=== PATIENT | male | born 1960 | race Caucasian/White ===

== ENCOUNTER → 2020-04-07 08:17 | Outpatient (BNVA) | payer MEDICARE, MEDICAID, SELFPAY | PROVIDERS: PCP Physician Assistant; Visit Provider Family Medicine Adult Medicine | DX: M54.16 Radiculopathy, lumbar region (principal) | CPT/HCPCS: 99212 ==

== ENCOUNTER 2020-04-18 16:17 | Outpatient (REF) | payer OTHER, SELFPAY | END 2020-04-18 16:18 | disposition home or self-care (01) | LOC: HO.LAB 16:17 | PROVIDERS: Visit Provider Internal Medicine | DX: Z20.828 Contact with and (suspected) exposure to other viral communicable diseases (principal) | CPT/HCPCS: 36415; C9803; U0003 ==

== ENCOUNTER → 2020-05-17 13:29 | Outpatient (BNVA) | payer OTHER, MEDICARE, SELFPAY | PROVIDERS: PCP Physician Assistant; Visit Provider Family Medicine Adult Medicine | DX: M54.16 Radiculopathy, lumbar region (principal); Z79.899 Other long term (current) drug therapy | CPT/HCPCS: 99212 ==

== ENCOUNTER 2020-06-14 15:04 | Outpatient (REF) | payer OTHER, SELFPAY ==
[2020-06-14 16:39] LABS: Estimated Average Glucose 103 mg/dL; Hemoglobin A1c % 5.2 %
[2020-06-14 16:54] LABS: Alanine Aminotransferase 8 U/L (0-40); Alkaline Phosphatase 59 U/L (39-117); Anion Gap 14 (12-20); Aspartate Amino Transferase 11 U/L (5-37); Bilirubin Total 0.6 mg/dL (0.0-1.0); Blood Urea Nitrogen 18 mg/dL (9-16); Calcium 8.4 mg/dL (8.4-10.2); Carbon Dioxide 25 mmol/L (22-29); Chloride 108 mmol/L (96-108); Cholesterol 120 mg/dL; Estimated Glomerular Filt Rate > 60; Glucose Fasting 77 mg/dL (60-99); HDL Cholesterol 37 mg/dL; LDL Cholesterol Calculated 67 mg/dl; Potassium 4.6 mmol/L (3.3-5.1); Sodium 142 mmol/L (135-145); Total Protein 6.6 g/dL (6.5-8.0); Triglycerides 84 mg/dL
[2020-06-14 16:56] LABS: Amphetamine Screen Urine Not Detected (Not Detect); Barbiturates, Urine Not Detected (Not Detect); Benzodiazepines Screen Urine Not Detected (Not Detect); Cannabinoid Screen Urine POSITIVE (Not Detect); Cocaine Screen Urine Not Detected (Not Detect); Opiate Screen Urine Not Detected (Not Detect); Phencyclidine Screen Urine Not Detected (Not Detect)
[2020-06-14 17:16] LABS: Prostate Specific Antigen Scr 0.24 ng/mL (<0.05-4.0); TSH reflex Free T4 0.71 uIU/mL (0.32-4.0)
== END 2020-06-14 15:05 | disposition home or self-care (01) ==
LOC: HO.HMGCLDS 15:04
PROVIDERS: PCP Physician Assistant; Visit Provider Physician Assistant
DX: E78.5 Hyperlipidemia, unspecified (principal); F11.20 Opioid dependence, uncomplicated; E66.9 Obesity, unspecified; Z68.32 Body mass index [BMI] 32.0-32.9, adult; N40.0 Benign prostatic hyperplasia without lower urinary tract symptoms; Z12.5 Encounter for screening for malignant neoplasm of prostate
CPT/HCPCS: 80053; 80061; 80307; 83036; 84153; 84443

== ENCOUNTER → 2020-06-28 13:54 | Outpatient (BNVA) | payer OTHER, SELFPAY | PROVIDERS: PCP Physician Assistant; Visit Provider Family Medicine Adult Medicine | DX: M54.16 Radiculopathy, lumbar region (principal); Z79.899 Other long term (current) drug therapy | CPT/HCPCS: 99212 ==

== ENCOUNTER → 2020-07-26 14:33 | Outpatient (BNVA) | payer OTHER, SELFPAY | PROVIDERS: PCP Physician Assistant; Visit Provider Family Medicine Adult Medicine | DX: M54.16 Radiculopathy, lumbar region (principal) | CPT/HCPCS: 99212 ==

== ENCOUNTER → 2020-08-23 09:33 | Outpatient (BNVA) | payer OTHER, SELFPAY | PROVIDERS: PCP Physician Assistant; Visit Provider Family Medicine Adult Medicine | DX: M54.16 Radiculopathy, lumbar region (principal) | CPT/HCPCS: 99212 ==

== ENCOUNTER → 2020-09-20 09:31 | Outpatient (BNVA) | payer OTHER, SELFPAY | PROVIDERS: PCP Physician Assistant; Visit Provider Nurse Practitioner Family | DX: M54.16 Radiculopathy, lumbar region (principal) | CPT/HCPCS: 99212 ==

== ENCOUNTER 2020-09-22 09:11 | Outpatient (REF) | payer OTHER, SELFPAY ==
[2020-09-22 10:47] LABS: Glucose Urine UA NEG (NEG); Leukocyte Esterase Urine NEG (NEG); Nitrite Urine NEG (NEG); PH 5.5 (5.0-8.0); Specific Gravity - Urine >= 1.030 (1.005-1.025); Urine Blood NEG (NEG); Urine Ketones NEG (NEG); Urine Protein 1+ MG/DL (NEG-TRACE)
[2020-09-22 10:51] LABS: Appearance Urine HAZY; Color Urine YELLOW
[2020-09-22 11:03] LABS: WBC Urine 0-2 /HPF (0-4)
[2020-09-22 11:04] LABS: Hyaline Casts Urine 0-2 /LPF; Mucus Urine 3+ /LPF; RBC Urine 0-2 /HPF (0)
== END 2020-09-22 09:12 | disposition home or self-care (01) ==
LOC: HO.LAB 09:11
PROVIDERS: PCP Physician Assistant; Visit Provider Physician Assistant
DX: R30.0 Dysuria (principal); N40.0 Benign prostatic hyperplasia without lower urinary tract symptoms
CPT/HCPCS: 81001

== ENCOUNTER → 2020-10-18 14:32 | Outpatient (BNVA) | payer OTHER, SELFPAY | PROVIDERS: PCP Physician Assistant; Visit Provider Family Medicine Adult Medicine | DX: M54.16 Radiculopathy, lumbar region (principal) | CPT/HCPCS: 99212 ==

== ENCOUNTER → 2020-11-15 14:25 | Outpatient (BNVA) | payer OTHER, SELFPAY | PROVIDERS: PCP Physician Assistant; Visit Provider Family Medicine Adult Medicine | DX: M54.16 Radiculopathy, lumbar region (principal) | CPT/HCPCS: 99212 ==

== ENCOUNTER → 2020-12-16 08:20 | Outpatient (BNVA) | payer OTHER, SELFPAY | PROVIDERS: PCP Physician Assistant; Visit Provider Nurse Practitioner Family | DX: M54.16 Radiculopathy, lumbar region (principal) | CPT/HCPCS: 99212 ==

== ENCOUNTER → 2021-01-17 09:47 | Outpatient (BNVA) | payer OTHER, SELFPAY | PROVIDERS: PCP Physician Assistant; Visit Provider Family Medicine Adult Medicine | DX: Z51.81 Encounter for therapeutic drug level monitoring (principal); M54.16 Radiculopathy, lumbar region; M47.816 Spondylosis without myelopathy or radiculopathy, lumbar region; Z96.652 Presence of left artificial knee joint | CPT/HCPCS: Q3014 ==

== ENCOUNTER → 2021-01-18 15:17 | Outpatient (BNVA) | payer OTHER, SELFPAY | PROVIDERS: PCP Physician Assistant; Visit Provider Urology | DX: N40.1 Benign prostatic hyperplasia with lower urinary tract symptoms (principal); R35.1 Nocturia | CPT/HCPCS: 51798; 99202 ==

== ENCOUNTER → 2021-02-08 14:57 | Outpatient (BNVA) | payer OTHER, SELFPAY | PROVIDERS: PCP Physician Assistant; Visit Provider Anesthesiology | DX: M54.16 Radiculopathy, lumbar region (principal); M47.816 Spondylosis without myelopathy or radiculopathy, lumbar region | CPT/HCPCS: 99212 ==

== ENCOUNTER → 2021-02-14 09:54 | Outpatient (BNVA) | payer OTHER, SELFPAY | PROVIDERS: PCP Physician Assistant; Visit Provider Family Medicine Adult Medicine | DX: Z51.81 Encounter for therapeutic drug level monitoring (principal); M54.16 Radiculopathy, lumbar region; M47.816 Spondylosis without myelopathy or radiculopathy, lumbar region; Z96.652 Presence of left artificial knee joint | CPT/HCPCS: Q3014 ==

== ENCOUNTER 2021-03-02 07:38 | Outpatient (REF) | payer OTHER, SELFPAY ==
--- NOTE | ~2021-03-02 | MR_ITS ---
EXAMINATION: MR LUMBAR SPINE WITHOUT CONTRAST CLINICAL INFORMATION: Spondylosis without myelopathy or radiculopathy. COMPARISON: None TECHNIQUE: MRI of the lumbar spine was obtained using routine sequences without contrast. FINDINGS: The lumbar vertebral bodies maintain normal heights. There is mild retrolisthesis of L3 on L4 and mild anterolisthesis of L5 on S1. No moderate or severe disc height loss is seen. The distal spinal cord appears normal. The conus medullaris terminates normally at the L1 level. The visualized paraspinal muscles and intra-abdominal and pelvic contents are within normal limits. SPINAL LEVELS: L1-L2: No posterior disc abnormality. No spinal canal or neural foraminal stenosis. L2-L3: Mild disc bulging. Mild facet arthropathy. Mild narrowing of the left neural foramen. No spinal canal stenosis. L3-L4: Disc bulging with moderate facet arthropathy. No spinal canal or neural foraminal stenosis. L4-L5: Disc bulging with severe facet arthropathy and ligamentum flavum infolding resulting in mild narrowing of the left subarticular zone. No significant spinal canal stenosis. Mild right neural foraminal stenosis. L5-S1: Disc bulging with severe facet arthropathy. Small right-sided synovial facet cyst with encroachment on the right subarticular zone. Right foraminal annular fissuring. No spinal canal stenosis. Mild bilateral neural foraminal stenosis. MR/MR lumbar spine wo con IMPRESSION: Multilevel degenerative spondylotic changes without significant narrowing of the spinal canal. Severe facet arthropathy is seen at L4-L5 and L5-S1. No definite nerve root compression is seen.
== END 2021-03-02 07:39 | disposition home or self-care (01) ==
LOC: HO.MRI 07:38
PROVIDERS: PCP Physician Assistant; Visit Provider Anesthesiology
DX: M47.816 Spondylosis without myelopathy or radiculopathy, lumbar region (principal)
CPT/HCPCS: 72148

== ENCOUNTER → 2021-03-17 14:58 | Outpatient (BNVA) | payer OTHER, SELFPAY | PROVIDERS: PCP Physician Assistant; Visit Provider Urology | DX: R35.1 Nocturia (principal) | CPT/HCPCS: 52000; 99212 ==

== ENCOUNTER → 2021-03-21 09:48 | Outpatient (BNVA) | payer OTHER, SELFPAY | PROVIDERS: PCP Physician Assistant; Visit Provider Family Medicine Adult Medicine | DX: M54.16 Radiculopathy, lumbar region (principal); M47.816 Spondylosis without myelopathy or radiculopathy, lumbar region; Z96.652 Presence of left artificial knee joint ==

== ENCOUNTER → 2021-04-05 15:49 | Outpatient (BNVA) | payer OTHER, SELFPAY | PROVIDERS: PCP Physician Assistant; Visit Provider Anesthesiology | DX: M54.16 Radiculopathy, lumbar region (principal); M47.816 Spondylosis without myelopathy or radiculopathy, lumbar region | CPT/HCPCS: 99212 ==

== ENCOUNTER 2021-04-20 08:08 | Outpatient (REF) | payer OTHER, SELFPAY ==
--- NOTE | ~2021-04-20 | XR_ITS ---
EXAMINATION: XR BILATERAL HIPS WITH AP PELVIS CLINICAL INFORMATION: Pain in the right hip COMPARISON: 12/24/2018 TECHNIQUE: AP and frog-leg lateral views of each hip and an AP view of the pelvis. FINDINGS: No fracture or dislocation. The hips are well aligned. Mild degenerative changes on the right with narrowing and sclerosis. This is similar to prior. The pelvic rim is intact. The sacroiliac joints and pubic symphysis are intact. Degenerative changes at the lower lumbar spine. XR/XR hip BI w PEL1V IMPRESSION: Mild degenerative changes of the right hip.
== END 2021-04-20 08:09 | disposition home or self-care (01) ==
LOC: HO.XRAY 08:08
PROVIDERS: PCP Physician Assistant; Visit Provider Nurse Practitioner Family
DX: M54.16 Radiculopathy, lumbar region (principal); M47.816 Spondylosis without myelopathy or radiculopathy, lumbar region; M25.551 Pain in right hip; M25.552 Pain in left hip; M53.3 Sacrococcygeal disorders, not elsewhere classified; Z79.899 Other long term (current) drug therapy
CPT/HCPCS: 73521; 99212

== ENCOUNTER 2021-05-11 15:05 | Outpatient (REF) | payer OTHER, SELFPAY ==
[2021-05-11 15:28] LABS: Hematocrit 39.3 % (42.0-52.0); Hemoglobin 12.5 g/dl (14.0-18.0); Mean Corpuscular HGB Conc 31.8 g/dl (31.0-36.0); Mean Corpuscular Hemoglobin 29.5 pg (27.0-33.0); Mean Corpuscular Volume 92.7 fL (80.0-98.0); Mean Platelet Volume 9.1 fL (9.4-12.4); Platelet Count 262 X10*3/uL (160-400); Red Blood Count 4.24 X10*6/uL (4.60-5.80); Red Cell Distribution Width 13.2 % (11.0-16.0); White Blood Count 8.1 X10*3/uL (4.8-10.8)
[2021-05-11 16:09] LABS: Estimated Average Glucose 105 mg/dL; Hemoglobin A1c % 5.3 %
[2021-05-11 16:22] LABS: Alanine Aminotransferase 15 U/L (0-40); Albumin Level 3.9 g/dL (3.5-5.0); Alkaline Phosphatase 62 U/L (39-117); Anion Gap 9 (12-20); Aspartate Amino Transferase 13 U/L (5-37); Bilirubin Total 0.4 mg/dL (0.0-1.0); Blood Urea Nitrogen 14 mg/dL (9-16); Calcium 9.1 mg/dL (8.4-10.2); Carbon Dioxide 26 mmol/L (22-29); Chloride 106 mmol/L (96-108); Cholesterol 134 mg/dL; Estimated Glomerular Filt Rate > 60; Glucose Fasting 71 mg/dL (60-99); HDL Cholesterol 38 mg/dL; LDL Cholesterol Calculated 80 mg/dl; Potassium 4.4 mmol/L (3.3-5.1); Sodium 137 mmol/L (135-145); Total Protein 6.7 g/dL (6.5-8.0); Triglycerides 81 mg/dL
[2021-05-11 16:39] LABS: TSH reflex Free T4 1.46 uIU/mL (0.32-4.0)
== END 2021-05-11 15:06 | disposition home or self-care (01) ==
LOC: HO.LAB 15:05
PROVIDERS: PCP Physician Assistant; Visit Provider Physician Assistant
DX: E78.1 Pure hyperglyceridemia (principal)
CPT/HCPCS: 36415; 80053; 80061; 83036; 84443; 85027

== ENCOUNTER → 2021-05-18 13:26 | Outpatient (REF) | payer OTHER, SELFPAY ==
--- NOTE | 2021-05-18 14:37 | ECG_ITS ---
Test Reason : opioid dependency Blood Pressure : / mmHG Vent. Rate : 083 BPM Atrial Rate : 083 BPM P-R Int : 146 ms QRS Dur : 088 ms QT Int : 352 ms P-R-T Axes : 010 029 060 degrees QTc Int : 413 ms Normal sinus rhythm Normal ECG When compared with ECG of 05-NOV-2017 13:16, No significant change was found Referred By: Chuyita Vides Electronically Signed By:VARSHA BRADFORD
== END ==
LOC: HO.CARD 13:26
PROVIDERS: PCP Physician Assistant; Visit Provider Nurse Practitioner Family
DX: F11.20 Opioid dependence, uncomplicated (principal); Z79.899 Other long term (current) drug therapy
CPT/HCPCS: 93005; 99212

== ENCOUNTER → 2021-06-15 13:33 | Outpatient (BNVA) | payer OTHER, SELFPAY | PROVIDERS: PCP Physician Assistant; Visit Provider Nurse Practitioner Family | DX: Z51.81 Encounter for therapeutic drug level monitoring (principal); F11.20 Opioid dependence, uncomplicated; M53.3 Sacrococcygeal disorders, not elsewhere classified; M25.551 Pain in right hip; M25.552 Pain in left hip; M47.816 Spondylosis without myelopathy or radiculopathy, lumbar region; M54.16 Radiculopathy, lumbar region; M96.1 Postlaminectomy syndrome, not elsewhere classified | CPT/HCPCS: 99212 ==

== ENCOUNTER 2021-06-28 06:09 | Outpatient (REF) | payer OTHER, SELFPAY ==
--- NOTE | ~2021-06-28 | FL_ITS ---
EXAMINATION: XR FLUOROSCOPY WITH IMAGES CLINICAL INFORMATION: Right hip pain. COMPARISON: None. TECHNIQUE: Fluoroscopy performed by Chuyita Vides. Fluoroscopy time: 0.5 minutes DAP: 2.8 Gycm2 Images: 2 FINDINGS: Images demonstrate needle placement and contrast injection of the right hip joint. FL/FL guidance in treatment room IMPRESSION: Fluoroscopy guidance for pain management procedure.
== END 2021-06-28 06:10 | disposition home or self-care (01) ==
LOC: HO.RADIR 06:09
PROVIDERS: Visit Provider Internal Medicine
DX: M25.551 Pain in right hip (principal); M25.552 Pain in left hip; Z87.891 Personal history of nicotine dependence
CPT/HCPCS: 20610; J1040; J3300; Q9967

== ENCOUNTER → 2021-07-14 13:33 | Outpatient (BNVA) | payer OTHER, SELFPAY | PROVIDERS: PCP Physician Assistant; Visit Provider Nurse Practitioner Family | DX: M53.3 Sacrococcygeal disorders, not elsewhere classified (principal); M25.551 Pain in right hip; M25.552 Pain in left hip; M47.816 Spondylosis without myelopathy or radiculopathy, lumbar region; M96.1 Postlaminectomy syndrome, not elsewhere classified; Z79.899 Other long term (current) drug therapy | CPT/HCPCS: 99212 ==

== ENCOUNTER → 2021-08-11 08:44 | Outpatient (BNVA) | payer OTHER, SELFPAY | PROVIDERS: PCP Physician Assistant; Visit Provider Nurse Practitioner Family | DX: M53.3 Sacrococcygeal disorders, not elsewhere classified (principal); M25.551 Pain in right hip; M25.552 Pain in left hip; M47.26 Other spondylosis with radiculopathy, lumbar region; M96.1 Postlaminectomy syndrome, not elsewhere classified; Z79.891 Long term (current) use of opiate analgesic | CPT/HCPCS: 99212 ==

== ENCOUNTER → 2021-09-12 11:22 | Outpatient (BNVA) | payer OTHER, SELFPAY | PROVIDERS: PCP Physician Assistant; Visit Provider Anesthesiology | DX: Z51.81 Encounter for therapeutic drug level monitoring (principal); Z79.899 Other long term (current) drug therapy | CPT/HCPCS: 99211 ==

== ENCOUNTER → 2021-09-15 15:42 | Outpatient (BNVA) | payer OTHER, SELFPAY | PROVIDERS: PCP Physician Assistant; Visit Provider Urology | DX: N40.1 Benign prostatic hyperplasia with lower urinary tract symptoms (principal); R33.8 Other retention of urine | CPT/HCPCS: 51798; 99212 ==

== ENCOUNTER → 2021-10-10 15:31 | Outpatient (BNVA) | payer OTHER, SELFPAY | PROVIDERS: PCP Physician Assistant; Visit Provider Nurse Practitioner Family | DX: Z51.81 Encounter for therapeutic drug level monitoring (principal); F11.20 Opioid dependence, uncomplicated; M47.816 Spondylosis without myelopathy or radiculopathy, lumbar region; M96.1 Postlaminectomy syndrome, not elsewhere classified; M54.16 Radiculopathy, lumbar region; M53.3 Sacrococcygeal disorders, not elsewhere classified; M25.551 Pain in right hip; M25.552 Pain in left hip | CPT/HCPCS: 99212 ==

== ENCOUNTER → 2021-11-14 15:26 | Outpatient (BNVA) | payer OTHER, SELFPAY | PROVIDERS: PCP Physician Assistant; Visit Provider Nurse Practitioner Family | DX: M47.816 Spondylosis without myelopathy or radiculopathy, lumbar region (principal); M96.1 Postlaminectomy syndrome, not elsewhere classified; M54.16 Radiculopathy, lumbar region; M53.3 Sacrococcygeal disorders, not elsewhere classified; M25.551 Pain in right hip; M25.552 Pain in left hip; Z79.891 Long term (current) use of opiate analgesic | CPT/HCPCS: 99212 ==

== ENCOUNTER 2021-12-12 15:16 | Outpatient (REF) | payer OTHER, SELFPAY ==
--- NOTE | ~2021-12-12 | XR_ITS ---
EXAMINATION: XR LUMBOSACRAL SPINE INCLUDING OBLIQUES, FLEXION, AND EXTENSION CLINICAL INFORMATION: Spondylosis without myelopathy or radiculopathy COMPARISON: None TECHNIQUE: Bilateral oblique AP and lateral views of the lumbar spine with an additional coned down lateral spot view of the lumbosacral junction. Lateral views were obtained in flexion, extension, as well as neutral position. FINDINGS: 5 non-rib bearing lumbar type vertebral bodies are seen. Minimal grade 1 anterolisthesis of L4 on L5 and L5 on S1, unchanged with flexion or extension. Vertebral body heights are maintained. There is multilevel endplate sclerosis and anterior osteophytosis particularly in the superior endplates of T11-L2. No compression fracture seen. Posterior elements are intact. Moderate to severe lower lumbar facet arthropathy most notable at L5-S1. XR/XR lumbar spine 6V w bending IMPRESSION: Multilevel degenerative changes as described above. Minimal grade 1 anterolisthesis at L4-L5 and L5-S1 is unchanged with flexion or extension.
== END 2021-12-12 15:17 | disposition home or self-care (01) ==
LOC: HO.XRAY 15:16
PROVIDERS: PCP Physician Assistant; Visit Provider Nurse Practitioner Family
DX: M47.816 Spondylosis without myelopathy or radiculopathy, lumbar region (principal); M96.1 Postlaminectomy syndrome, not elsewhere classified; M53.3 Sacrococcygeal disorders, not elsewhere classified; M51.36 Other intervertebral disc degeneration, lumbar region; M25.551 Pain in right hip; M25.552 Pain in left hip; Z79.891 Long term (current) use of opiate analgesic
CPT/HCPCS: 72114; 99212

== ENCOUNTER → 2022-01-09 14:48 | Outpatient (BNVA) | payer OTHER, SELFPAY | PROVIDERS: PCP Physician Assistant; Visit Provider Nurse Practitioner Family | DX: Z51.81 Encounter for therapeutic drug level monitoring (principal); F11.20 Opioid dependence, uncomplicated | CPT/HCPCS: 99211 ==

== ENCOUNTER → 2022-02-07 16:02 | Outpatient (BNVA) | payer OTHER, SELFPAY | PROVIDERS: PCP Physician Assistant; Visit Provider Anesthesiology | DX: Z51.81 Encounter for therapeutic drug level monitoring (principal); M47.816 Spondylosis without myelopathy or radiculopathy, lumbar region; M53.3 Sacrococcygeal disorders, not elsewhere classified; M51.36 Other intervertebral disc degeneration, lumbar region; M25.551 Pain in right hip; M25.552 Pain in left hip; Z79.891 Long term (current) use of opiate analgesic | CPT/HCPCS: 99212 ==

== ENCOUNTER 2022-03-02 13:57 | Outpatient (REF) | payer OTHER, SELFPAY ==
--- NOTE | ~2022-03-02 | XR_ITS ---
EXAMINATION: XR ABDOMEN KUB CLINICAL INDICATION: Poor urinary stream COMPARISON: None TECHNIQUE: AP view of the abdomen. FINDINGS: No stone is seen. The bowel gas pattern is normal. There are degenerative changes of the spine and hip joints. XR/XR KUB IMPRESSION: No stone seen.
[2022-03-02 15:33] LABS: Appearance Urine Clear; Color Urine Dark Yellow; Glucose Urine UA Negative (Negative); Leukocyte Esterase Urine Negative (Negative); Nitrite Urine Negative (Negative); PH 5.5 (5.0-9.0); Specific Gravity - Urine 1.025 (1.005-1.025); Urine Blood Negative (Negative); Urine Ketones Trace mg/dL (Negative); Urine Protein Trace mg/dL (Neg-Trace)
[2022-03-02 16:31] LABS: Anion Gap 13 (12-20); Blood Urea Nitrogen 15 mg/dL (9-16); Carbon Dioxide 24 mmol/L (22-29); Chloride 107 mmol/L (96-108); Estimated Glomerular Filt Rate > 60; Glucose Random 81 mg/dL (60-115); Potassium 4.5 mmol/L (3.3-5.1); Prostate Specific Antigen Scr 0.25 ng/mL (<0.05-4.0); Sodium 139 mmol/L (135-145)
[2022-03-10 23:27] LABS: Testosterone, Free 13.7 pg/mL (35.0-155.0); Testosterone, Total 123 ng/dL (250-1100)
== END 2022-03-02 13:58 | disposition home or self-care (01) ==
LOC: HO.LAB 13:57
PROVIDERS: Urology; PCP Physician Assistant; Visit Provider Physician Assistant
DX: Z12.5 Encounter for screening for malignant neoplasm of prostate (principal); N40.0 Benign prostatic hyperplasia without lower urinary tract symptoms; R39.12 Poor urinary stream; R30.0 Dysuria
CPT/HCPCS: 36415; 74018; 80048; 81003; 84153; 84402; 84403

== ENCOUNTER → 2022-03-07 13:34 | Outpatient (BNVA) | payer OTHER, SELFPAY | PROVIDERS: PCP Physician Assistant; Visit Provider Anesthesiology | DX: Z51.81 Encounter for therapeutic drug level monitoring (principal); F11.20 Opioid dependence, uncomplicated | CPT/HCPCS: 99211 ==

== ENCOUNTER 2022-03-27 13:58 | Outpatient (REF) | payer OTHER, SELFPAY ==
--- NOTE | 2022-03-27 15:22 | PFT_ITS ---
INDICATION: Shortness of breath. SPIROMETRY: FEV1 to FVC 65% with an FEV1 of 3 L, which is 88% predicted and FVC of 4.61 L, which is 102% predicted. No significant response to bronchodilators noted. Maximum voluntary ventilation 85% predicted. To note the [id number] only 52% predicted. LUNG VOLUMES: Total lung capacity 100% predicted with residual volume 84% predicted, and an expiratory reserve volume of 44% predicted. DIFFUSION CAPACITY: DLCO 59% predicted. COMPARISONS: None. INTERPRETATION: There is an obstructive ventilatory defect consistent with mild COPD. No significant response to bronchodilators noted. There is also evidence of small airway disease. The maximum voluntary ventilation is within normal limits. Lung volumes are within normal limits except for decrease in the expiratory reserve volume secondary to an elevated BMI. The patient also has what appears to be a moderate diffusion impairment. Need to consider underlying parenchymal lung conditions such as emphysema and/or pulmonary vascular conditions. Should also correct for hemoglobin. Clinical correlation warranted. MD LORIE Sands/MODL / [id number]
== END 2022-03-27 13:59 | disposition home or self-care (01) ==
LOC: HO.RESP 13:58
PROVIDERS: PCP Physician Assistant; Visit Provider Physician Assistant
DX: R06.02 Shortness of breath (principal)
CPT/HCPCS: 94060; 94727; 94729

== ENCOUNTER → 2022-04-12 10:59 | Outpatient (BNVA) | payer OTHER, SELFPAY | PROVIDERS: PCP Physician Assistant; Visit Provider Anesthesiology | DX: Z13.89 Encounter for screening for other disorder (principal) ==

== ENCOUNTER 2022-05-09 15:26 | Outpatient (REF) | payer OTHER, SELFPAY ==
--- NOTE | ~2022-05-09 | XR_ITS ---
EXAMINATION: XR CHEST CLINICAL INFORMATION: Personal history of nicotine dependence. COMPARISON: 01/13/2019 TECHNIQUE: 2 views of the chest were obtained. FINDINGS: The lungs are well expanded. There is no focal consolidation, edema, or effusion. No pneumothorax. The cardiomediastinal silhouette is within normal limits. No acute osseous abnormality. Degenerative changes of the spine. XR/XR chest 2V IMPRESSION: Clear lungs.
== END 2022-05-09 15:27 | disposition home or self-care (01) ==
LOC: HO.XRAY 15:26
PROVIDERS: PCP Physician Assistant; Visit Provider Internal Medicine
DX: J44.9 Chronic obstructive pulmonary disease, unspecified (principal); Z87.891 Personal history of nicotine dependence
CPT/HCPCS: 71046; 99202

== ENCOUNTER 2022-06-12 15:37 | Outpatient (REF) | payer OTHER, SELFPAY ==
--- NOTE | ~2022-06-12 | XR_ITS ---
EXAMINATION: XR HIP, RIGHT CLINICAL INFORMATION: M25.551 - Pain in right hip COMPARISON: Lumbar spine radiographs 12/12/2021, pelvis and bilateral hip radiographs 04/20/2021. TECHNIQUE: AP view of the pelvis is performed along with AP and frog-lateral projections of the right hip. FINDINGS: There are multilevel degenerative changes lumbar spine similar to previous lumbar radiographs. The SI joints are unremarkable. The bony pelvis shows no fracture or destructive process. Right hip shows prominent osteoarthritic changes greatest superior hip joint, increased since prior imaging 04/20/2021. There are lesser osteoarthritic changes superior left hip, slightly increased since prior exam 2021. XR/XR hip RT w PEL1V IMPRESSION: 1. Prominent right hip osteoarthritis, increased from prior exam 04/20/2021. 2. Osteoarthritis lesser severity left hip, slightly increased. 3. Multilevel degenerative changes lumbar spine.
== END 2022-06-12 15:38 | disposition home or self-care (01) ==
LOC: HO.XRAY 15:37
PROVIDERS: PCP Physician Assistant; Visit Provider Nurse Practitioner Family
DX: M25.551 Pain in right hip (principal)
CPT/HCPCS: 73502

== ENCOUNTER → 2022-07-09 14:56 | Outpatient (BNVA) | payer OTHER, SELFPAY | PROVIDERS: PCP Physician Assistant; Visit Provider Internal Medicine | DX: J44.9 Chronic obstructive pulmonary disease, unspecified (principal); Z87.891 Personal history of nicotine dependence | CPT/HCPCS: 99212 ==

== ENCOUNTER → 2022-07-19 15:02 | Outpatient (BNVA) | payer OTHER, MEDICAID, SELFPAY | PROVIDERS: PCP Physician Assistant; Visit Provider Physician Assistant | DX: M16.11 Unilateral primary osteoarthritis, right hip (principal) | CPT/HCPCS: 99202 ==

== ENCOUNTER 2022-07-26 16:00 | Outpatient (RCR) | payer OTHER, SELFPAY ==
--- NOTE | 2022-07-11 08:24 | MHC.PT.EP ---
[facility] [place] [facility] [place] [facility] [place] [facility] [address] [place] [address] [phone] F: [phone] F: [phone] F: [phone] F: [phone] Physical Therapy Plan of Care Date of Evaluation: Date of Surgery: Diagnosis: Pain in right hip Assessment: Pt is a 62yo M who presents to PT with R hip pain s/p fall ~1/2 year ago. Pt presents to PT with current impairments in pain, decreased hip ROM, decreased hip/glute strength, decreased muscle length, decreased balance, and impaired gait. He is limited functionally by prolonged standing, walking, bending, prolonged sitting, laying on R side, and stair navigation. He is a good candidate for skilled PT to address current impairments to facilitate return to PLOF. He is recommended to be seen 2x/week for 4 weeks and will be reassessed at that time. Frequency and Duration: The patient will be seen 2x/week for 4 weeks Short Term Goals: Pt will be I with HEP to promote self management of symptoms Pt will improve hip ABD strength by at least 1/2 grade Jail Goals: Pt will tolerate standing and walking > 30 min with pain < 4/10 in R hip and improved gait mechanics Pt will demonstrate improvements in function as evidenced by statistically significant improvement in LEFI outcome measure Treatment Plan: Modalities to reduce pain, spasms and effusion. Manual therapy to restore motion and function. Therapeutic exercise to improve strength and flexibility. Neuromuscular re-education for posture and balance. Therapeutic activities to return to functional activities of daily living. Electronically signed by: Frida Wu, PT, DPT Please sign and return to therapist. Thank you for your referral.
--- NOTE | 2022-09-04 15:29 | MHC.PT.DC ---
[facility] [place] Office [place] Office [place] [facility] [address] [place] [address] [phone] F: [phone] F: [phone] F: [phone] F: [phone] Physical Therapy Discharge Report Diagnosis: Pain in right hip Date of Surgery: Date of Evaluation: 07/10/22 Date of Discharge: 09/04/22 Treatments to Date: 4 Cancellations to Date: 2 No Shows to Date: 1 Discharge Status: Patient Elected to Stop Discharge Summary: Pt was seen for PT from 07/10/22-07/26/22. His last attended appointment was 07/26/22. He cancelled his last scheduled appointment. Pt is being D/C from skilled PT as he has not attended or called to reschedule in >30 days. Pt current level of function unknown at this time. Electronically signed by: Frida Wu, PT, DPT Please sign and return to therapist. Thank you for your referral.
== END 2022-09-04 15:29 | disposition home or self-care (01) ==
LOC: HO.PT 16:00
PROVIDERS: PCP Physician Assistant; Visit Provider Nurse Practitioner Family
DX: M25.551 Pain in right hip (principal)
CPT/HCPCS: 97110; 97162; 97530

== ENCOUNTER 2022-07-27 17:51 | Emergency (ER) | payer OTHER, MEDICAID, SELFPAY ==
--- NOTE | ~2022-07-27 | CT_ITS ---
EXAMINATION: CT ABDOMEN AND PELVIS WITH CONTRAST CLINICAL INFORMATION: Epigastric pain. COMPARISON: CT scan abdomen pelvis 12/06/2017 TECHNIQUE: Multidetector volumetric images were obtained from the superior aspect of the liver through the pubic symphysis following administration 85 mL of Omnipaque 350 intravenous contrast. Sagittal and coronal reformatted images were obtained on the technologist's workstation. Oral contrast: No This CT examination was performed using dose optimization techniques as appropriate, variously including the following: *Automated exposure control *Adjustment of mA and/or kV according to patient size (this includes techniques or standardized protocols for targeted exams where dose is matched to indication/reason for exam; i.e. extremities or head) *Use of iterative reconstruction technique DLP: 732 mGy-cm FINDINGS: LUNG BASES: The visualized lung bases are unremarkable. LIVER, GALLBLADDER, AND BILIARY TREE: The liver is normal in size, shape, and attenuation. No focal hepatic lesion or biliary ductal dilatation is present. The gallbladder is unremarkable with no evidence of radiopaque gallstones, gallbladder wall thickening, or obvious pericholecystic inflammatory changes. PANCREAS: Unremarkable. SPLEEN: Unremarkable. ADRENAL GLANDS: Unremarkable. KIDNEYS AND URETERS: The kidneys are normal in size, shape, and attenuation. No hydronephrosis, hydroureter, or calculi seen. No perinephric stranding. Small cortical cyst upper pole left kidney. Small bilateral parapelvic cysts. No follow-up imaging is recommended for simple renal cyst. BLADDER: Unremarkable. GASTROINTESTINAL TRACT: There are scattered diverticula of the sigmoid and descending colon. There is no diverticulitis. There is no bowel wall thickening /edema. There is no bowel obstruction. There is a moderate volume of stool in the colon. The appendix is normal . The small bowel loops are unremarkable. The stomach is normal. There is no hiatal hernia. ABDOMINAL WALL: No significant hernia is appreciated. LYMPH NODES: Normal. VASCULAR: Unremarkable. PELVIC VISCERA: Unremarkable. OSSEOUS STRUCTURES: Degenerative spondylosis of the spine. Degenerative joint disease of the hips, right greater than left. CT/CT abdomen pelvis w IV con IMPRESSION: No acute abnormality CT scan abdomen pelvis. Fleischner guidelines were followed.
[2022-07-27 17:57] VITALS: BP 150/85; BP 160/100; PULSE 81; PULSE 95; RESP 20; TEMP 36.3; O2SAT 95; O2SAT 97; BMI 31.0
--- NOTE | 2022-07-27 17:58 | ED.GENADULT ---
HPI - General Adult General Chief complaint: Abdominal Pain <FLAQUITA Leiva - Last Filed: 07/27/22 18:02> Stated complaint: Upper abd pain, vomiting, diarrhea per EMS <FLAQUITA Leiva - Last Filed: 07/27/22 18:02> Time Seen by Provider: 07/27/22 19:10 <FLAQUITA Leiva - Last Filed: 07/27/22 18:02> Source: patient and EMS <Sruthi Godoman MD - Last Filed: 07/28/22 00:33> Mode of arrival: EMS <Sruthi Goodman MD - Last Filed: 07/28/22 00:33> Limitations: no limitations <Sruthi Goodman MD - Last Filed: 07/28/22 00:33> History of Present Illness HPI narrative: Patient comes to the emergency room complaining of abdominal pain. Patient states that he has been having multiple orthopedic issues and yesterday took approximately 3500 mg of Tylenol. Denies taking ibuprofen. Patient states that this morning patient woke up with epigastric pain, nausea vomiting and diarrhea. Patient states the pain is constant, nonradiating. <Sruthi Goodman MD - Last Filed: 07/28/22 00:33> Related Data Home medications: Previous Rx's Medication Instructions Recorded naloxone 4 mg/actuation nasal 4 mg intranasal Q2M PRN opioid 02/15/21 spray (Narcan) overdose 1 day #2 ea albuterol sulfate 90 mcg/actuation 1 inh inhalation QID PRN shortness 02/20/22 aerosol inhaler of breath or wheezing 30 days #8.5 grams buprenorphine HCl 900 mcg buccal 900 mcg buccal Q12H pain 30 days 04/20/22 film (Belbuca) #60 ea bupropion HCl 150 mg 24 hr tablet, 150 mg PO QAM #90 tabs 05/11/22 extended release fluoxetine 40 mg capsule 40 mg PO DAILY #90 caps 05/11/22 acetaminophen 500 mg tablet 1,000 mg PO Q6H PRN fever #50 tabs 06/12/22 (Tylenol Extra Strength) aspirin 81 mg tablet,delayed 81 mg PO DAILY #90 tabs 06/17/22 release alfuzosin 10 mg tablet,extended 10 mg PO DAILY 30 days #30 tabs 06/30/22 release 24 hr quetiapine 200 mg tablet (Seroquel) 200 mg PO BEDTIME 90 days #90 tabs 07/02/22 atorvastatin 20 mg tablet 20 mg PO DAILY 90 days #90 tabs 07/22/22 hyoscyamine sulfate 0.125 mg tablet 0.125 mg PO QID #10 tabs 07/28/22 ondansetron HCl 4 mg tablet 4 mg PO Q6H PRN nausea and 07/28/22 vomiting #10 tabs tramadol 50 mg tablet 50 mg PO BID PRN pain #5 tabs 07/28/22 <FLAQUITA Leiva - Last Filed: 07/27/22 18:02> Allergies/adverse reactions: Allergies Allergy/AdvReac Type Severity Reaction Status Date / Time No Known Allergies Allergy Verified 07/19/22 15:14 <FLAQUITA Leiva - Last Filed: 07/27/22 18:02> Review of Systems Review of Systems: Constitutional : No Weight loss, No Fever, No Chills, No Night Sweats, No Fatigue, No Malaise ENT/Mouth : No Hearing loss, No Ear Pain, No Nasal Congestion, No Sinus Pain, No Hoarseness, No sore throat, No Rhinorrhea, No Swallowing Difficulty Eyes: No Eye Pain, No Swelling, No Redness, No Foreign Body, No Discharge, No Vision Changes Cardiovascular : No Chest Pain, No SOB, No Dyspnea on Exertion, No Orthopnea, No Edema, No Palpitations Respiratory : No Cough, No Sputum, No Wheezing, No Smoke Exposure, No Dyspnea Gastrointestinal : Complaining of nausea vomiting and diarrhea, no constipation, complaining of epigastric pain, no melena Genitourinary : no irregular bleeding, No Dysuria, No Urinary Frequency, No Hematuria, No Urinary Incontinence, No Urgency, No Flank Pain, No Urinary Flow Changes, No Hesitancy Musculoskeletal : No joint pain, No Myalgias, No Joint Swelling Skin : No Skin Lesions, No rash Neuro : No Weakness, No Numbness, No Paresthesias, No Loss of Consciousness, No Dizziness, No Headache Psych : No Anxiety/Panic, No Depression, No SI/HI/AH/VH, No Social Issues, Heme/Lymph: No Bruising, No Bleeding,No Lymphadenopathy Endocrine : No Polyuria, No Polydipsia, No Temperature Intolerance <Sruthi Goodman MD - Last Filed: 07/28/22 00:33> [facility] Past Medical History Medical History: Medical History History of smoking at least 1 pack per day for at least 30 years Left lumbar radiculopathy Lumbar spondylosis <FLAQUITA Leiva - Last Filed: 07/27/22 18:02> Surgical History: Surgical History H/O right knee surgery History of arthroplasty of left knee History of bilateral knee replacement History of bursectomy History of colonoscopy History of hernia repair <FLAQUITA Leiva - Last Filed: 07/27/22 18:02> Family History Family History: Family History Father Brain cancer Mother CVD (cardiovascular disease) Diabetes H/O heart artery stent Brother Breast cancer <FLAQUITA Leiva - Last Filed: 07/27/22 18:02> Social History Social History: Social History Alcohol intake: former Patient Tobacco Use Status: Current someday Tobacco user e-Cigarette/Vaping Use: Never Used Advance Directives: No Advance Directives Information Provided: No Cognitive needs: No Hearing needs: No Vision needs: No <FLAQUITA Leiva - Last Filed: 07/27/22 18:02> Physical Exam ED Vital Signs: Vital Signs - 24 hr 07/27/22 17:57 07/27/22 21:22 07/27/22 23:43 Temperature 97.4 F 98.2 F 97.8 F Pulse Rate 81 85 94 Respiratory Rate 20 20 13 Blood Pressure 150/85 H 126/93 H 134/81 Pulse Oximetry 95 96 92 Oxygen Delivery Method Room Air Room Air Room Air BMI result Body Mass Index 31.0 <FLAQUITA Leiva - Last Filed: 07/27/22 18:02> Vital Signs - 24 hr 07/27/22 17:57 07/27/22 21:22 07/27/22 23:43 Temperature 97.4 F 98.2 F 97.8 F Pulse Rate 81 85 94 Respiratory Rate 20 20 13 Blood Pressure 150/85 H 126/93 H 134/81 Pulse Oximetry 95 96 92 Oxygen Delivery Method Room Air Room Air Room Air BMI result Body Mass Index 31.0 <Sruthi Goodman MD - Last Filed: 07/28/22 00:33> Const Other: Appearance: Alert. Oriented X3. It is uncomfortable Eyes: Pupils equal, round and reactive to light. ENT: Pharynx normal. Neck: Normal inspection. Neck supple. No lymph nodes noted. No crepitus CVS: Normal heart rate and rhythm. Pulses normal. Normal S1 and S2 Respiratory: No respiratory distress. Breath sounds normal. No Wheezing. No rales Abdomen: Soft pain to palpation in epigastric area, mild rebound, no guarding Skin: Skin warm and dry. Normal skin color. Normal skin turgor. Extremities: No lower extremity edema. No Lacerations. No Rash Neuro: Oriented X 3. No motor deficit. No sensory deficit. Moving all extremities. No slurred speech. CN 2 through 12 grossly intact Psych: calm, cooperative, <Sruthi Goodman MD - Last Filed: 07/28/22 00:33> Course Course Course Narrative: RME performed by Melissa Zambrano PA-C. Patient is a 62 year old assigned male at presenting to the emergency department with upper abdominal pain. Patient states that he took approximately 7 500mg Tylenol tablets 24 hours ago and has been having diarrhea and vomiting since early this morning. Labs and swab ordered. Patient placed back in the waiting room pending room availability and results. <FLAQUITA Leiva - Last Filed: 07/27/22 18:02> Medications Administered Discontinued Medications Generic Name Dose Route Start Last Admin Trade Name Freq PRN Reason Stop Dose Admin Famotidine 20 mg 07/27/22 23:24 07/28/22 00:09 Famotidine 20 Mg Tablet PO 07/27/22 23:25 20 mg ONCE ONE Administration Sodium Chloride 1,000 mls @ 999 mls/hr 07/27/22 19:19 07/27/22 21:52 Ns IVCONT 07/27/22 20:19 Infused .Q1H1M ONE Infusion Iohexol 100 ml 07/27/22 21:06 07/27/22 21:07 Iohexol 350 Mg/Ml 100 Ml Infus..Btl IV 07/27/22 21:07 85 ml ONCE ONE Administration Ketorolac Tromethamine 30 mg 07/27/22 21:46 07/27/22 22:00 Ketorolac Tromethamine 30 Mg/Ml Vial IVPUSH 07/27/22 21:47 30 mg ONCE ONE Administration Morphine Sulfate 4 mg 07/27/22 19:19 07/27/22 20:06 Morphine Sulfate 4 Mg/Ml Cartridge IVPUSH 07/27/22 19:20 4 mg ONCE ONE Administration Protocol Ondansetron HCl 4 mg 07/27/22 19:19 07/27/22 20:06 Ondansetron Hcl 4 Mg/2 Ml Vial IVPUSH 07/27/22 19:20 4 mg ONCE ONE Administration Tramadol HCl 50 mg 07/27/22 23:24 07/28/22 00:09 Tramadol Hcl 50 Mg Tablet PO 07/27/22 23:25 50 mg ONCE ONE Administration <FLAQUITA Leiva - Last Filed: 07/27/22 18:02> Medications Administered Discontinued Medications Generic Name Dose Route Start Last Admin Trade Name Freq PRN Reason Stop Dose Admin Famotidine 20 mg 07/27/22 23:24 07/28/22 00:09 Famotidine 20 Mg Tablet PO 07/27/22 23:25 20 mg ONCE ONE Administration Sodium Chloride 1,000 mls @ 999 mls/hr 07/27/22 19:19 07/27/22 21:52 Ns IVCONT 07/27/22 20:19 Infused .Q1H1M ONE Infusion Iohexol 100 ml 07/27/22 21:06 07/27/22 21:07 Iohexol 350 Mg/Ml 100 Ml Infus..Btl IV 07/27/22 21:07 85 ml ONCE ONE Administration Ketorolac Tromethamine 30 mg 07/27/22 21:46 07/27/22 22:00 Ketorolac Tromethamine 30 Mg/Ml Vial IVPUSH 07/27/22 21:47 30 mg ONCE ONE Administration Morphine Sulfate 4 mg 07/27/22 19:19 07/27/22 20:06 Morphine Sulfate 4 Mg/Ml Cartridge IVPUSH 07/27/22 19:20 4 mg ONCE ONE Administration Protocol Ondansetron HCl 4 mg 07/27/22 19:19 07/27/22 20:06 Ondansetron Hcl 4 Mg/2 Ml Vial IVPUSH 07/27/22 19:20 4 mg ONCE ONE Administration Tramadol HCl 50 mg 07/27/22 23:24 07/28/22 00:09 Tramadol Hcl 50 Mg Tablet PO 07/27/22 23:25 50 mg ONCE ONE Administration <Sruthi Goodman MD - Last Filed: 07/28/22 00:33> Medical Decision Making Medical Decision Making [facility] Narrative: -patient receiving any fluids, morphine, Zofran -cell count elevated 12.4, rest of labs pending, -CT scan of abdomen pelvis pending. -patient's acetaminophen level is less than 17 (negative) -troponin negative, EKG my interpretation: Sinus rhythm, heart rate 61, no ST segment depression elevation, nonspecific T-wave inversion in lead 3, QTC 446. -patient id having a viral infection, viral gastroenteritis. Here in the emergency room, patient has not had any episodes of vomiting or diarrhea <Sruthi Goodman MD - Last Filed: 07/28/22 00:33> Differential Diagnosis Differential Diagnoses: The differential diagnosis associated with the presentation includes (Gastritis, viral syndrome, pancreatitis, small-bowel obstruction, acetaminophen toxicity) <Sruthi Goodman MD - Last Filed: 07/28/22 00:33> Lab Data [facility] Lab Attestation statement: I reviewed the patient's lab results. <Sruthi Goodman MD - Last Filed: 07/28/22 00:33> Result Diagrams: 07/27/22 18:14 07/27/22 18:14 <FLAQUITA Leiva - Last Filed: 07/27/22 18:02> Labs: Lab Results 07/27/22 07/27/22 07/27/22 Range/Units 18:14 18:14 18:14 WBC 12.4 H (4.8-10.8) X10*3/uL RBC 4.69 (4.60-5.80) X10*6/uL Hgb 14.4 (14.0-18.0) g/dl Hct 42.6 (42.0-52.0) % MCV 90.8 (80.0-98.0) fL MCH 30.7 (27.0-33.0) pg MCHC 33.8 (31.0-36.0) g/dl RDW 13.3 (11.0-16.0) % Plt Count 364 D (160-400) X10*3/uL MPV 9.5 (9.4-12.4) fL Immature Gran % (Auto) 0.4 (0.0-0.4) % Neut % (Auto) 88.7 H (45-73) % Lymph % (Auto) 8.0 L (20-40) % Kershaw % (Auto) 2.6 (2-11) % Eos % (Auto) 0.0 (0-4) % Baso % (Auto) 0.3 (0-2) % Lymph # (Auto) 1.0 L (1.2-4.9) X10*3/uL [place]haw # (Auto) 0.3 (0.1-1.2) X10*3/uL Eos # (Auto) 0.0 (0.0-0.4) X10*3/uL Baso # (Auto) 0.0 (0.0-0.2) X10*3/uL Abs Immat Gran (auto) 0.05 H (0.00-0.03) X10*3/uL Absolute Neuts (auto) 11.0 H (2.0-8.3) x10*3/uL Absolute Nucleated RBC 0.000 (0.0-0.012) X10*3/uL Nucleated RBC % (auto) 0.0 (0.0-0.2) /100WBC PT 11.5 (10.0-13.1) SEC INR 1.0 (0.9-1.1) APTT 33.8 (26.0-36.4) SEC Sodium 144 (135-145) mmol/L Potassium 4.3 (3.3-5.1) mmol/L Chloride 113 H (96-108) mmol/L Carbon Dioxide 23 (22-29) mmol/L Anion Gap 12 (12-20) BUN 9 (9-16) mg/dL Creatinine 1.08 (0.5-1.4) mg/dL Estim Creat Clear Calc 81.8 Estimated GFR > 60 Random Glucose 123 H (60-115) mg/dL Calcium 9.7 D (8.4-10.2) mg/dL Magnesium 2.0 (1.6-2.6) mg/dL Total Bilirubin 0.9 (0.0-1.0) mg/dL AST 16 (5-37) U/L ALT 16 (0-40) U/L Alkaline Phosphatase 75 (39-117) U/L Troponin I High Sens (<3.5-35.0) ng/L Total Protein 7.1 (6.5-8.0) g/dL Albumin 4.4 (3.5-5.0) g/dL Lipase 11 (8-78) U/L Salicylates < 5.0 L (15-30) mg/dL Urine Opiates Screen (Not Detect) Urine Fentanyl Screen (Not Detect) Acetaminophen < 17 (<30) mcg/mL Ur Barbiturates Screen (Not Detect) Ur Phencyclidine Scrn (Not Detect) Ur Amphetamines Screen (Not Detect) U Benzodiazepines Scrn (Not Detect) Urine Cocaine Screen (Not Detect) U Marijuana (THC) Screen (Not Detect) COVID-19 (TU) (Negative) COVID-19 Clin Com 07/27/22 07/27/22 07/27/22 Range/Units 18:14 22:39 23:51 WBC (4.8-10.8) X10*3/uL RBC (4.60-5.80) X10*6/uL Hgb (14.0-18.0) g/dl Hct (42.0-52.0) % MCV (80.0-98.0) fL MCH (27.0-33.0) pg MCHC (31.0-36.0) g/dl RDW (11.0-16.0) % Plt Count (160-400) X10*3/uL MPV (9.4-12.4) fL Immature Gran % (Auto) (0.0-0.4) % Neut % (Auto) (45-73) % Lymph % (Auto) (20-40) % Kershaw % (Auto) (2-11) % Eos % (Auto) (0-4) % Baso % (Auto) (0-2) % Lymph # (Auto) (1.2-4.9) X10*3/uL [place]haw # (Auto) (0.1-1.2) X10*3/uL Eos # (Auto) (0.0-0.4) X10*3/uL Baso # (Auto) (0.0-0.2) X10*3/uL Abs Immat Gran (auto) (0.00-0.03) X10*3/uL Absolute Neuts (auto) (2.0-8.3) x10*3/uL Absolute Nucleated RBC (0.0-0.012) X10*3/uL Nucleated RBC % (auto) (0.0-0.2) /100WBC PT (10.0-13.1) SEC INR (0.9-1.1) APTT (26.0-36.4) SEC Sodium (135-145) mmol/L Potassium (3.3-5.1) mmol/L Chloride (96-108) mmol/L Carbon Dioxide (22-29) mmol/L Anion Gap (12-20) BUN (9-16) mg/dL Creatinine (0.5-1.4) mg/dL Estim Creat Clear Calc Estimated GFR Random Glucose (60-115) mg/dL Calcium (8.4-10.2) mg/dL Magnesium (1.6-2.6) mg/dL Total Bilirubin (0.0-1.0) mg/dL AST (5-37) U/L ALT (0-40) U/L Alkaline Phosphatase (39-117) U/L Troponin I High Sens 15.0 (<3.5-35.0) ng/L Total Protein (6.5-8.0) g/dL Albumin (3.5-5.0) g/dL Lipase (8-78) U/L Salicylates (15-30) mg/dL Urine Opiates Screen POSITIVE H (Not Detect) Urine Fentanyl Screen Not Detected (Not Detect) Acetaminophen (<30) mcg/mL Ur Barbiturates Screen Not Detected (Not Detect) Ur Phencyclidine Scrn Not Detected (Not Detect) Ur Amphetamines Screen Not Detected (Not Detect) U Benzodiazepines Scrn Not Detected (Not Detect) Urine Cocaine Screen Not Detected (Not Detect) U Marijuana (THC) Screen POSITIVE H (Not Detect) COVID-19 (TU) Negative (Negative) COVID-19 Clin Com See Note <FLAQUITA Leiva - Last Filed: 07/27/22 18:02> Lab Results 07/27/22 07/27/22 07/27/22 Range/Units 18:14 18:14 18:14 WBC 12.4 H (4.8-10.8) X10*3/uL RBC 4.69 (4.60-5.80) X10*6/uL Hgb 14.4 (14.0-18.0) g/dl Hct 42.6 (42.0-52.0) % MCV 90.8 (80.0-98.0) fL MCH 30.7 (27.0-33.0) pg MCHC 33.8 (31.0-36.0) g/dl RDW 13.3 (11.0-16.0) % Plt Count 364 D (160-400) X10*3/uL MPV 9.5 (9.4-12.4) fL Immature Gran % (Auto) 0.4 (0.0-0.4) % Neut % (Auto) 88.7 H (45-73) % Lymph % (Auto) 8.0 L (20-40) % Kershaw % (Auto) 2.6 (2-11) % Eos % (Auto) 0.0 (0-4) % Baso % (Auto) 0.3 (0-2) % Lymph # (Auto) 1.0 L (1.2-4.9) X10*3/uL K[place]haw # (Auto) 0.3 (0.1-1.2) X10*3/uL Eos # (Auto) 0.0 (0.0-0.4) X10*3/uL Baso # (Auto) 0.0 (0.0-0.2) X10*3/uL Abs Immat Gran (auto) 0.05 H (0.00-0.03) X10*3/uL Absolute Neuts (auto) 11.0 H (2.0-8.3) x10*3/uL Absolute Nucleated RBC 0.000 (0.0-0.012) X10*3/uL Nucleated RBC % (auto) 0.0 (0.0-0.2) /100WBC PT 11.5 (10.0-13.1) SEC INR 1.0 (0.9-1.1) APTT 33.8 (26.0-36.4) SEC Sodium 144 (135-145) mmol/L Potassium 4.3 (3.3-5.1) mmol/L Chloride 113 H (96-108) mmol/L Carbon Dioxide 23 (22-29) mmol/L Anion Gap 12 (12-20) BUN 9 (9-16) mg/dL Creatinine 1.08 (0.5-1.4) mg/dL Estim Creat Clear Calc 81.8 Estimated GFR > 60 Random Glucose 123 H (60-115) mg/dL Calcium 9.7 D (8.4-10.2) mg/dL Magnesium 2.0 (1.6-2.6) mg/dL Total Bilirubin 0.9 (0.0-1.0) mg/dL AST 16 (5-37) U/L ALT 16 (0-40) U/L Alkaline Phosphatase 75 (39-117) U/L Troponin I High Sens (<3.5-35.0) ng/L Total Protein 7.1 (6.5-8.0) g/dL Albumin 4.4 (3.5-5.0) g/dL Lipase 11 (8-78) U/L Salicylates < 5.0 L (15-30) mg/dL Urine Opiates Screen (Not Detect) Urine Fentanyl Screen (Not Detect) Acetaminophen < 17 (<30) mcg/mL Ur Barbiturates Screen (Not Detect) Ur Phencyclidine Scrn (Not Detect) Ur Amphetamines Screen (Not Detect) U Benzodiazepines Scrn (Not Detect) Urine Cocaine Screen (Not Detect) U Marijuana (THC) Screen (Not Detect) COVID-19 (TU) (Negative) COVID-19 Clin Com 07/27/22 07/27/22 07/27/22 Range/Units 18:14 22:39 23:51 WBC (4.8-10.8) X10*3/uL RBC (4.60-5.80) X10*6/uL Hgb (14.0-18.0) g/dl Hct (42.0-52.0) % MCV (80.0-98.0) fL MCH (27.0-33.0) pg MCHC (31.0-36.0) g/dl RDW (11.0-16.0) % Plt Count (160-400) X10*3/uL MPV (9.4-12.4) fL Immature Gran % (Auto) (0.0-0.4) % Neut % (Auto) (45-73) % Lymph % (Auto) (20-40) % Kershaw % (Auto) (2-11) % Eos % (Auto) (0-4) % Baso % (Auto) (0-2) % Lymph # (Auto) (1.2-4.9) X10*3/uL [place]haw # (Auto) (0.1-1.2) X10*3/uL Eos # (Auto) (0.0-0.4) X10*3/uL Baso # (Auto) (0.0-0.2) X10*3/uL Abs Immat Gran (auto) (0.00-0.03) X10*3/uL Absolute Neuts (auto) (2.0-8.3) x10*3/uL Absolute Nucleated RBC (0.0-0.012) X10*3/uL Nucleated RBC % (auto) (0.0-0.2) /100WBC PT (10.0-13.1) SEC INR (0.9-1.1) APTT (26.0-36.4) SEC Sodium (135-145) mmol/L Potassium (3.3-5.1) mmol/L Chloride (96-108) mmol/L Carbon Dioxide (22-29) mmol/L Anion Gap (12-20) BUN (9-16) mg/dL Creatinine (0.5-1.4) mg/dL Estim Creat Clear Calc Estimated GFR Random Glucose (60-115) mg/dL Calcium (8.4-10.2) mg/dL Magnesium (1.6-2.6) mg/dL Total Bilirubin (0.0-1.0) mg/dL AST (5-37) U/L ALT (0-40) U/L Alkaline Phosphatase (39-117) U/L Troponin I High Sens 15.0 (<3.5-35.0) ng/L Total Protein (6.5-8.0) g/dL Albumin (3.5-5.0) g/dL Lipase (8-78) U/L Salicylates (15-30) mg/dL Urine Opiates Screen POSITIVE H (Not Detect) Urine Fentanyl Screen Not Detected (Not Detect) Acetaminophen (<30) mcg/mL Ur Barbiturates Screen Not Detected (Not Detect) Ur Phencyclidine Scrn Not Detected (Not Detect) Ur Amphetamines Screen Not Detected (Not Detect) U Benzodiazepines Scrn Not Detected (Not Detect) Urine Cocaine Screen Not Detected (Not Detect) U Marijuana (THC) Screen POSITIVE H (Not Detect) COVID-19 (TU) Negative (Negative) COVID-19 Clin Com See Note <Sruthi Goodman MD - Last Filed: 07/28/22 00:33> Radiology Impression Discussion of test interpretation with radiology: I have reviewed the radiologist's reading. <Sruthi Goodman MD - Last Filed: 07/28/22 00:33> Radiologist Impression: FINDINGS: LUNG BASES: The visualized lung bases are unremarkable.? LIVER, GALLBLADDER, AND BILIARY TREE: The liver is normal in size, shape, and attenuation. No focal hepatic lesion or biliary ductal dilatation is present. The gallbladder is unremarkable with no evidence of radiopaque gallstones, gallbladder wall thickening, or obvious pericholecystic inflammatory changes.? PANCREAS: Unremarkable.? SPLEEN: Unremarkable.? ADRENAL GLANDS: Unremarkable.? KIDNEYS AND URETERS: The kidneys are normal in size, shape, and attenuation. No hydronephrosis, hydroureter, or calculi seen. No perinephric stranding. Small cortical cyst upper pole left kidney. Small bilateral parapelvic cysts. No follow-up imaging is recommended for simple renal cyst. BLADDER: Unremarkable.? GASTROINTESTINAL TRACT: There are scattered diverticula of the sigmoid and descending colon. There is no diverticulitis. There is no bowel wall thickening /edema. There is no bowel obstruction. There is a moderate volume of stool in the colon. The appendix is normal . The small bowel loops are unremarkable. The stomach is normal. There is no hiatal hernia. ABDOMINAL WALL: No significant hernia is appreciated.? LYMPH NODES: Normal. VASCULAR: Unremarkable. PELVIC VISCERA: Unremarkable.? OSSEOUS STRUCTURES: Degenerative spondylosis of the spine. Degenerative joint disease of the hips, right greater than left. CT/CT abdomen pelvis w IV con IMPRESSION: No acute abnormality CT scan abdomen pelvis. ? Fleischner guidelines were followed. <Sruthi Goodman MD - Last Filed: 07/28/22 00:33> Discharge Plan Discharge Clinical Impression: Abdominal pain <FLAQUITA Leiva - Last Filed: 07/27/22 18:02> Patient Disposition: Home, Self-Care <FLAQUITA Leiva - Last Filed: 07/27/22 18:02> Instructions: Abdominal Pain (ED) <FLAQUITA Leiva - Last Filed: 07/27/22 18:02> Additional Instructions: Please follow-up with your primary care physician tomorrow. If you have any worsening or new symptoms, please return to the emergency room or call 911 <FLAQUITA Leiva - Last Filed: 07/27/22 18:02> Prescriptions: New hyoscyamine sulfate 0.125 mg tablet 0.125 mg PO QID Qty: 10 0RF tramadol 50 mg tablet 50 mg PO BID PRN (Reason: pain) Qty: 5 0RF ondansetron HCl 4 mg tablet 4 mg PO Q6H PRN (Reason: nausea and vomiting) Qty: 10 0RF No Action Narcan 4 mg/actuation spray,non-aerosol 4 mg intranasal Q2M PRN (Reason: opioid overdose) 1 Days Qty: 2 1RF Rx Instructions: spray 1 dose into ONE nostril; alternate nostrils w each dose until help arrives buprenorphine HCl [Belbuca] 900 mcg film 900 mcg buccal Q12H 30 Days Qty: 60 1RF bupropion HCl 150 mg tablet extended release 24 hr 150 mg PO QAM Qty: 90 1RF fluoxetine 40 mg capsule 40 mg PO DAILY Qty: 90 0RF aspirin 81 mg tablet,delayed release (DR/EC) 81 mg PO DAILY Qty: 90 3RF alfuzosin 10 mg tablet extended release 24 hr 10 mg PO DAILY 30 Days Qty: 30 0RF Rx Instructions: Advised to hold doxazosin quetiapine [Seroquel] 200 mg tablet 200 mg PO BEDTIME 90 Days Qty: 90 2RF atorvastatin 20 mg tablet 20 mg PO DAILY 90 Days Qty: 90 3RF albuterol sulfate 90 mcg/actuation HFA aerosol inhaler 1 inh inhalation QID PRN (Reason: shortness of breath or wheezing) 30 Days Qty: 8.5 1RF acetaminophen [Tylenol Extra Strength] 500 mg tablet 1,000 mg PO Q6H PRN (Reason: fever) Qty: 50 0RF <FLAQUITA Leiva - Last Filed: 07/27/22 18:02>
[2022-07-27 18:19] LABS: MANUAL DIFF FLAG NO
[2022-07-27 18:26] LABS: Prothrombin Time 11.5 SEC (10.0-13.1)
[2022-07-27 18:28] LABS: Partial Thromboplastin Time 33.8 SEC (26.0-36.4)
[2022-07-27 18:42] LABS: COVID-19 Test Negative (Negative); IDNOW Serial# 08D9AD1C
[2022-07-27 18:45] LABS: Basophils Percent Auto 0.3 % (0-2); Hematocrit 42.6 % (42.0-52.0); Hemoglobin 14.4 g/dl (14.0-18.0); Imm Gran Abs Auto 0.05 X10*3/uL (0.00-0.03); Imm Gran Pct Auto 0.4 % (0.0-0.4); Mean Corpuscular HGB Conc 33.8 g/dl (31.0-36.0); Mean Corpuscular Hemoglobin 30.7 pg (27.0-33.0); Mean Corpuscular Volume 90.8 fL (80.0-98.0); Mean Platelet Volume 9.5 fL (9.4-12.4); Monocytes Absolute Auto 0.3 X10*3/uL (0.1-1.2); Monocytes Percent Auto 2.6 % (2-11); Neutrophils Percent Auto 88.7 % (45-73); Platelet Count 364 X10*3/uL (160-400); Red Blood Count 4.69 X10*6/uL (4.60-5.80); Red Cell Distribution Width 13.3 % (11.0-16.0); White Blood Count 12.4 X10*3/uL (4.8-10.8)
[2022-07-27 18:47] LABS: Acetaminophen LAB < 17 mcg/mL (<30); Alanine Aminotransferase 16 U/L (0-40); Albumin Level 4.4 g/dL (3.5-5.0); Alkaline Phosphatase 75 U/L (39-117); Anion Gap 12 (12-20); Aspartate Amino Transferase 16 U/L (5-37); Bilirubin Total 0.9 mg/dL (0.0-1.0); Blood Urea Nitrogen 9 mg/dL (9-16); Calcium 9.7 mg/dL (8.4-10.2); Carbon Dioxide 23 mmol/L (22-29); Chloride 113 mmol/L (96-108); Creatinine Clr Calc Pharmacy 81.8; Estimated Glomerular Filt Rate > 60; Glucose Random 123 mg/dL (60-115); Potassium 4.3 mmol/L (3.3-5.1); Salicylate < 5.0 mg/dL (15-30); Sodium 144 mmol/L (135-145); Total Protein 7.1 g/dL (6.5-8.0)
[2022-07-27 19:50] LABS: Lipase 11 U/L (8-78)
[2022-07-27] MEDS: ondansetron HCL 4 MG/2 ML VIAL IVPUSH (20:06)
[2022-07-27] MEDS: Morphine Sulfate 4 MG/ML CARTRIDGE IVPUSH (20:06)
[2022-07-27] MEDS: 0.9 % Sodium Chloride 1,000 ML 999 ML IVCONT (20:08)
[2022-07-27] MEDS: iohexoL 350 MG/ML 100 ML INFUS..BTL IV (21:07)
[2022-07-27 21:22] VITALS: BP 126/93; PULSE 85; RESP 20; TEMP 36.8; O2SAT 96
[2022-07-27] MEDS: Ketorolac Tromethamine 30 MG/ML VIAL IVPUSH (22:00)
[2022-07-27 22:58] LABS: Amphetamine Screen Urine Not Detected (Not Detect); Barbiturates, Urine Not Detected (Not Detect); Benzodiazepines Screen Urine Not Detected (Not Detect); Cannabinoid Screen Urine POSITIVE (Not Detect); Cocaine Screen Urine Not Detected (Not Detect); Fentanyl, urine Not Detected (Not Detect); Opiate Screen Urine POSITIVE (Not Detect); Phencyclidine Screen Urine Not Detected (Not Detect)
--- NOTE | 2022-07-27 23:25 | ECG_ITS ---
Test Reason : CHEST PAIN Blood Pressure : / mmHG Vent. Rate : 061 BPM Atrial Rate : 061 BPM P-R Int : 152 ms QRS Dur : 100 ms QT Int : 444 ms P-R-T Axes : 027 -07 008 degrees QTc Int : 446 ms Normal sinus rhythm Normal ECG When compared with ECG of 18-MAY-2021 14:40, Nonspecific T wave abnormality now evident in Inferior leads Referred By: Sruthi Goodman Electronically Signed By:GENIE MAZA MD
[2022-07-27 23:43] VITALS: BP 134/81; PULSE 94; RESP 13; TEMP 36.6; O2SAT 92
[2022-07-28] MEDS: Famotidine 20 MG TABLET PO (00:09)
[2022-07-28] MEDS: traMADoL HCL 50 MG TABLET PO (00:09)
[2022-07-28 00:55] VITALS: BP 119/76; PULSE 89; RESP 20; O2SAT 97
--- NOTE | 2022-07-28 00:59 | PC.NURSE ---
IV line removed. Pt tolerated well. Discharge instructions reviewed with pt. Pt verbalizes understanding.
== END 2022-07-28 01:00 | disposition home or self-care (01) ==
PROVIDERS: Physician Assistant Medical; Emergency Provider Emergency Medicine; PCP Physician Assistant
DX: R10.13 Epigastric pain (principal); Z20.822 Contact with and (suspected) exposure to COVID-19; E78.5 Hyperlipidemia, unspecified; F12.90 Cannabis use, unspecified, uncomplicated; F17.210 Nicotine dependence, cigarettes, uncomplicated; F11.20 Opioid dependence, uncomplicated; Z79.899 Other long term (current) drug therapy; Z79.82 Long term (current) use of aspirin; Z79.02 Long term (current) use of antithrombotics/antiplatelets
CPT/HCPCS: 36415; 74177; 80053; 80143; 80179; 80307; 83690; 83735; 84484; 85025; 85610; 85730; 87635; 93005; 96361; 96374; 96375; 99284; 99285; J1885; J2270; J2405; Q9967

== ENCOUNTER 2022-07-29 12:16 | Emergency (ER) | payer OTHER, SELFPAY ==
--- NOTE | ~2022-07-29 | US_ITS ---
EXAMINATION: US ABDOMEN COMPLETE CLINICAL INFORMATION: Upper abdominal pain.. COMPARISON: CT 07/27/2022 TECHNIQUE: Real-time imaging of the abdominal viscera. FINDINGS: Suboptimal visualization, technically limited, patient unable to tolerate Pressure, intercostal windows used for evaluation PANCREAS: Obscured by bowel gas ABDOMINAL AORTA: Proximal aorta obscured. Mid, and distal segments are normal in caliber. INFERIOR VENA CAVA: Visualized portions are normal. LIVER: Technically limited study The liver is normal in size. The liver contour is normal. Parenchymal echogenicity is normal. No focal hepatic lesion. There is no intrahepatic biliary duct dilatation seen. GALLBLADDER: Normal. The gallbladder is physiologically distended without evidence of stones, sludge, polyps, wall thickening or pericholecystic fluid. COMMON BILE DUCT: Normal in caliber measuring 0.4 cm in diameter. RIGHT KIDNEY: Normal. No hydronephrosis. No renal calculi or focal parenchymal lesions. The kidney measures 10.5 cm in maximum dimension. LEFT KIDNEY: Normal. No hydronephrosis. Peripelvic cysts. No renal calculi or focal parenchymal lesions. The kidney measures 9.9 cm in maximum dimension. SPLEEN: Normal. The spleen measures 10.5 cm in maximum dimension. FREE FLUID: None. US/US abdomen complete IMPRESSION: Technically limited study. No evidence of gallstones. No evidence of acute cholecystitis. Pancreas obscured by bowel gas. No acute findings otherwise demonstrated by ultrasound.
--- NOTE | ~2022-07-29 | XR_ITS ---
EXAMINATION: XR CHEST CLINICAL INFORMATION: Nausea/vomiting end of the gastric pain COMPARISON: None available. TECHNIQUE: 2 views of the chest were obtained. FINDINGS: No significant abnormality is noted involving the heart, lungs, mediastinum, bony thorax or soft tissues. XR/XR chest 2V IMPRESSION: Unremarkable chest examination.
[2022-07-29 12:41] VITALS: BP 165/95; PULSE 68; RESP 18; TEMP 36.4; O2SAT 94; BMI 31.0
--- NOTE | 2022-07-29 12:43 | ECG_ITS ---
Test Reason : abd pain Blood Pressure : / mmHG Vent. Rate : 089 BPM Atrial Rate : 089 BPM P-R Int : 152 ms QRS Dur : 088 ms QT Int : 378 ms P-R-T Axes : 005 -21 050 degrees QTc Int : 459 ms Normal sinus rhythm with sinus arrhythmia Normal ECG When compared with ECG of 28-JUL-2022 00:15, No significant changes seen Referred By: Keri Eldridge Electronically Signed By:VARSHA BRADFORD
--- NOTE | 2022-07-29 12:43 | ED_ITS ---
HPI - Abdominal Pain General Chief Complaint: Abdominal Pain <FLAQUITA Paul - Last Filed: 07/29/22 12:48> Stated Complaint: vomiting <FLAQUITA Paul - Last Filed: 07/29/22 12:48> Time Seen by Provider: 07/29/22 16:10 <FLAQUITA Paul - Last Filed: 07/29/22 12:48> Source: patient <David Benito MD - Last Filed: 07/30/22 01:50> Mode of arrival: ambulatory <David Benito MD - Last Filed: 07/30/22 01:50> Limitations: no limitations <David Benito MD - Last Filed: 07/30/22 01:50> History of Present Illness HPI narrative: Patient chronic abdominal pain and vomiting with history of cannabis abuse was seen here on 07/27 CT scan of the abdomen was negative labs were stable comes back as still throwing up with diffuse abdominal pain unable to hold down any feels better when he takes a hot shower <David Benito MD - Last Filed: 07/30/22 01:50> Related Data Home Medications: Previous Rx's Medication Instructions Recorded naloxone 4 mg/actuation nasal 4 mg intranasal Q2M PRN opioid 02/15/21 spray (Narcan) overdose 1 day #2 ea albuterol sulfate 90 mcg/actuation 1 inh inhalation QID PRN shortness 02/20/22 aerosol inhaler of breath or wheezing 30 days #8.5 grams buprenorphine HCl 900 mcg buccal 900 mcg buccal Q12H pain 30 days 04/20/22 film ([place]) #60 ea bupropion HCl 150 mg 24 hr tablet, 150 mg PO QAM #90 tabs 05/11/22 extended release fluoxetine 40 mg capsule 40 mg PO DAILY #90 caps 05/11/22 acetaminophen 500 mg tablet 1,000 mg PO Q6H PRN fever #50 tabs 06/12/22 (Tylenol Extra Strength) aspirin 81 mg tablet,delayed 81 mg PO DAILY #90 tabs 06/17/22 release alfuzosin 10 mg tablet,extended 10 mg PO DAILY 30 days #30 tabs 06/30/22 release 24 hr quetiapine 200 mg tablet (Seroquel) 200 mg PO BEDTIME 90 days #90 tabs 07/02/22 atorvastatin 20 mg tablet 20 mg PO DAILY 90 days #90 tabs 07/22/22 hyoscyamine sulfate 0.125 mg tablet 0.125 mg PO QID #10 tabs 07/28/22 ondansetron HCl 4 mg tablet 4 mg PO Q6H PRN nausea and 07/28/22 vomiting #10 tabs tramadol 50 mg tablet 50 mg PO BID PRN pain #5 tabs 07/28/22 <FLAQUITA Paul - Last Filed: 07/29/22 12:48> Allergies/Adverse Reactions: Allergies Allergy/AdvReac Type Severity Reaction Status Date / Time No Known Allergies Allergy Verified 07/29/22 12:43 <FLAQUITA Paul - Last Filed: 07/29/22 12:48> Review of Systems Review of Systems Yes all other systems are reviewed and are negative <David Benito MD - Last Filed: 07/30/22 01:50> [facility] Past Medical History Medical History: Medical History (Updated 07/30/22 @ 01:08 by David Benito MD) History of smoking at least 1 pack per day for at least 30 years Left lumbar radiculopathy Lumbar spondylosis <FLAQUITA Paul - Last Filed: 07/29/22 12:48> Surgical History: Surgical History H/O right knee surgery History of arthroplasty of left knee History of bilateral knee replacement History of bursectomy History of colonoscopy History of hernia repair <FLAQUITA Paul - Last Filed: 07/29/22 12:48> Family History Family History: Family History Father Brain cancer Mother CVD (cardiovascular disease) Diabetes H/O heart artery stent Brother Breast cancer <FLAQUITA Paul - Last Filed: 07/29/22 12:48> Social History Social History: Social History Alcohol intake: former Patient Tobacco Use Status: Current someday Tobacco user e-Cigarette/Vaping Use: Never Used Advance Directives: No Advance Directives Information Provided: Yes Cognitive needs: No Hearing needs: No Vision needs: No <FLAQUITA Paul - Last Filed: 07/29/22 12:48> Physical Exam ED Vital Signs: Vital Signs - 24 hr 07/29/22 12:41 07/29/22 17:13 07/29/22 20:19 Temperature 97.6 F 97 F 98.7 F Pulse Rate 68 68 75 Respiratory Rate 18 18 12 Blood Pressure 165/95 H 166/89 H 138/86 Pulse Oximetry 94 96 92 Oxygen Delivery Method Room Air Room Air Room Air 07/29/22 22:43 07/30/22 01:19 Temperature 98.2 F Pulse Rate 74 84 Respiratory Rate 18 12 Blood Pressure 175/96 H 121/82 Pulse Oximetry 96 92 Oxygen Delivery Method Room Air Room Air BMI result Body Mass Index 31.0 <FLAQUITA Paul - Last Filed: 07/29/22 12:48> Vital Signs - 24 hr 07/29/22 12:41 07/29/22 17:13 07/29/22 20:19 Temperature 97.6 F 97 F 98.7 F Pulse Rate 68 68 75 Respiratory Rate 18 18 12 Blood Pressure 165/95 H 166/89 H 138/86 Pulse Oximetry 94 96 92 Oxygen Delivery Method Room Air Room Air Room Air 07/29/22 22:43 07/30/22 01:19 Temperature 98.2 F Pulse Rate 74 84 Respiratory Rate 18 12 Blood Pressure 175/96 H 121/82 Pulse Oximetry 96 92 Oxygen Delivery Method Room Air Room Air BMI result Body Mass Index 31.0 <David Benito MD - Last Filed: 07/30/22 01:50> Appearance: Alert. Oriented X3. Anxious vomiting Eyes: PERRLA, ENT: Pharynx normal. Oral Mucosa moist Neck: Normal inspection. Neck supple. CVS: Normal heart rate and rhythm. Pulses normal. Respiratory: No respiratory distress. Equal air entry bilateral, no wheezing/rales/rhonchi Abdomen: Soft , upper abdomen epigastric area tenderness no rebound and guarding. Bowel sounds are present, no mass palpable, no CVA tenderness Skin: Skin warm and dry. Normal skin color. Normal skin turgor. Extremities: No lower extremity edema. No calf tenderness Neuro: Oriented X 3. <David Benito MD - Last Filed: 07/30/22 01:50> Course Course Course Narrative: RME-12:45PM - 62yoM with a PMHX of COPD, hyperlipidemia, BPH, chronic lumbar spine pain/lumbar radiculopathy who is presenting to the ER with complaints of sudden onset of epigastric abdominal pain with associated nausea/vomiting that will come up out of his sleep at 05:00 this morning. He is actively vomiting here in triage bilious emesis. He reports he has never had this in the past. He denies any dizziness, change in vision, headaches, fevers, jaw pain, paresthesias, chest pain or shortness of breath, dyspnea exertion orthopnea, palpitations or paresthesias, radiation of abdominal pain, dysuria, hematuria, diarrhea constipation, recent travel or sick contacts or any other symptoms complaints or concerns at this time. Plan: Patient was given 4 mg of sublingual Zofran while here in triage due to actively vomiting. Will obtain labs, EKG, chest x-ray, abdominal ultrasound and UA patient will be sent back to the waiting room to be evaluated the ED. <FLAQUITA Paul - Last Filed: 07/29/22 12:48> Medical Decision Making Medical Decision Making [facility] Narrative: Patient likely cyclic vomiting syndrome with similar episodes almost every week ultrasound of abdomen was negative previous CT scan of the abdomen done on 07/27 was also negative patient responded to Ativan and Compazine woke up and started throwing up again will give another dose of lorazepam <David Benito MD - Last Filed: 07/30/22 01:50> Lab Data MDM Lab Attestation statement: I reviewed the patient's lab results. <David Benito MD - Last Filed: 07/30/22 01:50> Result Diagrams: 07/29/22 13:05 <FLAQUITA Paul - Last Filed: 07/29/22 12:48> Labs: Lab Results 07/29/22 07/29/22 07/29/22 Range/Units 13:05 13:05 13:05 WBC (4.8-10.8) X10*3/uL RBC (4.60-5.80) X10*6/uL Hgb (14.0-18.0) g/dl Hct (42.0-52.0) % MCV (80.0-98.0) fL MCH (27.0-33.0) pg MCHC (31.0-36.0) g/dl RDW (11.0-16.0) % Plt Count (160-400) X10*3/uL MPV (9.4-12.4) fL Immature Gran % (Auto) (0.0-0.4) % Neut % (Auto) (45-73) % Lymph % (Auto) (20-40) % [place] % (Auto) (2-11) % Eos % (Auto) (0-4) % Baso % (Auto) (0-2) % Lymph # (Auto) (1.2-4.9) X10*3/uL [place] # (Auto) (0.1-1.2) X10*3/uL Eos # (Auto) (0.0-0.4) X10*3/uL Baso # (Auto) (0.0-0.2) X10*3/uL Abs Immat Gran (auto) (0.00-0.03) X10*3/uL Absolute Neuts (auto) (2.0-8.3) x10*3/uL Absolute Nucleated RBC (0.0-0.012) X10*3/uL Nucleated RBC % (auto) (0.0-0.2) /100WBC PT 11.7 (10.0-13.1) SEC INR 1.0 (0.9-1.1) Sodium 141 (135-145) mmol/L Potassium 3.8 (3.3-5.1) mmol/L Chloride 111 H (96-108) mmol/L Carbon Dioxide 20 L (22-29) mmol/L Anion Gap 14 (12-20) BUN 10 (9-16) mg/dL Creatinine 1.10 (0.5-1.4) mg/dL Estim Creat Clear Calc 80.3 Estimated GFR > 60 Random Glucose 109 (60-115) mg/dL Calcium 8.9 D (8.4-10.2) mg/dL Magnesium 1.7 (1.6-2.6) mg/dL Total Bilirubin 0.9 (0.0-1.0) mg/dL AST 15 (5-37) U/L ALT 15 (0-40) U/L Alkaline Phosphatase 69 (39-117) U/L Troponin I High Sens 5.8 D (<3.5-35.0) ng/L C-Reactive Protein 0.29 (< or = 0.50) mg/dL Total Protein 6.5 (6.5-8.0) g/dL Albumin 4.1 (3.5-5.0) g/dL Lipase 9 (8-78) U/L Urine Color Urine Appearance Urine pH (5.0-9.0) Ur Specific [place] (1.005-1.025) Urine Protein (Neg-Trace) mg/dL Urine Glucose (UA) (Negative) mg/dL Urine Ketones (Negative) mg/dL Urine Blood (Negative) Urine Nitrite (Negative) Ur Leukocyte Esterase (Negative) Urine RBC (0-2) /HPF Urine WBC (0-5) /HPF Ur Squamous Epith Cells (0-2) /HPF Urine Bacteria (None Seen) Hyaline Casts (0-2) /LPF Ethyl Alcohol mg/dL Influenza Type A (PCR) (Negative) Influenza Type B (PCR) (Negative) RSV RNA Qual (PCR) (Negative) SARS-CoV-2 RNA (RT-PCR) (Negative) 07/29/22 07/29/22 07/29/22 Range/Units 13:05 13:05 16:53 WBC 7.8 (4.8-10.8) X10*3/uL RBC 3.25 L D (4.60-5.80) X10*6/uL Hgb 9.8 L D (14.0-18.0) g/dl Hct 30.0 L D (42.0-52.0) % MCV 92.3 (80.0-98.0) fL MCH 30.2 (27.0-33.0) pg MCHC 32.7 (31.0-36.0) g/dl RDW 13.2 (11.0-16.0) % Plt Count 232 D (160-400) X10*3/uL MPV 8.5 L (9.4-12.4) fL Immature Gran % (Auto) 0.4 (0.0-0.4) % Neut % (Auto) 81.8 H (45-73) % Lymph % (Auto) 11.9 L (20-40) % [place] % (Auto) 5.0 (2-11) % Eos % (Auto) 0.4 (0-4) % Baso % (Auto) 0.5 (0-2) % Lymph # (Auto) 0.9 L (1.2-4.9) X10*3/uL [place] # (Auto) 0.4 (0.1-1.2) X10*3/uL Eos # (Auto) 0.0 (0.0-0.4) X10*3/uL Baso # (Auto) 0.0 (0.0-0.2) X10*3/uL Abs Immat Gran (auto) 0.03 (0.00-0.03) X10*3/uL Absolute Neuts (auto) 6.4 (2.0-8.3) x10*3/uL Absolute Nucleated RBC 0.000 (0.0-0.012) X10*3/uL Nucleated RBC % (auto) 0.0 (0.0-0.2) /100WBC PT (10.0-13.1) SEC INR (0.9-1.1) Sodium (135-145) mmol/L Potassium (3.3-5.1) mmol/L Chloride (96-108) mmol/L Carbon Dioxide (22-29) mmol/L Anion Gap (12-20) BUN (9-16) mg/dL Creatinine (0.5-1.4) mg/dL Estim Creat Clear Calc Estimated GFR Random Glucose (60-115) mg/dL Calcium (8.4-10.2) mg/dL Magnesium (1.6-2.6) mg/dL Total Bilirubin (0.0-1.0) mg/dL AST (5-37) U/L ALT (0-40) U/L Alkaline Phosphatase (39-117) U/L Troponin I High Sens (<3.5-35.0) ng/L C-Reactive Protein (< or = 0.50) mg/dL Total Protein (6.5-8.0) g/dL Albumin (3.5-5.0) g/dL Lipase (8-78) U/L Urine Color Urine Appearance Urine pH (5.0-9.0) Ur Specific [place] (1.005-1.025) Urine Protein (Neg-Trace) mg/dL Urine Glucose (UA) (Negative) mg/dL Urine Ketones (Negative) mg/dL Urine Blood (Negative) Urine Nitrite (Negative) Ur Leukocyte Esterase (Negative) Urine RBC (0-2) /HPF Urine WBC (0-5) /HPF Ur Squamous Epith Cells (0-2) /HPF Urine Bacteria (None Seen) Hyaline Casts (0-2) /LPF Ethyl Alcohol < 10 mg/dL Influenza Type A (PCR) NEGATIVE (Negative) Influenza Type B (PCR) NEGATIVE (Negative) RSV RNA Qual (PCR) NEGATIVE (Negative) SARS-CoV-2 RNA (RT-PCR) NEGATIVE (Negative) 07/29/22 Range/Units 22:44 WBC (4.8-10.8) X10*3/uL RBC (4.60-5.80) X10*6/uL Hgb (14.0-18.0) g/dl Hct (42.0-52.0) % MCV (80.0-98.0) fL MCH (27.0-33.0) pg MCHC (31.0-36.0) g/dl RDW (11.0-16.0) % Plt Count (160-400) X10*3/uL MPV (9.4-12.4) fL Immature Gran % (Auto) (0.0-0.4) % Neut % (Auto) (45-73) % Lymph % (Auto) (20-40) % [place] % (Auto) (2-11) % Eos % (Auto) (0-4) % Baso % (Auto) (0-2) % Lymph # (Auto) (1.2-4.9) X10*3/uL [place] # (Auto) (0.1-1.2) X10*3/uL Eos # (Auto) (0.0-0.4) X10*3/uL Baso # (Auto) (0.0-0.2) X10*3/uL Abs Immat Gran (auto) (0.00-0.03) X10*3/uL Absolute Neuts (auto) (2.0-8.3) x10*3/uL Absolute Nucleated RBC (0.0-0.012) X10*3/uL Nucleated RBC % (auto) (0.0-0.2) /100WBC PT (10.0-13.1) SEC INR (0.9-1.1) Sodium (135-145) mmol/L Potassium (3.3-5.1) mmol/L Chloride (96-108) mmol/L Carbon Dioxide (22-29) mmol/L Anion Gap (12-20) BUN (9-16) mg/dL Creatinine (0.5-1.4) mg/dL Estim Creat Clear Calc Estimated GFR Random Glucose (60-115) mg/dL Calcium (8.4-10.2) mg/dL Magnesium (1.6-2.6) mg/dL Total Bilirubin (0.0-1.0) mg/dL AST (5-37) U/L ALT (0-40) U/L Alkaline Phosphatase (39-117) U/L Troponin I High Sens (<3.5-35.0) ng/L C-Reactive Protein (< or = 0.50) mg/dL Total Protein (6.5-8.0) g/dL Albumin (3.5-5.0) g/dL Lipase (8-78) U/L Urine Color Dark Yellow Urine Appearance Clear Urine pH 6.0 (5.0-9.0) Ur Specific [place] >= 1.030 H (1.005-1.025) Urine Protein 30 (1+) H (Neg-Trace) mg/dL Urine Glucose (UA) Negative (Negative) mg/dL Urine Ketones 15 (Negative) mg/dL Urine Blood Negative (Negative) Urine Nitrite Negative (Negative) Ur Leukocyte Esterase Negative (Negative) Urine RBC 0-2 (0-2) /HPF Urine WBC 0-5 (0-5) /HPF Ur Squamous Epith Cells 0-2 (0-2) /HPF Urine Bacteria None Seen (None Seen) Hyaline Casts 0-2 (0-2) /LPF Ethyl Alcohol mg/dL Influenza Type A (PCR) (Negative) Influenza Type B (PCR) (Negative) RSV RNA Qual (PCR) (Negative) SARS-CoV-2 RNA (RT-PCR) (Negative) <FLAQUITA Paul - Last Filed: 07/29/22 12:48> Lab Results 07/29/22 07/29/22 07/29/22 Range/Units 13:05 13:05 13:05 WBC (4.8-10.8) X10*3/uL RBC (4.60-5.80) X10*6/uL Hgb (14.0-18.0) g/dl Hct (42.0-52.0) % MCV (80.0-98.0) fL MCH (27.0-33.0) pg MCHC (31.0-36.0) g/dl RDW (11.0-16.0) % Plt Count (160-400) X10*3/uL MPV (9.4-12.4) fL Immature Gran % (Auto) (0.0-0.4) % Neut % (Auto) (45-73) % Lymph % (Auto) (20-40) % [place] % (Auto) (2-11) % Eos % (Auto) (0-4) % Baso % (Auto) (0-2) % Lymph # (Auto) (1.2-4.9) X10*3/uL [place] # (Auto) (0.1-1.2) X10*3/uL Eos # (Auto) (0.0-0.4) X10*3/uL Baso # (Auto) (0.0-0.2) X10*3/uL Abs Immat Gran (auto) (0.00-0.03) X10*3/uL Absolute Neuts (auto) (2.0-8.3) x10*3/uL Absolute Nucleated RBC (0.0-0.012) X10*3/uL Nucleated RBC % (auto) (0.0-0.2) /100WBC PT 11.7 (10.0-13.1) SEC INR 1.0 (0.9-1.1) Sodium 141 (135-145) mmol/L Potassium 3.8 (3.3-5.1) mmol/L Chloride 111 H (96-108) mmol/L Carbon Dioxide 20 L (22-29) mmol/L Anion Gap 14 (12-20) BUN 10 (9-16) mg/dL Creatinine 1.10 (0.5-1.4) mg/dL Estim Creat Clear Calc 80.3 Estimated GFR > 60 Random Glucose 109 (60-115) mg/dL Calcium 8.9 D (8.4-10.2) mg/dL Magnesium 1.7 (1.6-2.6) mg/dL Total Bilirubin 0.9 (0.0-1.0) mg/dL AST 15 (5-37) U/L ALT 15 (0-40) U/L Alkaline Phosphatase 69 (39-117) U/L Troponin I High Sens 5.8 D (<3.5-35.0) ng/L C-Reactive Protein 0.29 (< or = 0.50) mg/dL Total Protein 6.5 (6.5-8.0) g/dL Albumin 4.1 (3.5-5.0) g/dL Lipase 9 (8-78) U/L Urine Color Urine Appearance Urine pH (5.0-9.0) Ur Specific [place] (1.005-1.025) Urine Protein (Neg-Trace) mg/dL Urine Glucose (UA) (Negative) mg/dL Urine Ketones (Negative) mg/dL Urine Blood (Negative) Urine Nitrite (Negative) Ur Leukocyte Esterase (Negative) Urine RBC (0-2) /HPF Urine WBC (0-5) /HPF Ur Squamous Epith Cells (0-2) /HPF Urine Bacteria (None Seen) Hyaline Casts (0-2) /LPF Ethyl Alcohol mg/dL Influenza Type A (PCR) (Negative) Influenza Type B (PCR) (Negative) RSV RNA Qual (PCR) (Negative) SARS-CoV-2 RNA (RT-PCR) (Negative) 07/29/22 07/29/22 07/29/22 Range/Units 13:05 13:05 16:53 WBC 7.8 (4.8-10.8) X10*3/uL RBC 3.25 L D (4.60-5.80) X10*6/uL Hgb 9.8 L D (14.0-18.0) g/dl Hct 30.0 L D (42.0-52.0) % MCV 92.3 (80.0-98.0) fL MCH 30.2 (27.0-33.0) pg MCHC 32.7 (31.0-36.0) g/dl RDW 13.2 (11.0-16.0) % Plt Count 232 D (160-400) X10*3/uL MPV 8.5 L (9.4-12.4) fL Immature Gran % (Auto) 0.4 (0.0-0.4) % Neut % (Auto) 81.8 H (45-73) % Lymph % (Auto) 11.9 L (20-40) % [place] % (Auto) 5.0 (2-11) % Eos % (Auto) 0.4 (0-4) % Baso % (Auto) 0.5 (0-2) % Lymph # (Auto) 0.9 L (1.2-4.9) X10*3/uL [place] # (Auto) 0.4 (0.1-1.2) X10*3/uL Eos # (Auto) 0.0 (0.0-0.4) X10*3/uL Baso # (Auto) 0.0 (0.0-0.2) X10*3/uL Abs Immat Gran (auto) 0.03 (0.00-0.03) X10*3/uL Absolute Neuts (auto) 6.4 (2.0-8.3) x10*3/uL Absolute Nucleated RBC 0.000 (0.0-0.012) X10*3/uL Nucleated RBC % (auto) 0.0 (0.0-0.2) /100WBC PT (10.0-13.1) SEC INR (0.9-1.1) Sodium (135-145) mmol/L Potassium (3.3-5.1) mmol/L Chloride (96-108) mmol/L Carbon Dioxide (22-29) mmol/L Anion Gap (12-20) BUN (9-16) mg/dL Creatinine (0.5-1.4) mg/dL Estim Creat Clear Calc Estimated GFR Random Glucose (60-115) mg/dL Calcium (8.4-10.2) mg/dL Magnesium (1.6-2.6) mg/dL Total Bilirubin (0.0-1.0) mg/dL AST (5-37) U/L ALT (0-40) U/L Alkaline Phosphatase (39-117) U/L Troponin I High Sens (<3.5-35.0) ng/L C-Reactive Protein (< or = 0.50) mg/dL Total Protein (6.5-8.0) g/dL Albumin (3.5-5.0) g/dL Lipase (8-78) U/L Urine Color Urine Appearance Urine pH (5.0-9.0) Ur Specific [place] (1.005-1.025) Urine Protein (Neg-Trace) mg/dL Urine Glucose (UA) (Negative) mg/dL Urine Ketones (Negative) mg/dL Urine Blood (Negative) Urine Nitrite (Negative) Ur Leukocyte Esterase (Negative) Urine RBC (0-2) /HPF Urine WBC (0-5) /HPF Ur Squamous Epith Cells (0-2) /HPF Urine Bacteria (None Seen) Hyaline Casts (0-2) /LPF Ethyl Alcohol < 10 mg/dL Influenza Type A (PCR) NEGATIVE (Negative) Influenza Type B (PCR) NEGATIVE (Negative) RSV RNA Qual (PCR) NEGATIVE (Negative) SARS-CoV-2 RNA (RT-PCR) NEGATIVE (Negative) 07/29/22 Range/Units 22:44 WBC (4.8-10.8) X10*3/uL RBC (4.60-5.80) X10*6/uL Hgb (14.0-18.0) g/dl Hct (42.0-52.0) % MCV (80.0-98.0) fL MCH (27.0-33.0) pg MCHC (31.0-36.0) g/dl RDW (11.0-16.0) % Plt Count (160-400) X10*3/uL MPV (9.4-12.4) fL Immature Gran % (Auto) (0.0-0.4) % Neut % (Auto) (45-73) % Lymph % (Auto) (20-40) % [place] % (Auto) (2-11) % Eos % (Auto) (0-4) % Baso % (Auto) (0-2) % Lymph # (Auto) (1.2-4.9) X10*3/uL [place] # (Auto) (0.1-1.2) X10*3/uL Eos # (Auto) (0.0-0.4) X10*3/uL Baso # (Auto) (0.0-0.2) X10*3/uL Abs Immat Gran (auto) (0.00-0.03) X10*3/uL Absolute Neuts (auto) (2.0-8.3) x10*3/uL Absolute Nucleated RBC (0.0-0.012) X10*3/uL Nucleated RBC % (auto) (0.0-0.2) /100WBC PT (10.0-13.1) SEC INR (0.9-1.1) Sodium (135-145) mmol/L Potassium (3.3-5.1) mmol/L Chloride (96-108) mmol/L Carbon Dioxide (22-29) mmol/L Anion Gap (12-20) BUN (9-16) mg/dL Creatinine (0.5-1.4) mg/dL Estim Creat Clear Calc Estimated GFR Random Glucose (60-115) mg/dL Calcium (8.4-10.2) mg/dL Magnesium (1.6-2.6) mg/dL Total Bilirubin (0.0-1.0) mg/dL AST (5-37) U/L ALT (0-40) U/L Alkaline Phosphatase (39-117) U/L Troponin I High Sens (<3.5-35.0) ng/L C-Reactive Protein (< or = 0.50) mg/dL Total Protein (6.5-8.0) g/dL Albumin (3.5-5.0) g/dL Lipase (8-78) U/L Urine Color Dark Yellow Urine Appearance Clear Urine pH 6.0 (5.0-9.0) Ur Specific [place] >= 1.030 H (1.005-1.025) Urine Protein 30 (1+) H (Neg-Trace) mg/dL Urine Glucose (UA) Negative (Negative) mg/dL Urine Ketones 15 (Negative) mg/dL Urine Blood Negative (Negative) Urine Nitrite Negative (Negative) Ur Leukocyte Esterase Negative (Negative) Urine RBC 0-2 (0-2) /HPF Urine WBC 0-5 (0-5) /HPF Ur Squamous Epith Cells 0-2 (0-2) /HPF Urine Bacteria None Seen (None Seen) Hyaline Casts 0-2 (0-2) /LPF Ethyl Alcohol mg/dL Influenza Type A (PCR) (Negative) Influenza Type B (PCR) (Negative) RSV RNA Qual (PCR) (Negative) SARS-CoV-2 RNA (RT-PCR) (Negative) <David Benito MD - Last Filed: 07/30/22 01:50> Radiology Impression Discussion of test interpretation with radiology: I have reviewed the radiologist's reading. <David Benito MD - Last Filed: 07/30/22 01:50> Radiologist Impression: No evidence of gallstones. No evidence of acute cholecystitis. Pancreas obscured by bowel gas. No acute findings otherwise demonstrated by ultrasound. <David Benito MD - Last Filed: 07/30/22 01:50> Medications Administered Discontinued Medications Generic Name Dose Route Start Last Admin Trade Name Freq PRN Reason Stop Dose Admin Famotidine 20 mg 07/29/22 22:11 07/29/22 22:51 Famotidine/Pf 20 Mg/2 Ml Vial IVPUSH 07/29/22 22:12 20 mg ONCE ONE Administration Sodium Chloride 1,000 mls @ 999 mls/hr 07/29/22 16:20 07/29/22 20:16 Ns IV 07/29/22 17:20 Infused .Q1H1M ONE Infusion Sodium Chloride 1,000 mls @ 999 mls/hr 07/29/22 22:13 07/30/22 00:15 Ns IV 07/29/22 23:13 Infused .Q1H1M ONE Infusion Lorazepam 2 mg 07/29/22 16:26 07/29/22 17:00 Lorazepam 2 Mg/Ml Vial IVPUSH 07/29/22 16:27 2 mg ONCE ONE Administration Lorazepam 1 mg 07/29/22 22:13 07/29/22 22:51 Lorazepam 2 Mg/Ml Vial IVPUSH 07/29/22 22:14 1 mg ONCE ONE Administration Metoclopramide HCl 10 mg 07/29/22 22:11 07/29/22 22:51 Metoclopramide Hcl 10 Mg/2 Ml Vial IVPUSH 07/29/22 22:12 10 mg ONCE ONE Administration Morphine Sulfate 4 mg 07/29/22 23:01 07/29/22 23:06 Morphine Sulfate 4 Mg/Ml Cartridge IVPUSH 07/29/22 23:02 4 mg ONCE ONE Administration Protocol Ondansetron HCl 4 mg 07/29/22 12:43 07/29/22 12:46 Ondansetron Odt 4 Mg Tab.Rapdis TRANSLINGU 07/29/22 12:44 4 mg ONCE ONE Administration Prochlorperazine Edisylate 10 mg 07/29/22 16:20 07/29/22 17:00 Prochlorperazine Edisylate 10 Mg/2 Ml Vial IVPUSH 07/29/22 16:21 10 mg ONCE ONE Administration <FLAQUITA Paul - Last Filed: 07/29/22 12:48> Medications Administered Discontinued Medications Generic Name Dose Route Start Last Admin Trade Name Freq PRN Reason Stop Dose Admin Famotidine 20 mg 07/29/22 22:11 07/29/22 22:51 Famotidine/Pf 20 Mg/2 Ml Vial IVPUSH 07/29/22 22:12 20 mg ONCE ONE Administration Sodium Chloride 1,000 mls @ 999 mls/hr 07/29/22 16:20 07/29/22 20:16 Ns IV 07/29/22 17:20 Infused .Q1H1M ONE Infusion Sodium Chloride 1,000 mls @ 999 mls/hr 07/29/22 22:13 07/30/22 00:15 Ns IV 07/29/22 23:13 Infused .Q1H1M ONE Infusion Lorazepam 2 mg 07/29/22 16:26 07/29/22 17:00 Lorazepam 2 Mg/Ml Vial IVPUSH 07/29/22 16:27 2 mg ONCE ONE Administration Lorazepam 1 mg 07/29/22 22:13 07/29/22 22:51 Lorazepam 2 Mg/Ml Vial IVPUSH 07/29/22 22:14 1 mg ONCE ONE Administration Metoclopramide HCl 10 mg 07/29/22 22:11 07/29/22 22:51 Metoclopramide Hcl 10 Mg/2 Ml Vial IVPUSH 07/29/22 22:12 10 mg ONCE ONE Administration Morphine Sulfate 4 mg 07/29/22 23:01 07/29/22 23:06 Morphine Sulfate 4 Mg/Ml Cartridge IVPUSH 07/29/22 23:02 4 mg ONCE ONE Administration Protocol Ondansetron HCl 4 mg 07/29/22 12:43 04/16/23 12:46 Ondansetron Odt 4 Mg Tab.Rapdis TRANSLINGU 07/29/22 12:44 4 mg ONCE ONE Administration Prochlorperazine Edisylate 10 mg 07/29/22 16:20 07/29/22 17:00 Prochlorperazine Edisylate 10 Mg/2 Ml Vial IVPUSH 07/29/22 16:21 10 mg ONCE ONE Administration <David Benito MD - Last Filed: 07/30/22 01:50> Discharge Plan Discharge Clinical Impression: Cyclic vomiting syndrome <FLAQUITA Paul - Last Filed: 07/29/22 12:48> Prescriptions: No Action Narcan 4 mg/actuation spray,non-aerosol 4 mg intranasal Q2M PRN (Reason: opioid overdose) 1 Days Qty: 2 1RF Rx Instructions: spray 1 dose into ONE nostril; alternate nostrils w each dose until help arrives buprenorphine HCl [Belbuca] 900 mcg film 900 mcg buccal Q12H 30 Days Qty: 60 1RF bupropion HCl 150 mg tablet extended release 24 hr 150 mg PO QAM Qty: 90 1RF fluoxetine 40 mg capsule 40 mg PO DAILY Qty: 90 0RF aspirin 81 mg tablet,delayed release (DR/EC) 81 mg PO DAILY Qty: 90 3RF alfuzosin 10 mg tablet extended release 24 hr 10 mg PO DAILY 30 Days Qty: 30 0RF Rx Instructions: Advised to hold doxazosin quetiapine [Seroquel] 200 mg tablet 200 mg PO BEDTIME 90 Days Qty: 90 2RF atorvastatin 20 mg tablet 20 mg PO DAILY 90 Days Qty: 90 3RF hyoscyamine sulfate 0.125 mg tablet 0.125 mg PO QID Qty: 10 0RF tramadol 50 mg tablet 50 mg PO BID PRN (Reason: pain) Qty: 5 0RF ondansetron HCl 4 mg tablet 4 mg PO Q6H PRN (Reason: nausea and vomiting) Qty: 10 0RF albuterol sulfate 90 mcg/actuation HFA aerosol inhaler 1 inh inhalation QID PRN (Reason: shortness of breath or wheezing) 30 Days Qt y: 8.5 1RF acetaminophen [Tylenol Extra Strength] 500 mg tablet 1,000 mg PO Q6H PRN (Reason: fever) Qty: 50 0RF <FLAQUITA Paul - Last Filed: 07/29/22 12:48>
[2022-07-29] MEDS: Ondansetron ODT 4 MG TAB.RAPDIS TRANSLINGU (12:46)
[2022-07-29 13:32] LABS: Troponin-I High Sensitivity 5.8 ng/L (<3.5-35.0)
[2022-07-29 13:33] LABS: Alanine Aminotransferase 15 U/L (0-40); Albumin Level 4.1 g/dL (3.5-5.0); Alkaline Phosphatase 69 U/L (39-117); Anion Gap 14 (12-20); Aspartate Amino Transferase 15 U/L (5-37); Bilirubin Total 0.9 mg/dL (0.0-1.0); Blood Urea Nitrogen 10 mg/dL (9-16); C Reactive Protein 0.29 mg/dL (< or = 0.50); Calcium 8.9 mg/dL (8.4-10.2); Carbon Dioxide 20 mmol/L (22-29); Chloride 111 mmol/L (96-108); Creatinine Clr Calc Pharmacy 80.3; Estimated Glomerular Filt Rate > 60; Glucose Random 109 mg/dL (60-115); Lipase 9 U/L (8-78); Magnesium 1.7 mg/dL (1.6-2.6); Potassium 3.8 mmol/L (3.3-5.1); Sodium 141 mmol/L (135-145); Total Protein 6.5 g/dL (6.5-8.0)
[2022-07-29 13:37] LABS: Ethanol < 10 mg/dL
[2022-07-29 13:47] LABS: Prothrombin Time 11.7 SEC (10.0-13.1)
[2022-07-29 14:20] LABS: Influenza A PCR NEGATIVE (Negative); Influenza B PCR NEGATIVE (Negative); Resp Syncy Virus RNA Qual PCR NEGATIVE (Negative); SARS COV2 PCR INHOUSE NEGATIVE (Negative)
[2022-07-29 16:58] LABS: MANUAL DIFF FLAG NO
[2022-07-29 16:59] LABS: Basophils Percent Auto 0.5 % (0-2); Eosinophils Percent Auto 0.4 % (0-4); Hemoglobin 9.8 g/dl (14.0-18.0); Imm Gran Abs Auto 0.03 X10*3/uL (0.00-0.03); Imm Gran Pct Auto 0.4 % (0.0-0.4); Lymphocytes Absolute Auto 0.9 X10*3/uL (1.2-4.9); Lymphocytes Percent Auto 11.9 % (20-40); Mean Corpuscular HGB Conc 32.7 g/dl (31.0-36.0); Mean Corpuscular Hemoglobin 30.2 pg (27.0-33.0); Mean Corpuscular Volume 92.3 fL (80.0-98.0); Mean Platelet Volume 8.5 fL (9.4-12.4); Monocytes Absolute Auto 0.4 X10*3/uL (0.1-1.2); Neutrophils Absolute Auto 6.4 x10*3/uL (2.0-8.3); Neutrophils Percent Auto 81.8 % (45-73); Platelet Count 232 X10*3/uL (160-400); Red Blood Count 3.25 X10*6/uL (4.60-5.80); Red Cell Distribution Width 13.2 % (11.0-16.0); White Blood Count 7.8 X10*3/uL (4.8-10.8)
[2022-07-29] MEDS: Prochlorperazine Edisylate 10 MG/2 ML VIAL IVPUSH (17:00)
[2022-07-29] MEDS: LORazepam 2 MG/ML VIAL IVPUSH (17:00)
[2022-07-29] MEDS: 0.9 % Sodium Chloride 1,000 ML 999 ML IV ×2 (17:01→22:50)
[2022-07-29 17:13] VITALS: BP 166/89; PULSE 68; RESP 18; TEMP 36.1; O2SAT 96
--- NOTE | 2022-07-29 17:45 | PC.NURSE ---
good effect with medications for n/v currently sleeping
[2022-07-29 20:19] VITALS: BP 138/86; PULSE 75; RESP 12; TEMP 37.1; O2SAT 92
[2022-07-29 22:43] VITALS: BP 175/96; PULSE 74; RESP 18; TEMP 36.8; O2SAT 96
[2022-07-29] MEDS: LORazepam 2 MG/ML VIAL 1 MG IVPUSH (22:51)
[2022-07-29] MEDS: Metoclopramide HCl 10 MG/2 ML VIAL IVPUSH (22:51)
[2022-07-29] MEDS: Famotidine/PF 20 MG/2 ML VIAL IVPUSH (22:51)
[2022-07-29 22:52] LABS: Appearance Urine Clear; Color Urine Dark Yellow; Glucose Urine UA Negative (Negative); Leukocyte Esterase Urine Negative (Negative); Nitrite Urine Negative (Negative); Specific Gravity - Urine >= 1.030 (1.005-1.025); UMIC TRIGGER UACC YES; Urine Blood Negative (Negative); Urine Ketones 15 mg/dL (Negative); Urine Protein 30 (1+) mg/dL (Neg-Trace)
[2022-07-29 22:54] LABS: Bacteria Urine None Seen (None Seen); Hyaline Casts Urine 0-2 /LPF (0-2); RBC Urine 0-2 /HPF (0-2); Squamous Epithelial Cell Urine 0-2 /HPF (0-2); WBC Urine 0-5 /HPF (0-5)
[2022-07-29] MEDS: Morphine Sulfate 4 MG/ML CARTRIDGE IVPUSH (23:06)
[2022-07-30 01:19] VITALS: BP 121/82; PULSE 84; RESP 12; O2SAT 92
--- NOTE | 2022-07-30 01:30 | PC.NURSE ---
PO challenge with saltine crackers and water. No vomiting at this time. Will continue to monitor.
[2022-07-30 02:25] VITALS: BP 137/88; PULSE 87; RESP 12; TEMP 36.7; O2SAT 95
--- NOTE | 2022-07-30 02:28 | PC.NURSE ---
IV line removed with no complications. Pt tolerated well. Discharge instructions reviewed with pt. Pt verbalizes understanding. Ambulatory with steady gait at discharge.
== END 2022-07-30 02:29 | disposition home or self-care (01) ==
PROVIDERS: Physician Assistant Medical; Emergency Provider Internal Medicine; PCP Physician Assistant
DX: R11.15 Cyclical vomiting syndrome unrelated to migraine (principal); R07.89 Other chest pain; R10.10 Upper abdominal pain, unspecified; F17.200 Nicotine dependence, unspecified, uncomplicated; Z20.822 Contact with and (suspected) exposure to COVID-19; Z20.828 Contact with and (suspected) exposure to other viral communicable diseases; Z71.6 Tobacco abuse counseling; Z79.899 Other long term (current) drug therapy
CPT/HCPCS: 0241U; 36415; 71046; 76700; 80053; 81001; 82077; 83690; 83735; 84484; 85025; 85610; 86140; 93005; 96361; 96374; 96375; 96376; 99284; J2060; J2270; J2765

== ENCOUNTER 2022-08-13 13:29 | Outpatient (REF) | payer OTHER, SELFPAY ==
--- NOTE | ~2022-08-13 | FL_ITS ---
PROCEDURE: RIGHT HIP STEROID INJECTION CLINICAL INFORMATION: Unilateral primary osteoarthritis right hip. Pain. COMPARISON: None available. TECHNIQUE: Following explaining fluoroscopy-guided right hip steroid injection procedure, benefits and risk, a written consent was obtained. Patient was placed supine on fluoroscopy table and anterior aspect of the right hip was cleaned and draped in usual sterile manner. 1% lidocaine was injected at the marked site. A 20-gauge needle was then inserted from the marked site to the lateral border of right femoral head and neck and 2 mL of nonionic contrast was injected. A single image was obtained for documentation. Subsequently 80 mg of Depo-Medrol and 1% of lidocaine as 8 mL volume was injected and needle withdrawn. Complete hemostasis achieved at puncture site. Sterile dressing applied postprocedure. Patient tolerated procedure extremely well. FINDINGS: There is severe loss of right hip joint space with moderate-sized marginal osteophytes. No acute fracture or dislocation seen. There is contrast opacifying the right hip joint space. Fluoroscopy-guided steroid injection was performed. FLUOROSCOPY TIME: 0.8 minutes. DOSE AREA PRODUCT: 7.375 uGy-m2 (microgray-meter squared). FL/FL arthrogram hip RT IMPRESSION: 1. Successful fluoroscopic-guided right hip steroid injection. 2. Severe degenerative arthritic changes right hip joint.
== END 2022-08-13 13:30 | disposition home or self-care (01) ==
LOC: HO.XRAY 13:29
PROVIDERS: PCP Physician Assistant; Visit Provider Physician Assistant
DX: M16.11 Unilateral primary osteoarthritis, right hip (principal)
CPT/HCPCS: 27093; 73525

== ENCOUNTER → 2022-08-30 09:56 | Outpatient (BNVA) | payer OTHER, SELFPAY | PROVIDERS: PCP Physician Assistant; Visit Provider Orthopaedic Surgery | DX: M16.11 Unilateral primary osteoarthritis, right hip (principal); J41.0 Simple chronic bronchitis; F11.20 Opioid dependence, uncomplicated | CPT/HCPCS: 99212 ==

== ENCOUNTER 2022-08-31 15:44 | Outpatient (REF) | payer OTHER, SELFPAY ==
--- NOTE | ~2022-08-31 | CT_ITS ---
EXAMINATION: LUNG CANCER SCREENING CT CHEST WITHOUT CONTRAST CLINICAL INFORMATION: Current smoker with 45 pack year history COMPARISON: None TECHNIQUE: Multidetector volumetric CT imaging of the chest was obtained noncontrast using low dose screening CT technique. Axial thin section 0.625 mm reformations in soft tissue and lung windows were obtained. Sagittal and coronal reformations were obtained. Axial MIP images were also created and reviewed. This CT examination was performed using dose optimization techniques as appropriate, variously including the following: *Automated exposure control *Adjustment of mA and/or kV according to patient size (this includes techniques or standardized protocols for targeted exams where dose is matched to indication/reason for exam; i.e. extremities or head) *Use of iterative reconstruction technique TOTAL EXAM DLP: 71 mGy-cm FINDINGS: PULMONARY NODULES: There is a 4 mm pleural nodule along the lateral basal segment of the right lower lobe. LUNGS / PLEURA: Minimal emphysema. Diffuse mild bronchial wall thickening without bronchiectasis. Pleuroparenchymal scarring versus subsegmental atelectasis within the middle lobe and lingula. No pleural effusion or pneumothorax. MEDIASTINUM / KIARA: Heart normal in size without pericardial effusion. Great vessels normal caliber. No lymphadenopathy. Coronary calcifications present. Imaged thyroid gland unremarkable. CHEST WALL / AXILLA: Unremarkable. UPPER ABDOMEN: Included portions grossly unremarkable allowing for limitations in technique. OSSEOUS STRUCTURES: No acute or suspicious osseous abnormalities. CT/CT lung screening IMPRESSION: * No evidence of pulmonary malignancy. * There are no pulmonary nodules that meet criteria for short interval follow-up at this time. * Mild emphysema and diffuse mild bronchial wall thickening.. ASSESSMENT: Lung RADS category: 2. Benign appearance or behavior. Nodules with a very low likelihood of becoming a clinically active cancer due to size or lack of growth. Continue annual screening with low-dose CT in 12 months. Probability of malignancy less than 1%. INCIDENTAL FINDINGS (S CATEGORY): None. RECOMMENDATION: Follow up low dose CT chest in 1 year.
== END 2022-08-31 15:45 | disposition home or self-care (01) ==
LOC: HO.CT 15:44
PROVIDERS: PCP Physician Assistant; Visit Provider Physician Assistant Medical
DX: Z12.2 Encounter for screening for malignant neoplasm of respiratory organs (principal); F17.210 Nicotine dependence, cigarettes, uncomplicated
CPT/HCPCS: 71271; G0296

== ENCOUNTER 2022-11-05 14:57 | Outpatient (AMB) | payer OTHER, SELFPAY ==
[2022-11-05 15:02] VITALS: BP 124/76; PULSE 85; O2SAT 94; BMI 30.6
--- NOTE | 2022-11-05 15:02 | MHC.OFFVIS ---
Intake Vital Signs 11/05/22 15:02 Height 5 ft 9 in Weight 207 lb 3.752 oz BMI 30.6 BP 124/76 Blood Pressure Location Rt brachial Position Sitting Pulse 85 Pulse Source Pulse Oximeter Pulse Oximetry (%) 94 Oxygen Delivery Method Room Air Intake Visit Reasons: COPD Intake Note: Pt presents today for a f/u. Pt reports everything is going the same. He still experiences shortness of breath on exertion and feels he gets tired faster, especially at work. Bi Tester Required: No Allergies No Known Allergies Allergy (Verified 11/05/22 15:30) Medication List - Last Reconciled 11/05/22 by Jairon Cool MD acetaminophen ER (Tylenol Arthritis Pain) 650 mg PO Q12H 30 days albuterol sulfate 90 mcg/actuation 1 inh inhalation QID PRN 30 days alfuzosin ER 10 mg PO DAILY 90 days aspirin 81 mg PO DAILY atorvastatin 20 mg PO DAILY 90 days buprenorphine HCl (Belbuca) 900 mcg buccal Q12H 30 days bupropion HCl 150 mg PO QAM fluoxetine 40 mg PO DAILY naloxone 4 mg/actuation (Narcan) 4 mg intranasal Q2M PRN 1 day quetiapine (Seroquel) 200 mg PO BEDTIME 90 days Do you need a note to return to daycare/school/sports/work: No HPI COPD HPI Details 62 YEARS OLD GENTLEMAN IS HERE FOR FOLLOW-UP FOR COPD. HE CLAIMS THAT HE IS DOING WELL EXCEPT THAT HE GETS SHORT OF BREATH AND TIRED WHEN HE IS DOING HIS WORK. 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 HAS MILD INTERMITTENT COUGH NO WHEEZING. HE USES ALBUTEROL ONLY ONCE IN A WHILE,. NOT ON A DAILY BASIS HE IS AN EX SMOKER, QUIT IN 2020. RECENT LOW-DOSE CT SCAN WAS NEGATIVE. [facility] Medical History (Updated 11/05/22 @ 15:36 by Jairon Cool MD) BPH (benign prostatic hyperplasia) COPD (chronic obstructive pulmonary disease) Failed back syndrome History of smoking at least 1 pack per day for at least 30 years HLD (hyperlipidemia) Surgical History History of bursectomy History of colonoscopy History of esophagogastroduodenoscopy (EGD) History of right inguinal hernia repair History of total left knee replacement History of total right knee replacement Family History Father Brain cancer Mother CVD (cardiovascular disease) Diabetes H/O heart artery stent Brother Breast cancer Lung cancer Social History Housing: House Alcohol intake: former Patient Tobacco Use Status: Former Tobacco user Tobacco use type: Cigarette Years Smoked: (former smoker - onset 15yo, 1ppd x 45yrs, 40pyh, quit in 2020) e-Cigarette/Vaping Use: Never Used Second Hand Smoke Exposure: No service: No Current occupational status: unemployed Cognitive needs: No Hearing needs: No Vision needs: No Review of Systems Const All systems reviewed & are unremarkable except as noted in HPI and below Eyes Reports no additional complaints ENT Reports nasal congestion (Mild off and on) Card Denies chest pain at rest, Denies irregular heart rhythm and Denies leg edema Resp Reports as per HPI GI Reports no additional complaints Reports nocturia Musc Reports back pain Skin/Breast Reports system reviewed and no additional complaints, except as documented Neuro Reports no additional complaints Psych Reports anxiety and Reports mood swings Endo Reports no additional complaints Brenden/Lymph Reports no additional complaints Aller/Immun Reports no additional complaints Physical Exam Vital Signs: Last Vital Signs Pulse 85 11/05/22 15:02 BP 124/76 11/05/22 15:02 Pulse Ox 94 11/05/22 15:02 Oxygen Delivery Method Room Air 11/05/22 15:02 BMI result Body Mass Index 30.6 Const General: comfortable, no acute distress, alert and awake Orientation/consciousness: patient oriented x3 HEENT Head: Yes normal to inspection General nose exam: No nasal polyps present and No nasal discharge present Face and sinus: Yes sinuses nontender Mouth: oropharynx normal Throat: Yes posterior oropharynx normal Eyes General: appearance normal, both eyes and all related structures Neck Neck: Yes normal visual inspection, Yes no lymphadenopathy, Yes trachea midline and Yes no JVD Thyroid: Thyroid normal Chest Chest palpation & inspection: normal inspection of the chest, normal palpation of entire chest wall and no tenderness Resp Other: Percussion note is resonant, breath sounds are slightly distant . There are no wheezes or crepitations. PEAK FLOW 550 L Cardio Palpation: normal PMI Rate: regular rate Rhythm: regular rhythm Heart sounds: no gallops and no murmurs Peripheral pulses: Peripheral pulses 2+ throughout GI Palpation (GI): Soft to palpation, nontender, No hepatosplenomegaly present, no masses and Other GI palpation findings present (Abdomen is slightly protuberant) Auscultation: normal bowel sounds Back/Spine/Pelvis Thoracic/Lumbar Spine: thoracic and lumbar spine normal to inspection and thoraco-lumbar ROM limited Skin General skin exam: no rashes or lesions noted Neuro General: patient oriented x3 and no focal motor deficits Cranial nerves: Yes CN's II-XII intact bilaterally Extrem General: Yes normal to inspection, Yes no clubbing, cyanosis or edema and Yes no calf tenderness Psych Appearance: grossly abnormal and poorly kempt Speech and movement: Normal speech and movement present Assessment & Plan Assessment & Plan (1) COPD (chronic obstructive pulmonary disease): Comment: THIS GENTLEMAN HAS PAST HISTORY OF SMOKING. PER PULMONARY FUNCTION TEST HE HAS MILD DEGREE OF OBSTRUCTIVE AIRWAY DISORDER, WITHOUT ANY POSITIVE RESPONSE TOBDs. [place] : ADVISED TO USE ALBUTEROL RESPICLICK 1 INHALATION Q 4-6 HOURS ONLY P.R.N.. I GAVE HIM PEAK FLOW METER FROM THE OFFICE, ADVISED HIM TO KEEP CHECKING HIS PEAK FLOWS AT LEAST A FEW TIMES EVERY WEEK. Code(s): J44.9 - Chronic obstructive pulmonary disease, unspecified Qualifiers: COPD type: chronic bronchitis Chronic bronchitis type: simple Qualified Code(s): J41.0 - Simple chronic bronchitis (2) History of smoking at least 1 pack per day for at least 30 years: Comment: HE SMOKED THROUGHOUT HIS ADULT LIFE. QUIT 2020. PARTICIPATES IN ANNUAL LUNG SCREENING PROGRAM. LAST CT SCAN, ON 08/31/2022, NEGATIVE. Code(s): Z87.891 - Personal history of nicotine dependence Coding Level of Care Code Est Pt Level 3 (41007) Diagnoses COPD (chronic obstructive pulmonary disease) J41.0 COPD type: chronic bronchitis Chronic bronchitis type: simple History of smoking at least 1 pack per day for at least 30 years Z87.891
== END 2022-11-05 15:28 | disposition home or self-care (01) ==
PROVIDERS: PCP Physician Assistant; Visit Provider Internal Medicine
DX: J41.0 Simple chronic bronchitis (principal); Z87.891 Personal history of nicotine dependence
CPT/HCPCS: 99213

== ENCOUNTER → 2022-11-05 14:57 | Outpatient (BNVA) | payer OTHER, SELFPAY | PROVIDERS: Visit Provider Internal Medicine | DX: J41.0 Simple chronic bronchitis (principal); Z87.891 Personal history of nicotine dependence | CPT/HCPCS: 99212 ==

== ENCOUNTER 2022-12-05 14:57 | Outpatient (AMB) | payer OTHER, SELFPAY ==
[2022-12-05 15:16] VITALS: BP 124/80; PULSE 75; O2SAT 98; BMI 30.6
--- NOTE | 2022-12-05 15:16 | MHC.PC.OV ---
Vital Signs 12/05/22 15:16 Height 5 ft 9 in Weight 207 lb BMI 30.6 BP 124/80 Blood Pressure Location Lt brachial Position Sitting Pulse 75 Pulse Source Pulse Oximeter Pulse Oximetry (%) 98 Oxygen Delivery Method Room Air Intake Visit Reasons: 3 MONTH F/U Gut Puller Required: No Accompanied by: mark Allergies No Known Allergies Allergy (Verified 12/05/22 15:34) Medication List - Last Reconciled 12/05/22 by Nathaniel Bruce PA-C acetaminophen ER (Tylenol Arthritis Pain) 650 mg PO Q12H 30 days albuterol sulfate 90 mcg/actuation 1 inh inhalation QID PRN 30 days alfuzosin ER 10 mg PO DAILY 90 days aspirin 81 mg PO DAILY atorvastatin 20 mg PO DAILY 90 days buprenorphine HCl (Belbuca) 900 mcg buccal Q12H 30 days bupropion HCl 150 mg PO QAM fluoxetine 40 mg PO DAILY naloxone 4 mg/actuation (Narcan) 4 mg intranasal Q2M PRN 1 day quetiapine (Seroquel) 200 mg PO BEDTIME 90 days Tobacco use date assessed: 06/12/22 Dental Screening Dental Screen Date: 12/05/22 Did you have a dental visit in the last 12 months?: No Did you have a dental problem in the last 6 months where you did not have access to dental care?: No Was dental information given to patient?: Patient has dentist HPI 3 MONTH F/U HPI Details Patient is a 62-year-old male here today for an annual physical.? Patient has a past medical history significant for tobacco dependency, failed back syndrome, COPD, hyperlipidemia, BPH, opiate dependency, history of alcohol dependency(in remission). .. Failed back syndrome:? Was followed by pain management here in [place] though has lost follow-up due to apparent incorrect pill count. He continues on Belbuca at highest dose which has been fairly effective for him. Unfortunately has been out of this medication over the last 4 days due to needing prior authorization which is being worked on at the moment. .. Right hip osteoarthritis:? Recently seen orthopedic and had gotten an IR guided right hip injection which did relieve his pain for 3-4 days though pain now resumes.? Does seem to have severe osteoarthritis in the right hip. Will supply patient with Tylenol arthritis to use for his arthritic pain. He continues to have moderate to severe pain even with the use of Belbuca. He has follow-up with orthopedics and is scheduled for right total hip replacement. .. COPD:? Now followed by pulmonology, has gotten pulmonary function test that was consistent with the COPD.? Has albuterol inhaler and Flovent available to him to which he uses on a p.r.n. basis. Unfortunately continues to smoke though has cut down considerably. .. BPH:? Since starting alfuzosin which initially helped his nocturia though reports nocturia has come back. Urinary stream is not noted to be weak..? He does report emptying his bladder much better. PLAN: Will recheck his PSA this year and start finasteride due to continued urinary symptoms .. Hyperlipidemia:? Continues on a statin therapy without any side effect, will continue to follow lipid panel [facility] Medical History BPH (benign prostatic hyperplasia) COPD (chronic obstructive pulmonary disease) Failed back syndrome History of smoking at least 1 pack per day for at least 30 years HLD (hyperlipidemia) Surgical History History of bursectomy History of colonoscopy History of esophagogastroduodenoscopy (EGD) History of right inguinal hernia repair History of total left knee replacement History of total right knee replacement Family History Father Brain cancer Mother CVD (cardiovascular disease) Diabetes H/O heart artery stent Brother Breast cancer Lung cancer Social History Housing: House Alcohol intake: former Patient Tobacco Use Status: Former Tobacco user Tobacco use type: Cigarette Years Smoked: (former smoker - onset 15yo, 1ppd x 45yrs, 40pyh, quit in 2020) e-Cigarette/Vaping Use: Never Used Second Hand Smoke Exposure: No service: No Current occupational status: unemployed Cognitive needs: No Hearing needs: No Vision needs: No Questionnaire Thrive Questionnaire Date Thrive assessed: 06/12/22 BIJU-7 AMB Questionnaire BIJU-7 Date BIJU - 7 assessed: 06/12/22 Source: Developed by Drs. Wyatt Varela, Lise B.W. Gaetano Gordillo and colleagues, with an educational bettina from [employer]. Review of Systems Const Denies headache(s) Eyes Denies loss of vision ENT Denies vertigo, Denies dizziness, Denies headache(s) and Denies sore throat Card Denies chest pain, Denies leg edema and Denies lightheadedness Resp Denies cough, Denies hemoptysis and Denies wheezing GI Denies abdominal pain, Denies melena, Denies constipation, Denies diarrhea and Denies vomiting Denies dysuria, Denies urinary frequency and Denies urinary urgency Musc Denies arthralgias, Denies joint swelling, Denies numbness and Denies tingling Neuro Denies Abnormal speech present, Denies behavioral changes, Denies vertigo, Denies dizziness, Denies headache(s), Denies loss of vision, Denies memory loss, Denies numbness and Denies tingling Psych Denies anxiety, Denies behavioral changes, Denies depression, Denies memory loss and Denies panic attacks Brenden/Lymph Denies easy bleeding and Denies easy bruising Aller/Immun Denies wheezing Physical exam (Primary Care) Vital Signs: Last Vital Signs Pulse 75 12/05/22 15:16 BP 124/80 12/05/22 15:16 Pulse Ox 98 12/05/22 15:16 Oxygen Delivery Method Room Air 12/05/22 15:16 BMI result Body Mass Index 30.6 BMI Assessment/Plan discussion: High Tobacco/Smoking Status: Tobacco use Status Tobacco use date assessed 06/12/22 12/05/22 15:19 Patient Tobacco Use Status Former Tobacco user 12/05/22 15:19 Tobacco use type Cigarette 12/05/22 15:19 e-Cigarette/Vaping Use Never Used 12/05/22 15:19 Thrive Assessment: Date of Thrive Assessment Date Thrive assessed 06/12/22 12/05/22 15:19 Const General: healthy appearing, no acute distress, alert and awake Nutritional Appearance: well nourished Orientation/consciousness: oriented to person, oriented to place and oriented to time HENMT Ears: TM's normal bilaterally General nose exam: Normal nasal mucous membranes and turbinates present Eyes Conjunctivae: conjunctivae normal Sclerae: sclerae normal Pupils: Equal, round and reactive pupils present Neck Neck: Yes no lymphadenopathy and Yes no JVD Thyroid: Thyroid normal Carotids: no bruits Resp Effort & Inspection: normal respiratory effort and not tachypneic Auscultation: no crackles, no rales, no rhonchi and no wheezes Cardio Rate: regular rate Rhythm: regular rhythm Heart sounds: no murmurs and normal S1 and S2 GI Palpation (GI): Soft to palpation, nontender, no hepatomegaly and no splenomegaly Auscultation: normal bowel sounds Skin General skin exam: no rashes or lesions noted and dry skin Neuro General: oriented to person, oriented to place and oriented to time Cranial nerves: Yes Equal, round and reactive pupils present Speech: No Abnormal speech present Gait exam (Neuro): Normal gait present Motor exam (neuro): no tremor noted Extrem Right upper extremity: full ROM Left upper extremity: full ROM Right lower extremity: full ROM; no edema Left lower extremity: full ROM; no edema Psych Mental Status: mental status grossly normal Speech and movement: Normal speech and movement present Affect: normal affect Attitude: cooperative Thought process: Normal thought process present Assessment and Plan Assessment & Plan (1) HLD (hyperlipidemia): Code(s): E78.5 - Hyperlipidemia, unspecified Qualifiers: Hyperlipidemia type: pure hypertriglyceridemia Qualified Code(s): E78.1 - Pure hyperglyceridemia Plan: Patient continues on statin therapy without side effect. Most recent lipid panel showing appropriate LDL and total cholesterol. Goal LDL is to remain below 160. (2) COPD (chronic obstructive pulmonary disease): Comment: THIS GENTLEMAN HAS PAST HISTORY OF SMOKING. PER PULMONARY FUNCTION TEST HE HAS MILD DEGREE OF OBSTRUCTIVE AIRWAY DISORDER, WITHOUT ANY POSITIVE RESPONSE TOBDs. [place] : ADVISED TO USE ALBUTEROL RESPICLICK 1 INHALATION Q 4-6 HOURS ONLY P.R.N.. I GAVE HIM PEAK FLOW METER FROM THE OFFICE, ADVISED HIM TO KEEP CHECKING HIS PEAK FLOWS AT LEAST A FEW TIMES EVERY WEEK. Code(s): J44.9 - Chronic obstructive pulmonary disease, unspecified Qualifiers: COPD type: chronic bronchitis Chronic bronchitis type: simple Qualified Code(s): J41.0 - Simple chronic bronchitis Plan: Patient reports he is generally stop smoking. Does admit to smoking a cigarette every other week. He does use an albuterol inhaler from time to time. He reports less shortness of breath and wheezing. (3) Osteoarthritis of right hip: Comment: (Seen by [facility] ortho - Dr. Goldsmith recommends a right GINA) Code(s): M16.11 - Unilateral primary osteoarthritis, right hip Qualifiers: Osteoarthritis type: primary Qualified Code(s): M16.11 - Unilateral primary osteoarthritis, right hip Plan: Patient's left hip pain has become somewhat unbearable. He anticipates a total hip arthroplasty in January 2023. Continues to try to manage his pain with Tylenol and Belbuca although has not been effective. Will give him low-dose oxycodone temporarily for breakthrough pain until able to get the hip replacement. Still working on prior approval to continuing on his normal dose of Belbuca. (4) Obese: Code(s): E66.9 - Obesity, unspecified Qualifiers: Obesity type: due to excess calories Obesity classification: adult class 1 (BMI 30 - 34.9) Serious obesity comorbidity presence: without serious comorbidity Body mass index: BMI 32.0-32.9 Qualified Code(s): E66.09 - Other obesity due to excess calories; Z68.32 - Body mass index [BMI] 32.0-32.9, adult Plan: Patient does understand his BMI is over 30 will continue to work on better eating habits to reduce his weight. Medications: New oxycodone for breakthrough pain - Awating for Belbuca PA 5 mg PO Q8H 7 days PRN 21 tabs 0RF pain M16.11 - Unilateral primary osteoarthritis, right hip finasteride 5 mg PO DAILY 30 days 30 tabs 3RF N40.1 - Benign prostatic hyperplasia with lower urinary tract symptoms, R33.9 - Retention of urine, unspecified Coding Level of Care Code Est Pt Level 4 (66930) Diagnoses HLD (hyperlipidemia) E78.1 Hyperlipidemia type: pure hypertriglyceridemia COPD (chronic obstructive pulmonary disease) J41.0 COPD type: chronic bronchitis Chronic bronchitis type: simple Osteoarthritis of right hip M16.11 Osteoarthritis type: primary Obese E66.09; Z68.32 Obesity type: due to excess calories Obesity classification: adult class 1 (BMI 30 - 34.9) Serious obesity comorbidity presence: without serious comorbidity Body mass index: BMI 32.0-32.9
== END 2022-12-05 16:02 | disposition home or self-care (01) ==
PROVIDERS: Visit Provider Physician Assistant
DX: J41.0 Simple chronic bronchitis (principal); E66.09 Other obesity due to excess calories; Z68.32 Body mass index [BMI] 32.0-32.9, adult; M16.11 Unilateral primary osteoarthritis, right hip; E78.1 Pure hyperglyceridemia
CPT/HCPCS: 99214

== ENCOUNTER 2022-12-05 16:44 | Outpatient (REF) | payer OTHER, SELFPAY ==
[2022-12-05 18:04] LABS: Alanine Aminotransferase 19 U/L (0-40); Albumin Level 4.2 g/dL (3.5-5.0); Alkaline Phosphatase 69 U/L (39-117); Anion Gap 13 (12-20); Aspartate Amino Transferase 17 U/L (5-37); Bilirubin Total 0.6 mg/dL (0.0-1.0); Blood Urea Nitrogen 16 mg/dL (9-16); Calcium 9.5 mg/dL (8.4-10.2); Carbon Dioxide 24 mmol/L (22-29); Chloride 105 mmol/L (96-108); Cholesterol 165 mg/dL (<200); Estimated Glomerular Filt Rate > 60; Glucose Fasting 99 mg/dL (60-99); HDL Cholesterol 73 mg/dL (>40); Sodium 138 mmol/L (135-145); Total Protein 7.5 g/dL (6.5-8.0)
[2022-12-05 18:22] LABS: LDL Cholesterol Calculated 82 mg/dL (<100); Triglycerides 52 mg/dL (<150)
== END 2022-12-05 16:45 | disposition home or self-care (01) ==
LOC: HO.LAB 16:44
PROVIDERS: PCP Physician Assistant; Visit Provider Physician Assistant
DX: Z12.5 Encounter for screening for malignant neoplasm of prostate (principal); N40.0 Benign prostatic hyperplasia without lower urinary tract symptoms; E78.1 Pure hyperglyceridemia
CPT/HCPCS: 80053; 80061; 84153

== ENCOUNTER → 2022-12-19 12:56 | Outpatient (BNVA) | payer OTHER, SELFPAY | PROVIDERS: Visit Provider Orthopaedic Surgery ==

== ENCOUNTER 2022-12-27 11:57 | Outpatient (AMB) | payer OTHER, SELFPAY ==
[2022-12-27 10:53] VITALS: BP 144/86; PULSE 83; O2SAT 95; BMI 30.4
--- NOTE | 2022-12-27 10:53 | MHC.PC.OV ---
Vital Signs 12/27/22 10:53 12/27/22 12:28 Height 5 ft 9 in Weight 206 lb BMI 30.4 BP 144/86 H 122/74 Blood Pressure Location Lt brachial Lt brachial Position Sitting Sitting Pulse 83 Pulse Source Pulse Oximeter Temp Source Skin Pulse Oximetry (%) 95 Oxygen Delivery Method Room Air Intake Visit Reasons: [facility] 01-15/Rt total hip Artheoplasty Intake Note: Patient is here for a Pre-op for Rt total hip Artheoplasty scheduled with [facility] on 01/15. Allergies No Known Allergies Allergy (Verified 12/28/22 11:23) Medication List - Last Reconciled 12/27/22 by STEF Hyatt acetaminophen ER (Tylenol Arthritis Pain) 650 mg PO Q12H 30 days albuterol sulfate 90 mcg/actuation 1 inh inhalation QID PRN 30 days alfuzosin ER 10 mg PO DAILY 90 days aspirin 81 mg PO DAILY atorvastatin 20 mg PO DAILY 90 days buprenorphine HCl (Belbuca) 900 mcg buccal Q12H 30 days bupropion HCl 150 mg PO QAM fluoxetine 40 mg PO DAILY naloxone 4 mg/actuation (Narcan) 4 mg intranasal Q2M PRN 1 day oxycodone 5 mg PO Q8H PRN 7 days quetiapine (Seroquel) 200 mg PO BEDTIME 90 days walker Folding Front wheeled walker Tobacco use date assessed: 12/27/22 Dental Screening Dental Screen Date: 12/27/22 Did you have a dental visit in the last 12 months?: Yes Did you have a dental problem in the last 6 months where you did not have access to dental care?: No Was dental information given to patient?: Patient has dentist HPI [facility]/ 01-15/Rt total hip Artheoplasty HPI Details Patient is a 62-year-old male who presents today for preop clearance. Pt of FLAQUITA Bruce. Surgery: Right total hip arthroplasty due to right hip osteoarthritis Date: 01/15/2023 Surgeon: Dr. Goldsmith Location: [facility], [place], [place] Anaesthesia: General. Patient reports history of general anesthesia in the past that he tolerated well. Patient denies history of perioperative hypothermia or blood clotting disorders. Pt is on aspirin 81 mg daily. Medical history significant for BPH, failed back syndrome, COPD, obesity, opiate dependence, insomnia, osteoarthritis of right hip. Patient denies shortness of breath or chest pain. [facility] Medical History Arthritis Sleep apnea Lumbar spondylosis Depression History of smoking at least 1 pack per day for at least 30 years COPD (chronic obstructive pulmonary disease) HLD (hyperlipidemia) Failed back syndrome BPH (benign prostatic hyperplasia) Surgical History (Updated 01/04/23 @ 09:06 by Jasmine Cevallos RN) Hx of left inguinal hernia repair Hx of shoulder surgery History of total right knee replacement History of total left knee replacement History of esophagogastroduodenoscopy (EGD) History of colonoscopy History of bursectomy Family History Father Brain cancer Mother CVD (cardiovascular disease) Diabetes H/O heart artery stent Brother Breast cancer Lung cancer Social History Housing: House Alcohol intake: former Patient Tobacco Use Status: Former Tobacco user Quit Date: 2 yrs ago Tobacco use type: Cigarette Years Smoked: (former smoker - onset 15yo, 1ppd x 45yrs, 40pyh, quit in 2020) e-Cigarette/Vaping Use: Never Used Second Hand Smoke Exposure: No service: No Current occupational status: unemployed Cognitive needs: No Hearing needs: No Vision needs: No Questionnaire Thrive Questionnaire Date Thrive assessed: 06/12/22 AUDIT C Alcohol Use Questionnaire (AUDIT-C) 1. How often do you have a drink containing alcohol?: Never 3. How often do you have six or more drinks on one occasion?: Never Total Score: 0 Score Reviewed/Action Taken: No BIJU-7 AMB Questionnaire BIJU-7 Date BIJU - 7 assessed: 06/12/22 Source: Developed by Drs. Wyatt Vareal, Lise Gordillo, Gaetano Feldman and colleagues, with an educational bettina from [employer]. Review of Systems Const Denies body aches, Denies chills, Denies fever(s) and Denies headache(s) Eyes Denies change in vision ENT Denies dizziness, Denies otalgia, Denies headache(s), Denies nasal discharge, Denies sinus pain and Denies sore throat Card Denies chest pain, Denies edema, Denies lightheadedness, Denies dyspnea and Reports dyspnea on exertion (Intermittent) Resp Denies cough, Denies dyspnea, Reports dyspnea on exertion (Intermittent) and Denies wheezing GI Denies constipation, Denies diarrhea, Denies nausea and Denies vomiting Denies dysuria Musc Denies myalgias and Reports arthralgias Skin/Breast Denies rash Neuro Denies dizziness and Denies headache(s) Aller/Immun Denies wheezing Physical exam (Primary Care) Vital Signs: Last Vital Signs Pulse 83 12/27/22 10:53 BP 122/74 12/27/22 12:28 Pulse Ox 95 12/27/22 10:53 Oxygen Delivery Method Room Air 12/27/22 10:53 BMI result Body Mass Index 30.4 Tobacco/Smoking Status: Tobacco use Status Tobacco use date assessed 12/27/22 12/27/22 10:56 Patient Tobacco Use Status Former Tobacco user 12/27/22 10:56 Tobacco use type Cigarette 12/27/22 10:56 e-Cigarette/Vaping Use Never Used 12/27/22 10:56 Thrive Assessment: Date of Thrive Assessment Date Thrive assessed 06/12/22 12/27/22 10:56 Const General: cooperative and no acute distress Orientation/consciousness: patient oriented x3 HENMT Head: Yes normocephalic and Yes atraumatic Ears: TM's normal bilaterally Face and sinus: Yes sinuses nontender Mouth: oropharynx normal and moist mucous membranes Throat: Yes posterior oropharynx normal Eyes General: appearance normal, both eyes and all related structures Pupils: Equal, round and reactive pupils present EOM: EOMs intact bilaterally Neck Neck: Yes normal visual inspection, Yes full ROM and Yes no lymphadenopathy Thyroid: Thyroid normal Resp Effort & Inspection: normal respiratory effort and able to speak in complete sentences Auscultation: clear to auscultation bilaterally, no crackles, no rales, no rhonchi and no wheezes Cardio Rate: regular rate Rhythm: regular rhythm Heart sounds: S1 normal heart sound present, S2 normal heart sound present and no murmurs GI Palpation (GI): Soft to palpation, not firm, nontender, no guarding, not rigid and no hepatosplenomegaly Auscultation: normal bowel sounds Skin General skin exam: no rashes or lesions noted Neuro General: patient oriented x3 Cranial nerves: Yes Equal, round and reactive pupils present Gait exam (Neuro): Normal gait present Extrem General: Yes full ROM and No edema Results Reviewed Results Reviewed: Laboratory Tests 12/28/22 01/02/23 11:13 15:08 WBC 6.7 7.5 RBC 4.47 L D 3.81 L Hgb 13.7 L D 12.2 L Hct 41.8 L D 36.2 L MCV 93.5 95.0 MCH 30.6 32.0 MCHC 32.8 33.7 RDW 13.8 13.9 Plt Count 355 D 301 MPV 8.9 L 9.2 L Immature Gran % (Auto) 0.5 H 0.4 Neut % (Auto) 70.9 67.6 Lymph % (Auto) 16.2 L 20.8 Grundy % (Auto) 8.4 7.9 Eos % (Auto) 2.9 2.4 Baso % (Auto) 1.1 0.9 Lymph # (Auto) 1.1 L 1.6 Grundy # (Auto) 0.6 0.6 Eos # (Auto) 0.2 0.2 Baso # (Auto) 0.1 0.1 Abs Immat Gran (auto) 0.03 0.03 Absolute Neuts (auto) 4.7 5.0 Absolute Nucleated RBC 0.000 0.000 Nucleated RBC % (auto) 0.0 0.0 PT 11.6 11.2 INR 1.0 0.9 Sodium 139 Potassium 4.0 Chloride 111 H Carbon Dioxide 23 Anion Gap 9 L BUN 10 Creatinine 0.83 Estim Creat Clear Calc Not Reportable Estimated GFR > 60 Random Glucose 83 Calcium 9.0 TSH 1.21 Assessment and Plan Assessment & Plan (1) Preoperative clearance: Code(s): Z01.818 - Encounter for other preprocedural examination Plan: METs > 4; RCRI Class 1 cardiovascular risk 0.4% for an intermediate risk surgery (recent blood work 12/2022) Regarding preop clearance, the patient is at acceptable risk for proposed surgery. Reviewed with the patient that no surgery is completely free of risk and that this examination is to assist the surgeon in reviewing informed consent. Postop care including DVT prophylaxis per surgeon. Patient is cleared for surgery. Patient is to hold aspirin 5 days before surgery. 01/04/2023 EKG with no acute findings, reviewed by Dr. Lindsay. Ordering Physician: Chastity Crump Date of Service: 01/04/23 Procedure(s): ECG 12 lead EKG Accession Number(s): [id number] cc: Chastity Crump~ Test Reason : preop Blood Pressure : / mmHG Vent. Rate : 068 BPM Atrial Rate : 068 BPM P-R Int : 146 ms QRS Dur : 092 ms QT Int : 400 ms P-R-T Axes : 006 026 036 degrees QTc Int : 425 ms Normal sinus rhythm Normal ECG When compared with ECG of 29-JUL-2022 12:52, No other significant changes seen (2) Osteoarthritis of right hip: Comment: (Seen by [facility] - Dr. Goldsmith recommends a right GINA) Code(s): M16.11 - Unilateral primary osteoarthritis, right hip Qualifiers: Osteoarthritis type: primary Qualified Code(s): M16.11 - Unilateral primary osteoarthritis, right hip Plan: Surgery: Right total hip arthroplasty due to right hip osteoarthritis Date: 01/15/2023 Surgeon: Dr. Goldsmith Location: [place], [place] Anaesthesia: General. Patient reports history of general anesthesia in the past that he tolerated well. (3) Obese: Code(s): E66.9 - Obesity, unspecified Qualifiers: Body mass index: BMI 32.0-32.9 Obesity classification: adult class 1 (BMI 30 - 34.9) Obesity type: due to excess calories Serious obesity comorbidity presence: without serious comorbidity Qualified Code(s): E66.09 - Other obesity due to excess calories; Z68.32 - Body mass index [BMI] 32.0-32.9, adult Plan: BMI 30.4 Orders: Orders TSH reflex Free T4 01/02/23 Z01.818 - Encounter for other preprocedural examination Basic Metabolic Panel 01/02/23 Z01.818 - Encounter for other preprocedural examination ECG 12 lead EKG 12/27/22 Z01.818 - Encounter for other preprocedural examination, M16.11 - Unilateral primary osteoarthritis, right hip Complete Blood Count Auto Diff 01/02/23 Z01.818 - Encounter for other preprocedural examination Prothrombin Time INR 01/02/23 Z01.818 - Encounter for other preprocedural examination Coding Level of Care Code Est Pt Level 3 (97460) Diagnoses Preoperative clearance Z01.818 Primary osteoarthritis of right hip M16.11 Osteoarthritis type: primary Class 1 obesity due to excess calories without serious comorbidity with body mass index (BMI) of 32.0 to 32.9 in adult E66.09; Z68.32 Body mass index: BMI 32.0-32.9 Obesity classification: adult class 1 (BMI 30 - 34.9) Obesity type: due to excess calories Serious obesity comorbidity presence: without serious comorbidity
[2022-12-27 12:28] VITALS: BP 122/74
== END 2022-12-27 13:05 | disposition home or self-care (01) ==
PROVIDERS: PCP Physician Assistant; Visit Provider Nurse Practitioner Family
DX: Z01.818 Encounter for other preprocedural examination (principal); M16.11 Unilateral primary osteoarthritis, right hip; E66.09 Other obesity due to excess calories; Z68.32 Body mass index [BMI] 32.0-32.9, adult
CPT/HCPCS: 99213

== ENCOUNTER 2022-12-28 10:47 | Day surgery (SDC) | payer OTHER, SELFPAY ==
--- NOTE | 2022-12-26 15:15 | HO.ANESPROP2 ---
Documented by User: Charo Cramer NP 12/26/22 15:17 HPI - Anesthesia Eval Consult details Narrative: 62yo M for Colonoscopy COPD, Smoker PMFSH Active Problems Active Problems: All Active Problems (Updated 11/05/22 @ 15:36 by Jairon Cool MD) History of smoking at least 1 pack per day for at least 30 years (Acute) Incomplete emptying of bladder due to benign prostatic hyperplasia (Acute) Anemia (Acute) COPD (chronic obstructive pulmonary disease) (Acute) HLD (hyperlipidemia) (Acute) Failed back syndrome (Acute) Opiate dependence (Acute) Opioid contract exists (Acute) BPH (benign prostatic hyperplasia) (Acute) Insomnia (Acute) Obese (Acute) Osteoarthritis of right hip (Acute) Past Medical History Medical History Arthritis Sleep apnea Lumbar spondylosis Depression History of smoking at least 1 pack per day for at least 30 years COPD (chronic obstructive pulmonary disease) HLD (hyperlipidemia) Failed back syndrome BPH (benign prostatic hyperplasia) Family History Family History Father Brain cancer Mother CVD (cardiovascular disease) Diabetes H/O heart artery stent Brother Breast cancer Lung cancer Surgical History Surgical History Hx of left inguinal hernia repair Hx of shoulder surgery History of total right knee replacement History of total left knee replacement History of esophagogastroduodenoscopy (EGD) History of colonoscopy History of bursectomy Social History Social History Housing: House Alcohol intake: former Patient Tobacco Use Status: Former Tobacco user Quit Date: 2 yrs ago Tobacco use type: Cigarette Years Smoked: (former smoker - onset 15yo, 1ppd x 45yrs, 40pyh, quit in 2020) e-Cigarette/Vaping Use: Never Used Second Hand Smoke Exposure: No Use of substances other than those prescribed or required for medical reasons: Yes Substance Use Frequency: Occasionally Are you DNR?: No Advance Directives: No Advance Directives Information Provided: Yes service: No Current occupational status: unemployed Cognitive needs: No Hearing needs: No Vision needs: No Meds Allergies Allergy/AdvReac Type Severity Reaction Status Date / Time No Known Allergies Allergy Verified 12/28/22 11:23 Home Medications Medication Instructions Recorded Confirmed Last Taken Type alfuzosin 10 mg tablet,extended 10 mg PO DAILY 12/28/22 12/28/22 Unknown History release 24 hr (Uroxatral) Exam Exam Date and Time: December 26, 2022 1515 Pertinent Lab Results Pertinent Lab Results: Laboratory Tests 07/29/22 12/05/22 16:53 16:54 WBC 7.8 Hgb 9.8 L D Hct 30.0 L D Plt Count 232 D Sodium 138 Potassium 4.0 Chloride 105 Carbon Dioxide 24 BUN 16 Creatinine 1.03 Narrative Narrative: EKG 07/2022 Vent. Rate : 089 BPM Atrial Rate : 089 BPM P-R Int : 152 ms QRS Dur : 088 ms QT Int : 378 ms P-R-T Axes : 005 -21 050 degrees QTc Int : 459 ms Normal sinus rhythm with sinus arrhythmia Normal ECG When compared with ECG of 28-JUL-2022 00:15, No significant changes seen PFT 03/2022 INTERPRETATION: There is an obstructive ventilatory defect consistent with mild COPD. No significant response to bronchodilators noted. There is also evidence of small airway disease. The maximum voluntary ventilation is within normal limits. Lung volumes are within normal limits except for decrease in the expiratory reserve volume secondary to an elevated BMI. The patient also has what appears to be a moderate diffusion impairment. Need to consider underlying parenchymal lung conditions such as emphysema and/or pulmonary vascular conditions. Should also correct for hemoglobin. Clinical correlation warranted. Assessment and Plan Assessment Anesthesia Assessment: Chart Reviewed Documented by User: Risa Johnson MD 12/28/22 11:57 [facility] Past Medical History Medical History Arthritis Sleep apnea Lumbar spondylosis Depression History of smoking at least 1 pack per day for at least 30 years COPD (chronic obstructive pulmonary disease) HLD (hyperlipidemia) Failed back syndrome BPH (benign prostatic hyperplasia) Family History Family History Father Brain cancer Mother CVD (cardiovascular disease) Diabetes H/O heart artery stent Brother Breast cancer Lung cancer Family history of problems with anesthesia: No Surgical History Surgical History Hx of left inguinal hernia repair Hx of shoulder surgery History of total right knee replacement History of total left knee replacement History of esophagogastroduodenoscopy (EGD) History of colonoscopy History of bursectomy History of Problems with Anesthesia: No Social History Social History Housing: House Alcohol intake: former Patient Tobacco Use Status: Former Tobacco user Quit Date: 2 yrs ago Tobacco use type: Cigarette Years Smoked: (former smoker - onset 15yo, 1ppd x 45yrs, 40pyh, quit in 2020) e-Cigarette/Vaping Use: Never Used Second Hand Smoke Exposure: No Use of substances other than those prescribed or required for medical reasons: Yes Substance Use Frequency: Occasionally Are you DNR?: No Advance Directives: No Advance Directives Information Provided: Yes service: No Current occupational status: unemployed Cognitive needs: No Hearing needs: No Vision needs: No Meds Allergies Allergy/AdvReac Type Severity Reaction Status Date / Time No Known Allergies Allergy Verified 12/28/22 11:23 Home Medications Medication Instructions Recorded Confirmed Last Taken Type alfuzosin 10 mg tablet,extended 10 mg PO DAILY 12/28/22 12/28/22 Unknown History release 24 hr (Uroxatral) Exam Airway Mallampati Class: III TM Dist: >3cm Neck ROM: Full Denture: Upper and Lower Heart: rrr Lungs: cta Other: rr Assessment and Plan Assessment Anesthesia Assessment: Anesthesia Plan Discussed Final Anesthetic Review Family History of Problems with Anesthesia: No History of Problems with Anesthesia: No NPO: Yes ASA Class: III Final Preanesthetic Review: No Changes in Pt Med Stat, Meds/Allgs Chart Reviewed, Consent Obtained/Reviewed and Anes Risks/Benef Reviewed Patient Risk: Intermediate Procedure Risk: Low Anesthetic Plan Anesthetic Plan: MAC: Disposition: Standard PACU
--- OUTSIDE RECORDS SUMMARY | 2022-12-28 10:49 | XMS_ITS | Continuity of Care Document ---
Author Name Unknown Organization [facility] Address [address] [place] [id number]- Care Team Providers Care Mainspring Strip Inspector Name Role Phone Nathaniel Booth Primary Care Physician [phone] [place] [facility] [place] 04/26[place]22 - 06/02/22 [facility] [address] [place] [id number]- Attending Physician: Fatoumata Perales DO Admitting Physician: Fatoumata Perales DO Referring Physician: Nathaniel Booth Allergies, Adverse Reactions, Alerts No Known Allergies Medications Advil 400 mg, By Mouth, 2 times a day, PRN, Refills 0, Maintenance, Pain , Mild, 02/06/17 0:53:49 Start Date: 02/06/17 Status: Ordered Fluoxetine = 40 mg, By Mouth, Daily, 0 Refills, Maintenance, 02/06/17 0:52:36 Start Date: 02/06/17 Status: Ordered morphine 30 mg oral tablet, immediate release 2 tablets, By Mouth, 2 times a day, PRN for pain, 0 Refills, Maintenance, 02/06/17 0:53:01, Tablet Start Date: 02/06/17 Status: Ordered Percocet-5/325 325 mg-5 mg oral tablet 1, tablet, By Mouth, Every 4 hours, PRN, This medication causes sedation. Use with caution. Do not drive, operate heavy machinery or power tools, or drink alcohol while taking this medication. Not toexceed 4000 mg acetaminophen per day, # 15 tablet... Start Date: 02/06/17 Status: Ordered promethazine 25 mg oral tablet 1 tablet = 25 mg, By Mouth, Every 6 hours, PRN for nausea/vomiting, May cause sedation, use with caution., # 10 tablet, 0 Refills, Maintenance, 02/06/17 6:46:10, Tablet Start Date: 02/06/17 Status: Ordered Social History Social History Type Response Smoking Status Former smoker; Type: Cigarettes; Other: States he quit a week ago; entered on: 02/06/17 Sex Patient Care team information Care Team Personnel Name: Nathaniel Booth Position: Reference Physician Member Role: PCP Address: Address: [address] [place] [address] [address] [place] [address]- Care Team Related Persons Name: LEO ARORA Address: home [address] [place] [address]
--- OUTSIDE RECORDS SUMMARY | 2022-12-28 10:49 | XMS_ITS | Continuity of Care Document ---
Author Name Unknown Organization [facility] Address [address] [place] [id number]- Care Team Providers Care Teachers Aide Name Role Phone Nathaniel Booth Primary Care Physician [place] [facility] [place]s): 05/03/22 - 06/02/22 [facility] [address] [place] [id number]- Attending Physician: Hitesh Mcintosh Admitting Physician: Hitesh Mcintosh Referring Physician: trHitesh Allergies, Adverse Reactions, Alerts No Known Allergies [...] Reference Physician Member Role: PCP Address: Address: [address] [place] [address]- Care Team Related Persons Name: LEO ARORA Address: home [address] [place] [address]
[2022-12-28 11:12] VITALS: BMI 30.4
[2022-12-28 11:16] LABS: MANUAL DIFF FLAG NO
[2022-12-28 11:21] LABS: Basophils Absolute Auto 0.1 X10*3/uL (0.0-0.2); Basophils Percent Auto 1.1 % (0-2); Eosinophils Absolute Auto 0.2 X10*3/uL (0.0-0.4); Eosinophils Percent Auto 2.9 % (0-4); Hematocrit 41.8 % (42.0-52.0); Hemoglobin 13.7 g/dl (14.0-18.0); Imm Gran Abs Auto 0.03 X10*3/uL (0.00-0.03); Imm Gran Pct Auto 0.5 % (0.0-0.4); Lymphocytes Absolute Auto 1.1 X10*3/uL (1.2-4.9); Lymphocytes Percent Auto 16.2 % (20-40); Mean Corpuscular HGB Conc 32.8 g/dl (31.0-36.0); Mean Corpuscular Hemoglobin 30.6 pg (27.0-33.0); Mean Corpuscular Volume 93.5 fL (80.0-98.0); Mean Platelet Volume 8.9 fL (9.4-12.4); Monocytes Absolute Auto 0.6 X10*3/uL (0.1-1.2); Monocytes Percent Auto 8.4 % (2-11); Neutrophils Absolute Auto 4.7 x10*3/uL (2.0-8.3); Neutrophils Percent Auto 70.9 % (45-73); Platelet Count 355 X10*3/uL (160-400); Red Blood Count 4.47 X10*6/uL (4.60-5.80); Red Cell Distribution Width 13.8 % (11.0-16.0); White Blood Count 6.7 X10*3/uL (4.8-10.8)
[2022-12-28 11:23] VITALS: BP 156/86; PULSE 67; RESP 16; TEMP 36.6; O2SAT 96
[2022-12-28 11:33] LABS: Prothrombin Time 11.6 SEC (11.1-13.3)
[2022-12-28] MEDS: Lactated Ringers 1,000 ML 100 ML IVCONT (11:42)
[2022-12-28 11:50] LABS: Iron 110 mcg/dL (45-160); Percent Iron Saturation 40 % (15-50); Total Iron Binding Capacity 275 mcg/dL (228-428); Unsaturated Iron Binding 165 ug/dL
[2022-12-28 12:01] LABS: Ferritin 63 ng/mL (20-250)
[2022-12-28 12:21] LABS: Folate 8.4 ng/mL (> or = 4.0); Vitamin B12 710 pg/mL (200-900)
[2022-12-28 12:50] VITALS: BP 132/72; PULSE 61; RESP 18; TEMP 36.6; O2SAT 96
--- NOTE | 2022-12-28 12:53 | P.BOP_ITS ---
Brief Operative Note Date of Service: 12/28/22 Pre-op diagnosis: Screening Post-op diagnosis: other (Colon polyps) Procedure: Colonoscopy to the cecum and TI with cold snare polypectomy Surgeon: Wyatt Asif Anesthesia: MAC Was an Director [employer] used for this Procedure?: No Estimated blood loss (mL): 2.0 Pathology: other (A. Polyp at 50cm B. Polyp at 40cm C. Rectal polyp) Condition: stable Disposition: PACU
[2022-12-28 13:08] VITALS: BP 123/85; PULSE 56; RESP 18; TEMP 36.6; O2SAT 96
--- NOTE | 2022-12-28 22:00 | OP_ITS ---
DATE OF SERVICE: 12/28/2022 SURGEON: Wyatt Asif MD INDICATIONS: The patient presents for evaluation of colorectal cancer screening. Full consent has been obtained from him for this, including risks of bleeding and perforation. PREOPERATIVE DIAGNOSIS: Colorectal cancer screening. POSTOPERATIVE DIAGNOSIS: PROCEDURE PERFORMED: Colonoscopy to the cecum and terminal ileum with cold snare polypectomy. ESTIMATED BLOOD LOSS: COMPLICATIONS: ANESTHESIA: Monitored anesthesia care. ASSISTANTS: SPECIMENS: POSTOPERATIVE DIAGNOSES: Colorectal cancer screening, colon polyps, diverticulosis, small internal hemorrhoids. DESCRIPTION OF PROCEDURE: The patient was placed in the left lateral decubitus position. The digital rectal exam did reveal a small skin tag, but no other abnormalities. The Olympus video pediatric colonoscope was entered into the rectum and advanced easily to the cecum. Once in the cecum, I did identify normal-appearing cecal pouch with appendiceal orifice and a normal-appearing ileocecal valve. The terminal ileum was cannulated and appeared normal. The scope was withdrawn back in the colon. The entire cecum and ileocecal valve appeared normal. The scope was slowly withdrawn assessing all mucosal surfaces carefully. Preparation was excellent. At 50 cm, at 40 cm. and in the rectum were approximately 5 or 6 mm polyps, which were all removed by cold snare polypectomy and recovered by suction. All the polypectomy sites appeared clean, without any sign of residual polyp nor significant bleeding. I did not visualize any other polyps, colitis, nor angiodysplasia. There was a mild amount of sigmoid diverticulosis. In the rectum, scope was retroflexed visualizing internal hemorrhoids, but no other pathology. The rectal mucosa appeared normal. The scope was straightened and withdrawn from the patient. He tolerated the procedure well and was returned to recovery area in stable condition. IMPRESSION: 1. Colon polyps. 2. Diverticulosis. 3. Internal hemorrhoids. PLAN: The results of the pathology will be checked. If these are tubular adenomas, I would recommend a followup coloscopy in 5 years. If they are all hyperplastic, I would recommend a followup colonoscopy in 10 years. He was advised not to use any NSAIDs for 1 week. He was advised not to use any aspirin for 1 week as well. He will see me on a p.r.n. basis. MD KRISTINE Hines/CONTRERAS / [phone] [facility]
== END 2022-12-28 13:25 | disposition home or self-care (01) ==
PROVIDERS: PCP Physician Assistant; Visit Provider Internal Medicine
PROC: 0DJD8ZZ Inspection of Lower Intestinal Tract, Via Natural or Artificial Opening Endoscopic (ICD-10-PCS; CPT 45378; principal; 2022-12-28 12:00)
DX: Z12.11 Encounter for screening for malignant neoplasm of colon (principal); D12.5 Benign neoplasm of sigmoid colon; D12.8 Benign neoplasm of rectum; K57.30 Diverticulosis of large intestine without perforation or abscess without bleeding; K64.8 Other hemorrhoids; D64.9 Anemia, unspecified; Z79.82 Long term (current) use of aspirin; Z79.899 Other long term (current) drug therapy; J44.9 Chronic obstructive pulmonary disease, unspecified
CPT/HCPCS: 45385; 36415; 82607; 82728; 82746; 83540; 85025; 85610; 88305

== ENCOUNTER 2023-01-02 14:56 | Outpatient (REF) | payer OTHER, SELFPAY ==
[2023-01-02 15:09] LABS: MANUAL DIFF FLAG NO
[2023-01-02 15:46] LABS: Basophils Absolute Auto 0.1 X10*3/uL (0.0-0.2); Basophils Percent Auto 0.9 % (0-2); Eosinophils Absolute Auto 0.2 X10*3/uL (0.0-0.4); Eosinophils Percent Auto 2.4 % (0-4); Hematocrit 36.2 % (42.0-52.0); Hemoglobin 12.2 g/dl (14.0-18.0); Imm Gran Abs Auto 0.03 X10*3/uL (0.00-0.03); Imm Gran Pct Auto 0.4 % (0.0-0.4); Lymphocytes Absolute Auto 1.6 X10*3/uL (1.2-4.9); Lymphocytes Percent Auto 20.8 % (20-40); Mean Corpuscular HGB Conc 33.7 g/dl (31.0-36.0); Mean Platelet Volume 9.2 fL (9.4-12.4); Monocytes Absolute Auto 0.6 X10*3/uL (0.1-1.2); Monocytes Percent Auto 7.9 % (2-11); Neutrophils Percent Auto 67.6 % (45-73); Platelet Count 301 X10*3/uL (160-400); Red Blood Count 3.81 X10*6/uL (4.60-5.80); Red Cell Distribution Width 13.9 % (11.0-16.0); White Blood Count 7.5 X10*3/uL (4.8-10.8)
[2023-01-02 15:49] LABS: INTERNATIONAL NORM RATIO 0.9 (0.9-1.1); Prothrombin Time 11.2 SEC (11.1-13.3)
[2023-01-02 16:44] LABS: Anion Gap 9 (12-20); Blood Urea Nitrogen 10 mg/dL (9-16); Carbon Dioxide 23 mmol/L (22-29); Chloride 111 mmol/L (96-108); Estimated Glomerular Filt Rate > 60; Glucose Random 83 mg/dL (60-115); Sodium 139 mmol/L (135-145)
[2023-01-02 17:03] LABS: TSH reflex Free T4 1.21 uIU/mL (0.32-4.0)
== END 2023-01-02 14:57 | disposition home or self-care (01) ==
LOC: HO.LAB 14:56
PROVIDERS: PCP Physician Assistant; Visit Provider Nurse Practitioner Family
DX: Z01.818 Encounter for other preprocedural examination (principal); D64.9 Anemia, unspecified; G47.00 Insomnia, unspecified; M96.1 Postlaminectomy syndrome, not elsewhere classified
CPT/HCPCS: 36415; 80048; 84443; 85025; 85610

== ENCOUNTER 2023-01-10 09:49 | Outpatient (AMB) | payer OTHER, SELFPAY ==
--- NOTE | 2023-01-10 09:53 | MHC.OFFVIS ---
Intake Vital Signs 01/10/23 09:56 Height 5 ft 9 in Weight 206 lb BMI 30.4 Intake Visit Reasons: Preop RT GINA 01/15/23 NE Intake Note: Juan a 62 year old male who presents today for a preoperative right GINA, DOS 01/13/23. Pain management agreement reviewed and signed. Allergies No Known Allergies Allergy (Verified 01/10/23 09:56) Medication List - Last Reconciled 01/10/23 by Tanner Watts PA-C acetaminophen ER (Tylenol Arthritis Pain) 650 mg PO Q12H 30 days albuterol sulfate 90 mcg/actuation 1 inh inhalation QID PRN 30 days alfuzosin ER (Uroxatral) 10 mg PO DAILY aspirin 81 mg PO DAILY atorvastatin 20 mg PO DAILY 90 days buprenorphine HCl (Belbuca) 900 mcg buccal Q12H 30 days bupropion HCl 150 mg PO QAM fluoxetine 40 mg PO DAILY naloxone 4 mg/actuation (Narcan) 4 mg intranasal Q2M PRN 1 day quetiapine (Seroquel) 200 mg PO BEDTIME 90 days walker Folding Front wheeled walker HPI HPI Comments History of Present Illness Details Mr Schneider presents to the office today for preop visit. He is scheduled for right total hip arthroplasty with Dr. Goldsmith. He continues to have ongoing pain and difficulty with ambulation in the right hip, which is affecting his quality of life; therefore, he has elected to move forward with surgery. Last seen with Dr Goldsmith on 12.19.22 He has pain with weight-bearing activities, which he localizes primarily in the groin. He is concerned about the pain and recovery after surgery as he is worried it would be like his TKAs He has a Hx of bilateral TKAs in 2006. He has COPD and is currently taking buprenorphine 900cg Q12H for pain control. He says he has taken this on and off for years, and is stable with this. He denies any prior Hx of addiction. He used to follow with Pain Management, and was taking 20mg Oxycodone daily when he wasn't taking the Buprenorphine. He says he has plans to go help his sister with some home repairs this summer. 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 [facility] Medical History Arthritis Sleep apnea Lumbar spondylosis Depression History of smoking at least 1 pack per day for at least 30 years COPD (chronic obstructive pulmonary disease) HLD (hyperlipidemia) Failed back syndrome BPH (benign prostatic hyperplasia) Surgical History Hx of left inguinal hernia repair Hx of shoulder surgery History of total right knee replacement History of total left knee replacement History of esophagogastroduodenoscopy (EGD) History of colonoscopy History of bursectomy Family History Father Brain cancer Mother CVD (cardiovascular disease) Diabetes H/O heart artery stent Brother Breast cancer Lung cancer Social History Housing: House Are you a primary animal care worker to a significant other at home: No Do you presently have visiting nurse or other home services: No Alcohol intake: former Patient Tobacco Use Status: Current someday Tobacco user Tobacco use type: Cigarette Cigarettes Per Day: 0 Years Smoked: 40 e-Cigarette/Vaping Use: Never Used Second Hand Smoke Exposure: No service: No Current occupational status: unemployed Cognitive needs: No Hearing needs: No Vision needs: No Review of Systems Const All systems reviewed & are unremarkable except as noted in HPI and below Physical Exam Vital Signs: BMI result Body Mass Index 30.4 Const General: cooperative and no acute distress Orientation/consciousness: patient oriented x3 HEENT Head: Yes normal to inspection, Yes normocephalic and Yes atraumatic Eyes General: appearance normal, both eyes and all related structures Neck Neck: Yes normal visual inspection and Yes no lymphadenopathy Resp Effort & Inspection: normal respiratory effort and able to speak in complete sentences Cardio Rate: regular rate Peripheral pulses: Peripheral pulses 2+ throughout GI Inspection: Yes normal to inspection Palpation (GI): Soft to palpation Skin General skin exam: no rashes or lesions noted Lesions: no lesions Rashes: no rashes Neuro General: patient oriented x3 Extrem Other: Right hip normal to inspection, ambulates with a slight limp. Skin intact. No rashes or abrasions. Has mild discomfort with internal and extension rotation of hip. No significant stiffness. Mild discomfort with hip flexion against resistance. NVI. Psych Appearance: grossly normal Mental Status: mental status grossly normal Assessment & Plan Assessment & Plan (1) Osteoarthritis of right hip: Comment: (Seen by [facility] [place] Dr. Goldsmith recommends a right GINA) Code(s): M16.11 - Unilateral primary osteoarthritis, right hip Qualifiers: Osteoarthritis type: primary Qualified Code(s): M16.11 - Unilateral primary osteoarthritis, right hip Plan: I discussed in detail the procedure and what to expect pre and post operatively. We discussed the risks, benefits and alternatives to the surgery as well as the rehabilitation course. The risks; which include, but are not limited to infection, bleeding, nerve injury, ongoing pain, swelling, and stiffness, perioperative risk of injury to bones and soft tissues, and blood clots. I?ve answered all questions and with their understanding they have consented to move forward with Right total hip arthroplasty with Dr. Goldsmith Orders: Orders XR pelvis 1-2V Today M25.559 - Pain in unspecified hip Patient Instructions: Scribed for Tanner Watts PA-C, by Frederic Wise director of graduate medical education, on 01/10/2023 at 9:45 AM KIMANI. Tanner Kim PA-C, have personally reviewed and agree with the information entered by the scribe. Coding Level of Care Code Est Pt Level 3 (62131) Diagnoses Primary osteoarthritis of right hip M16.11 Osteoarthritis type: primary
[2023-01-10 09:56] VITALS: BMI 30.4
== END 2023-01-10 10:30 | disposition home or self-care (01) ==
PROVIDERS: Visit Provider Physician Assistant
DX: M16.11 Unilateral primary osteoarthritis, right hip (principal)
CPT/HCPCS: 99024

== ENCOUNTER 2023-01-10 09:49 | Outpatient (REF) | payer OTHER, SELFPAY ==
--- NOTE | ~2023-01-10 | XR_ITS ---
EXAMINATION: XR PELVIS CLINICAL INFORMATION: Pain in unspecified hip COMPARISON: None available. TECHNIQUE: AP view of the pelvis. FINDINGS: No fracture. There is severe narrowing of the cartilage space of the superior-lateral aspect of the right hip there is possible slight flattening of the right femoral head. There is mild narrowing of the cartilage space of the left hip. The left femoral head is well rounded. The sacroiliac joints are within normal limits. Mild degenerative change of the pubic symphysis. Severe degenerative change in the lower lumbar spine.. XR/XR pelvis 1-2V IMPRESSION: 1. Severe osteoarthritis of the right hip. 2. Mild osteoarthritis of the left hip. 3. Severe degenerative change in the lower lumbar spine.
== END 2023-01-10 09:50 | disposition home or self-care (01) ==
LOC: HO.HOSX 09:49
PROVIDERS: Visit Provider Physician Assistant
DX: M16.11 Unilateral primary osteoarthritis, right hip (principal)
CPT/HCPCS: 72170; 99212

== ENCOUNTER 2023-01-15 06:05 | Inpatient (IN) | payer OTHER, SELFPAY ==
--- NOTE | 2023-01-04 14:55 | ECG_ITS ---
Test Reason : preop Blood Pressure : / mmHG Vent. Rate : 068 BPM Atrial Rate : 068 BPM P-R Int : 146 ms QRS Dur : 092 ms QT Int : 400 ms P-R-T Axes : 006 026 036 degrees QTc Int : 425 ms Normal sinus rhythm Normal ECG When compared with ECG of 29-JUL-2022 12:52, No other significant changes seen Referred By: Chastity Crump Electronically Signed By:MAITE JAQUEZ
[2023-01-07 10:14] VITALS: BP 100/58; PULSE 85; RESP 20; O2SAT 96; BMI 30.4
--- NOTE | 2023-01-07 10:26 | HO.ANESPROP2 ---
Documented by User: Charo Cramer NP 01/07/23 14:27 HPI - Anesthesia Eval Consult details Narrative: 62yo M for Right Hip Total Replacement, 01/15/23 Medically optimized per PCP No recent illness No CP with activity > 4 mets. MORAES r/t COPD at baseline. 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 TERRA: Does not use CPAP d/t discomfort and machine malfunction COPD: Albuterol 1-2 times weekly Hx of ETOH. Rare smoking. Occ marijuana. Buprenorphine 900mcg BID. Instructed to hold 24 hours prior to surgery. [facility] Active Problems Active Problems: All Active Problems (Updated 12/28/22 @ 11:22 by Luisa Victor, RN) Preoperative clearance (Acute) Incomplete emptying of bladder due to benign prostatic hyperplasia (Acute) Anemia (Acute) Osteoarthritis of right hip (Acute) Opioid contract exists (Acute) Insomnia (Acute) Opiate dependence (Acute) Obese (Acute) History of smoking at least 1 pack per day for at least 30 years (Acute) COPD (chronic obstructive pulmonary disease) (Acute) HLD (hyperlipidemia) (Acute) Failed back syndrome (Acute) BPH (benign prostatic hyperplasia) (Acute) Past Medical History Medical History Arthritis Sleep apnea Lumbar spondylosis Depression History of smoking at least 1 pack per day for at least 30 years COPD (chronic obstructive pulmonary disease) HLD (hyperlipidemia) Failed back syndrome BPH (benign prostatic hyperplasia) Family History Family History Father Brain cancer Mother CVD (cardiovascular disease) Diabetes H/O heart artery stent Brother Breast cancer Lung cancer Family history of problems with anesthesia: No Surgical History Surgical History Hx of left inguinal hernia repair Hx of shoulder surgery History of total right knee replacement History of total left knee replacement History of esophagogastroduodenoscopy (EGD) History of colonoscopy History of bursectomy History of Problems with Anesthesia: No Social History Social History Housing: House Are you a primary career based intervention coordinator to a significant other at home: No Do you presently have visiting nurse or other home services: No Alcohol intake: former Patient Tobacco Use Status: Current someday Tobacco user Tobacco use type: Cigarette Cigarettes Per Day: 0 Years Smoked: 40 e-Cigarette/Vaping Use: Never Used Second Hand Smoke Exposure: No Substance Use Type Other:: smokes occasionally Substance Use Frequency: Occasionally Have you been hit, kicked, punched, or otherwise hurt by someone within the past year? If so, by whom?: No Are you DNR?: No Advance Directives: No Advance Directives Information Provided: No (declined HCP brochure) Advance Directives on File: No Recently lost weight without trying: No Eating poorly because of decreased appetite: No Nutrition Risks: No Nutritional Risk Poor oral hygiene: No (full upper denture, partial lower) service: No Current occupational status: unemployed Cognitive needs: No Hearing needs: No Vision needs: No Meds Allergies Allergy/AdvReac Type Severity Reaction Status Date / Time No Known Allergies Allergy Verified 01/15/23 06:15 Home Medications Medication Instructions Recorded Confirmed Last Taken Type alfuzosin 10 mg tablet,extended 10 mg PO DAILY 12/28/22 01/10/23 Unknown History release 24 hr (Uroxatral) Exam Exam Date and Time: January 07, 2023 1026 Height,Weight and Vital Signs: Height 5 ft 9 in Weight 93.44 kg Last Vital Signs Pulse 85 01/07/23 10:14 Resp 20 01/07/23 10:14 BP 100/58 L 01/07/23 10:14 Pulse Ox 96 01/07/23 10:14 O2 Del Method Room Air 01/07/23 10:14 Pertinent Lab Results Pertinent Lab Results: Laboratory Tests 01/02/23 15:08 WBC 7.5 Hgb 12.2 L Hct 36.2 L Plt Count 301 Sodium 139 Potassium 4.0 Chloride 111 H Carbon Dioxide 23 BUN 10 Creatinine 0.83 Narrative Narrative: EKG 12/2022 Vent. Rate : 068 BPM Atrial Rate : 068 BPM P-R Int : 146 ms QRS Dur : 092 ms QT Int : 400 ms P-R-T Axes : 006 026 036 degrees QTc Int : 425 ms Normal sinus rhythm Normal ECG When compared with ECG of 29-JUL-2022 12:52, No other significant changes seen Airway Mallampati Class: III TM Dist: >3cm Neck ROM: Full Denture: Upper Partial: Lower Loose/Missing/Broken Teeth: No (4 teeth on bottom, stable) Heart: RRR Lungs: CTAB Assessment and Plan Assessment Anesthesia Assessment: Anesthesia Plan Discussed, Smoking Cess. Discussed and PAT Visit Final Anesthetic Review Family History of Problems with Anesthesia: No History of Problems with Anesthesia: No Documented by User: Aman Gutierrez MD 01/15/23 07:23 [facility] Past Medical History Medical History Arthritis Sleep apnea Lumbar spondylosis Depression History of smoking at least 1 pack per day for at least 30 years COPD (chronic obstructive pulmonary disease) HLD (hyperlipidemia) Failed back syndrome BPH (benign prostatic hyperplasia) Family History Family History Father Brain cancer Mother CVD (cardiovascular disease) Diabetes H/O heart artery stent Brother Breast cancer Lung cancer Surgical History Surgical History Hx of left inguinal hernia repair Hx of shoulder surgery History of total right knee replacement History of total left knee replacement History of esophagogastroduodenoscopy (EGD) History of colonoscopy History of bursectomy Social History Social History Housing: House Are you a primary career based intervention coordinator to a significant other at home: No Do you presently have visiting nurse or other home services: No Alcohol intake: former Patient Tobacco Use Status: Current someday Tobacco user Tobacco use type: Cigarette Cigarettes Per Day: 0 Years Smoked: 40 e-Cigarette/Vaping Use: Never Used Second Hand Smoke Exposure: No Substance Use Type Other:: smokes occasionally Substance Use Frequency: Occasionally Have you been hit, kicked, punched, or otherwise hurt by someone within the past year? If so, by whom?: No Are you DNR?: No Advance Directives: No Advance Directives Information Provided: No (declined HCP brochure) Advance Directives on File: No Recently lost weight without trying: No Eating poorly because of decreased appetite: No Nutrition Risks: No Nutritional Risk Poor oral hygiene: No (full upper denture, partial lower) service: No Current occupational status: unemployed Cognitive needs: No Hearing needs: No Vision needs: No Meds Allergies Allergy/AdvReac Type Severity Reaction Status Date / Time No Known Allergies Allergy Verified 01/15/23 06:15 Home Medications Medication Instructions Recorded Confirmed Last Taken Type alfuzosin 10 mg tablet,extended 10 mg PO DAILY 12/28/22 01/10/23 Unknown History release 24 hr (Uroxatral) Assessment and Plan Final Anesthetic Review NPO: Yes ASA Class: III Final Preanesthetic Review: No Changes in Pt Med Stat, Meds/Allgs Chart Reviewed, Consent Obtained/Reviewed and Anes Risks/Benef Reviewed Patient Risk: Intermediate Procedure Risk: Intermediate Anesthetic Plan Anesthetic Plan: GA and Agree w/ Assess. and Plan Disposition: Standard PACU
[2023-01-07 12:28] LABS: MRSA Nasal PCR NEGATIVE (Negative); SA Nasal PCR NEGATIVE (Negative)
[2023-01-15] VITALS (18 sets, daily range): BP systolic 83–159; BP diastolic 57–85; PULSE 59–74; RESP 11–22; TEMP 36.1–36.6; O2SAT 93–97; BMI 33.1
--- NOTE | ~2023-01-15 | XR_ITS ---
EXAMINATION: XR PELVIS CLINICAL INFORMATION: Right hip replacement COMPARISON: Previous x-ray December 2027 TECHNIQUE: AP view of the pelvis. FINDINGS: There is a new right hip replacement in satisfactory position. No fracture or dislocation. Mild arthritis at the left hip joint. Postoperative changes to the soft tissues. XR/XR pelvis 1-2V IMPRESSION: Satisfactory appearance of right hip replacement.
[2023-01-15] MEDS: Lactated Ringers 1,000 ML 100 ML IVCONT (06:28)
[2023-01-15] MEDS: Albuterol Sulfate (0.083%) 2.5 MG/3 ML VIAL.NEB INHALE (06:41)
[2023-01-15] MEDS: oxyCODONE HCl ER 10 MG TAB.ER.12H PO ×2 (06:44→20:38)
--- NOTE | 2023-01-15 07:42 | MHC.SHP ---
Pre-Procedural Eval Section A Date of Service: 01/15/23 The patient is an INPATIENT: No The History & Physical has been completed within 30 days and I have reviewed it.: Yes Section B Chief Complaint: Unilateral primary osteoarthritis, right hip Allergies: Allergies Allergy/AdvReac Type Severity Reaction Status Date / Time No Known Allergies Allergy Verified 01/15/23 06:15 Plan I have reviewed the history and physical and performed a pertinent physical examination on my patient. No changes have occurred unless specified. Time Spent With Patient Time: Total time managing care of this patient today ____ minutes.
--- NOTE | 2023-01-15 08:39 | PHA.MEDREC ---
Addendum entered by Liz Salgado RPh 01/15/23 14:57: PT CLAIMS HE IS NO LONGER ON FINASTERIDE Original Note: Pharmacy Consult ? Medication Reconciliation Pharmacy has completed the medication reconciliation. reviewed med rec done by nursing. will clarify missing finasteride with patient post op when he is assigned to a room.
--- NOTE | 2023-01-15 09:51 | PM.OP ---
Brief Operative Note Date of Service: 01/15/23 Pre-op diagnosis: Right hip OA Post-op diagnosis: same Procedure: Right GINA Implants: Ricardo Trident2 #54 [employer] Accolade2 132 deg # 6 with + 2.5 36 ceramic FH Surgeon: Ruben Goldsmith MD Anesthesia: GETA Was an Wood Tile Installer used for this Procedure?: Yes Wood Tile Installer: Tanner Watts Estimated blood loss (mL): 250 IV fluids (mL): 1,000 Pathology: other Condition: stable Disposition: PACU
[2023-01-15] MEDS: HYDROmorphone HCl 0.5 MG/0.5 ML SYRINGE IVPUSH ×4 (10:05→18:31)
[2023-01-15] MEDS: fentaNYL citrate/PF 100 MCG/2 ML VIAL 50 MCG IVPUSH ×4 (10:20→10:40)
--- NOTE | 2023-01-15 13:48 | W.PM.OPN ---
Operative Note Operative Note Date of Service: 01/15/23 Narrative: Date of Service: 01/15/23 Pre-op diagnosis: Right hip OA Post-op diagnosis: same Procedure: Right GINA Implants: Cisco Trident2 #54 Cisco Accolade2 132 deg # 6 with + 2.5 36 ceramic FH Surgeon: Ruben Goldsmith MD Anesthesia: GETA Was an Reducing Salon Attendant used for this Procedure?: Yes Reducing Salon Attendant: Tanner Watts Estimated blood loss (mL): 250 IV fluids (mL): 1,000 Pathology: other Condition: stable Disposition: PACU Procedure in detail: Patient was brought into the operating room and placed in the right lateral decubitus position. All bony prominences were well padded and the limb was prepped and draped in standard sterile fashion. A time-out was called to identify proper site procedure proper surgeon IV antibiotics and 1 g of transaxemic acid were administered. I began by making a curvilinear incision over the posterolateral aspect of the greater trochanter. Dissection was taken down to the tensor fascia which was incised in line with the incision and a Charnley retractor was placed. Cautery was used to maintain hemostasis. The hip was internally rotated and the external rotators were identified. The vessels were cauterized and a full-thickness capsular/external rotator layer was developed starting just proximal to the piriformis. This layer was tagged and a dull Hohmann retractor was placed underneath the neck in the hip was dislocated. The head was eburnated and defromed. A neck cut was made ~1 cm proximal to the lesser trochanter and the head and neck were removed and measured 51mm on the back table. I then removed the labrum and cauterized the fovea. I started with a 46 reamer and medialized to the inner table. I sequentially reamed up to a size 54 and impacted a 54mm cup at 45 degrees of inclination and 25 degrees of version. I then placed a 20 deg posterior lipped liner and turned my attention to the femur. I identified the piriformis insertion and used this as a starting point for my loreto cutter. The medius tendon was protected with a Hibs retractor. A Charnley awl was inserted in the canal and a curved curette used to remove the lateral bone. I irrigated copiously. I then sequentially broached in the patient's natural version to a size 6 and placed my trial implants. I used a #6/132/+2.5 based on my pre-operative template. Using a trail head I took the hip through range of motion. I was satisfied with the stability and length. Using the +0 head he dislocated at 60 deg or FADIR. I removed all instrumentation and copiously irrigated. I placed my final femoral implant and again took the hip through range of motion and was satisfied with the stability and length using a +2.5 trial. The final 2.5 implant was impacted in place and the hip reduced. I then irrigated and placed 1 g of local transaxemic acid. I performed a capsular closure with 2.0 fiberwire, Shawna's fascia with 0 Vicryl, subcuticular with 2-0 Vicryl and the skin with raysa. Patient was placed into a sterile dressing. Patient was extubated brought to the recovery room in stable condition. There were no known complications.
[2023-01-15] MEDS: ceFAZolin Sodium/Dextrose,Iso 2 GM/50 ML PIGGYBACK IV (14:16)
[2023-01-15] MEDS: Ketorolac Tromethamine 15 MG/ML VIAL IVPUSH (14:16)
--- NOTE | 2023-01-15 15:04 | HO.PM.IMCN ---
History of Present Illness Data of Consult Service Date: 01/15/23 <FLAQUITA Garcia - Last Filed: 01/16/23 13:49> Primary Care Provider: Nathaniel Bruce PA-C <FLAQUITA Garcia - Last Filed: 01/16/23 13:49> HPI Reason for consult: Medical Management <FLAQUITA Garcia - Last Filed: 01/16/23 13:49> Pt will be admitted to the hospital for treatment and further evaluation of severe sepsis in the setting of COPD exacerbation. Patient complaining poorly controlled right hip pain, rates it a /10. Patient also experiencing occasional left thigh cramping which patient states he has experienced for many years. Otherwise has no acute medical complaints. Denies numbness or tingling in lower extremities. No nausea, vomiting, abdominal pain. Denies shortness of breath. No chest pain/pressure, palpitations. <FLAQUITA Garcia - Last Filed: 01/16/23 13:49> Pt will be admitted to the hospital for treatment and further evaluation of medical managment . Patient complaining poorly controlled right hip pain, rates it a 9/10. Patient also experiencing occasional left thigh cramping which patient states he has experienced for many years. Otherwise has no acute medical complaints. Denies numbness or tingling in lower extremities. No nausea, vomiting, abdominal pain. Denies shortness of breath. No chest pain/pressure, palpitations. <Rick Kelly MD - Last Filed: 01/16/23 15:17> Review of Systems Review of Systems: Poorly-controlled right hip pain Occasional left thigh cramping Otherwise patient has no acute medical complaints Denies SOB No lower extremity numbness or tingling Denies chest pain/pressure, palpitations No fever, chills, nausea, vomiting, abdominal pain <FLAQUITA Garcia - Last Filed: 01/16/23 13:49> [facility] Medical History: Medical History Arthritis Sleep apnea Lumbar spondylosis Depression History of smoking at least 1 pack per day for at least 30 years COPD (chronic obstructive pulmonary disease) HLD (hyperlipidemia) Failed back syndrome BPH (benign prostatic hyperplasia) <FLAQUITA Garcia - Last Filed: 01/16/23 13:49> Family History: Family History Father Brain cancer Mother CVD (cardiovascular disease) Diabetes H/O heart artery stent Brother Breast cancer Lung cancer <FLAQUITA Garcia - Last Filed: 01/16/23 13:49> Surgical History: Surgical History Hx of left inguinal hernia repair Hx of shoulder surgery History of total right knee replacement History of total left knee replacement History of esophagogastroduodenoscopy (EGD) History of colonoscopy History of bursectomy <FLAQUITA Garcia - Last Filed: 01/16/23 13:49> Social History: Social History Household Members: None Housing: House Are you a primary reservoir caretaker to a significant other at home: No Do you presently have visiting nurse or other home services: No Alcohol intake: former Patient Tobacco Use Status: Former Tobacco user Quit Date: 2 yrs ago Tobacco use type: Cigarette Cigarettes Per Day: 0 Years Smoked: 40 Smoked in Last 30 Days: No e-Cigarette/Vaping Use: Never Used Patient Interested in Nicotine Replacement: No Patient Given Instructions on How to Stop Smoking: No Second Hand Smoke Exposure: No Use of substances other than those prescribed or required for medical reasons: Yes Substance Use Type: Marijuana Substance Use Type Other:: smokes occasionally Substance Use Frequency: Occasionally Last Used Substance: Days (ago) Currently Displaying Signs/Symptoms of Drug Intoxication Withdrawal: No Any prior treatment program specific to substance use: No Have you been hit, kicked, punched, or otherwise hurt by someone within the past year? If so, by whom?: No Do you feel safe in your current relationship?: Yes Is there a partner from a previous relationship who is making you feel unsafe now?: No Are you made to feel afraid or neglected: No Are you DNR?: No Advance Directives: No Advance Directives Information Provided: No (declined HCP brochure) Advance Directives on File: No Do you have thoughts of harming others: None Do you have a plan to hurt others: No Plan Recently lost weight without trying: No Eating poorly because of decreased appetite: No Nutrition Risks: No Nutritional Risk Poor oral hygiene: Yes service: No Current occupational status: unemployed Cognitive needs: No Hearing needs: No Vision needs: No <FLAQUITA Garcia - Last Filed: 01/16/23 13:49> Meds Allergies/Adverse reactions: Allergies Allergy/AdvReac Type Severity Reaction Status Date / Time No Known Allergies Allergy Verified 01/15/23 06:15 <FLAQUITA Garcia - Last Filed: 01/16/23 13:49> Active Medications: Current Medications Albuterol Sulfate (Albuterol Sulfate 90 Mcg 8 Gm Inhaler) 1 puff INHALE QID PRN PRN Reason: shortness of breath or wheezing Aspirin (Aspirin 325 Mg Tablet) 325 mg PO BID [facility] Bupropion HCl (Bupropion Hcl Xl 150 Mg Tab.Er.24h) 150 mg PO DAILY [facility] Celecoxib (Celecoxib 200 Mg Capsule) 200 mg PO BID [facility] Docusate Sodium (Docusate Sodium 100 Mg Capsule) 100 mg PO BID [facility] Fluoxetine HCl (Fluoxetine Hcl 20 Mg Capsule) 40 mg PO DAILY [facility] Hydromorphone HCl (Hydromorphone Hcl 0.5 Mg/0.5 Ml Syringe) 0.5 mg IVPUSH Q3H PRN; Protocol PRN Reason: Pain, Severe (Pain Scale 7-10) Acetaminophen (Ofirmev) 1,000 mg in 100 mls @ 400 mls/hr IV Q6H [facility] Stop: 01/16/23 09:44 Ketorolac Tromethamine (Ketorolac Tromethamine 15 Mg/Ml Vial) 15 mg IVPUSH Q6H PRN PRN Reason: Pain, Severe (Pain Scale 7-10) Last Admin: 01/15/23 14:16 Dose: 15 mg Naloxone HCl (Naloxone Hcl Nasal 4 Mg [place]) 4 mg NOSTRILALT Q2M PRN PRN Reason: opioid overdose Ondansetron HCl (Ondansetron Hcl 4 Mg/2 Ml Vial) 4 mg IVPUSH Q8H PRN PRN Reason: Nausea and Vomiting Oxycodone HCl (Oxycodone Hcl Immed Release 5 Mg Tablet) 10 mg PO Q4H PRN PRN Reason: Pain, Moderate(Pain Scale 4-6) Oxycodone HCl (Oxycodone Hcl Er 10 Mg Tab.Er.12h) 10 mg PO BID [facility] Quetiapine Fumarate (Quetiapine Fumarate 200 Mg Tablet) 200 mg PO BEDTIME [facility] Sodium Chloride (0.9 % Sodium Chloride Flush 3 Ml Syringe) 3 ml IVFLUSH QSHIFT [facility] Tamsulosin HCl (Tamsulosin Hcl 0.4 Mg Capsule) 0.4 mg PO DAILY [facility] <FLAQUITA Garcia Last Filed: 01/16/23 13:49> Home medications: Home Medications Medication Instructions Recorded Confirmed Last Taken Type alfuzosin 10 mg tablet,extended 10 mg PO DAILY 12/28/22 01/10/23 Unknown History release 24 hr (Uroxatral) acetaminophen 650 mg 650 mg PO Q12H PRN Pain 01/15/23 01/04/23 Unknown History tablet,extended release (Tylenol Arthritis Pain) bupropion HCl 150 mg 24 hr tablet, 150 mg PO DAILY 01/15/23 01/15/23 Unknown History extended release <FLAQUITA Garcia Last Filed: 01/16/23 13:49> Physical Exam Vital Signs and Narrative: Vital Signs: Last Vital Signs Temp 96.9 F 01/15/23 12:18 Pulse 68 01/15/23 12:18 Resp 18 01/15/23 12:18 BP 146/81 H 01/15/23 12:18 Pulse Ox 95 01/15/23 12:18 O2 Del Method Nasal Cannula 01/15/23 12:18 O2 Flow Rate 2 01/15/23 12:18 BMI result Body Mass Index 33.1 <FLAQUITA Garcia Last Filed: 01/16/23 13:49> General: AOx3, no acute distress Resp: Mild diffuse expiratory wheezing CVS: S1, S2, RRR GI: +BS, NT, no distention Skin: Warm, dry Neuro: Cranial nerves II-XII grossly intact bilaterally. Motor grossly intact bilaterally Extremities: No edema. Pedal pulses intact Psych: Appropriate affect <FLAQUITA Garcia Last Filed: 01/16/23 13:49> Results Labs CBC and Chem 7: 01/16/23 05:28 01/16/23 05:28 <FLAQUITA Garcia Last Filed: 01/16/23 13:49> Imaging Radiologist's Impressions: Impressions Pelvis X-Ray 01/15/23 12:44 IMPRESSION: Satisfactory appearance of right hip replacement. <FLAQUITA Garcia Last Filed: 01/16/23 13:49> Assessment and Plan (1) Osteoarthritis of right hip: Qualifiers: Osteoarthritis type: primary Qualified Code(s): M16.11 - Unilateral primary osteoarthritis, right hip <FLAQUITA Garcia - Last Filed: 01/16/23 13:49> Status: Acute <FLAQUITA Garcia - Last Filed: 01/16/23 13:49> (2) COPD (chronic obstructive pulmonary disease): Qualifiers: COPD type: chronic bronchitis Chronic bronchitis type: simple Qualified Code(s): J41.0 - Simple chronic bronchitis <FLAQUITA Garcia - Last Filed: 01/16/23 13:49> Status: Acute <FLAQUITA Garcia - Last Filed: 01/16/23 13:49> Pt will be admitted to the hospital for treatment and further evaluation of severe sepsis in the setting of COPD exacerbation. Right GINA Patient complaining of poorly controlled right hip pain Plan as per Orthopedics COPD Patient denies SOB, mild diffuse wheezing upon auscultation Continue home inhaler Encourage incentive spirometry HLD Continue statin BPH Continue alfuzosin TERRA Patient states he has not been on CPAP for years Thank you for allowing us to participate in the care of this patient. Will continue to follow for now. Please let us know if there are any acute complaints or questions. <FLAQUITA Garcia - Last Filed: 01/16/23 13:49> Pt will be admitted to the hospital for treatment and further evaluation Rt. GINA. Right GINA Patient complaining of poorly controlled right hip pain Plan as per Orthopedics COPD Patient denies SOB, mild diffuse wheezing upon auscultation Continue home inhaler Encourage incentive spirometry HLD Continue statin BPH Continue alfuzosin TERRA Patient states he has not been on CPAP for years Thank you for allowing us to participate in the care of this patient. Will continue to follow for now. Please let us know if there are any acute complaints or questions. <Rick Kelly MD - Last Filed: 01/16/23 15:17> Time Spent With Patient Time: Total time managing care of this patient today ____ minutes. <FLAQUITA Garcia - Last Filed: 01/16/23 13:49>
[2023-01-15] MEDS: oxyCODONE HCl Immed Release 5 MG TABLET 10 MG PO (15:32)
[2023-01-15] MEDS: Acetaminophen 1,000 MG/100 ML PIGGYBACK 400 MG IV ×2 (15:35→20:41)
[2023-01-15] MEDS: Atorvastatin Calcium 20 MG TABLET PO (17:27)
[2023-01-15] MEDS: Celecoxib 200 MG CAPSULE PO (20:37)
[2023-01-15] MEDS: QUEtiapine Fumarate 200 MG TABLET PO (20:37)
[2023-01-15] MEDS: Docusate Sodium 100 MG CAPSULE PO (20:37)
[2023-01-15] MEDS: 0.9 % Sodium Chloride Flush 3 ML SYRINGE IVFLUSH (20:40)
[2023-01-16] MEDS: HYDROmorphone HCl 0.5 MG/0.5 ML SYRINGE IVPUSH ×2 (00:18→21:50)
[2023-01-16 03:00] VITALS: BP 136/75; PULSE 57; RESP 16; TEMP 36.2; O2SAT 93
[2023-01-16] MEDS: Acetaminophen 1,000 MG/100 ML PIGGYBACK 400 MG IV ×2 (04:04→08:43)
[2023-01-16 05:57] LABS: MANUAL DIFF FLAG NO
[2023-01-16 06:18] LABS: Anion Gap 9 (12-20); Blood Urea Nitrogen 14 mg/dL (9-16); Calcium 8.5 mg/dL (8.4-10.2); Carbon Dioxide 24 mmol/L (22-29); Chloride 108 mmol/L (96-108); Estimated Glomerular Filt Rate > 60; Glucose Fasting 120 mg/dL (60-99); Potassium 3.7 mmol/L (3.3-5.1); Sodium 137 mmol/L (135-145)
[2023-01-16 06:51] LABS: Basophils Percent Auto 0.4 % (0-2); Eosinophils Absolute Auto 0.1 X10*3/uL (0.0-0.4); Eosinophils Percent Auto 0.9 % (0-4); Hematocrit 33.1 % (42.0-52.0); Hemoglobin 11.3 g/dl (14.0-18.0); Imm Gran Abs Auto 0.04 X10*3/uL (0.00-0.03); Imm Gran Pct Auto 0.4 % (0.0-0.4); Lymphocytes Absolute Auto 1.7 X10*3/uL (1.2-4.9); Lymphocytes Percent Auto 17.9 % (20-40); Mean Corpuscular HGB Conc 34.1 g/dl (31.0-36.0); Mean Corpuscular Hemoglobin 33.1 pg (27.0-33.0); Mean Corpuscular Volume 97.1 fL (80.0-98.0); Mean Platelet Volume 9.4 fL (9.4-12.4); Monocytes Absolute Auto 1.2 X10*3/uL (0.1-1.2); Monocytes Percent Auto 12.6 % (2-11); Neutrophils Absolute Auto 6.6 x10*3/uL (2.0-8.3); Neutrophils Percent Auto 67.8 % (45-73); Platelet Count 266 X10*3/uL (160-400); Red Blood Count 3.41 X10*6/uL (4.60-5.80); Red Cell Distribution Width 14.2 % (11.0-16.0); White Blood Count 9.7 X10*3/uL (4.8-10.8)
[2023-01-16 07:00] VITALS: BP 145/80; PULSE 63; RESP 18; TEMP 36.6; O2SAT 93
--- NOTE | 2023-01-16 07:29 | PM.PNORT ---
Subjective Subjective Date of Service: 01/16/23 Interval history: POD1 s/p RTHA Patient is resting in bed comfortably No overnight events Pain is managed No additional complaints Physical Exam Vital Signs: Vital Signs: Last Vital Signs Temp 97.9 F 01/16/23 07:00 Pulse 63 01/16/23 07:00 Resp 18 01/16/23 07:00 BP 145/80 H 01/16/23 07:00 Pulse Ox 93 01/16/23 07:00 O2 Del Method Room Air 01/16/23 07:00 O2 Flow Rate 2 01/15/23 12:18 BMI result Body Mass Index 33.1 Const: General: cooperative, healthy appearing and no acute distress Resp: Effort & Inspection: normal respiratory effort and able to speak in complete sentences Cardio: Rate: regular rate Peripheral pulses: Peripheral pulses 2+ throughout GI: Palpation (GI): Soft to palpation Skin: Lesions: no lesions Rashes: no rashes Extrem: Other: right hip dressing is c/d/i. Able to dorsi/plantar flex. Calf is supple and nontender. Sensation intact. Pedal pulse intact. Procedures Date of Service Date of Service: 01/16/23 Progress Note: A&P Assessment and plan (1) Status post total replacement of right hip: Status: Acute Plan Continue pain mgmnt Begin ASA for dvt ppx begin PT for RTHA - posterior precautions Dispo planning-Pending PT eval, pain mgmnt Time Spent With Patient Time: Total time managing care of this patient today ____ minutes. Quality Stroke Does the patient have a stroke diagnosis?: No VTE Prior VTE?: No VTE Risk Level:: Medical - moderate - high VTE Device Contraindication: N/A - Device Ordered VTE Drug Contraindication: N/A - Med Ordered
[2023-01-16] MEDS: 0.9 % Sodium Chloride Flush 3 ML SYRINGE IVFLUSH (08:39)
[2023-01-16] MEDS: oxyCODONE HCl ER 10 MG TAB.ER.12H PO ×2 (08:39→19:11)
[2023-01-16] MEDS: Aspirin 325 MG TABLET PO ×2 (08:40→19:12)
[2023-01-16] MEDS: Docusate Sodium 100 MG CAPSULE PO ×2 (08:41→19:12)
[2023-01-16] MEDS: Atorvastatin Calcium 20 MG TABLET PO (08:41)
[2023-01-16] MEDS: Tamsulosin HCL 0.4 MG CAPSULE PO (08:41)
[2023-01-16] MEDS: FLUoxetine HCl 20 MG CAPSULE 40 MG PO (08:41)
[2023-01-16] MEDS: Celecoxib 200 MG CAPSULE PO ×2 (08:42→19:11)
[2023-01-16] MEDS: buPROPion HCl XL 150 MG TAB.ER.24H PO (08:42)
--- NOTE | 2023-01-16 09:46 | HO.POSTANES ---
Post Anesthesia Evaluation Post Anesthesia Evaluation Date of Service: 01/16/23 Vital Signs: Vital Signs Temp Pulse Resp BP Pulse Ox O2 Del Method 01/16/23 07:00 97.9 F 63 18 145/80 H 93 Room Air 01/16/23 03:00 97.2 F 57 16 136/75 93 Room Air Anesthesia: General Mental Status: Awake Pain Control: Satisfactory Nausea/Vomiting: None Hydration: Adequate Anesthesia-Related Issues: No Anes. Related Issues
[2023-01-16 11:00] VITALS: BP 136/82; PULSE 70; RESP 18; TEMP 36.6; O2SAT 96
--- NOTE | 2023-01-16 11:27 | HO.PM.IMPN ---
Subjective Subjective Date of Service: 01/16/23 Interval History: Good pain control, had 2 bowel movements, complaining of cough productive of a small amount of [place] phlegm that is chronic ,denies shortness of breath, no chest pain, no nausea, no vomiting tolerating diet no other acute issues overnight. Review of Systems All other system reviewed and negative Physical Exam Vital Signs: Vital Signs: Last Vital Signs Temp 97.9 F 01/16/23 07:00 Pulse 63 01/16/23 07:00 Resp 18 01/16/23 07:00 BP 145/80 H 01/16/23 07:00 Pulse Ox 93 01/16/23 07:00 O2 Del Method Room Air 01/16/23 07:00 O2 Flow Rate 2 01/15/23 12:18 BMI result Body Mass Index 33.1 Const: Other: General awake alert, resting comfortably in no acute distress. Neck no JVD. CVS regular rate rhythm, Respiratory lungs clear to auscultation, no respiratory distress, no wheeze, no rhonchi. Gastrointestinal abdomen soft, non tender, bowel sounds audible Extremities no edema. Neuro nonfocal Skin no rash Right hip dressing in place Objective Data Active Medications Albuterol Sulfate (Albuterol Sulfate 90 Mcg 8 Gm Inhaler) 1 puff INHALE QID PRN PRN Reason: shortness of breath or wheezing Aspirin (Aspirin 325 Mg Tablet) 325 mg PO BID [facility] Last Admin: 01/16/23 08:40 Dose: 325 mg Documented By: PJ Atorvastatin Calcium (Atorvastatin Calcium 20 Mg Tablet) 20 mg PO DAILY [facility] Last Admin: 01/16/23 08:41 Dose: 20 mg Documented By: PJ Bupropion HCl (Bupropion Hcl Xl 150 Mg Tab.Er.24h) 150 mg PO DAILY [facility] Last Admin: 01/16/23 08:42 Dose: 150 mg Documented By: PJ Celecoxib (Celecoxib 200 Mg Capsule) 200 mg PO BID [facility] Last Admin: 01/16/23 08:42 Dose: 200 mg Documented By: PJ Docusate Sodium (Docusate Sodium 100 Mg Capsule) 100 mg PO BID [facility] Last Admin: 01/16/23 08:41 Dose: 100 mg Documented By: PJ Fluoxetine HCl (Fluoxetine Hcl 20 Mg Capsule) 40 mg PO DAILY [facility] Last Admin: 01/16/23 08:41 Dose: 40 mg Documented By: PJ Hydromorphone HCl (Hydromorphone Hcl 0.5 Mg/0.5 Ml Syringe) 0.5 mg IVPUSH Q3H PRN; Protocol PRN Reason: Pain, Severe (Pain Scale 7-10) Last Admin: 01/16/23 00:18 Dose: 0.5 mg Documented By: LAURENT Ketorolac Tromethamine (Ketorolac Tromethamine 15 Mg/Ml Vial) 15 mg IVPUSH Q6H PRN PRN Reason: Pain, Severe (Pain Scale 7-10) Last Admin: 01/15/23 14:16 Dose: 15 mg Documented By: LULU Naloxone HCl (Naloxone Hcl Nasal 4 Mg [place]) 4 mg NOSTRILALT Q2M PRN PRN Reason: opioid overdose Ondansetron HCl (Ondansetron Hcl 4 Mg/2 Ml Vial) 4 mg IVPUSH Q8H PRN PRN Reason: Nausea and Vomiting Oxycodone HCl (Oxycodone Hcl Immed Release 5 Mg Tablet) 10 mg PO Q4H PRN PRN Reason: Pain, Moderate(Pain Scale 4-6) Last Admin: 01/15/23 15:32 Dose: 10 mg Documented By: PJ Oxycodone HCl (Oxycodone Hcl Er 10 Mg Tab.Er.12h) 10 mg PO BID [facility] Last Admin: 01/16/23 08:39 Dose: 10 mg Documented By: PJ Quetiapine Fumarate (Quetiapine Fumarate 200 Mg Tablet) 200 mg PO BEDTIME [facility] Last Admin: 01/15/23 20:37 Dose: 200 mg Documented By: LAURENT Sodium Chloride (0.9 % Sodium Chloride Flush 3 Ml Syringe) 3 ml IVFLUSH QSHIFT [facility] Last Admin: 01/16/23 08:39 Dose: 3 ml Documented By: PJ Tamsulosin HCl (Tamsulosin Hcl 0.4 Mg Capsule) 0.4 mg PO DAILY [facility] Last Admin: 01/16/23 08:41 Dose: 0.4 mg Documented By: PJ Labs 01/16/23 05:28 01/16/23 05:28 Labs: Laboratory Results - last 24 hr 01/16/23 05:28 MCV 97.1 MCH 33.1 H MCHC 34.1 RDW 14.2 Plt Count 266 MPV 9.4 Immature Gran % (Auto) 0.4 Neut % (Auto) 67.8 Lymph % (Auto) 17.9 L [place] % (Auto) 12.6 H Eos % (Auto) 0.9 Baso % (Auto) 0.4 Lymph # (Auto) 1.7 [place] # (Auto) 1.2 Eos # (Auto) 0.1 Baso # (Auto) 0.0 Abs Immat Gran (auto) 0.04 H Absolute Neuts (auto) 6.6 Absolute Nucleated RBC 0.000 Nucleated RBC % (auto) 0.0 Anion Gap 9 L Estim Creat Clear Calc 120.0 Estimated GFR > 60 Fasting Glucose 120 H Calcium 8.5 Assessment and Plan (1) Status post total replacement of right hip: Status: Acute Plan Pt admitted to the hospital for treatment and further evaluation Rt. GINA. Right GINA POD #1 Good pain control Continue current pain medications, aspirin and PT Plan as per Orthopedics COPD No acute exacerbation use albuterol as needed at home Encourage incentive spirometry HLD Continue statin BPH Continue alfuzosin Mood disorder: continue Seroquel, Prozac and Wellbutrin TERRA Patient states he has not been on CPAP for years Thank you for allowing us to participate in the care of this patient. Will sign of please call us with any acute medical concerns. Time Spent With Patient Time: Total time managing care of this patient today ____ minutes. Quality Stroke Does the patient have a stroke diagnosis?: No VTE Prior VTE?: No VTE Risk Level:: Medical - moderate - high VTE Device Contraindication: N/A - Device Ordered VTE Drug Contraindication: N/A - Med Ordered
--- NOTE | 2023-01-16 12:12 | MHC.CM.PN ---
pt lives alone is independent has own ride home going home with [facility]ns
[2023-01-16] MEDS: oxyCODONE HCl Immed Release 5 MG TABLET 10 MG PO ×2 (14:47→19:10)
[2023-01-16 15:19] VITALS: BP 133/88; PULSE 68; RESP 20; TEMP 36.9; O2SAT 95
[2023-01-16 19:00] VITALS: BP 132/83; PULSE 60; RESP 18; TEMP 36.4; O2SAT 98
[2023-01-16] MEDS: QUEtiapine Fumarate 200 MG TABLET PO (19:12)
[2023-01-16 23:00] VITALS: BP 128/59; PULSE 78; RESP 18; TEMP 36.6; O2SAT 98
[2023-01-17] MEDS: oxyCODONE HCl Immed Release 5 MG TABLET 10 MG PO ×2 (00:06→05:34)
[2023-01-17 03:00] VITALS: BP 130/70; PULSE 60; RESP 18; TEMP 36.5; O2SAT 97
[2023-01-17] MEDS: HYDROmorphone HCl 0.5 MG/0.5 ML SYRINGE IVPUSH (03:32)
[2023-01-17] MEDS: 0.9 % Sodium Chloride Flush 3 ML SYRINGE IVFLUSH ×2 (03:33→09:18)
[2023-01-17 06:04] LABS: MANUAL DIFF FLAG NO
[2023-01-17 06:26] LABS: Anion Gap 14 (12-20); Blood Urea Nitrogen 10 mg/dL (9-16); Calcium 8.7 mg/dL (8.4-10.2); Carbon Dioxide 20 mmol/L (22-29); Chloride 108 mmol/L (96-108); Creatinine Clr Calc Pharmacy 128.4; Estimated Glomerular Filt Rate > 60; Glucose Fasting 98 mg/dL (60-99); Potassium 3.9 mmol/L (3.3-5.1); Sodium 138 mmol/L (135-145)
[2023-01-17 06:37] LABS: Basophils Percent Auto 0.5 % (0-2); Eosinophils Absolute Auto 0.2 X10*3/uL (0.0-0.4); Hemoglobin 11.7 g/dl (14.0-18.0); Imm Gran Abs Auto 0.14 X10*3/uL (0.00-0.03); Imm Gran Pct Auto 1.7 % (0.0-0.4); Lymphocytes Absolute Auto 1.6 X10*3/uL (1.2-4.9); Lymphocytes Percent Auto 19.8 % (20-40); Mean Corpuscular HGB Conc 34.4 g/dl (31.0-36.0); Mean Corpuscular Hemoglobin 33.4 pg (27.0-33.0); Mean Corpuscular Volume 97.1 fL (80.0-98.0); Mean Platelet Volume 9.4 fL (9.4-12.4); Monocytes Percent Auto 12.3 % (2-11); Neutrophils Absolute Auto 5.2 x10*3/uL (2.0-8.3); Neutrophils Percent Auto 63.7 % (45-73); Platelet Count 250 X10*3/uL (160-400); Red Cell Distribution Width 14.1 % (11.0-16.0); White Blood Count 8.2 X10*3/uL (4.8-10.8)
[2023-01-17 07:00] VITALS: BP 138/90; PULSE 70; RESP 18; TEMP 36.3; O2SAT 94
--- NOTE | 2023-01-17 09:09 | PM.DS ---
DS: Providers Provider Date of Service: 01/17/23 Date of admission: 01/15/23 06:05 Primary care physician: Nathaniel Bruce PA-C Consults: 01/15/23 12:18 Consult to Hospitalist Routine Comment: Consulting Provider: Hospitalist Reason For Exam: opiate dependence, COPD, TERRA, BPH,HTN DS: Diagnosis Discharge Diagnosis (1) Osteoarthritis of right hip: Status: Acute (2) COPD (chronic obstructive pulmonary disease): Status: Acute DS: Summary Hospital Course Hospital Course: The patient underwent a successful right total hip arthroplasty, they were transferred to PACU and then to the floor to recover. During their stay, their vitals were stable, afebrile at 97.3. Labs were unremarkable, H/H 11.7/34.0. POD 1 they were started on Aspirin 325mg po bid for DVT ppx, they also received Physical Therapy services twice a day. Prior to discharge, their dressing was changed, incision clean dry and intact, new Aquacel dressing applied and the plan was to be discharged home with VNA services. Time Spent with Patient Time attestation: Total time managing care of this patient today ____ minutes. Discharge coordination time: Less than 30 minutes Quality: Safe Use of Opioids Does Pt have an Active Cancer Diagnosis on the Problem List?: No Quality: Stroke Does the patient have a stroke diagnosis?: No Physical Exam Vital Signs: Vital Signs: Last Vital Signs Temp 97.3 F 01/17/23 07:00 Pulse 70 01/17/23 07:00 Resp 18 01/17/23 07:00 BP 138/90 H 01/17/23 07:00 Pulse Ox 94 01/17/23 07:00 O2 Del Method Room Air 01/17/23 07:00 O2 Flow Rate 2 01/15/23 12:18 BMI result Body Mass Index 33.1 Const: General: cooperative, healthy appearing and no acute distress Resp: Effort & Inspection: normal respiratory effort and able to speak in complete sentences Cardio: Rate: regular rate Peripheral pulses: Peripheral pulses 2+ throughout GI: Palpation (GI): Soft to palpation Skin: Lesions: no lesions Rashes: no rashes Extrem: Other: right hip dressing is c/d/i. Able to dorsi/plantar flex. Calf is supple and nontender. Sensation intact. Pedal pulse intact. DS: Data Data Completed and Pending Pending studies at discharge: Pending at discharge 01/15/23 09:31 Surgical [PTH] Routine Labs on day of discharge: Laboratory Results - last 24 hr 01/17/23 05:51 WBC 8.2 RBC 3.50 L Hgb 11.7 L Hct 34.0 L MCV 97.1 MCH 33.4 H MCHC 34.4 RDW 14.1 Plt Count 250 MPV 9.4 Immature Gran % (Auto) 1.7 H Neut % (Auto) 63.7 Lymph % (Auto) 19.8 L [place] % (Auto) 12.3 H Eos % (Auto) 2.0 Baso % (Auto) 0.5 Lymph # (Auto) 1.6 [place] # (Auto) 1.0 Eos # (Auto) 0.2 Baso # (Auto) 0.0 Abs Immat Gran (auto) 0.14 H Absolute Neuts (auto) 5.2 Absolute Nucleated RBC 0.000 Nucleated RBC % (auto) 0.0 Sodium 138 Potassium 3.9 Chloride 108 Carbon Dioxide 20 L Anion Gap 14 BUN 10 Creatinine 0.71 Estim Creat Clear Calc 128.4 Estimated GFR > 60 Fasting Glucose 98 Calcium 8.7 Discharge Plan Discharge Anticipated Discharge Date/Time: 01/17/23 09:05 Patient Disposition: Home Health Service Discharge Diagnosis: s/p RTHA Referrals: Tanner Watts PA-C [[facility] [employer]] - 01/31/23 12:30 pm Discharge Medications: New aspirin 325 mg Tablet 325 mg PO BID 42 Days Qty: 84 0RF celecoxib 200 mg Capsule 200 mg PO BID 30 Days Qty: 60 0RF oxycodone 10 mg tablet 10 mg PO Q4H PRN (Reason: Pain, Moderate(Pain Scale 4-6)) 7 Days Qty: 42 0RF Rx Instructions: Partial Fill upon patient request. docusate sodium 100 mg Capsule 100 mg PO BID 30 Days Qty: 60 0RF Continued Narcan 4 mg/actuation spray,non-aerosol 4 mg intranasal Q2M PRN (Reason: opioid overdose) 1 Days Qty: 2 1RF Rx Instructions: spray 1 dose into ONE nostril; alternate nostrils w each dose until help arrives quetiapine [Seroquel] 200 mg tablet 200 mg PO BEDTIME 90 Days Qty: 90 2RF atorvastatin 20 mg tablet 20 mg PO DAILY 90 Days Qty: 90 3RF buprenorphine HCl [[place]] 900 mcg film 900 mcg buccal Q12H 30 Days Qty: 60 1RF (DME) walker Misc See Rx Instructions .MEDSUPPLY Qty: 1 0RF Rx Instructions: Folding Front wheeled walker fluoxetine 40 mg capsule 40 mg PO DAILY Qty: 90 2RF bupropion HCl 150 mg tablet extended release 24 hr 150 mg PO DAILY alfuzosin [Uroxatral] 10 mg tablet extended release 24 hr 10 mg PO DAILY Rx Instructions: Advised to hold doxazosin albuterol sulfate 90 mcg/actuation HFA aerosol inhaler 1 inh inhalation QID PRN (Reason: shortness of breath or wheezing) 30 Days Qty: 8.5 1RF Discontinued aspirin 81 mg tablet,delayed release (DR/EC) 81 mg PO DAILY Qty: 90 3RF acetaminophen [Tylenol Arthritis Pain] 650 mg tablet extended release 650 mg PO Q12H PRN (Reason: Pain) Discharge Orders: Discharge Order (Routine); Ordered 01/17/23 Ordered By: Margie Kyle Diet: Regular diet Activity on Discharge: Use cane or walker Stand Alone Forms: Patient Portal Discharge page Care Plan Goals: restore fxn to rt hip Health Concerns: none Plan of Treatment: Physical Therapy for total hip arthroplasty: posterior precautions, gait training, ROM, strength Limit stair climbing No showering, no tub bath-keep dressing clean, dry and intact No driving x6 weeks Continue ASA tabs once a day x 6 weeks Follow up with [facility] in 2 weeks Assessment: stable for d/c
--- NOTE | 2023-01-17 09:10 | W.MHC.F2F ---
Service Date Service Date: 01/17/23 Encounter Date of encounter: 01/17/23 Reasons for Services Signs and symptoms assessed: Pt. is considered homebound due to recent surgery. Unable to drive, poor balance, poor gait mechanics. s/p RTHA Reason for physical therapy: home safety and mobility, therapeutic exercises, restore joint function, gait/transfer training, assess need for DME and ADL training Reason for occupational therapy: home safety and mobility, therapeutic exercises, restore joint function, gait/transfer training, assess need for DME and ADL training Homebound: Leaving the home is medically contraindicated at this time without the asist of a device and/or another person due th the listed conditions above and below. Reason homebound: unsteady gait / fall risk, leg weakness, pain with ambulation, pain with transfers, poor balance / fall risk and unable to drive Certification: Based on the above findings, I certify that this patient is confined to the home and needs intermittent nursing home care, physical therapy and/or speech therapy, or continues to need occupational therapy. The patient is under my care, and I have initiated the establishment of the plan of care. The patient will be followed by a physician who will periodically review the plan of care. Time Spent With Patient Time: Total time managing care of this patient today ____ minutes.
[2023-01-17] MEDS: Celecoxib 200 MG CAPSULE PO (09:18)
[2023-01-17] MEDS: Tamsulosin HCL 0.4 MG CAPSULE PO (09:18)
[2023-01-17] MEDS: FLUoxetine HCl 20 MG CAPSULE 40 MG PO (09:18)
[2023-01-17] MEDS: Atorvastatin Calcium 20 MG TABLET PO (09:18)
[2023-01-17] MEDS: Aspirin 325 MG TABLET PO (09:19)
[2023-01-17] MEDS: buPROPion HCl XL 150 MG TAB.ER.24H PO (09:19)
[2023-01-17] MEDS: oxyCODONE HCl ER 10 MG TAB.ER.12H PO (09:19)
--- NOTE | 2023-01-17 09:40 | MHC.CM.PN ---
PT WILL DC HOME TODAY WITH [facility] VIA PRIVATE TRANSPORT
== END 2023-01-17 11:39 | disposition home health service (06) | DRG 470 ==
LOC: HO.SSSA 06:16 → HO.S3 10:23
PROVIDERS: Physician Assistant; Admitting Provider Orthopaedic Surgery; PCP Physician Assistant; Visit Provider Orthopaedic Surgery
PROC: 0SR90JA Replacement of Right Hip Joint with Synthetic Substitute, Uncemented, Open Approach (ICD-10-PCS; CPT 27130; principal; 2023-01-15 07:30)
DX: M16.11 Unilateral primary osteoarthritis, right hip (principal); J44.9 Chronic obstructive pulmonary disease, unspecified; E78.5 Hyperlipidemia, unspecified; G47.33 Obstructive sleep apnea (adult) (pediatric); N40.0 Benign prostatic hyperplasia without lower urinary tract symptoms; Z79.899 Other long term (current) drug therapy
CPT/HCPCS: 36415; 72170; 80048; 85025; 86850; 86900; 86901; 87640; 87641; 88304; 88311; 93005; 94640; 97110; 97116; 97162; 97165; 97530; 97535; C1776; J0131; J0690; J1100; J1170; J1885; J2371; J2405; J2795; J3010

== ENCOUNTER → 2023-01-15 06:05 | Outpatient (BNV) | payer OTHER, SELFPAY | PROVIDERS: Admitting Provider Orthopaedic Surgery; PCP Physician Assistant; Visit Provider Hospitalist | DX: M16.11 Unilateral primary osteoarthritis, right hip (principal); J41.0 Simple chronic bronchitis; Z96.641 Presence of right artificial hip joint | CPT/HCPCS: 99222; 99232 ==

== ENCOUNTER → 2023-01-15 06:05 | Outpatient (BNV) | payer OTHER, SELFPAY | PROVIDERS: Admitting Provider Orthopaedic Surgery; PCP Physician Assistant; Visit Provider Orthopaedic Surgery | DX: Z47.1 Aftercare following joint replacement surgery (principal); Z96.641 Presence of right artificial hip joint | CPT/HCPCS: 27130; 99024; 99212; G0180 ==

== ENCOUNTER 2023-01-31 12:12 | Outpatient (AMB) | payer OTHER, SELFPAY ==
--- NOTE | 2023-01-31 12:37 | A.OFFVIS_ITS ---
Intake Intake Visit Reasons: PO-RT GINA 01/15/23 NE Allergies No Known Allergies Allergy (Verified 01/15/23 06:15) HPI PO-RT GINA 01/15/23 NE HPI Details 62-year-old male who returns to the [facility] today for post-op right GINA 01/15/[address] Goldsmith. He denies having any pain and is doing well overall. He is working with therapy as instructed. He has no concerns today. [facility] Medical History Arthritis Sleep apnea Lumbar spondylosis Depression History of smoking at least 1 pack per day for at least 30 years COPD (chronic obstructive pulmonary disease) HLD (hyperlipidemia) Failed back syndrome BPH (benign prostatic hyperplasia) Surgical History Hx of left inguinal hernia repair Hx of shoulder surgery History of total right knee replacement History of total left knee replacement History of esophagogastroduodenoscopy (EGD) History of colonoscopy History of bursectomy Family History Father Brain cancer Mother CVD (cardiovascular disease) Diabetes H/O heart artery stent Brother Breast cancer Lung cancer Social History Household Members: None Housing: House Are you a primary home care chaplain to a significant other at home: No Do you presently have visiting nurse or other home services: No Alcohol intake: former Patient Tobacco Use Status: Former Tobacco user Quit Date: 2 yrs ago Tobacco use type: Cigarette Cigarettes Per Day: 0 Years Smoked: 40 e-Cigarette/Vaping Use: Never Used Second Hand Smoke Exposure: No Substance Use Type: Marijuana service: No Current occupational status: unemployed Cognitive needs: No Hearing needs: No Vision needs: No Review of Systems Const All systems reviewed & are unremarkable except as noted in HPI and below Physical Exam Extrem Other: Right hip: Incision clean, dry and intact. No erythema or drainage. No pain with ROM of hip. He is able to perform hip flexion. Calf supple, nontender. NVI. Assessment & Plan Assessment & Plan (1) Status post total replacement of right hip: Code(s): Z96.641 - Presence of right artificial hip joint Plan Lizbeth removed, steri strips applied. He will begin to transition to Outpatient PT to continue working on Gait training, ROM and quad strength. No driving for another 4 weeks. He will require ppx abx for dental procedures. He will f/u in 4 weeks, sooner if needed. Medications: Refilled oxycodone Partial Fill upon patient request. 10 mg PO Q4H PRN 42 tabs 0RF Pain, Moderate(Pain Scale 4-6) 7 days Patient Instructions: Scribed for Tanner Watts PA-C, by Frederic Wise medical office clerk, on 01/31/2023 at 12:30 PM EST. I, Tanner Watts PA-C, have personally reviewed and agree with the information entered by the scribe. Coding Level of Care Code Global (83820) Diagnoses Status post total replacement of right hip Z96.641
== END 2023-01-31 13:13 | disposition home or self-care (01) ==
PROVIDERS: Visit Provider Physician Assistant
DX: Z96.641 Presence of right artificial hip joint (principal)
CPT/HCPCS: 99024

== ENCOUNTER → 2023-01-31 12:12 | Outpatient (BNVA) | payer OTHER, SELFPAY | PROVIDERS: Visit Provider Physician Assistant ==

== ENCOUNTER 2023-02-12 14:00 | Outpatient (RCR) | payer OTHER, SELFPAY ==
--- NOTE | 2023-01-31 15:14 | MHC.PT.EP ---
[facility] [place] [facility] [place] Office [place] Office [address] [place] [address] [phone] F: [phone] F: [phone] F: [phone] F: [phone] Physical Therapy Plan of Care Date of Evaluation: 01/31/23 Date of Surgery: 01/15/23 Diagnosis: S/P Rt GINA Assessment: 62 YO MALE REF TO PT S/P Rt POSTERIOR APPROACH GINA ON 01/15/23. HE HAS A H/O BILAT TKA AND FAILED BACK SYNDROME. HE RESIDES ALONE IN A [facility] AND IS CURRENTLY AMB BILATERAL [employer]. OBJECTIVE FINDINGS: PO ROM DEFICITS RIGHT HIP, TIGHT HIP FLEXORS/ CALF MM, (+) STRENGTH DEFICITS (RESIDUAL WEAKNESS LEFT FOOT), AND CHRONIC LBP WITH ACUTE POST-OP PAIN RIGHT PROX LE . Pt IS AWARE OF POSTERIOR APPROACH RESTRICTIONS/ PRECAUTIONS, HOWEVER, HE BENEFITTED FROM ADDITIONAL REVIEW. FUNCTIONALLY, Pt IS LIMITED BY DECR STANDING TONE, ALTERED GAIT MECHANICS, DECR STAIR MGMT, AND RESTRICTED WITH MORE PHYSICALLY DEMANDING ADLs. Pt WOULD BENEFIT FROM PT AT THIS TIME TO GUIDE HIM IN HIS POST-OP COURSE, DEV A PROGR HEP, ADDRESS PAIN MGMT, AND OBTAINING MAXIMAL LEVEL OF FUNCTIONAL INDEPENDENCE. Frequency and Duration: The patient will be seen 2 x WK x 8 WKS Short Term Goals: *Pt WILL DEMON EFFICIENT GAIT MECHANICS W LEAST RESTRICTIVE ASST DEVICE ON LEVEL GROUND AND STAIRS *Pt'S RIGHT HIP PAIN WILL DECR TO 2-10 *Pt DEMON APPROP BED MOB/ POSITIONING/ SIT <-> STAND/ CAR TRANSFERS [facility] Goals: *Pt WILL IMPROVE LUMBOPELVIC/ Rt LE STRENGTH TO AT LEAST 5-/5 *Pt RESUME AT LEAST PLOF EVIDENT W IMPROVED LEFI SCORE (AT EVAL 15/80) *Pt INDEP W PROGR HEP AND SELF-SX MGMT TECHN *Pt WILL DEMON SLS Rt x 15 SEC Treatment Plan: Modalities to reduce pain, spasms and effusion. Manual therapy to restore motion and function. Therapeutic exercise to improve strength and flexibility. Neuromuscular re-education for posture and balance. Therapeutic activities to return to functional activities of daily living. Electronically signed by: NAHUM CORTEZ,PT Please sign and return to therapist. Thank you for your referral.
--- NOTE | 2023-03-20 13:48 | MHC.PT.DC ---
[facility] [place] Office [place] Office [place] Office [address] [place] [address] [phone] F: [phone] F: [phone] F: [phone] F: [phone] Physical Therapy Discharge Report Diagnosis: S/P Rt GINA Date of Surgery: 01/15/23 Date of Evaluation: 01/31/23 Date of Discharge: 03/20/23 Treatments to Date: 3 Cancellations to Date: 0 No Shows to Date: 0 Discharge Status: Achieved Goals Improved Function Independent with HEP Patient Elected to Stop Discharge Summary: THE Pt reports he has been feeling really good and felt he was ready for discharge from PT -> he is indep and compliant with his HEP. The Pt displays a more efficient gait pattern and his pain is relatively resolved. He is d/c'd this date having met his goals. Electronically signed by: NAHUM CORTEZ,PT Please sign and return to therapist. Thank you for your referral.
== END 2023-03-20 13:49 | disposition home or self-care (01) ==
LOC: HO.PT 14:00
PROVIDERS: PCP Physician Assistant; Visit Provider Physician Assistant
DX: Z96.641 Presence of right artificial hip joint (principal)
CPT/HCPCS: 97110; 97162; 97530

== ENCOUNTER 2023-03-12 14:51 | Outpatient (AMB) | payer OTHER, SELFPAY ==
--- NOTE | 2023-03-12 15:12 | MHC.PC.OV ---
Vital Signs 03/12/23 15:13 Height 5 ft 9 in Weight 224 lb 4 oz BMI 33.1 BP 132/86 Blood Pressure Location Lt brachial Position Sitting Pulse 76 Pulse Source Pulse Oximeter Pulse Oximetry (%) 95 Oxygen Delivery Method Room Air Intake Visit Reasons: f/u pain management/ COPD Regasification Plant Operator Required: No Accompanied by: Self / Same As Patient Allergies No Known Allergies Allergy (Verified 03/12/23 15:21) Medication List - Last Reconciled 03/12/23 by Nathaniel Bruce PA-C albuterol sulfate 90 mcg/actuation 1 inh inhalation QID PRN 30 days alfuzosin ER (Uroxatral) 10 mg PO DAILY aspirin 81 mg PO DAILY atorvastatin 20 mg PO DAILY 90 days buprenorphine HCl (Belbuca) 900 mcg buccal Q12H 30 days bupropion HCl 150 mg PO DAILY fluoxetine 40 mg PO DAILY naloxone 4 mg/actuation (Narcan) 4 mg intranasal Q2M PRN 1 day oxycodone 10 mg PO Q6H 7 days quetiapine (Seroquel) 200 mg PO BEDTIME 90 days walker Folding Front wheeled walker Tobacco use date assessed: 12/27/22 Dental Screening Dental Screen Date: 03/12/23 Did you have a dental visit in the last 12 months?: Yes Did you have a dental problem in the last 6 months where you did not have access to dental care?: No Was dental information given to patient?: Patient has dentist HPI f/u pain management/ COPD HPI Details Patient is a 62-year-old male here today for follow-up visit. ? Patient has a past medical history significant for tobacco dependency, failed back syndrome, COPD, hyperlipidemia, BPH, opiate dependency, history of alcohol dependency(in remission). .. Failed back syndrome:? Was followed by pain management here in [place] though has lost follow-up due to apparent incorrect pill count. He continues on Belbuca at highest dose which has been fairly effective for him. .. Right hip osteoarthritis:? He is status post right hip arthroplasty and doing well. Pain is much less though still does have lower back pain. Continues with though Belbuca 900 mcg b.i.d. for his chronic pain management. Still does use low-dose oxycodone on a p.r.n. basis for breakthrough pain. We did discuss the habit-forming nature of this medication and patient does agree and understands. Will continue reducing the dose of this medication .. COPD:? Now followed by pulmonology, has gotten pulmonary function test that was consistent with the COPD.? Has albuterol inhaler and Flovent available to him to which he uses on a p.r.n. basis. Unfortunately continues to smoke though has cut down considerably. .. BPH:? Since starting alfuzosin which initially helped his nocturia though reports nocturia has come back. Urinary stream is not noted to be weak..? He does report emptying his bladder much better. PLAN: Will recheck his PSA this year and start finasteride due to continued urinary symptoms .. Hyperlipidemia:? Continues on a statin therapy without any side effect, will continue to follow lipid panel [facility] Medical History Osteoarthritis of right hip Arthritis Sleep apnea Lumbar spondylosis Depression History of smoking at least 1 pack per day for at least 30 years COPD (chronic obstructive pulmonary disease) HLD (hyperlipidemia) Failed back syndrome BPH (benign prostatic hyperplasia) Surgical History Hx of left inguinal hernia repair Hx of shoulder surgery History of total right knee replacement History of total left knee replacement History of esophagogastroduodenoscopy (EGD) History of colonoscopy History of bursectomy Family History Father Brain cancer Mother CVD (cardiovascular disease) Diabetes H/O heart artery stent Brother Breast cancer Lung cancer Social History Household Members: None Housing: House Are you a primary school childcare attendant to a significant other at home: No Do you presently have visiting nurse or other home services: No Alcohol intake: former Patient Tobacco Use Status: Former Tobacco user Quit Date: 2 yrs ago Tobacco use type: Cigarette Cigarettes Per Day: 0 Years Smoked: 40 e-Cigarette/Vaping Use: Never Used Second Hand Smoke Exposure: No Substance Use Type: Marijuana service: No Current occupational status: unemployed Cognitive needs: No Hearing needs: No Vision needs: No Questionnaire Thrive Questionnaire Date Thrive assessed: 01/16/23 BIJU-7 AMB Questionnaire BIJU-7 Date BIJU - 7 assessed: 06/12/22 Source: Developed by Drs. Wyatt Varela, Lise Gordillo, Gaetano Feldman and colleagues, with an educational bettina from [employer] Review of Systems Const Denies headache(s) Eyes Denies loss of vision ENT Denies vertigo, Denies dizziness, Denies headache(s) and Denies sore throat Card Denies chest pain, Denies leg edema and Denies lightheadedness Resp Denies cough, Denies hemoptysis and Denies wheezing GI Denies abdominal pain, Denies melena, Denies constipation, Denies diarrhea and Denies vomiting Denies dysuria, Denies urinary frequency and Denies urinary urgency Musc Denies arthralgias, Denies joint swelling, Denies numbness and Denies tingling Neuro Denies Abnormal speech present, Denies behavioral changes, Denies vertigo, Denies dizziness, Denies headache(s), Denies loss of vision, Denies memory loss, Denies numbness and Denies tingling Psych Denies anxiety, Denies behavioral changes, Denies depression, Denies memory loss and Denies panic attacks Brenden/Lymph Denies easy bleeding and Denies easy bruising Aller/Immun Denies wheezing Physical exam (Primary Care) Vital Signs: Last Vital Signs Pulse 76 03/12/23 15:13 BP 132/86 03/12/23 15:13 Pulse Ox 95 03/12/23 15:13 Oxygen Delivery Method Room Air 03/12/23 15:13 BMI result Body Mass Index 33.1 Tobacco/Smoking Status: Tobacco use Status Tobacco use date assessed 12/27/22 03/12/23 15:19 Patient Tobacco Use Status Former Tobacco user 03/12/23 15:19 Tobacco use type Cigarette 03/12/23 15:19 e-Cigarette/Vaping Use Never Used 03/12/23 15:19 Thrive Assessment: Date of Thrive Assessment Date Thrive assessed 01/16/23 03/12/23 15:19 Const General: healthy appearing, no acute distress, alert and awake Nutritional Appearance: well nourished Orientation/consciousness: oriented to person, oriented to place and oriented to time HENMT Ears: TM's normal bilaterally General nose exam: Normal nasal mucous membranes and turbinates present Eyes Conjunctivae: conjunctivae normal Sclerae: sclerae normal Pupils: Equal, round and reactive pupils present Neck Neck: Yes no lymphadenopathy and Yes no JVD Thyroid: Thyroid normal Carotids: no bruits Resp Effort & Inspection: normal respiratory effort and not tachypneic Auscultation: no crackles, no rales, no rhonchi and no wheezes Cardio Rate: regular rate Rhythm: regular rhythm Heart sounds: no murmurs and normal S1 and S2 GI Palpation (GI): Soft to palpation, nontender, no hepatomegaly and no splenomegaly Auscultation: normal bowel sounds Skin General skin exam: no rashes or lesions noted and dry skin Neuro General: oriented to person, oriented to place and oriented to time Cranial nerves: Yes Equal, round and reactive pupils present Speech: No Abnormal speech present Gait exam (Neuro): Normal gait present Motor exam (neuro): no tremor noted Extrem Right upper extremity: full ROM Left upper extremity: full ROM Right lower extremity: full ROM; no edema Left lower extremity: full ROM; no edema Psych Mental Status: mental status grossly normal Speech and movement: Normal speech and movement present Affect: normal affect Attitude: cooperative Thought process: Normal thought process present Assessment and Plan Assessment & Plan (1) HLD (hyperlipidemia): Code(s): E78.5 - Hyperlipidemia, unspecified Qualifiers: Hyperlipidemia type: pure hypertriglyceridemia Qualified Code(s): E78.1 - Pure hyperglyceridemia Plan: Patient continues on statin therapy without side effect. Most recent lipid panel showing appropriate LDL and total cholesterol. Goal LDL is to remain below 160. (2) COPD (chronic obstructive pulmonary disease): Comment: THIS GENTLEMAN HAS PAST HISTORY OF SMOKING. PER PULMONARY FUNCTION TEST HE HAS MILD DEGREE OF OBSTRUCTIVE AIRWAY DISORDER, WITHOUT ANY POSITIVE RESPONSE TOBDs. TX : ADVISED TO USE ALBUTEROL RESPICLICK 1 INHALATION Q 4-6 HOURS ONLY P.R.N.. I GAVE HIM PEAK FLOW METER FROM THE OFFICE, ADVISED HIM TO KEEP CHECKING HIS PEAK FLOWS AT LEAST A FEW TIMES EVERY WEEK. Code(s): J44.9 - Chronic obstructive pulmonary disease, unspecified Qualifiers: COPD type: chronic bronchitis Chronic bronchitis type: simple Qualified Code(s): J41.0 - Simple chronic bronchitis Plan: Patient reports he is generally stop smoking. Does admit to smoking a cigarette from time to time. He does use an albuterol inhaler from time to time. He reports less shortness of breath and wheezing. (3) Osteoarthritis of right hip: Comment: (Seen by [facility] [place] - Dr. Goldsmith recommends a right GINA) Code(s): M16.11 - Unilateral primary osteoarthritis, right hip Qualifiers: Osteoarthritis type: primary Qualified Code(s): M16.11 - Unilateral primary osteoarthritis, right hip Plan: He is status post right hip total arthroplasty and doing well. (4) Obese: Code(s): E66.9 - Obesity, unspecified Qualifiers: Body mass index: BMI 32.0-32.9 Obesity classification: adult class 1 (BMI 30 - 34.9) Obesity type: due to excess calories Serious obesity comorbidity presence: without serious comorbidity Qualified Code(s): E66.09 - Other obesity due to excess calories; Z68.32 - Body mass index [BMI] 32.0-32.9, adult Plan: Patient does understand his BMI is over 30 will continue to work on better eating habits to reduce his weight. (5) Failed back syndrome: Code(s): M96.1 - Postlaminectomy syndrome, not elsewhere classified Plan: Patient has a chronic history of lower lumbar spine pain. Recently had his hip replaced though did not help his lower back pain. He continues on Belbuca 900 mcg b.i.d. for his chronic pain management. TODAY SIGN DRUG CONTRACT AND WILLING TO DO DRUG SCREEN. Also using oxycodone 10 mg for breakthrough pain ever since his total hip arthroplasty. Will continue reducing dose and amount prescribed over the next month. We did discuss the habit-forming nature of oxycodone and patient agrees and understands. (6) Incomplete emptying of bladder due to benign prostatic hyperplasia: Code(s): N40.1 - Benign prostatic hyperplasia with lower urinary tract symptoms; R33.9 - Retention of urine, unspecified Plan: Patient continues to some nocturia. Has been on off you Zosyn 10 mg with only minimal relief. He is willing to start finasteride. PSA has been stable. Orders: Orders Lipid Panel 03/12/23 E78.1 - Pure hyperglyceridemia Prostate Specific Antigen Scr 03/12/23 N40.0 - Benign prostatic hyperplasia without lower urinary tract symptoms, Z12.5 - Encounter for screening for malignant neoplasm of prostate Complete Blood Count no Diff 03/12/23 E78.1 - Pure hyperglyceridemia Comprehensive [place]. Panel Fast 03/12/23 E78.1 - Pure hyperglyceridemia Medications: New finasteride 5 mg PO DAILY 90 days 90 tabs 2RF N40.0 - Benign prostatic hyperplasia without lower urinary tract symptoms Changed From oxycodone Partial Fill upon patient request. 10 mg PO Q6H 7 days 28 tabs 0RF pain Z96.641 - Presence of right artificial hip joint To oxycodone Partial Fill upon patient request. 10 mg PO Q8H 7 days 21 tabs 0RF pain Z96.641 - Presence of right artificial hip joint Refilled oxycodone Partial Fill upon patient request. 10 mg PO Q8H 7 days 21 tabs 0RF pain Z96.641 - Presence of right artificial hip joint Coding Level of Care Code Est Pt Level 4 (53285) Diagnoses 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 Hyperlipidemia type: pure hypertriglyceridemia Simple chronic bronchitis J41.0 COPD type: chronic bronchitis Chronic bronchitis type: simple Primary osteoarthritis of right hip M16.11 Osteoarthritis type: primary Class 1 obesity due to excess calories without serious comorbidity with body mass index (BMI) of 32.0 to 32.9 in adult E66.09; Z68.32 Body mass index: BMI 32.0-32.9 Obesity classification: adult class 1 (BMI 30 - 34.9) Obesity type: due to excess calories Serious obesity comorbidity presence: without serious comorbidity Failed back syndrome M96.1 Incomplete emptying of bladder due to benign prostatic hyperplasia N40.1; R33.9
[2023-03-12 15:13] VITALS: BP 132/86; PULSE 76; O2SAT 95; BMI 33.1
== END 2023-03-12 15:45 | disposition home or self-care (01) ==
PROVIDERS: PCP Physician Assistant; Visit Provider Physician Assistant
DX: E78.1 Pure hyperglyceridemia (principal); J41.0 Simple chronic bronchitis; M16.11 Unilateral primary osteoarthritis, right hip; E66.09 Other obesity due to excess calories; Z68.32 Body mass index [BMI] 32.0-32.9, adult; M96.1 Postlaminectomy syndrome, not elsewhere classified; N40.1 Benign prostatic hyperplasia with lower urinary tract symptoms; R33.9 Retention of urine, unspecified
CPT/HCPCS: 99214

== ENCOUNTER 2023-03-20 14:38 | Outpatient (REF) | payer OTHER, SELFPAY ==
[2023-03-20 15:12] LABS: Hematocrit 34.9 % (42.0-52.0); Hemoglobin 12.3 g/dl (14.0-18.0); Mean Corpuscular HGB Conc 35.2 g/dl (31.0-36.0); Mean Corpuscular Hemoglobin 35.2 pg (27.0-33.0); Mean Platelet Volume 9.4 fL (9.4-12.4); Platelet Count 289 X10*3/uL (160-400); Red Blood Count 3.49 X10*6/uL (4.60-5.80); Red Cell Distribution Width 14.7 % (11.0-16.0); White Blood Count 6.4 X10*3/uL (4.8-10.8)
[2023-03-20 15:31] LABS: Alanine Aminotransferase 15 U/L (0-40); Albumin Level 3.8 g/dL (3.5-5.0); Alkaline Phosphatase 58 U/L (39-117); Anion Gap 14 (12-20); Aspartate Amino Transferase 16 U/L (5-37); Bilirubin Total 0.2 mg/dL (0.0-1.0); Blood Urea Nitrogen 16 mg/dL (9-16); Calcium 8.8 mg/dL (8.4-10.2); Carbon Dioxide 21 mmol/L (22-29); Chloride 109 mmol/L (96-108); Cholesterol 137 mg/dL (<200); Estimated Glomerular Filt Rate > 60; Glucose Fasting 108 mg/dL (60-99); HDL Cholesterol 46 mg/dL (>40); LDL Cholesterol Calculated 77 mg/dL (<100); Potassium 4.5 mmol/L (3.3-5.1); Sodium 139 mmol/L (135-145); Total Protein 6.7 g/dL (6.5-8.0); Triglycerides 71 mg/dL (<150)
[2023-03-20 15:48] LABS: Prostate Specific Antigen Scr 0.27 ng/mL (<0.05-4.0)
== END 2023-03-20 14:39 | disposition home or self-care (01) ==
LOC: HO.LAB 14:38
PROVIDERS: PCP Physician Assistant; Visit Provider Physician Assistant
DX: Z12.5 Encounter for screening for malignant neoplasm of prostate (principal); N40.0 Benign prostatic hyperplasia without lower urinary tract symptoms; E78.1 Pure hyperglyceridemia
CPT/HCPCS: 36415; 80053; 80061; 84153; 85027

== ENCOUNTER 2023-07-17 14:54 | Outpatient (AMB) | payer OTHER, SELFPAY ==
[2023-07-17 15:03] VITALS: BP 134/72; PULSE 80; O2SAT 95; BMI 32.9
--- NOTE | 2023-07-17 15:03 | A.OFFPC_ITS ---
Vital Signs 07/17/23 15:03 Height 5 ft 9 in Weight 223 lb BMI 32.9 BP 134/72 Blood Pressure Location Lt brachial Position Sitting Pulse 80 Pulse Source Pulse Oximeter Pulse Oximetry (%) 95 Oxygen Delivery Method Room Air Intake Visit Reasons: f/u pain management Admissions Advisor Required: No Accompanied by: Self / Same As Patient Allergies No Known Allergies Allergy (Verified 07/17/23 15:19) Medication List - Last Reconciled 07/17/23 by Nathaniel Bruce PA-C acetaminophen ER (Pain Relief (acetaminophen)) 650 mg PO Q12H 90 days albuterol sulfate 90 mcg/actuation 1 inh inhalation QID PRN 30 days alfuzosin ER (Uroxatral) 10 mg PO DAILY 90 days aspirin 81 mg PO DAILY atorvastatin 20 mg PO DAILY 90 days buprenorphine HCl (Belbuca) 900 mcg buccal Q12H 30 days bupropion HCl 150 mg PO DAILY 90 days finasteride 5 mg PO DAILY 90 days fluoxetine 40 mg PO DAILY naloxone 4 mg/actuation (Narcan) 4 mg intranasal Q2M PRN 1 day quetiapine (Seroquel) 200 mg PO BEDTIME 90 days walker Folding Front wheeled walker Tobacco use date assessed: 07/17/23 Dental Screening Dental Screen Date: 07/17/23 Did you have a dental visit in the last 12 months?: Yes Did you have a dental problem in the last 6 months where you did not have access to dental care?: No Was dental information given to patient?: Patient has dentist HPI f/u pain management HPI Details Patient is a 63-year-old male here today for follow-up visit. ? Patient has a past medical history significant for tobacco dependency, failed back syndrome, COPD, hyperlipidemia, BPH, opiate dependency, history of alcohol dependency(in remission). .. Failed back syndrome:? Was followed by pain management here in [place] though has lost follow-up due to apparent incorrect pill count. He continues on Belbuca at highest dose which has been fairly effective for him. He still remains with some breakthrough pain to his back specially when he works. 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 We did discuss his breakthrough pain was willing to give him a short low-dose script oxycodone for breakthrough pain. .. COPD:? Now followed by pulmonology, has gotten pulmonary function test that was consistent with the COPD.? Has albuterol inhaler and Flovent available to him to which he uses on a p.r.n. basis. Unfortunately continues to smoke though has cut down considerably. .. BPH:? Since starting alfuzosin which initially helped his nocturia though reports nocturia has come back. Urinary stream is not noted to be weak..? He reports having to urinate every 2 hours and nocturia has become a hindrance. He denies having urinary urgency. He does not feel the sensation of residual urine in his bladder. Reviewed medications for possible urinary frequency side effects .. Hyperlipidemia:? Continues on a statin therapy without any side effect, will continue to follow lipid panel [facility] Medical History (Updated 07/18/23 @ 07:31 by Nathaniel Bruce PA-C) Osteoarthritis of right hip Arthritis Sleep apnea Lumbar spondylosis Depression History of smoking at least 1 pack per day for at least 30 years COPD (chronic obstructive pulmonary disease) HLD (hyperlipidemia) Failed back syndrome BPH (benign prostatic hyperplasia) Surgical History Hx of left inguinal hernia repair Hx of shoulder surgery History of total right knee replacement History of total left knee replacement History of esophagogastroduodenoscopy (EGD) History of colonoscopy History of bursectomy Family History Father Brain cancer Mother CVD (cardiovascular disease) Diabetes H/O heart artery stent Brother Breast cancer Lung cancer Social History Household Members: None Housing: House Are you a primary day care teacher to a significant other at home: No Do you presently have visiting nurse or other home services: No Alcohol intake: former Patient Tobacco Use Status: Former Tobacco user Quit Date: 2 yrs ago Tobacco use type: Cigarette Cigarettes Per Day: 0 Years Smoked: 40 e-Cigarette/Vaping Use: Never Used Second Hand Smoke Exposure: No Substance Use Type: Marijuana service: No Current occupational status: unemployed Cognitive needs: No Hearing needs: No Vision needs: No Questionnaire Thrive Questionnaire Date Thrive assessed: 01/16/23 BIJU-7 AMB Questionnaire BIJU-7 Date BIJU - 7 assessed: 06/12/22 Source: Developed by Drs. Wyatt L. Lise Varela, Gaetano Feldman and colleagues, with an educational bettina from [employer]. Physical exam (Primary Care) Vital Signs: Last Vital Signs Pulse 80 07/17/23 15:03 BP 134/72 07/17/23 15:03 Pulse Ox 95 07/17/23 15:03 Oxygen Delivery Method Room Air 07/17/23 15:03 BMI result Body Mass Index 32.9 Tobacco/Smoking Status: Tobacco use Status Tobacco use date assessed 07/17/23 07/17/23 15:03 Patient Tobacco Use Status Former Tobacco user 07/17/23 15:03 Tobacco use type Cigarette 07/17/23 15:03 e-Cigarette/Vaping Use Never Used 07/17/23 15:03 Thrive Assessment: Date of Thrive Assessment Date Thrive assessed 01/16/23 07/17/23 15:03 Assessment and Plan Assessment & Plan (1) HLD (hyperlipidemia): Code(s): E78.5 - Hyperlipidemia, unspecified Qualifiers: Hyperlipidemia type: pure hypertriglyceridemia Qualified Code(s): E78.1 - Pure hyperglyceridemia Plan: Patient continues on statin therapy without side effect. Most recent lipid panel showing appropriate LDL and total cholesterol. Goal LDL is to remain below 160. (2) COPD (chronic obstructive pulmonary disease): Comment: THIS GENTLEMAN HAS PAST HISTORY OF SMOKING. PER PULMONARY FUNCTION TEST HE HAS MILD DEGREE OF OBSTRUCTIVE AIRWAY DISORDER, WITHOUT ANY POSITIVE RESPONSE TOBDs. [place] : ADVISED TO USE ALBUTEROL RESPICLICK 1 INHALATION Q 4-6 HOURS ONLY P.R.N.. I GAVE HIM PEAK FLOW METER FROM THE OFFICE, ADVISED HIM TO KEEP CHECKING HIS PEAK FLOWS AT LEAST A FEW TIMES EVERY WEEK. Code(s): J44.9 - Chronic obstructive pulmonary disease, unspecified Qualifiers: COPD type: chronic bronchitis Chronic bronchitis type: simple Qualified Code(s): J41.0 - Simple chronic bronchitis Plan: He has a former smoker. Since he is stopped smoking his breathing wheezing has been much improved. He is using an albuterol inhaler which has been helpful. (3) Osteoarthritis of right hip: Comment: (Seen by [facility] ortho - Dr. Goldsmith recommends a right GINA) Code(s): M16.11 - Unilateral primary osteoarthritis, right hip Qualifiers: Osteoarthritis type: primary Qualified Code(s): M16.11 - Unilateral primary osteoarthritis, right hip Plan: He is status post right hip total arthroplasty and doing well. (4) Failed back syndrome: Code(s): M96.1 - Postlaminectomy syndrome, not elsewhere classified Plan: Patient has a chronic history of lower lumbar spine pain. Recently had his hip replaced though did not help his lower back pain. He continues on Belbuca 900 mcg b.i.d. for his chronic pain management. HAS SIGN DRUG CONTRACT AND WILLING TO DO DRUG SCREEN. 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 We did discuss breakthrough pain was willing to give him a short-term script for oxycodone 10 mg to use on a very limited p.r.n. basis for breakthrough pain. (5) Opiate dependence: Code(s): F11.20 - Opioid dependence, uncomplicated Qualifiers: Substance use status: uncomplicated Qualified Code(s): F11.20 - Opioid dependence, uncomplicated Plan: Has an opiate dependency secondary to chronic lower lumbar spine pain. Patient continues on Belbuca 900 mcg b.i.d.. 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 (6) Urinary frequency: Code(s): R35.0 - Frequency of micturition Plan: Deandre continues to complain of urinary frequency. He denies any urgency or sensation of incomplete bladder emptying. He has tried doxazosin though was ineffective. Alfuzosin has been effective for short term though now urinary frequency and nocturia has returned. Blood sugars have been fairly stable and reviewed medications for any side effects or urinary frequency though none found. PSA was normal Will refer to Urology for evaluation of his urinary frequency. Orders: Orders Urine Cytology 07/17/23 N40.1 - Benign prostatic hyperplasia with lower urinary tract symptoms, R33.9 - Retention of urine, unspecified Buprenorphine Scr Today F11.20 - Opioid dependence, uncomplicated Drug Screen Urine Today F11.20 - Opioid dependence, uncomplicated UA CC w/rflx Micro + Cult 07/17/23 N40.1 - Benign prostatic hyperplasia with lower urinary tract symptoms, R30.0 - Dysuria, R33.9 - Retention of urine, unspecified Lipid Panel 04/03/24 E78.1 - Pure hyperglyceridemia Referrals Urology Referral N40.1 - Benign prostatic hyperplasia with lower urinary tract symptoms, R33.9 - Retention of urine, unspecified Medications: New oxycodone Partial Fill upon patient request. 10 mg PO BID 7 days PRN 14 tabs 0RF pain F11.20 - Opioid dependence, uncomplicated, M96.1 - Postlaminectomy syndrome, not elsewhere classified Coding Level of Care Code Est Pt Level 4 (35511) Diagnoses 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 Hyperlipidemia type: pure hypertriglyceridemia Simple chronic bronchitis J41.0 COPD type: chronic bronchitis Chronic bronchitis type: simple Primary osteoarthritis of right hip M16.11 Osteoarthritis type: primary Failed back syndrome M96.1 Uncomplicated opioid dependence F11.20 Substance use status: uncomplicated Urinary frequency R35.0
== END 2023-07-17 15:41 | disposition home or self-care (01) ==
PROVIDERS: PCP Physician Assistant; Visit Provider Physician Assistant
DX: E78.1 Pure hyperglyceridemia (principal); J41.0 Simple chronic bronchitis; F11.20 Opioid dependence, uncomplicated; M16.11 Unilateral primary osteoarthritis, right hip; M96.1 Postlaminectomy syndrome, not elsewhere classified; R35.0 Frequency of micturition
CPT/HCPCS: 99214

== ENCOUNTER 2023-09-25 22:18 | Emergency (ER) | payer OTHER, SELFPAY ==
[2023-09-25 22:33] VITALS: BP 110/63; PULSE 74; RESP 16; TEMP 36.3; O2SAT 94; BMI 33.5
--- NOTE | 2023-09-25 22:44 | ED_ITS ---
HPI - Eye Problem General Chief complaint: Eye Problems Stated complaint: piece of rust stuck under eyelid Time Seen by Provider: 09/25/23 22:44 Source: patient Mode of arrival: ambulatory Limitations: no limitations History of Present Illness ED Provider: criss MOLINA Narrative: Patient apparently was grinding and small piece of metal dust went to his right eye happened yesterday comes here for foreign body feeling and increased watering no vision loss no other injuries Related Data Previous Rx's ?Medication ?Instructions ?Recorded naloxone 4 mg/actuation nasal 4 mg intranasal Q2M PRN opioid 02/15/21 spray (Narcan) overdose 1 day #2 ea albuterol sulfate 90 mcg/actuation 1 inh inhalation QID PRN shortness 08/21/22 aerosol inhaler of breath or wheezing 30 days #8.5 grams walker #1 ea 12/26/22 fluoxetine 40 mg capsule 40 mg PO DAILY #90 caps 12/27/22 finasteride 5 mg tablet 5 mg PO DAILY 90 days #90 tabs 03/12/23 quetiapine 200 mg tablet (Seroquel) 200 mg PO BEDTIME 90 days #90 tabs 03/18/23 bupropion HCl 150 mg 24 hr tablet, 150 mg PO DAILY 90 days #90 tabs 04/22/23 extended release buprenorphine HCl 900 mcg buccal 900 mcg buccal Q12H pain 30 days 05/27/23 film (Belbuca) #60 ea acetaminophen 650 mg 650 mg PO Q12H 90 days #180 tabs 06/13/23 tablet,extended release (Pain Relief (acetaminophen)) aspirin 81 mg tablet,delayed 81 mg PO DAILY #90 tabs 06/18/23 release atorvastatin 20 mg tablet 20 mg PO DAILY 90 days #90 tabs 06/18/23 alfuzosin 10 mg tablet,extended 10 mg PO DAILY 90 days #90 tabs 07/08/23 release 24 hr (Uroxatral) cyclobenzaprine 10 mg tablet 10 mg PO BID muscle spasm 30 days 09/24/23 #60 tabs diclofenac sodium 50 mg 50 mg PO BID pain 15 days #30 tabs 09/24/23 tablet,delayed release ketotifen fumarate 0.025 % (0.035 1 drp ophthalmic (eye) Q8H PRN 09/25/23 %) eye drops pain #5 mL tobramycin 0.3 % eye drops 2 drp ophthalmic-Right Q4H #5 mL 09/25/23 Allergies Allergy/AdvReac Type Severity Reaction Status Date / Time No Known Allergies Allergy Verified 09/25/23 22:34 Review of Systems 2 Review of Systems: Yes all other systems are reviewed and are negative [facility] Past Medical History Medical History Osteoarthritis of right hip Arthritis Sleep apnea Lumbar spondylosis Depression History of smoking at least 1 pack per day for at least 30 years COPD (chronic obstructive pulmonary disease) HLD (hyperlipidemia) Failed back syndrome BPH (benign prostatic hyperplasia) Surgical History Hx of left inguinal hernia repair Hx of shoulder surgery History of total right knee replacement History of total left knee replacement History of esophagogastroduodenoscopy (EGD) History of colonoscopy History of bursectomy Family History Family History Father Brain cancer Mother CVD (cardiovascular disease) Diabetes H/O heart artery stent Brother Breast cancer Lung cancer Social History Social History Household Members: None Housing: House Are you a primary family day care provider to a significant other at home: No Do you presently have visiting nurse or other home services: No Alcohol intake: former Patient Tobacco Use Status: Former Tobacco user Tobacco use type: Cigarette Cigarettes Per Day: 0 Years Smoked: 40 e-Cigarette/Vaping Use: Never Used Second Hand Smoke Exposure: No Substance Use Type: Marijuana Advance Directives: No Advance Directives Information Provided: No service: No Current occupational status: unemployed Cognitive needs: No Hearing needs: No Vision needs: No Physical Exam 2 Vital Signs: Vital Signs: Last Vital Signs Temp 98.3 F 09/25/23 23:40 Pulse 62 09/25/23 23:40 Resp 16 09/25/23 23:40 BP 110/62 09/25/23 23:40 Pulse Ox 94 09/25/23 23:40 O2 Del Method Room Air 09/25/23 23:40 BMI result Body Mass Index 33.5 Eyes: Eyelids: Yes eyelids normal Conjunctivae: conjunctivae normal S clerae: sclerae normal Corneas: corneas abnormal (Foreign body) on the right and fluorescein used Pupils: Equal, round and reactive pupils present EOM: EOMs intact bilaterally Eyes/upper lids images: 1. Small metal dust particle at about 02:00 location Neuro: Cranial nerves: Yes Equal, round and reactive pupils present Medications Administered Discontinued Medications Generic Name Dose Route Start Last Admin Trade Name Freq PRN Reason Stop Dose Admin Fluorescein Sodium 1 strip 09/25/23 22:44 09/25/23 22:49 Fluorescein Sodium Strip EYE-RIGHT 09/25/23 22:45 1 strip ONCE ONE Administration Tetracaine HCl 3 drop 09/25/23 22:44 09/25/23 22:49 Tetracaine Hcl/Pf 0.5% Oph Ksenia 4 Ml Drops EYE-RIGHT 09/25/23 22:45 3 drop ONCE ONE Administration Tobramycin Sulfate 2 drop 09/25/23 22:44 09/25/23 22:49 Tobramycin Sulfate 0.3% Ksenia Op 5 Ml Btl EYE-RIGHT 09/25/23 22:45 2 drop ONCE ONE Administration Medical Decision Making Medical Decision Making MDM Narrative: Patient with metal dust in his right cornea which was removed using a needle had almost 90% removed lleaving superficial abrasion discharge patient home on tobramycin eye drops advised to follow up with Dr. Beavers fine jewelry sales associate Procedures FB Removal Eye Location: eye (R) Topical anesthetic used: tetracaine Foreign body: metal Evidence of corneal penetration: Yes Technique: needle Procedure performed under: direct visualization with magnification Post-procedure medication: ophthalmic antibiotic and topical anesthetic Patient tolerated procedure: well Complications: residual rust ring Discharge Plan Discharge Clinical Impression: Foreign body in cornea, right eye, initial encounter, Corneal abrasion, right Patient Disposition: Home, Self-Care Instructions: Corneal Abrasion (ED), Eye Foreign Body (ED) Additional Instructions: Your metal dust is almost removed but still small portion embedded which we were unable to remove Follow up with fine jewelry sales associate for further management Eyedrops as advised Prescriptions: New ketotifen fumarate 0.025 % (0.035 %) drops 1 drp ophthalmic (eye) Q8H PRN (Reason: pain) Qty: 5 0RF Rx Instructions: do not exceed 2 doses in a 24 hour period tobramycin 0.3 % drops 2 drp ophthalmic-Right Q4H Qty: 5 0RF No Action Narcan 4 mg/actuation spray,non-aerosol 4 mg intranasal Q2M PRN (Reason: opioid overdose) 1 Days Qty: 2 1RF Rx Instructions: spray 1 dose into ONE nostril; alternate nostrils w each dose until help arrives (DME) walker Misc See Rx Instructions .MEDSUPPLY Qty: 1 0RF Rx Instructions: Folding Front wheeled walker fluoxetine 40 mg capsule 40 mg PO DAILY Qty: 90 2RF quetiapine [Seroquel] 200 mg tablet 200 mg PO BEDTIME 90 Days Qty: 90 2RF bupropion HCl 150 mg tablet extended release 24 hr 150 mg PO DAILY 90 Days Qty: 90 1RF buprenorphine HCl [Belbuca] 900 mcg film 900 mcg buccal Q12H 30 Days Qty: 60 2RF acetaminophen [Pain Relief (acetaminophen)] 650 mg tablet extended release 650 mg PO Q12H 90 Days Qty: 180 1RF aspirin 81 mg tablet,delayed release (DR/EC) 81 mg PO DAILY Qty: 90 3RF atorvastatin 20 mg tablet 20 mg PO DAILY 90 Days Qty: 90 3RF alfuzosin [Uroxatral] 10 mg tablet extended release 24 hr 10 mg PO DAILY 90 Days Qty: 90 1RF Rx Instructions: Advised to hold doxazosin cyclobenzaprine 10 mg tablet 10 mg PO BID 30 Days Qty: 60 1RF diclofenac sodium 50 mg tablet,delayed release (DR/EC) 50 mg PO BID 15 Days Qty: 30 0RF finasteride 5 mg tablet 5 mg PO DAILY 90 Days Qty: 90 2RF albuterol sulfate 90 mcg/actuation HFA aerosol inhaler 1 inh inhalation QID PRN (Reason: shortness of breath or wheezing) 30 Days Qty: 8.5 1RF Referrals: Jose Beavers [Physician] - 3 days Interventions: ED Discharge Assessment Last Done: 09/25/23 23:40 Discharge Date/Time: 09/25/23 23:42 Print Language: Surinamese
[2023-09-25] MEDS: Tetracaine HCl/PF 0.5% Oph Sol 4 ML DROPS 3 DROP EYE-RIGHT (22:49)
[2023-09-25] MEDS: Tobramycin Sulfate 0.3% Sol Op 5 ML BTL 2 DROP EYE-RIGHT (22:49)
[2023-09-25] MEDS: Fluorescein Sodium STRIP 1 STRIP EYE-RIGHT (22:49)
[2023-09-25 23:07] VITALS: BP 110/62; PULSE 62; RESP 16; TEMP 36.8; O2SAT 94
[2023-09-25 23:40] VITALS: BP 110/62; PULSE 62; RESP 16; TEMP 36.8; O2SAT 94
== END 2023-09-25 23:42 | disposition home or self-care (01) ==
PROVIDERS: Emergency Provider Internal Medicine; PCP Physician Assistant
DX: S00.211A Abrasion of right eyelid and periocular area, initial encounter (principal); S00.251A Superficial foreign body of right eyelid and periocular area, initial encounter; X58.XXXA Exposure to other specified factors, initial encounter; Y93.9 Activity, unspecified; Y92.9 Unspecified place or not applicable; Y99.9 Unspecified external cause status
CPT/HCPCS: 65220; 99283

== ENCOUNTER 2023-10-16 15:01 | Outpatient (AMB) | payer OTHER, SELFPAY ==
--- NOTE | 2023-10-16 15:16 | A.OFFPC_ITS ---
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 Accompanied by: Self / Same As Patient Allergies No Known Allergies Allergy (Verified 10/16/23 15:19) Medication List - Last Reviewed 10/16/23 by JOSE Forde acetaminophen ER (Pain Relief (acetaminophen)) 650 mg PO Q12H 90 days albuterol sulfate 90 mcg/actuation 1 inh inhalation QID PRN 30 days alfuzosin ER (Uroxatral) 10 mg PO DAILY 90 days aspirin 81 mg PO DAILY atorvastatin 20 mg PO DAILY 90 days buprenorphine HCl (Belbuca) 900 mcg buccal Q12H 30 days bupropion HCl XL 150 mg PO DAILY 90 days cyclobenzaprine 10 mg PO BID 30 days diclofenac sodium 50 mg PO BID 15 days finasteride 5 mg PO DAILY 90 days fluoxetine 40 mg PO DAILY ketotifen fumarate 0.025%(0.035%) 1 drp ophthalmic (eye) Q8H PRN naloxone 4 mg/actuation (Narcan) 4 mg intranasal Q2M PRN 1 day quetiapine (Seroquel) 200 mg PO BEDTIME 90 days tobramycin 0.3% 2 drps ophthalmic-Right Q4H walker Folding Front wheeled walker Tobacco use date assessed: 07/17/23 Dental Screening Dental Screen Date: 07/17/23 HPI f/u pain management HPI Details Patient is a 63-year-old male here today for follow-up visit. ? Patient has a past medical history significant for tobacco dependency, failed back syndrome, COPD, hyperlipidemia, BPH, opiate dependency, history of alcohol dependency(in remission). .. Failed back syndrome:? Was followed by pain management here in [place] though has lost follow-up due to apparent incorrect pill count. He continues on Belbuca at highest dose which has been somewhat effective for him. He still has breakthrough pain when more physically active. 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 He does use low-dose oxycodone 5 mg on a p.r.n. basis for breakthrough pain. We did discuss the habit-forming nature of this medication and agrees to only use oxycodone on a limited p.r.n. basis for breakthrough pain [facility] Medical History Osteoarthritis of right hip Arthritis Sleep apnea Lumbar spondylosis Depression History of smoking at least 1 pack per day for at least 30 years COPD (chronic obstructive pulmonary disease) HLD (hyperlipidemia) Failed back syndrome BPH (benign prostatic hyperplasia) Surgical History Hx of left inguinal hernia repair Hx of shoulder surgery History of total right knee replacement History of total left knee replacement History of esophagogastroduodenoscopy (EGD) History of colonoscopy History of bursectomy Family History Father Brain cancer Mother CVD (cardiovascular disease) Diabetes H/O heart artery stent Brother Breast cancer Lung cancer Social History Household Members: None Housing: House Are you a primary complex care nurse practitioner to a significant other at home: No Do you presently have visiting nurse or other home services: No Alcohol intake: former Patient Tobacco Use Status: Former Tobacco user Tobacco use type: Cigarette Cigarettes Per Day: 0 Years Smoked: 40 e-Cigarette/Vaping Use: Never Used Second Hand Smoke Exposure: No Substance Use Type: Marijuana service: No Current occupational status: unemployed Cognitive needs: No Hearing needs: No Vision needs: No Questionnaire Thrive Questionnaire Date Thrive assessed: 01/16/23 BIJU-7 AMB Questionnaire BIJU-7 Date BIJU - 7 assessed: 06/12/22 Source: Developed by Drs. Wyatt Varela, Lise Gordillo, Gaetano Feldman and colleagues, with an educational bettina from [employer]. Review of Systems Const Denies headache(s) Eyes Denies loss of vision ENT Denies vertigo, Denies dizziness, Denies headache(s) and Denies sore throat Card Denies chest pain, Denies leg edema and Denies lightheadedness Resp Denies cough, Denies hemoptysis and Denies wheezing GI Denies abdominal pain, Denies melena, Denies constipation, Denies diarrhea and Denies vomiting Denies dysuria, Denies urinary frequency and Denies urinary urgency Musc Reports back pain, Denies arthralgias, Denies joint swelling, Denies numbness and Denies tingling Neuro Denies Abnormal speech present, Denies behavioral changes, Denies vertigo, Denies dizziness, Denies headache(s), Denies loss of vision, Denies memory loss, Denies numbness and Denies tingling Psych Denies anxiety, Denies behavioral changes, Denies depression, Denies memory loss and Denies panic attacks Brenden/Lymph Denies easy bleeding and Denies easy bruising Aller/Immun Denies wheezing Physical exam (Primary Care) Vital Signs: Last Vital Signs Pulse 82 10/16/23 15:17 BP 124/84 10/16/23 15:17 Pulse Ox 95 10/16/23 15:17 Oxygen Delivery Method Room Air 10/16/23 15:17 BMI result Body Mass Index 32.2 Tobacco/Smoking Status: Tobacco use Status Tobacco use date assessed 07/17/23 10/16/23 15:17 Patient Tobacco Use Status Former Tobacco user 10/16/23 15:17 Tobacco use type Cigarette 10/16/23 15:17 e-Cigarette/Vaping Use Never Used 10/16/23 15:17 Thrive Assessment: Date of Thrive Assessment Date Thrive assessed 01/16/23 10/16/23 15:17 Const General: healthy appearing, no acute distress, alert and awake Nutritional Appearance: well nourished Orientation/consciousness: oriented to person, oriented to place and oriented to time HENMT Ears: TM's normal bilaterally General nose exam: Normal nasal mucous membranes and turbinates present Eyes Conjunctivae: conjunctivae normal Sclerae: sclerae normal Pupils: Equal, round and reactive pupils present Neck Neck: Yes no lymphadenopathy and Yes no JVD Thyroid: Thyroid normal Carotids: no bruits Resp Effort & Inspection: normal respiratory effort and not tachypneic Auscultation: no crackles, no rales, no rhonchi and no wheezes Cardio Rate: regular rate Rhythm: regular rhythm Heart sounds: no murmurs and normal S1 and S2 GI Palpation (GI): Soft to palpation, nontender, no hepatomegaly and no sple nomegaly Auscultation: normal bowel sounds Skin General skin exam: no rashes or lesions noted and dry skin Neuro General: oriented to person, oriented to place and oriented to time Cranial nerves: Yes Equal, round and reactive pupils present Speech: No Abnormal speech present Gait exam (Neuro): Normal gait present Motor exam (neuro): no tremor noted Extrem Right upper extremity: full ROM Left upper extremity: full ROM Right lower extremity: full ROM; no edema Left lower extremity: full ROM; no edema Psych Mental Status: mental status grossly normal Speech and movement: Normal speech and movement present Affect: normal affect Attitude: cooperative Thought process: Normal thought process present Assessment and Plan Assessment & Plan (1) Failed back syndrome: Code(s): M96.1 - Postlaminectomy syndrome, not elsewhere classified Plan: Patient has a chronic history of lower lumbar spine pain. Recently had his hip replaced though did not help his lower back pain. He continues on Belbuca 900 mcg b.i.d. for his chronic pain management. 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 We did discuss breakthrough pain was willing to give him a short-term script for oxycodone 5 mg to use on a very limited p.r.n. basis for breakthrough pain. (2) Opiate dependence: Code(s): F11.20 - Opioid dependence, uncomplicated Qualifiers: Substance use status: uncomplicated Qualified Code(s): F11.20 - Opioid dependence, uncomplicated Plan: Has an opiate dependency secondary to chronic lower lumbar spine pain. Patient continues on Belbuca 900 mcg b.i.d .. 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 We had a long discussion about his pain management he is willing to add on gabapentin for additional pain relief. He does use occasional oxycodone 5 mg for breakthrough pain. Orders: Orders MR lumbar spine wo con 10/16/23 M96.1 - Postlaminectomy syndrome, not elsewhere classified Medications: New oxycodone Partial Fill upon patient request. 5 mg PO BID 14 tabs 0RF pain 7 days M96.1 - Postlaminectomy syndrome, not elsewhere classified gabapentin 300 mg PO BID 60 caps 1RF 30 days M96.1 - Postlaminectomy syndrome, not elsewhere classified Coding Level of Care Code Est Pt Level 4 (70364) Diagnoses Failed back syndrome M96.1 Uncomplicated opioid dependence F11.20 Substance use status: uncomplicated
[2023-10-16 15:17] VITALS: BP 124/84; PULSE 82; O2SAT 95; BMI 32.2
== END 2023-10-16 15:35 | disposition home or self-care (01) ==
PROVIDERS: PCP Physician Assistant; Visit Provider Physician Assistant
DX: M96.1 Postlaminectomy syndrome, not elsewhere classified (principal); F11.20 Opioid dependence, uncomplicated
CPT/HCPCS: 99214

== ENCOUNTER 2023-12-02 16:32 | Outpatient (REF) | payer OTHER, SELFPAY ==
[2023-12-02 17:08] LABS: Urine Cytology See Pathology rpt
[2023-12-02 17:17] LABS: Appearance Urine Clear; Color Urine Yellow; Glucose Urine UA Negative (Negative); Leukocyte Esterase Urine Negative (Negative); Nitrite Urine Negative (Negative); PH 5.5 (5.0-9.0); Specific Gravity - Urine 1.025 (1.005-1.025); Urine Blood Negative (Negative); Urine Ketones Trace mg/dL (Negative); Urine Protein Trace mg/dL (Neg-Trace)
[2023-12-02 17:22] LABS: Amphetamine Screen Urine Not Detected (Not Detect); Barbiturates, Urine Not Detected (Not Detect); Benzodiazepines Screen Urine Not Detected (Not Detect); Buprenorphine Scr Positive (Not Detect); Cannabinoid Screen Urine POSITIVE (Not Detect); Cocaine Screen Urine Not Detected (Not Detect); Fentanyl, urine Not Detected (Not Detect); Methadone Screen, Urine Not Detected (Not Detect); Opiate Screen Urine Not Detected (Not Detect); Oxycodone Screen Urine Not Detected (Not Detect); Phencyclidine Screen Urine Not Detected (Not Detect)
[2023-12-02 18:08] LABS: Cholesterol 129 mg/dL (<200); HDL Cholesterol 52 mg/dL (>40); LDL Cholesterol Calculated 61 mg/dL (<100); Triglycerides 83 mg/dL (<150)
== END 2023-12-02 16:33 | disposition home or self-care (01) ==
LOC: HO.LAB 16:32
PROVIDERS: PCP Physician Assistant; Visit Provider Physician Assistant
DX: N40.1 Benign prostatic hyperplasia with lower urinary tract symptoms (principal); R33.9 Retention of urine, unspecified; F11.20 Opioid dependence, uncomplicated; R30.0 Dysuria; E78.1 Pure hyperglyceridemia
CPT/HCPCS: 80061; 80307; 81003; 88112

== ENCOUNTER 2023-12-09 17:57 | Outpatient (REF) | payer OTHER, SELFPAY ==
--- NOTE | ~2023-12-09 | MR_ITS ---
EXAMINATION: MR LUMBAR SPINE WITHOUT CONTRAST CLINICAL INFORMATION: Postlaminectomy syndrome. COMPARISON: CT abdomen and pelvis 07/27/2022. TECHNIQUE: MRI of the lumbar spine was obtained using routine sequences without contrast. FINDINGS: There is slight grade 1 retrolisthesis of L1 on L2, L2 on L3, and L3 on L4. Slight grade 1 anterolisthesis of L5 on S1. Vertebral body heights are preserved. No acute bone marrow signal changes. There is loss of intervertebral disc height and T2 signal intensity at multiple levels related to disc degeneration. The tip of the conus medullaris is located at L1-L2. No mass effect on the conus. Visualized distal cord signal intensity is normal. At L1-L2 there is a bulging disc. Bilateral facet degenerative change. Mild canal stenosis. No mass effect on the traversing or foraminal nerve roots. At L2-L3 there is a bulging disc. Bilateral facet degenerative change. Mild canal stenosis. No mass effect on the traversing or foraminal nerve roots. And L3-L4 there is a bulging disc and bilateral facet degenerative change. No canal stenosis. No mass effect on the traversing or foraminal nerve roots. At L4-L5 there is a bulging disc. Advanced bilateral facet degenerative changes. No canal stenosis. Subtle abutment of the left traversing L5 nerve roots. No mass effect on the traversing or foraminal nerve roots. At L5-S1 there is a pseudodisc bulge. Advanced bilateral facet degenerative changes. No canal stenosis. No mass effect on the traversing or foraminal nerve roots. Limited visualization of the retroperitoneal anatomy reveals no abnormal finding. Psoas and paraspinal muscle groups are symmetric. MR/MR lumbar spine wo con IMPRESSION: There is multilevel degenerative spondylosis of the lumbar spine with slight grade 1 retrolisthesis of L1 on L2, L2 on L3, and L3 on L4. Slight grade 1 anterolisthesis of L5 on S1. Mild canal stenosis at L1-L2 and L2-L3. Otherwise no canal compromise. No mass effect on the traversing or foraminal nerve roots. Electronically signed by: Wyatt Mendieta MD 12/26/2023 05:26 PM EDT
== END 2023-12-09 17:58 | disposition home or self-care (01) ==
LOC: HO.MRI 17:57
PROVIDERS: PCP Physician Assistant; Visit Provider Physician Assistant
DX: M96.1 Postlaminectomy syndrome, not elsewhere classified (principal)
CPT/HCPCS: 72148

== ENCOUNTER 2024-01-16 14:56 | Outpatient (AMB) | payer OTHER, SELFPAY ==
[2024-01-16 14:59] VITALS: BP 122/70; PULSE 90; O2SAT 94; BMI 30.5
--- NOTE | 2024-01-16 14:59 | A.OFFPC_ITS ---
Vital Signs 01/16/24 14:59 Height 5 ft 9 in Weight 206 lb 8 oz BMI 30.5 BP 122/70 Blood Pressure Location Lt brachial Position Sitting Pulse 90 Pulse Source Pulse Oximeter Pulse Oximetry (%) 94 Oxygen Delivery Method Room Air Intake Visit Reasons: Will pain management Allergies No Known Allergies Allergy (Verified 10/16/23 15:19) Medication List - Last Reconciled 01/16/24 by Nathaniel Bruce PA-C acetaminophen ER (Pain Relief (acetaminophen)) 650 mg PO Q12H 90 days albuterol sulfate 90 mcg/actuation 1 inh inhalation QID PRN 30 days alfuzosin ER (Uroxatral) 10 mg PO DAILY 90 days aspirin 81 mg PO DAILY atorvastatin 20 mg PO DAILY 90 days buprenorphine HCl (Belbuca) 900 mcg buccal Q12H 30 days bupropion HCl XL 150 mg PO DAILY 90 days cyclobenzaprine 10 mg PO BID 30 days diclofenac sodium 50 mg PO BID 15 days finasteride 5 mg PO DAILY 90 days fluoxetine 40 mg PO DAILY gabapentin 300 mg PO BID 30 days ketotifen fumarate 0.025%(0.035%) 1 drp ophthalmic (eye) Q8H PRN miscellaneous medical supply 1 ea miscellaneous DAILY 99 days naloxone 4 mg/actuation (Narcan) 4 mg intranasal Q2M PRN 1 day quetiapine (Seroquel) 200 mg PO BEDTIME 90 days tobramycin 0.3% 2 drps ophthalmic-Right Q4H walker Folding Front wheeled walker Tobacco use date assessed: 07/17/23 Dental Screening Dental Screen Date: 07/17/23 HPI Will pain management HPI Details Patient is a 63-year-old male here today for follow-up visit. ? Patient has a past medical history significant for tobacco dependency, failed back syndrome, COPD, hyperlipidemia, BPH, opiate dependency, history of alcohol dependency(in remission). Concerns--> Deandre does bring up a few concerns today including his memory impairment that seems to have gotten worse over the last few months. We did discuss perhaps starting workup with MRI and trying medication though he wants to hold off on this for now. 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 Would like to see a hand and wrist specialist for possible removal. .. Failed back syndrome:? Was followed by pain management here in [place] though has lost follow-up due to apparent incorrect pill count. He continues on Belbuca at highest dose which has been somewhat effective for him. Does also use Tylenol and cyclobenzaprine for pain as well. He still has breakthrough pain when more physically active. 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 He does use low-dose oxycodone 5 mg on a p.r.n. basis for breakthrough pain. We did discuss the habit-forming nature of this medication and agrees to only use oxycodone on a limited p.r.n. basis for breakthrough pain Recent MRI lumbar spine-->There is multilevel degenerative spondylosis of the lumbar spine with slight grade 1 retrolisthesis of L1 on L2, L2 on L3, and L3 on L4. Slight grade 1 anterolisthesis of L5 on S1. Mild canal stenosis at L1-L2 and L2-L3. Otherwise no canal compromise. No mass effect on the traversing or foraminal nerve roots. [facility] Medical History History of smoking at least 1 pack per day for at least 30 years Failed back syndrome HLD (hyperlipidemia) COPD (chronic obstructive pulmonary disease) Sleep apnea Personal history of nicotine dependence BPH (benign prostatic hyperplasia) Depression Arthritis Lumbar spondylosis Surgical History History of total right hip arthroplasty History of total right knee replacement History of total left knee replacement Hx of left inguinal hernia repair History of shoulder surgery History of esophagogastroduodenoscopy (EGD) History of colonoscopy History of bursectomy Family History Father Brain cancer Mother CVD (cardiovascular disease) Diabetes H/O heart artery stent Brother Breast cancer Lung cancer Social History Household Members: None Housing: House Are you a primary memory care program director to a significant other at home: No Do you presently have visiting nurse or other home services: No Alcohol intake: former Patient Tobacco Use Status: Former Tobacco user Tobacco use type: Cigarette Cigarettes Per Day: 0 Years Smoked: 40 e-Cigarette/Vaping Use: Never Used Second Hand Smoke Exposure: No Substance Use Type: Marijuana service: No Current occupational status: unemployed Cognitive needs: No Hearing needs: No Vision needs: No Questionnaire PHQ-9 Over the last 2 weeks, how often have you been bothered by any of the following problems? 1. Little interest or pleasure in doing things: not at all 2. Feeling down, depressed, or hopeless: not at all 3. Trouble falling or staying asleep, or sleeping too much: not at all 4. Feeling tired or having little energy: not at all 5. Poor appetite or overeating: not at all 6. Feeling bad about yourself - or that you are a failure or have let yourself or your family down: not at all 7. Trouble concentrating on things, such as reading the newspaper or watching television: not at all 8. Moving or speaking so slowly that other people could have noticed. Or the opposite - being so fidgety or restless that you have been moving around a lot more than usual: not at all 9. Thoughts that you would be better off or of hurting yourself in some way: not at all Total score: 0 Depression Screening Interpretation: Negative Depression Screening Done: Yes 72886 - PHQ-9 Billing: Yes Source: Developed by Drs. Wyatt Varela, Lise Gordillo, Gaetano Feldman and colleagues, with an educational bettina from [employer]. Thrive Questionnaire Date Thrive assessed: 01/16/24 I am a: Patient What is your living situation today?: I have a steady place to live Within the past 12 months, did the food you bought not last and you didn't have the money to get more?: Never true Within the past 12 months, did you worry whether your food would run out before you got money to buy more?: Never true Do you have trouble paying for medicines?: No Do you have trouble getting transportation to medical appointments?: No Do you have trouble paying your heating and electricity bill?: No Do you have trouble taking care of your child, family member or friend?: No Do you have trouble with day-to-day activities such as bathing, preparing meals, shopping, managing finances, etc.?: No Are you currently unemployed and looking for a job?: No Are you interested in more education?: No Please select the resources that you would like help with: None Currently or been in a relationship where the following occur: No concerns reported THRIVE Score: 0 AUDIT C Alcohol Use Questionnaire (AUDIT-C) 1. How often do you have a drink containing alcohol?: Never 3. How often do you have six or more drinks on one occasion?: Never Total Score: 0 Score Reviewed/Action Taken: No BIJU-7 AMB Questionnaire BIJU-7 Date BIJU - 7 assessed: 01/16/24 Feeling nervous, anxious, or on edge: 0 = Not at all Not being able to stop or control worryin = Not at all Worrying too much about different things: 0 = Not at all Trouble relaxin = Not at all Being so restless that it is hard to sit still: 0 = Not at all Becoming easily annoyed or irritable: 0 = Not at all Feeling afraid as if something awful might happen: 0 = Not at all Total BIJU-7 score (0-4 normal; 5-9 mild; 10-14 moderate; 15-21 severe): 0 Source: Developed by Drs. Wyatt Varela, Lise Gordillo, Gaetano Feldman and colleagues, with an educational bettina from [employer]. BIJU-7 Assessment Billing BIJU-7 Assessment Tool: BIJU-7 Assessment 48266 Review of Systems Const Denies headache(s) Eyes Denies loss of vision ENT Denies vertigo, Denies dizziness, Denies headache(s) and Denies sore throat Card Denies chest pain, Denies leg edema and Denies lightheadedness Resp Denies cough, Denies hemoptysis and Denies wheezing GI Denies abdominal pain, Denies melena, Denies constipation, Denies diarrhea and Denies vomiting Denies dysuria, Denies urinary frequency and Denies urinary urgency Musc Reports back pain, Denies arthralgias, Denies joint swelling, Denies numbness and Denies tingling Neuro Denies Abnormal speech present, Denies behavioral changes, Denies vertigo, Denies dizziness, Denies headache(s), Denies loss of vision, Reports memory loss, Denies numbness and Denies tingling Psych Denies anxiety, Denies behavioral changes, Denies depression, Reports memory loss and Denies panic attacks Brenden/Lymph Denies easy bleeding and Denies easy bruising Aller/Immun Denies wheezing Physical exam (Primary Care) Vital Signs: Last Vital Signs Pulse 90 01/16/24 14:59 BP 122/70 01/16/24 14:59 Pulse Ox 94 01/16/24 14:59 Oxygen Delivery Method Room Air 01/16/24 14:59 BMI result Body Mass Index 30.5 Tobacco/Smoking Status: Tobacco use Status Tobacco use date assessed 07/17/23 01/16/24 15:02 Patient Tobacco Use Status Former Tobacco user 01/16/24 15:02 Tobacco use type Cigarette 01/16/24 15:02 e-Cigarette/Vaping Use Never Used 01/16/24 15:02 PHQ-9: PHQ-9 Score PHQ-9: Total score 0 01/16/24 15:10 Depression Screening Interpretation: Negative Thrive Assessment: Date of Thrive Assessment Date Thrive assessed 01/16/24 01/16/24 15:07 Currently or been in a relationship where the following occur: No concerns reported Const General: healthy appearing, no acute distress, alert and awake Nutritional Appearance: well nourished Orientation/consciousness: oriented to person, oriented to place and oriented to time HENMT Ears: TM's normal bilaterally General nose exam: Normal nasal mucous membranes and turbinates present Eyes Conjunctivae: conjunctivae normal Sclerae: sclerae normal Pupils: Equal, round and reactive pupils present Neck Neck: Yes no lymphadenopathy and Yes no JVD Thyroid: Thyroid normal Carotids: no bruits Resp Effort & Inspection: normal respiratory effort and not tachypneic Auscultation: no crackles, no rales, no rhonchi and no wheezes Cardio Rate: regular rate Rhythm: regular rhythm Heart sounds: no murmurs and normal S1 and S2 GI Palpation (GI): Soft to palpation, nontender, no hepatomegaly and no splenomegaly Auscultation: normal bowel sounds Skin General skin exam: no rashes or lesions noted and dry skin Neuro General: oriented to person, oriented to place and oriented to time Cranial nerves: Yes Equal, round and reactive pupils present Speech: No Abnormal speech present Gait exam (Neuro): Normal gait present Motor exam (neuro): no tremor noted Extrem Right upper extremity: full ROM Left upper extremity: full ROM Right lower extremity: full ROM; no edema Left lower extremity: full ROM; no edema Psych Mental Status: mental status grossly normal Speech and movement: Normal speech and movement present Affect: normal affect Attitude: cooperative Thought process: Normal thought process present Office Procedures Flu Questionnaire Does the patient have a severe egg allergy?: No Does the patient have severe life threatening allergies?: No Does the patient have a fever or illness today?: No Has the patient ever had Guillain-Torrance Syndrome?: No Has the patient ever had any past reaction to a flu shot?: No Immunizations Fluarix Triv [id number] (PF) 45 mcg (15 mcg x 3)/0.5 mL IM syringe Performing Provider: Nathaniel Bruce PA-C [facility] Administered by: JOSE Forde on 01/16/24 15:09 Dose Route Admin Location Dispensed Lot Number Expiration Date [facility] [employer] 0.5 mL IM Right Deltoid 0.5 mL [id number] 10/12/24 79225-153-34 [employer] VIS Given Date VIS Provided VIS Publication Date 01/16/24 Single Vaccine 20 Eligibility Eligibility Date Funding Source Not [facility] Eligible 01/16/24 Private Coding Level of Care Code Est Pt Level 4 (21980) Diagnoses Failed back syndrome M96.1 Ganglion cyst M67.40 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 Hyperlipidemia type: pure hypertriglyceridemia Memory impairment R41.3 Additional Codes BIJU-7 Assessment Billing - BIJU-7 Assessment Tool: BIJU-7 Assessment 16504 ([id number]) Assessment & Plan Assessment & Plan (1) Failed back syndrome: Code(s): M96.1 - Postlaminectomy syndrome, not elsewhere classified Category: Medical Plan: As per HPI patient has a chronic history of lower back pain. Was seen by pain management in [place] though was discharged due to failed pill counts. Continues to manage his pain with high dose Belbuca, cyclobenzaprine and gabapentin. He does use low-dose oxycodone 5 mg on a very limited p.r.n. basis for breakthrough pain as well. (2) Ganglion cyst: Code(s): M67.40 - Ganglion, unspecified site Category: Medical Plan: As per HPI patient has a large right wrist cyst. 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 Would like removal. (3) HLD (hyperlipidemia): Code(s): E78.5 - Hyperlipidemia, unspecified Category: Medical Qualifiers: Hyperlipidemia type: pure hypertriglyceridemia Qualified Code(s): E78.1 - Pure hyperglyceridemia Plan: Patient's most recent lipid panel showing excellent control of his total cholesterol and LDL. He continues on atorvastatin 20 mg with good effect. Goal LDL to remain below 130 (4) Memory impairment: Code(s): R41.3 - Other amnesia Category: Medical Plan: As per HPI patient does report having some issues with word-finding and mild memory impairment. He does admit that his father and grandfather both had Alzheimer's disease. He is concerned about Alzheimer's disease and we did discuss perhaps getting a workup started with an MRI of his brain though he declines at this time Orders: Orders Influenza [id number] Immunization 01/16/24 Z23 - Encounter for immunization Complete Blood Count no Diff 01/16/24 E78.1 - Pure hyperglyceridemia Lipid Panel 01/16/24 E78.1 - Pure hyperglyceridemia Comprehensive [place]. Panel Fast 01/16/24 E78.1 - Pure hyperglyceridemia Referrals Orthopedics Referral M67.40 - Ganglion, unspecified site Medications: New oxycodone Partial Fill upon patient request. 5 mg PO BID PRN 10 tabs 0RF pain 30 days M96.1 - Postlaminectomy syndrome, not elsewhere classified Refilled acetaminophen ER (Pain Relief (acetaminophen)) 650 mg PO Q12H 180 tabs 1RF 90 days Z96.641 - Presence of right artificial hip joint Patient Instructions: Goal: LDL to remain below 130 Barriers: Adherence to physical activity and healthy eating habits
== END 2024-01-16 15:33 | disposition home or self-care (01) ==
PROVIDERS: PCP Physician Assistant; Visit Provider Physician Assistant
DX: M96.1 Postlaminectomy syndrome, not elsewhere classified (principal); M67.40 Ganglion, unspecified site; E78.1 Pure hyperglyceridemia; R41.3 Other amnesia

== ENCOUNTER → 2024-01-16 14:56 | Outpatient (BNVA) | payer OTHER, SELFPAY | PROVIDERS: PCP Physician Assistant; Visit Provider Physician Assistant | DX: Z23 Encounter for immunization (principal); M96.1 Postlaminectomy syndrome, not elsewhere classified; M67.40 Ganglion, unspecified site; E78.1 Pure hyperglyceridemia; R41.3 Other amnesia | CPT/HCPCS: 90471; 90656; 96127; 99212 ==

== ENCOUNTER 2024-01-27 15:45 | Outpatient (REF) | payer OTHER, SELFPAY ==
[2024-01-27 16:30] LABS: Hematocrit 40.1 % (42.0-52.0); Mean Corpuscular HGB Conc 34.9 g/dl (31.0-36.0); Mean Corpuscular Hemoglobin 32.9 pg (27.0-33.0); Mean Corpuscular Volume 94.4 fL (80.0-98.0); Mean Platelet Volume 9.6 fL (9.4-12.4); Platelet Count 319 X10*3/uL (160-400); Red Blood Count 4.25 X10*6/uL (4.60-5.80); Red Cell Distribution Width 12.7 % (11.0-16.0); White Blood Count 6.1 X10*3/uL (4.8-10.8)
[2024-01-27 16:56] LABS: Alanine Aminotransferase 18 U/L (0-40); Albumin Level 4.1 g/dL (3.5-5.0); Alkaline Phosphatase 63 U/L (39-117); Anion Gap 13 (12-20); Aspartate Amino Transferase 32 U/L (5-37); Bilirubin Total 0.5 mg/dL (0.0-1.0); Blood Urea Nitrogen 23 mg/dL (9-16); Calcium 9.5 mg/dL (8.4-10.2); Carbon Dioxide 22 mmol/L (22-29); Chloride 106 mmol/L (96-108); Cholesterol 140 mg/dL (<200); Estimated Glomerular Filt Rate 55; Glucose Fasting 104 mg/dL (60-99); HDL Cholesterol 53 mg/dL (>40); LDL Cholesterol Calculated 77 mg/dL (<100); Potassium 4.4 mmol/L (3.3-5.1); Sodium 137 mmol/L (135-145); Total Protein 7.2 g/dL (6.5-8.0); Triglycerides 54 mg/dL (<150)
[2024-01-27 17:03] LABS: Buprenorphine Scr Positive (Not Detect)
== END 2024-01-27 15:46 | disposition home or self-care (01) ==
LOC: HO.LAB 15:45
PROVIDERS: PCP Physician Assistant; Visit Provider Physician Assistant
DX: F11.20 Opioid dependence, uncomplicated (principal); E78.1 Pure hyperglyceridemia
CPT/HCPCS: 36415; 80053; 80061; 80307; 85027

== ENCOUNTER 2024-02-12 10:01 | Outpatient (AMB) | payer OTHER, SELFPAY ==
[2024-02-12 10:05] VITALS: BMI 30.5
--- NOTE | 2024-02-12 10:05 | MHC.OFFVIS ---
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 Patient denies numbness and tingling. Denies finger locking. Patient shares it has increased in size. He reports it is very itchy and gets in the way of his work. Patient would like it drained today or surgically removed. 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 He complains of mass on the dorsal radial aspect of his right wrist. He says this has been present for several months and has been increasing in size. He complains that this is itchy and is interfering with his duties at work. 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 He denies any numbness, tingling, locking, or catching [facility] Medical History History of smoking at least 1 pack per day for at least 30 years Failed back syndrome HLD (hyperlipidemia) COPD (chronic obstructive pulmonary disease) Sleep apnea Personal history of nicotine dependence BPH (benign prostatic hyperplasia) Depression Arthritis Lumbar spondylosis Surgical History History of total right hip arthroplasty History of total right knee replacement History of total left knee replacement Hx of left inguinal hernia repair History of shoulder surgery History of esophagogastroduodenoscopy (EGD) History of colonoscopy History of bursectomy Family History Father Brain cancer Mother CVD (cardiovascular disease) Diabetes H/O heart artery stent Brother Breast cancer Lung cancer Social History Household Members: None Housing: House Are you a primary clinical care coordinator to a significant other at home: No Do you presently have visiting nurse or other home services: No Alcohol intake: former Patient Tobacco Use Status: Former Tobacco user Tobacco use type: Cigarette Cigarettes Per Day: 0 Years Smoked: 40 e-Cigarette/Vaping Use: Never Used Second Hand Smoke Exposure: No Substance Use Type: Marijuana service: No Current occupational status: unemployed Cognitive needs: No Hearing needs: No Vision needs: No Review of Systems Const All systems reviewed & are unremarkable except as noted in HPI and below Physical Exam Vital Signs: BMI result Body Mass Index 30.5 Const General: cooperative, healthy appearing and no acute distress Orientation/consciousness: patient oriented x3 HEENT Head: Yes normocephalic and Yes atraumatic Eyes EOM: EOMs intact bilaterally Resp Effort & Inspection: normal respiratory effort and able to speak in complete sentences Cardio Jugular venous distension: no JVD Skin General skin exam: turgor normal Rashes: no rashes Neuro General: patient oriented x3 Extrem Other: Evaluation of Right Upper Extremity: The patient is alert, oriented, and in no acute distress Neuro: Median, Ulnar, Radial nerves motor and sensory intact and sensation is normal to the tips of all digits Vascular: Cap refill brisk ROM: He can make a fist and extend all his digits No locking or catching Symmetrical pronosupination Nearly symmetrical flexion & extension Skin: No lacerations or abrasions. General: No Ecchymosis. No Erythema or evidence of infection. There is a fluid-filled mass on the dorsal radial aspect of his wrist, extending from the 1st to the 4th dorsal compartments and distally to the CMC joint. This measures ~5cm in diameter, and appears fluid-filled. It is nontender, with no erythema or warmth. Radiographs: None available today. Psych Appearance: grossly normal Affect: normal affect Attitude: cooperative Office Procedures AMB Fracture Care Details: No fracture, aspiration Fracture Billing Code: Fracture Billing Code Assessment & Plan Assessment & Plan (1) Ganglion cyst of dorsum of right wrist: Code(s): M67.431 - Ganglion, right wrist Category: Medical Plan Assessment & Plan: Right dorsal wrist mass Measuring ~5cm in diameter Possible large dorsal wrist ganglion, verses a synovitis secondary to underlying wrist condition I educated him about this condition I discussed operative and non-operative treatment options The patient would like to proceed with aspiration today The risks and benefits of an aspiration were discussed with the patient all questions were answered. Consent was obtained. I explained the risk of recurrence, and he expressed understanding Aspiration #1: The risks and benefits of aspiration, including but not limited to risk of damage to blood vessels, nerves, tendons, infection, failure to improve symptoms, increased pain, and possible need for further aspirations or surgical intervention. After obtaining written consent, I sterilely prepped the area over the Right dorsal radial wrist. I then injected subcutaneously with a small amount 1% lidocaine. I then passed an 18 gauge needle into the ganglion and aspirated some yellow-tinged but relativly clear viscous fluid consistent with a ganglion, ~8mL in total. Some remaining viscous fluid was then pushed out of the ganglion. The patient tolerated this well and with no complications. He does understand that this is a fairly significant chance that this will recur following aspiration. If he is seen back for this condition we should obtain new radiographs three views of his right wrist, plus a scaphoid view. Scribed for Steffanie Nelson MD by Alfredo Clements, dental assistant medical assistant, on 02/12/24 at 10:30 AM, EST. Coding Level of Care Code New Pt Level 3 (53822) Diagnoses Ganglion cyst of dorsum of right wrist M67.431 CPT Codes Fracture Care - Fracture Billing Code: Fracture Billing Code ([id number])
== END 2024-02-12 10:49 | disposition home or self-care (01) ==
LOC: HO.HOS 10:02
PROVIDERS: PCP Physician Assistant; Visit Provider Orthopaedic Surgery
DX: M67.431 Ganglion, right wrist (principal)
CPT/HCPCS: 20612; 99213

== ENCOUNTER → 2024-02-12 10:01 | Outpatient (BNVA) | payer OTHER, SELFPAY | PROVIDERS: PCP Physician Assistant; Visit Provider Orthopaedic Surgery | DX: M67.431 Ganglion, right wrist (principal) | CPT/HCPCS: 20612; 99212; J2003 ==

== ENCOUNTER 2024-03-02 13:41 | Outpatient (REF) | payer OTHER, SELFPAY | END 2024-03-02 13:42 | disposition home or self-care (01) | LOC: HO.XRAY 13:41 | PROVIDERS: PCP Physician Assistant; Visit Provider Physician Assistant | DX: M25.562 Pain in left knee (principal) | CPT/HCPCS: 73562 ==

== ENCOUNTER 2024-03-04 10:53 | Outpatient (AMB) | payer OTHER, SELFPAY ==
[2024-03-04 11:26] VITALS: BMI 30.5
--- NOTE | 2024-03-04 11:26 | A.OFFVIS_ITS ---
Vital Signs 03/04/24 11:26 Height 5 ft 9 in Weight 206 lb 8 oz BMI 30.5 Intake Visit Reasons: OV-Right wrist ganglion cyst reocurrance Intake Note: Juan is a 63 yo right hand dominant female who presents today reporting reoccurrence of a ganglion cyst on the left wrist. Patient would like to discuss surgery and/or drainage. Allergies No Known Allergies Allergy (Verified 02/12/24 10:11) HPI HPI OV-Right wrist ganglion cyst reocurrance: Details: Juan is a 63 year old right hand dominant man who returns for a right dorsal wrist ganglion re-occurrence. This was aspirated on 02/12/24. He complains of mass on the dorsal radial aspect of his right wrist. He says this returns the day after his aspiration and continues to bother him. He complains that this is itchy and is interfering with his duties at work. 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 He denies any numbness, tingling, locking, or catching PFS Medical History History of smoking at least 1 pack per day for at least 30 years Failed back syndrome HLD (hyperlipidemia) COPD (chronic obstructive pulmonary disease) Sleep apnea Personal history of nicotine dependence BPH (benign prostatic hyperplasia) Depression Arthritis Lumbar spondylosis Surgical History History of total right hip arthroplasty History of total right knee replacement History of total left knee replacement Hx of left inguinal hernia repair History of shoulder surgery History of esophagogastroduodenoscopy (EGD) History of colonoscopy History of bursectomy Family History Father Brain cancer Mother CVD (cardiovascular disease) Diabetes H/O heart artery stent Brother Breast cancer Lung cancer Social History Household Members: None Housing: House Are you a primary resident care supervisor to a significant other at home: No Do you presently have visiting nurse or other home services: No Alcohol intake: former Patient Tobacco Use Status: Former Tobacco user Tobacco use type: Cigarette Cigarettes Per Day: 0 Years Smoked: 40 e-Cigarette/Vaping Use: Never Used Second Hand Smoke Exposure: No Substance Use Type: Marijuana service: No Current occupational status: unemployed Cognitive needs: No Hearing needs: No Vision needs: No Physical Exam Vital Signs: BMI result Body Mass Index 30.5 Extrem Other: Evaluation of Right Upper Extremity: The patient is alert, oriented, and in no acute distress Neuro: Median, Ulnar, Radial nerves motor and sensory intact and sensation is normal to the tips of all digits Vascular: Cap refill brisk ROM: He can make a fist and extend all his digits No locking or catching Symmetrical pronosupination Nearly symmetrical flexion & extension There is a fluid-filled mass on the dorsal radial aspect of his wrist, extending from the 1st to the 4th dorsal compartments and distally to the CMC joint. This measures ~5cm in diameter It is nontender, with no erythema or warmth. Radiographs: 3 views of the right wrist, plus a scaphoid view, were taken and viewed by me today in clinic. They show widening of the scapholunate interval with some radiocarpal arthritis. 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 Right dorsal wrist ganglion Aspirated 02/12/24 Measuring ~5cm in diameter Possible large dorsal wrist ganglion, verses a synovitis secondary to underlying wrist condition I educated him about this condition I discussed operative and non-operative treatment options I do believe that this fairly large dorsal radial ganglion is related to his underlying scapholunate disruption and radiocarpal arthritis, and has a somewhat higher chance of recurrence after excision. The patient would like to proceed with surgery The risks and benefits of operative treatment were discussed with the patient and the patient wishes to proceed with surgery. These risks include, but are not limited to risk of damage to blood vessels, nerves, tendons, infection, recurrence, incomplete relief of preoperative symptoms, persistent pain, possible need for further surgery and the risks associated with regional blocks and anesthesia. The plan is to take the patient to the operating room sometime in the next few weeks for the following procedures: 1. Right dorsal wrist ganglion excision, under local All of the preoperative paperwork including the consent was reviewed today. All the patient's questions were answered. The patient understands that they will be contacted by our marketing team lead soon to schedule this procedure He denies Diabetes, blood thinners, asthma, heart, lung, kidney issues He has a Hx of opioid use, with an active contract. 2. Generalized bilateral hand osteoarthritis Scribed for Steffanie Nelson MD by Alfredo Clements, certified medical technician assistant, on 03/04/24 at 11:50 AM, EST. Orders: Orders XR wrist RT w scaphoid Today M25.531 - Pain in right wrist Coding Level of Care Code Est Pt Level 4 (72618) Diagnoses Ganglion cyst of dorsum of right wrist M67.431 Uncomplicated opioid dependence F11.20 Substance use status: uncomplicated Opioid contract exists Z79.891
== END 2024-03-04 12:03 | disposition home or self-care (01) ==
PROVIDERS: PCP Physician Assistant; Visit Provider Orthopaedic Surgery
DX: M67.431 Ganglion, right wrist (principal); F11.20 Opioid dependence, uncomplicated
CPT/HCPCS: 99214

== ENCOUNTER 2024-03-04 10:53 | Outpatient (REF) | payer OTHER, SELFPAY ==
--- NOTE | ~2024-03-04 | XR_ITS ---
EXAMINATION: XR WRIST, RIGHT CLINICAL INFORMATION: Pain in right wrist M25.531. COMPARISON: None available. TECHNIQUE: 4 views of the right wrist. FINDINGS: Moderate degenerative changes in the first carpometacarpal joint with joint space narrowing and hypertrophic change. Narrowing of the radiocarpal space with sclerosis. Faint punctate calcifications in the soft tissues distal to the ulna. The lunate appears sclerotic with small cystic lucencies. XR/XR wrist RT w scaphoid IMPRESSION: 1. The lunate appears sclerotic with small cystic lucencies. Orthopedic consultation and possible additional imaging with CT scan or MRI recommended. 2. Moderate degenerative changes first carpometacarpal joint. Electronically signed by: Neli Conde MD 04/28/2024 02:07 PM [facility]
== END 2024-03-04 10:54 | disposition home or self-care (01) ==
LOC: HO.HOSX 10:53
PROVIDERS: PCP Physician Assistant; Visit Provider Orthopaedic Surgery
DX: M67.431 Ganglion, right wrist (principal); M25.531 Pain in right wrist; Z79.891 Long term (current) use of opiate analgesic
CPT/HCPCS: 73110; 99212

== ENCOUNTER 2024-03-10 13:25 | Outpatient (AMB) | payer OTHER, SELFPAY ==
--- NOTE | 2024-03-10 13:30 | A.OFFVIS_ITS ---
Vital Signs 03/10/24 13:44 Height 5 ft 9 in Weight 206 lb BMI 30.4 Intake Visit Reasons: Jgr-[id number]-Jljy Knee Pain Intake Note: Juan a 63 year old male who presents today for a new patient evaluation of left knee pain. Patient reports his knee pain has been present for a couple of months. Denies injury. States depending how he walks his knee will pop out of joint, he has to take small steps to avoid this from happening. Hx of knee replacement 16 years ago at [facility]. Allergies No Known Allergies Allergy (Verified 03/10/24 13:40) Medication List - Last Reconciled 03/10/24 by Tanner Watts PA-C acetaminophen ER (Pain Relief (acetaminophen)) 650 mg PO Q12H 90 days albuterol sulfate 90 mcg/actuation 1 inh inhalation QID PRN 30 days alfuzosin ER (Uroxatral) 10 mg PO DAILY 90 days aspirin 81 mg PO DAILY atorvastatin 20 mg PO DAILY 90 days buprenorphine HCl (Belbuca) 900 mcg buccal Q12H 30 days bupropion HCl XL 150 mg PO DAILY 90 days cyclobenzaprine 10 mg PO BID 30 days diclofenac sodium 50 mg PO BID 15 days finasteride 5 mg PO DAILY 90 days fluoxetine 40 mg PO DAILY gabapentin 300 mg PO BID 30 days ketotifen fumarate 0.025%(0.035%) 1 drp ophthalmic (eye) Q8H PRN miscellaneous medical supply 1 ea miscellaneous DAILY 99 days naloxone 4 mg/actuation (Narcan) 4 mg intranasal Q2M PRN 1 day quetiapine (Seroquel) 200 mg PO BEDTIME 90 days tobramycin 0.3% 2 drps ophthalmic-Right Q4H walker Folding Front wheeled walker HPI HPI Bxu-Lnid-Lbya Knee Pain: Details: 63-year-old male who presents to the office today for an evaluation of left knee pain for about 2 months. He has not had any injury in the past. He has a history of left TKA 16 years ago at [facility]. He currently states his knee will pop out of joint depending on how he walks and he has to take small steps to avoid this from happening. [facility] Medical History (Updated 03/10/24 @ 14:52 by Tanner Watts PA-C) History of smoking at least 1 pack per day for at least 30 years Failed back syndrome HLD (hyperlipidemia) COPD (chronic obstructive pulmonary disease) Sleep apnea Personal history of nicotine dependence BPH (benign prostatic hyperplasia) Depression Arthritis Lumbar spondylosis Surgical History (Updated 03/10/24 @ 14:52 by Tanner Watts PA-C) History of total right hip arthroplasty History of total right knee replacement History of total left knee replacement Hx of left inguinal hernia repair History of shoulder surgery History of esophagogastroduodenoscopy (EGD) History of colonoscopy History of bursectomy Family History Father Brain cancer Mother CVD (cardiovascular disease) Diabetes H/O heart artery stent Brother Breast cancer Lung cancer Social History (Reviewed 03/10/24 @ 13:44 by Zohreh Chatman [facility]) Household Members: None Housing: House Are you a primary resident care assistant to a significant other at home: No Do you presently have visiting nurse or other home services: No Alcohol intake: former Patient Tobacco Use Status: Former Tobacco user Tobacco use type: Cigarette Cigarettes Per Day: 0 Years Smoked: 40 e-Cigarette/Vaping Use: Never Used Second Hand Smoke Exposure: No Substance Use Type: Marijuana service: No Current occupational status: unemployed Cognitive needs: No Hearing needs: No Vision needs: No Review of Systems Const All systems reviewed & are unremarkable except as noted in HPI and below Physical Exam Vital Signs: BMI result Body Mass Index 30.4 Extrem Other: Left knee: Surgical scar is present. No joint effusion, no erythema. No tenderness to palpation. He does have some pain with varus and valgus stress testing with laxity. Calf supple, nontender. NVI. Results Reviewed Results Reviewed: Xrays were obtained in the office today and personally reviewed by me of the right hip show intact prosthesis xrays of the left knee show TKA with out definitive signs of loosening Assessment & Plan Assessment & Plan (1) Failed total left knee replacement: Code(s): T84.093A - Other mechanical complication of internal left knee prosthesis, initial encounter Category: Medical Plan Dr. Goldsmith was available to see the patient with me today. We discussed options today which include liner replacement vs revision left TKA. Because of his age, he is young for a TKA therefore we will attempt a liner exchange. He had a left TKA at [facility] with Dr. Mcarthur; therefore we will try to obtain the operative reports to further determine treatment plan with this. He is content with this plan and will proceed accordingly. Orders: Orders XR hip RT min 2V Today M25.551 - Pain in right hip Patient Instructions: Scribed for Tanner Watts PA-C, by Frederic Wise certified medical technician assistant, on 03/10/2024 a t 1:30 PM EST.? I, Tanner Watts PA-C, have personally reviewed and agree with the information entered by the scribe. Coding Level of Care Code Est Pt Level 4 (74370) Complex EM visit Add On G2211 Diagnoses Failed total left knee replacement T84.093A
[2024-03-10 13:44] VITALS: BMI 30.4
== END 2024-03-10 14:50 | disposition home or self-care (01) ==
PROVIDERS: PCP Physician Assistant; Visit Provider Physician Assistant
DX: T84.093A Other mechanical complication of internal left knee prosthesis, initial encounter (principal)
CPT/HCPCS: 99214; G2211

== ENCOUNTER 2024-03-10 13:25 | Outpatient (REF) | payer OTHER, SELFPAY ==
--- NOTE | ~2024-03-10 | XR_ITS ---
EXAMINATION: XR HIP, RIGHT Pelvis CLINICAL INFORMATION: M25.551 - Pain in right hip COMPARISON: X-rays of pelvis 01/15/2023 TECHNIQUE: 2 views of the right hip and single low orthopedic AP view of the pelvis FINDINGS: Right hip: Right total hip arthroplasty with components in usual and unchanged position. No periprosthetic fracture or suspicious area of lucency. Pelvis: Right hip as above. Chondrocalcinosis in the left hip. Chondrocalcinosis in the symphysis pubis. Remaining visualized bone and joints in the pelvis unremarkable. XR/XR hip RT min 2V IMPRESSION: Right total hip arthroplasty without change or complication by x-ray. Chondrocalcinosis in the left hip and symphysis pubis Electronically signed by: Andrea Osorio MD 03/15/2024 01:13 PM [facility]
== END 2024-03-10 13:26 | disposition home or self-care (01) ==
LOC: HO.HOSX 13:25
PROVIDERS: PCP Physician Assistant; Visit Provider Physician Assistant
DX: M25.551 Pain in right hip (principal); T84.093A Other mechanical complication of internal left knee prosthesis, initial encounter
CPT/HCPCS: 73502; 99212

== ENCOUNTER 2024-03-25 15:04 | Outpatient (REF) | payer OTHER, SELFPAY ==
--- OUTSIDE RECORDS SUMMARY | 2024-03-26 02:59 | XMS_ITS ---
Author Organization [facility] Address [address] [place] [address] Care Team Providers Care Journalist Name Role Phone Nathaniel Bruce Primary Care Provider Unavailab Wyatt Gonzalez Unavailable [phone] REASON FOR VISIT screening PROBLEMS Problem Type ICD Code Onset Dates Problem Status W/U Status Risk SNOMED Code Notes Problem Diverticulosis of large intestine without perforation or abscess without bleeding (K57.30) Active confirmed Diverticul ar disease of colon (855505734) Encounters Encounter Location Date Provider Diagnosis [facility] Outpatient [address] [place], [place] [id number] 12/28/2022 Wyatt Asif Encounter for scre ening colonoscopy Z12.11 ; Colon polyps K63.5 ; Rectal polyp K62.1 ; Diverticulosis of large intestine without perforation or abscess without bleeding K57.30 and Other hemorrhoids K64.8 ASSESSMENTS Encounter Date Diagnosis Assessment Notes Treatment Notes Treatment Clinical Notes 12/28/2022 Encounter for screening colonoscopy (ICD-10 - Z12.11) 12/28/2022 Colon polyps (ICD-10 - K63.5) 12/28/2022 Rectal polyp (ICD-10 - K62.1) 12/28/2022 Diverticulosis of large intestine without perforation or abscess without bleeding (ICD-10 - K57.30) 12/28/2022 Other hemorrhoids (ICD-10 - K64.8) PLAN OF TREATMENT No Information
--- OUTSIDE RECORDS SUMMARY | 2024-03-26 03:00 | XMS_ITS | Patient Health Record ---
Author Organization [facility] Address [address] [place] [address] Care Team Providers Care Bookmobile Librarian Name Role Phone Nathaniel Bruce Primary Care Provider Unavailab Wyatt Gonzalez Unavailable [phone] ALLERGIES No Known Allergies REASON FOR REFERRAL No Information MEDICATIONS Medication SIG (Take, Route, Frequency, Duration) Notes Start Date End Date Status Atorvastatin Calcium 20 MG TAKE 1 TABLET BY MOUTH EVERY DAY Oral for 90 Active Belbuca 900 MCG DISSOLVE 1 FILM UNDE R THE TONGUE EVERY 12 HOURS Buccal for 30 For pain Active QUEtiapine Fumarate 200 MG TAKE 1 TABLET BY MOUTH AT BEDTIME Diagnosis Unavailable Oral for 76 Active FLUoxetine HCl 40mg Active Arthritis Pain Reliever 650 MG TAKE 1 TABLET BY MOUTH EVERY 12 HOURS Diagnosis Unavailable Oral for 30 Active Alfuzosin HCl ER 10 MG Oral for 90 Active buPROPion HCl ER (XL) 150 MG TAKE 1 TABLET BY MOUTH EVERY DAY IN THE MORNING Oral for 90 Active Aspirin Low Dose 81 MG Oral for 90 Active Albuterol Sulfate HFA 108 (90 Base) MCG/ACT Inhalation for 50 Activ e SOCIAL HISTORY Tobacco Use: Social History Observation Description Date Details (start date - stop date) Former Smoker NA - NA Sex Assigned At : Social History Observation Description Sex Assigned At Unknown Tobacco Use/Smoking Question Answer Notes Patient is a former smoker How long has it been since you last smoked? 1-5 years Alcohol Screen Question Answer Notes Did you have a drink containing alcohol in the p ast year? No Points 0 Interpretation Negative PROBLEMS Problem Type ICD Code Onset Dates Problem Status W/U Status Risk SNOMED Code Notes Problem Encounter for screening for malignant neoplasm of colon (Z12.11) Active confirmed 963655076 Problem Diverticulosis of large intestine without perforation or abscess without bleeding (K57.30) Active confirmed Diverticul ar disease of colon (410586627) Problem Anemia, unspecified type (D64.9) Active confirmed 109814149 PLAN OF TREATMENT Pending Test Test Name Order Date IRON + IBC (FE) 03/04/2012 FERRITIN 03/04/2012 VITAMIN B12 AND FOLATE 03/04/2012 CBC w DIFF 10/12/2022 CBC w DIFF 03/04/2012 NUC HIDA SCAN 03/04/2012 IRON PROFILE 10/12/2022 Ferritin 10/12/2022 Vitamin B12 and Folate 10/12/2022 Future Test Test Name Order Date COLONOSCOPY 03/04/2012 COLONOSCOPY 10/12/2022 Insurance Providers Payer Name Payer Address Payer Phone Subscriber Number Group Number Insured Name Patient Relationship to Insured Coverage Start Date Coverage End Date [facility] [address] Attn Claims FLAQUITA Tena [id number] HEMALATHA ARORA Self - patient is the insured MEDICARE OF [place] [address] [place] [address] [id number] HEMALATHA ARORA Self - patient is the insured MEDICAL (GENERAL) HISTORY Medical History History ICD Code Denies [place],DM,CVA,Lung disease,renal dise ase Depression-lifelong Chronic back and knee pain COPD- mild Screening colonoscopy in 04/2012 was nega tive EGD 04/2012--neg. except for some minimal changes of reflux and a small hiatal hernia Negative abdominal ultrasound and CT sca n in July of 2022. Surgical History Surgery Date(Month/Year) Hernia surgery 1969 right elbow surgery 1987 left total knee replacement 2009 Right knee 2016 Right Shoulder Future surgery Jan 15, 2023 right hip
--- OUTSIDE RECORDS SUMMARY | 2024-03-26 03:00 | XMS_ITS ---
Author Organization [facility] Address [address] [place] [address] Care Team Providers Care Lime Spreader Name Role Phone Nathaniel Bruce Primary Care Provider Unavailab archie AsifWyatt Unavailable [phone] ALLERGIES No Known Allergies REASON FOR VISIT Patient presents today for a colon screening MEDICATIONS Medication SIG (Take, Route, Frequency, Duration) Notes Start Date End Date Status Belbuca 900 MCG DISSOLVE 1 FILM UNDE R THE TONGUE EVERY 12 HOURS Buccal for 30 For pain Active FLUoxetine HCl 40mg Active Arthritis Pain Reliever 650 MG TAKE 1 TABLET BY MOUTH EVERY 12 HOURS Diagnosis Unavailable Oral for 30 Active Atorvastatin Calcium 20 MG TAKE 1 TABLET BY MOUTH EVERY DAY Oral for 90 Active Alfuzosin HCl ER 10 MG Oral for 90 Active buPROPion HCl ER (XL) 150 MG TAKE 1 TABLET BY MOUTH EVERY DAY IN THE MORNING Oral for 90 Active QUEtiapine Fumarate 200 MG TAKE 1 TABLET BY MOUTH AT BEDTIME Diagnosis Unavailable Oral for 76 Active Aspirin Low Dose 81 MG Oral [...] W/U Status Risk SNOMED Code Notes Problem Anemia, unspecified type (D64.9) Active confirmed 036330041 Problem Encounter for screening for malignant neoplasm of colon (Z12.11) Active confirmed 335353639 VITAL SIGNS BMI 30.57 kg/m2 10/12/2022 Blood pressure systolic 000 mm Hg 10/13/19 23 Blood pressure diastolic 00 mm Hg 023 Height 69 in 10/12/2022 Temperature 97.5 degrees Fahrenheit 10/13/19 23 Weight 207 lbs 10/12/2022 Encounters Encounter Location Date Provider Diagnosis [facility] [address] [place] [address] 10/12/2022 Wyatt Asif Anemia, unspecified type D64.9 and Encounter for screening for malignant neoplasm of colon Z12.11 ASSESSMENTS Encounter Date Diagnosis Assessment Notes Treatment Notes Treatment Clinical Notes 10/12/2022 Anemia, unspecified type (ICD-10 - D64.9) 10/12/2022 Encounter for screening for malignant neoplasm of colon (ICD-10 - Z12.11) PLAN OF TREATMENT Pending Test Test Name Order Date CBC w DIFF 10/12/2022 IRON PROFILE 10/12/2022 Ferritin 10/12/2022 Vitamin B12 and Folate 10/12/2022 Future Test Test Name Order Date COLONOSCOPY 10/12/2022 Next Appt Details Follow Up: prn, Reason: Progress Notes * Examination Category Sub-Category Detail Notes General Examination GENERAL APPEARANCE: pleasant , well nourished, well developed, in no acute distress EYES: sclera non-icteric NECK/THYROID: no cervical lymphade nopathy, neck supple HEART: S1, S2 normal LUNGS: clear to auscultatio n bilaterally ABDOMEN: normal bowel sounds, no guarding or rigidity, no hepatosplenomegaly, no masses palpable, soft, nontender, nondistended. NEUROLOGIC: alert and oriented SKIN: nonjaundiced, no spi geno angiomata. EXTREMITIES: no edema ORAL CAVITY: mucosa moist
== END 2024-03-25 15:05 | disposition home or self-care (01) ==
LOC: HO.CT 15:04
PROVIDERS: PCP Physician Assistant; Visit Provider Physician Assistant Medical
DX: Z12.2 Encounter for screening for malignant neoplasm of respiratory organs (principal); Z87.891 Personal history of nicotine dependence
CPT/HCPCS: 71271

== ENCOUNTER 2024-04-13 15:42 | Outpatient (REF) | payer OTHER, SELFPAY ==
--- OUTSIDE RECORDS SUMMARY | 2024-04-13 15:44 | XMS_ITS ---
Author Organization [facility] Address [address] [place] [address] Care Team Providers Care Systems Software Manager Name Role Phone Nathaniel Bruce Primary Care Provider Unavailab archie AsifWyatt Unavailable [phone] ALLERGIES No Known Allergies REASON FOR VISIT [...] Problem Anemia, unspecified type (D64.9) Active confirmed 592012464 Problem Encounter for screening for malignant neoplasm of colon (Z12.11) Active confirmed 887606128 VITAL SIGNS BMI 30.57 kg/m2 10/12/2022 Blood pressure systolic 000 mm Hg 10/13/19 23 Blood pressure diastolic 00 mm Hg 023 Height 69 in 10/12/2022 Temperature 97.5 degrees Fahrenheit 10/13/19 23 Weight 207 lbs 10/12/2022 Encounters Encounter Location Date Provider Diagnosis [facility] [address] [place] [address] 10/12/2022 Wyatt Asif Anemia, unspecified type D64.9 [...]
--- OUTSIDE RECORDS SUMMARY | 2024-04-13 15:44 | XMS_ITS | Patient Health Record ---
Author Organization [facility] Address [address] [place] [address] Care Team Providers Care Pin Maker Name Role Phone Nathaniel Bruce Primary Care Provider Unavailab Wyatt Gonzalez Unavailable [phone] ALLERGIES No Known Allergies REASON FOR REFERRAL [...] malignant neoplasm of colon (Z12.11) Active confirmed 356881807 Problem Diverticulosis of large intestine without perforation or abscess without bleeding (K57.30) Active confirmed Diverticul ar disease of colon (552377620) Problem Anemia, unspecified type (D64.9) Active confirmed 587793503 PLAN OF TREATMENT Pending Test Test Name [...] Insured Coverage Start Date Coverage End Date [facility] [place] [facility] [address] Attn Claims FLAQUITA Tena [id number] HEMALATHA ARORA Self - patient is the insured MEDICARE OF [place] [address] [place] [address] [id number] HEMALATHA ARORA Self - patient is the insured MEDICAL (GENERAL) HISTORY Medical History History ICD Code Denies [place],DM,CVA,Lung disease,renal dise ase Depression-lifelong Chronic back and [...]
--- OUTSIDE RECORDS SUMMARY | 2024-04-13 15:44 | XMS_ITS ---
Author Organization [facility] Address [address] [place] [address] Care Team Providers Care Accounting Software Specialist Name Role Phone Nathaniel Bruce Primary Care Provider Unavailab Wyatt Gonzalez Unavailable [phone] REASON FOR VISIT screening PROBLEMS Problem Type ICD Code Onset Dates Problem Status W/U Status Risk SNOMED Code Notes Problem Diverticulosis of large intestine without perforation or abscess without bleeding (K57.30) Active confirmed Diverticul ar disease of colon (869627485) Encounters Encounter Location Date Provider Diagnosis [facility] [place] [address] [place] [phone] 12/28/2022 Wyatt Asif Encounter for scre ening [...]
== END 2024-04-13 15:43 | disposition home or self-care (01) ==
LOC: HO.HOSX 15:42
PROVIDERS: Visit Provider Physician Assistant
DX: Z13.89 Encounter for screening for other disorder (principal)

== ENCOUNTER 2024-04-14 14:35 | Outpatient (REF) | payer OTHER, SELFPAY ==
--- NOTE | ~2024-04-14 | XR_ITS ---
EXAMINATION: XR LEFT SHOULDER CLINICAL INFORMATION: Pain in left shoulder M25.512. COMPARISON: None available TECHNIQUE: 3 views of the left shoulder. FINDINGS: The glenohumeral and AC joint spaces maintained. There is small enthesophyte along the AC joint or small loose bodies from old injury. No acute fracture or dislocation seen. The soft tissues are normal. XR/XR shoulder LT min 2V IMPRESSION: No acute fracture or dislocation. Small enthesophytes or loose bodies along the AC joint. Electronically signed by: Lyndon Horton MD 04/24/2024 11:49 AM EST
--- OUTSIDE RECORDS SUMMARY | 2024-04-16 16:08 | XMS_ITS | Patient Health Record ---
Author Organization [facility] Address [address] [place] [address] Care Team Providers Care Grinding Room Supervisor Name Role Phone Nathaniel Bruce Primary Care Provider Unavailab Wyatt Gonzalez Unavailable [phone] ALLERGIES No Known Allergies REASON FOR REFERRAL [...] malignant neoplasm of colon (Z12.11) Active confirmed [id number] Problem Diverticulosis of large intestine without perforation or abscess without bleeding (K57.30) Active confirmed Diverticul ar disease of colon (783630921) Problem Anemia, unspecified type (D64.9) Active confirmed 441175378 PLAN OF TREATMENT Pending Test Test Name [...] Insured Coverage Start Date Coverage End Date [facility] [address] Attn Claims FLAQUITA Tena [id number] HEMALATHA ARORA Self - patient is the insured MEDICARE OF [place] [address] [place] [address] [id number] HEMALATHA ARORA Self - patient is the insured MEDICAL (GENERAL) HISTORY Medical History History ICD Code Denies OR,DM,CVA,Lung disease,renal dise ase Depression-lifelong Chronic back and [...]
== END 2024-04-14 14:36 | disposition home or self-care (01) ==
LOC: HO.HOSX 14:35
PROVIDERS: Visit Provider Physician Assistant
DX: M25.512 Pain in left shoulder (principal); M19.012 Primary osteoarthritis, left shoulder
CPT/HCPCS: 20610; 73030; 99212; J1010; J2003

== ENCOUNTER 2024-04-14 14:55 | Outpatient (AMB) | payer OTHER, SELFPAY ==
--- OUTSIDE RECORDS SUMMARY | 2024-04-14 14:57 | XMS_ITS | Patient Health Record ---
Author Organization [facility] Address [address] [place] [address] Care Team Providers Care Bottle And Glass Inspector Name Role Phone Nathaniel Bruce Primary Care Provider Unavailab Wyatt Gonzalez Unavailable [phone] ALLERGIES No Known Allergies REASON FOR REFERRAL [...] malignant neoplasm of colon (Z12.11) Active confirmed 541031144 Problem Diverticulosis of large intestine without perforation or abscess without bleeding (K57.30) Active confirmed Diverticul ar disease of colon (292829818) Problem Anemia, unspecified type (D64.9) Active confirmed 756289833 PLAN OF TREATMENT Pending Test Test Name [...] Insured Coverage Start Date Coverage End Date [facility] [address] Attn Claims FLAQUITA Tena [id number] HEMALATHA ARORA Self - patient is the insured MEDICARE OF [place] [address] [place] [address] [id number] HEMALATHA ARORA Self - patient is the insured MEDICAL (GENERAL) HISTORY Medical History History ICD Code Denies [place],DM,CVA,Lung disease,renal dise ase Depression-lifelong Chronic back and [...]
--- OUTSIDE RECORDS SUMMARY | 2024-04-14 14:57 | XMS_ITS ---
Author Organization [facility] Address [address] [place] [address] Care Team Providers Care Privacy Attorney Name Role Phone Nathaniel Bruce Primary Care Provider Unavailab Wyatt Gonzalez Unavailable [phone] REASON FOR VISIT screening PROBLEMS Problem Type ICD Code Onset Dates Problem Status W/U Status Risk SNOMED Code Notes Problem Diverticulosis of large intestine without perforation or abscess without bleeding (K57.30) Active confirmed Diverticul ar disease of colon (426420848) Encounters Encounter Location Date Provider Diagnosis [facility] [address], [place] [id number] 12/28/2022 Wyatt Asif Encounter for scre ening [...]
--- OUTSIDE RECORDS SUMMARY | 2024-04-14 14:57 | XMS_ITS ---
Author Organization [facility] Address [address] [place] [address] Care Team Providers Care It Architecture Analyst Name Role Phone Nathaniel Bruce Primary Care Provider Unavailab archie AsifWyatt Unavailable [phone] ALLERGIES No Known Allergies REASON FOR VISIT [...] Problem Anemia, unspecified type (D64.9) Active confirmed [id number] Problem Encounter for screening for malignant neoplasm of colon (Z12.11) Active confirmed [id number] VITAL SIGNS BMI 30.57 kg/m2 10/12/2022 Blood pressure systolic 000 mm Hg 10/13/19 23 Blood pressure diastolic 00 mm Hg 023 Height 69 in 10/12/2022 Temperature 97.5 degrees Fahrenheit 10/13/19 23 Weight 207 lbs 10/12/2022 Encounters Encounter Location Date Provider Diagnosis [facility] [address] [place] [address] 10/12/2022 Wyatt Asif Anemia, unspecified type D64.9 [...]
--- NOTE | 2024-04-14 15:01 | MHC.OFFVIS ---
Vital Signs 04/14/24 15:16 Height 5 ft 9 in Weight 206 lb BMI 30.4 Intake Visit Reasons: New prob - new prob LT shoulder pain Intake Note: Juan is a 63 year old left hand dominant male who presents today for an evaluation of left shoulder pain. Patient reports his pain has been present for a while. He has had injections in the past with Dr. Dowling however injection did not help. He has constant pain in his shoulder. States pain with ROM. 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 He uses a pillow under his arm which seems to help. Finds no relief with Tylenol or Motrin. Allergies No Known Allergies Allergy (Verified 04/14/24 15:16) HPI HPI New prob - new prob LT shoulder pain: Details: 63-year-old gentleman who presents to the office today for left shoulder pain. He denies injury. 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 He does have discomfort with overhead reaching and lifting. Mild weakness. He is still able to perform daily activities however there is significant discomfort. He has had injections in the past with minimal relief. [facility] Medical History (Updated 04/14/24 @ 15:18 by Tanner Watts PA-C) History of smoking at least 1 pack per day for at least 30 years Failed back syndrome HLD (hyperlipidemia) COPD (chronic obstructive pulmonary disease) Sleep apnea Personal history of nicotine dependence BPH (benign prostatic hyperplasia) Depression Arthritis Lumbar spondylosis Surgical History (Updated 03/10/24 @ 14:52 by Tanner Watts PA-C) History of total right hip arthroplasty History of total right knee replacement History of total left knee replacement Hx of left inguinal hernia repair History of shoulder surgery History of esophagogastroduodenoscopy (EGD) History of colonoscopy History of bursectomy Family History Father Brain cancer Mother CVD (cardiovascular disease) Diabetes H/O heart artery stent Brother Breast cancer Lung cancer Social History Household Members: None Housing: House Are you a primary rehab care assistant to a significant other at home: No Do you presently have visiting nurse or other home services: No Alcohol intake: former Patient Tobacco Use Status: Former Tobacco user Tobacco use type: Cigarette Cigarettes Per Day: 0 Years Smoked: 40 e-Cigarette/Vaping Use: Never Used Second Hand Smoke Exposure: No Substance Use Type: Marijuana service: No Current occupational status: unemployed Cognitive needs: No Hearing needs: No Vision needs: No Review of Systems Const All systems reviewed & are unremarkable except as noted in HPI and below Physical Exam Extrem Other: Left shoulder normal to inspection. Tenderness over the bicipital groove and along deltoid region of the shoulder. FF to 175, ER to 90, IR to S1. 5/5 RTC strength with mild discomfort, negative mendez, cross body abduction. NVI. Office Procedures AMB Joint Injection/Aspiration Joint Injection/Aspiration Primary Site: left shoulder Prep: site was prepped using aseptic technique, ethochloride spray was applied and injection warnings given Injected: 80 mg of, DepoMedrol, with 8 mL of, 1% plain lidocaine and in the subcromial space Approach Used: posterolateral Procedure: The patient tolerated the procedure well and there was some relief with the local anesthesia Coding 54286 - Glenohumeral/Tronchanteric Bursa/Intraarticular Procedure code (CPT) selection complete Results Reviewed Results Reviewed: X-rays of the left shoulder obtained in the office today and personally reviewed by me show mild AC joint arthritis with some glenohumeral joint osteophyte formation Assessment & Plan Assessment & Plan (1) Arthritis of left shoulder: Code(s): M19.012 - Primary osteoarthritis, left shoulder Category: Medical Plan We discussed options today which include conservative management with cortisone injections. He is interested in pursuing today. Left shoulder injection performed today which the patient tolerated well. He will continue with activities as tolerated if symptoms persist or worsen he will contact our office to schedule an MRI otherwise follow-up as needed. Orders: Orders XR shoulder LT min 2V Today M25.512 - Pain in left shoulder Coding Level of Care Code Est Pt Level 3 (82066) Complex EM visit Add On G2211 Diagnoses Arthritis of left shoulder M19.012 CPT Codes Coding - Joint 7: 87362 - Glenohumeral/Tronchanteric Bursa/Intraarticular ([id number])
[2024-04-14 15:16] VITALS: BMI 30.4
== END 2024-04-14 15:25 | disposition home or self-care (01) ==
PROVIDERS: PCP Physician Assistant; Visit Provider Physician Assistant
DX: M19.012 Primary osteoarthritis, left shoulder (principal)
CPT/HCPCS: 20610; 99213

== ENCOUNTER 2024-04-20 14:05 | Outpatient (AMB) | payer OTHER, SELFPAY ==
[2024-04-20 14:23] VITALS: BP 130/78; PULSE 86; O2SAT 95; BMI 27.8
--- NOTE | 2024-04-20 14:23 | A.OFFPC_ITS ---
Vital Signs 04/20/24 14:23 Height 5 ft 9 in Weight 188 lb BMI 27.8 BP 130/78 Blood Pressure Location Lt brachial Position Sitting Pulse 86 Pulse Source Pulse Oximeter Pulse Oximetry (%) 95 Oxygen Delivery Method Room Air Intake Visit Reasons: f/u pain managment Counter Stacker Required: No Accompanied by: Self / Same As Patient Allergies No Known Allergies Allergy (Verified 04/20/24 14:29) Medication List - Last Reconciled 04/20/24 by Nathaniel Bruce PA-C acetaminophen ER (Pain Relief (acetaminophen)) 650 mg PO Q12H 90 days albuterol sulfate 90 mcg/actuation 1 inh inhalation QID PRN 30 days alfuzosin ER (Uroxatral) 10 mg PO DAILY 90 days aspirin 81 mg PO DAILY atorvastatin 20 mg PO DAILY 90 days buprenorphine HCl (Belbuca) 900 mcg buccal Q12H 30 days bupropion HCl XL 150 mg PO DAILY 90 days cyclobenzaprine 10 mg PO BID 30 days diclofenac sodium 50 mg PO BID 15 days finasteride 5 mg PO DAILY 90 days fluoxetine 40 mg PO DAILY gabapentin 300 mg PO BID 30 days [Hinge knee brace duration-lifetime] ketotifen fumarate 0.025%(0.035%) 1 drp ophthalmic (eye) Q8H PRN miscellaneous medical supply 1 ea miscellaneous DAILY 99 days naloxone 4 mg/actuation (Narcan) 4 mg intranasal Q2M PRN 1 day quetiapine (Seroquel) 200 mg PO BEDTIME 90 days tobramycin 0.3% 2 drps ophthalmic-Right Q4H walker Folding Front wheeled walker Tobacco use date assessed: 04/20/24 Dental Screening Dental Screen Date: 04/20/24 Did you have a dental visit in the last 12 months?: Yes Did you have a dental problem in the last 6 months where you did not have access to dental care?: No Was dental information given to patient?: Patient has dentist HPI f/u pain managment HPI Details Patient is a 63-year-old male here today for follow-up visit. ? Patient has a past medical history significant for tobacco dependency, failed back syndrome, COPD, hyperlipidemia, BPH, opiate dependency, history of alcohol dependency(in remission). Concerns--> Deandre does bring up a few concerns today including his memory impairment that seems to have gotten worse over the last few months. We did dis cuss perhaps starting workup with MRI and trying medication though he wants to hold off on this for now. 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 Would like to see a hand and wrist specialist for possible removal. .. Left knee instability/ chronic pain: He is currently using Belbuca and taking gabapentin 300 mg twice daily for pain control. He reports increased back pain and requests additional medication. The patient has a history of total knee replacement which lasted for 16 years, but now needs revision due to deterioration and instability, causing pain and audible joint noises. He is scheduled for preoperative assessment mid-May .. Failed back syndrome:? Was followed by pain management here in [place] though has lost follow-up due to apparent incorrect pill count. He continues on Belbuca at highest dose which has been somewhat effective for him. Does also use Tylenol and cyclobenzaprine for pain as well. He still has breakthrough pain when more physically active. 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 He does use low-dose oxycodone 5 mg on a p.r.n. basis for breakthrough pain. We did discuss the habit-forming nature of this medication and agrees to only use oxycodone on a limited p.r.n. basis for breakthrough pain [facility] Medical History (Updated 04/21/24 @ 07:42 by Nathaniel Bruce PA-C) History of smoking at least 1 pack per day for at least 30 years Failed back syndrome HLD (hyperlipidemia) COPD (chronic obstructive pulmonary disease) Sleep apnea Personal history of nicotine dependence BPH (benign prostatic hyperplasia) Depression Arthritis Lumbar spondylosis Surgical History History of total right hip arthroplasty History of total right knee replacement History of total left knee replacement Hx of left inguinal hernia repair History of shoulder surgery History of esophagogastroduodenoscopy (EGD) History of colonoscopy History of bursectomy Family History Father Brain cancer Mother CVD (cardiovascular disease) Diabetes H/O heart artery stent Brother Breast cancer Lung cancer Social History Household Members: None Housing: House Are you a primary care information associate to a significant other at home: No Do you presently have visiting nurse or other home services: No Alcohol intake: former Patient Tobacco Use Status: Former Tobacco user Tobacco use type: Cigarette Cigarettes Per Day: 0 Years Smoked: 40 e-Cigarette/Vaping Use: Never Used Second Hand Smoke Exposure: No Substance Use Type: Marijuana service: No Current occupational status: unemployed Cognitive needs: No Hearing needs: No Vision needs: No Questionnaire PHQ-9 Over the last 2 weeks, how often have you been bothered by any of the following problems? 1. Little interest or pleasure in doing things: not at all 2. Feeling down, depressed, or hopeless: not at all 3. Trouble falling or staying asleep, or sleeping too much: not at all 4. Feeling tired or having little energy: not at all 5. Poor appetite or overeating: not at all 6. Feeling bad about yourself - or that you are a failure or have let yourself or your family down: not at all 7. Trouble concentrating on things, such as reading the newspaper or watching television: not at all 8. Moving or speaking so slowly that other people could have noticed. Or the opposite - being so fidgety or restless that you have been moving around a lot more than usual: not at all 9. Thoughts that you would be better off or of hurting yourself in some way: not at all Total score: 0 Depression Screening Interpretation: Negative Depression Screening Done: Yes 38878 - PHQ-9 Billing: Yes Source: Developed by Drs. Wyatt Varela, Lise Gordillo, Gaetano Feldman and colleagues, with an educational bettina from [employer]. Thrive Questionnaire Date Thrive assessed: 04/20/24 I am a: Patient What is your living situation today?: I have a steady place to live Within the past 12 months, did the food you bought not last and you didn't have the money to get more?: Never true Within the past 12 months, did you worry whether your food would run out before you got money to buy more?: Never true Do you have trouble paying for medicines?: No Do you have trouble getting transportation to medical appointments?: No Do you have trouble paying your heating and electricity bill?: No Do you have trouble taking care of your child, family member or friend?: No Do you have trouble with day-to-day activities such as bathing, preparing meals, shopping, managing finances, etc.?: No Are you currently unemployed and looking for a job?: No Are you interested in more education?: No Please select the resources that you would like help with: None Currently or been in a relationship where the following occur: No concerns reported THRIVE Score: 0 AUDIT C Alcohol Use Questionnaire (AUDIT-C) 1. How often do you have a drink containing alcohol?: Never 3. How often do you have six or more drinks on one occasion?: Never Total Score: 0 Score Reviewed/Action Taken: No BIJU-7 AMB Questionnaire BIJU-7 Date BIJU - 7 assessed: 04/20/24 Feeling nervous, anxious, or on edge: 0 = Not at all Not being able to stop or control worryin = Not at all Worrying too much about different things: 0 = Not at all Trouble relaxin = Not at all Being so restless that it is hard to sit still: 0 = Not at all Becoming easily annoyed or irritable: 0 = Not at all Feeling afraid as if something awful might happen: 0 = Not at all Total BIJU-7 score (0-4 normal; 5-9 mild; 10-14 moderate; 15-21 severe): 0 Source: Developed by Drs. Wyatt Varela, Lise Gordillo, Gaetano Feldman and colleagues, with an educational bettina from [employer]. BIJU-7 Assessment Billing BIJU-7 Assessment Tool: BIJU-7 Assessment 19098 Review of Systems Const Denies headache(s) Eyes Denies loss of vision ENT Denies vertigo, Denies dizziness, Denies headache(s) and Denies sore throat Card Denies chest pain, Denies leg edema and Denies lightheadedness Resp Denies cough, Denies hemoptysis and Denies wheezing GI Denies abdominal pain, Denies melena, Denies constipation, Denies diarrhea and Denies vomiting Denies dysuria, Denies urinary frequency and Denies urinary urgency Musc Denies arthralgias, Denies joint swelling, Denies numbness and Denies tingling Neuro Denies Abnormal speech present, Denies behavioral changes, Denies vertigo, Denies dizziness, Denies headache(s), Denies loss of vision, Denies memory loss, Denies numbness and Denies tingling Psych Denies anxiety, Denies behavioral changes, Denies depression, Denies memory loss and Denies panic attacks Brenden/Lymph Denies easy bleeding and Denies easy bruising Aller/Immun Denies wheezing Physical exam (Primary Care) Vital Signs: Last Vital Signs Pulse 86 04/20/24 14:23 BP 130/78 04/20/24 14:23 Pulse Ox 95 04/20/24 14:23 Oxygen Delivery Method Room Air 04/20/24 14:23 BMI result Body Mass Index 27.8 Tobacco/Smoking Status: Tobacco use Status Tobacco use date assessed 04/20/24 04/20/24 14:28 Patient Tobacco Use Status Former Tobacco user 04/20/24 14:28 Tobacco use type Cigarette 04/20/24 14:28 e-Cigarette/Vaping Use Never Used 04/20/24 14:28 PHQ-9: PHQ-9 Score PHQ-9: Total score 0 04/20/24 14:32 Depression Screening Interpretation: Negative Thrive Assessment: Date of Thrive Assessment Date Thrive assessed 04/20/24 04/20/24 14:28 Currently or been in a relationship where the following occur: No concerns reported Const General: healthy appearing, no acute distress, alert and awake Nutritional Appearance: well nourished Orientation/consciousness: oriented to person, oriented to place and oriented to time HENMT Ears: TM's normal bilaterally General nose exam: Normal nasal mucous membranes and turbinates present Eyes Conjunctivae: conjunctivae normal Sclerae: sclerae normal Pupils: Equal, round and reactive pupils present Neck Neck: Yes no lymphadenopathy and Yes no JVD Thyroid: Thyroid normal Carotids: no bruits Resp Effort & Inspection: normal respiratory effort and not tachypneic Auscultation: no crackles, no rales, no rhonchi and no wheezes Cardio Rate: regular rate Rhythm: regular rhythm Heart sounds: no murmurs and normal S1 and S2 GI Palpation (GI): Soft to palpation, nontender, no hepatomegaly and no splenomegaly Auscultation: normal bowel sounds Skin General skin exam: no rashes or lesions noted and dry skin Neuro General: oriented to person, oriented to place and oriented to time Cranial nerves: Yes Equal, round and reactive pupils present Speech: No Abnormal speech present Gait exam (Neuro): Normal gait present Motor exam (neuro): no tremor noted Extrem Right upper extremity: full ROM Left upper extremity: full ROM Right lower extremity: full ROM; no edema Left lower extremity: full ROM; no edema Psych Mental Status: mental status grossly normal Speech and movement: Normal speech and movement present Affect: normal affect Attitude: cooperative Thought process: Normal thought process present Coding Level of Care Code Est Pt Level 4 (96618) Diagnoses Failed total left knee replacement, subsequent encounter T84.093D Encounter type: subsequent encounter Memory impairment R41.3 Failed back syndrome M96.1 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 Hyperlipidemia type: pure hypertriglyceridemia Additional Codes BIJU-7 Assessment Billing - BIJU-7 Assessment Tool: BIJU-7 Assessment 06156 ([id number]) PHQ-9 - 67021 - PHQ-9 Billing: Yes ([id number]) Assessment & Plan Assessment & Plan (1) Failed total left knee replacement: Code(s): T84.093A - Other mechanical complication of internal left knee prosthesis, initial encounter Category: Medical Qualifiers: Encounter type: subsequent encounter Qualified Code(s): T84.093D - Other mechanical complication of internal left knee prosthesis, subsequent encounter Plan: We discussed the need for enhanced pain management for the patient's back discomfort. I have prescribed a small quantity of oxycodone with a caution against its overuse. During our discussion, I emphasized the upcoming knee surgery and necessary preoperative preparations, including pending tests and a pre-surgery visit. (2) Memory impairment: Code(s): R41.3 - Other amnesia Category: Medical Plan: Regarding memory concerns, I suggested further assessment through a neurologist referral and potential medication to slow progression. He does admit to a family history of Alzheimer's disease dementia. Patient willing to start workup with MRI and neurology referral. He will look into medication to help slow progression memory impairment. (3) Failed back syndrome: Code(s): M96.1 - Postlaminectomy syndrome, not elsewhere classified Category: Medical Plan: As per HPI patient continues on gabapentin and Belbuca for his pain relief. He does continue to have breakthrough pain to which he uses low-dose oxycodone for breakthrough and pain scales of 9-10. (4) HLD (hyperlipidemia): Code(s): E78.5 - Hyperlipidemia, unspecified Category: Medical Qualifiers: Hyperlipidemia type: pure hypertriglyceridemia Qualified Code(s): E78.1 - Pure hyperglyceridemia Plan: Patient's most recent lipid panel showing excellent control of his total cholesterol and LDL. He continues on atorvastatin 20 mg with good effect. Goal LDL is to remain below 130 Orders: Orders Prostate Specific Antigen Scr 04/20/24 N40.0 - Benign prostatic hyperplasia without lower urinary tract symptoms, Z12.5 - Encounter for screening for malignant neoplasm of prostate Comprehensive [place]. Panel Fast 04/20/24 E78.1 - Pure hyperglyceridemia MR head/brain wo con 04/20/24 R41.3 - Other amnesia Complete Blood Count no Diff 04/20/24 D64.9 - Anemia, unspecified Lipid Panel 04/20/24 E78.1 - Pure hyperglyceridemia Referrals Neurology Referral R41.3 - Other amnesia Medications: New oxycodone Partial Fill upon patient request. 10 mg PO Q8H PRN 12 tabs 0RF pain 4 days M96.1 - Postlaminectomy syndrome, not elsewhere classified
--- OUTSIDE RECORDS SUMMARY | 2024-04-20 16:24 | XMS_ITS | Patient Health Record ---
Author Organization [facility] Address [address] [place] [address] Care Team Providers Care Emergency Dept Tech Name Role Phone Nathaniel Bruce Primary Care Provider Unavailab Wyatt Gonzalez Unavailable [phone] ALLERGIES No Known Allergies REASON FOR REFERRAL [...] malignant neoplasm of colon (Z12.11) Active confirmed 629317995 Problem Diverticulosis of large intestine without perforation or abscess without bleeding (K57.30) Active confirmed Diverticul ar disease of colon (359430121) Problem Anemia, unspecified type (D64.9) Active confirmed 214513038 PLAN OF TREATMENT Pending Test Test Name [...] Insured Coverage Start Date Coverage End Date [facility] [address] Attn Claims FLAQUITA Tena [id number] HEMALATHA ARORA Self - patient is the insured MEDICARE OF [place] [address] [place] [address] [id number] HEMALATHA ARORA Self - patient is the insured MEDICAL (GENERAL) HISTORY Medical History History ICD Code Denies CT,DM,CVA,Lung disease,renal dise ase Depression-lifelong Chronic back and [...]
--- OUTSIDE RECORDS SUMMARY | 2024-04-20 16:24 | XMS_ITS ---
Author Organization [facility] Address [address] [place] [address] Care Team Providers Care Visiting Nurse Name Role Phone Nathaniel Bruce Primary Care Provider Unavailab Wyatt Gonzalez Unavailable [phone] REASON FOR VISIT screening PROBLEMS Problem Type ICD Code Onset Dates Problem Status W/U Status Risk SNOMED Code Notes Problem Diverticulosis of large intestine without perforation or abscess without bleeding (K57.30) Active confirmed Diverticul ar disease of colon (698917585) Encounters Encounter Location Date Provider Diagnosis [facility] Outpatient [address], [place] [id number] 12/28/2022 Wyatt Asif Encounter for scre ening [...]
== END 2024-04-20 14:54 | disposition home or self-care (01) ==
PROVIDERS: PCP Physician Assistant; Visit Provider Physician Assistant
DX: T84.093D Other mechanical complication of internal left knee prosthesis, subsequent encounter (principal); R41.3 Other amnesia; M96.1 Postlaminectomy syndrome, not elsewhere classified; E78.1 Pure hyperglyceridemia

== ENCOUNTER → 2024-04-20 14:05 | Outpatient (BNVA) | payer OTHER, SELFPAY | PROVIDERS: PCP Physician Assistant; Visit Provider Physician Assistant | DX: T84.093D Other mechanical complication of internal left knee prosthesis, subsequent encounter (principal); R41.3 Other amnesia; M96.1 Postlaminectomy syndrome, not elsewhere classified; E78.1 Pure hyperglyceridemia | CPT/HCPCS: 96127; 99212 ==

== ENCOUNTER 2024-04-27 15:07 | Outpatient (REF) | payer OTHER, SELFPAY ==
--- NOTE | 2024-04-27 15:12 | ECG_ITS ---
Test Reason : PREOP Blood Pressure : */* mmHG Vent. Rate : 71 BPM Atrial Rate : 71 BPM P-R Int : 142 ms QRS Dur : 90 ms QT Int : 388 ms P-R-T Axes : -7 32 34 degrees QTcB Int : 421 ms Normal sinus rhythm Normal ECG When compared with ECG of 04-Jan-2023 14:57, No significant change was found Referred By: Nathaniel Bruce Electronically Signed By: Hudson Waldron
[2024-04-27 16:17] LABS: Hematocrit 37.2 % (42.0-52.0); Hemoglobin 12.3 g/dl (14.0-18.0); Mean Corpuscular HGB Conc 33.1 g/dl (31.0-36.0); Mean Corpuscular Hemoglobin 31.5 pg (27.0-33.0); Mean Corpuscular Volume 95.1 fL (80.0-98.0); Mean Platelet Volume 9.2 fL (9.4-12.4); Platelet Count 270 X10*3/uL (160-400); Red Blood Count 3.91 X10*6/uL (4.60-5.80); Red Cell Distribution Width 13.3 % (11.0-16.0); White Blood Count 8.4 X10*3/uL (4.8-10.8)
[2024-04-27 18:36] LABS: Prostate Specific Antigen Scr < 0.10 ng/mL (<0.05-4.0)
--- OUTSIDE RECORDS SUMMARY | 2024-04-27 19:05 | XMS_ITS | Patient Health Record ---
Author Organization [facility] Address [address] [place] [address] Care Team Providers Care Industrial X Ray Operator Name Role Phone Nathaniel Bruce Primary Care Provider Unavailab Wyatt Gonzalez Unavailable [phone] ALLERGIES No Known Allergies REASON FOR REFERRAL [...] malignant neoplasm of colon (Z12.11) Active confirmed 965329222 Problem Diverticulosis of large intestine without perforation or abscess without bleeding (K57.30) Active confirmed Diverticul ar disease of colon (848484894) Problem Anemia, unspecified type (D64.9) Active confirmed [id number] PLAN OF TREATMENT Pending Test Test Name [...] Insured Coverage Start Date Coverage End Date [facility] [address] Attn Claims FLAQUITA Tena [id number] HEMALATHA ARORA Self - patient is the insured MEDICARE OF [place] [address] [place] [address] [id number] HEMALATHA ARORA Self - patient is the insured MEDICAL (GENERAL) HISTORY Medical History History ICD Code Denies [place],DM,CVA,Lung disease,renal dise ase Depression-lifelong Chronic back and [...]
[2024-04-27 19:37] LABS: Alanine Aminotransferase 17 U/L (0-40); Anion Gap 12 (12-20); Aspartate Amino Transferase 18 U/L (5-37); Bilirubin Total 0.4 mg/dL (0.0-1.0); Blood Urea Nitrogen 25 mg/dL (9-16); Calcium 9.1 mg/dL (8.4-10.2); Carbon Dioxide 25 mmol/L (22-29); Chloride 112 mmol/L (96-108); Cholesterol 124 mg/dL (<200); Estimated Glomerular Filt Rate > 60; Glucose Fasting 88 mg/dL (60-99); Glucose Random 87 mg/dL (60-115); HDL Cholesterol 49 mg/dL (>40); LDL Cholesterol Calculated 68 mg/dL (<100); Potassium 4.7 mmol/L (3.3-5.1); Sodium 144 mmol/L (135-145); Triglycerides 39 mg/dL (<150)
[2024-04-27 20:19] LABS: Alkaline Phosphatase 56 U/L (39-117)
== END 2024-04-27 15:08 | disposition home or self-care (01) ==
LOC: HO.LAB 15:07
PROVIDERS: PCP Physician Assistant; Visit Provider Physician Assistant
DX: Z01.818 Encounter for other preprocedural examination (principal); Z12.5 Encounter for screening for malignant neoplasm of prostate; N40.0 Benign prostatic hyperplasia without lower urinary tract symptoms; D64.9 Anemia, unspecified; E78.1 Pure hyperglyceridemia
CPT/HCPCS: 36415; 80053; 80061; 84153; 85027; 93005

== ENCOUNTER → 2024-04-27 15:12 | Outpatient (BNV) | payer OTHER, SELFPAY | PROVIDERS: PCP Physician Assistant; Visit Provider Internal Medicine Cardiovascular Disease | DX: Z01.810 Encounter for preprocedural cardiovascular examination (principal) | CPT/HCPCS: 93010 ==

== ENCOUNTER → 2024-05-07 11:24 | Outpatient (BNV) | payer OTHER, SELFPAY | PROVIDERS: PCP Physician Assistant; Visit Provider Radiology Diagnostic Radiology | DX: R41.3 Other amnesia (principal) | CPT/HCPCS: 70551 ==

== ENCOUNTER 2024-05-07 11:27 | Outpatient (REF) | payer OTHER, SELFPAY ==
--- NOTE | ~2024-05-07 | MR_ITS ---
EXAMINATION: MR BRAIN WITHOUT IV CONTRAST HISTORY: R41.3 - Other amnesia TECHNIQUE: Sagittal T1, coronal FLAIR, and axial T1, FLAIR, T2, gradient echo, and diffusion weighted MR images of the brain were obtained. COMPARISON: Comparison is made with the prior examination dated 03/20/2018. FINDINGS: There are scattered periventricular white matter hyperintensities on the FLAIR and T2-weighted images. These are nonspecific, but often seen in the setting of small vessel ischemic disease. Vicente/white differentiation is otherwise normal. There is no mass effect or midline shift. The ventricular system is normal in size and configuration. No intra or extra-axial fluid collections are identified. There are no foci of restricted diffusion. Normal vascular flow voids are noted in the basilar and carotid arteries. There is mucosal thickening in the bilateral ethmoid and sphenoid sinuses. MR/MR head/brain wo con IMPRESSION: No acute intracranial abnormality. Electronically signed by: Wyatt Guidry MD 05/07/2024 12:55 PM [facility]
== END 2024-05-07 11:28 | disposition home or self-care (01) ==
LOC: HO.MRI 11:27
PROVIDERS: PCP Physician Assistant; Visit Provider Physician Assistant
DX: R41.3 Other amnesia (principal)
CPT/HCPCS: 70551

== ENCOUNTER 2024-05-18 13:56 | Outpatient (AMB) | payer OTHER, SELFPAY ==
[2024-05-18 14:00] VITALS: BMI 27.8
--- NOTE | 2024-05-18 14:00 | MHC.OFFVIS ---
Vital Signs 05/18/24 14:00 Height 5 ft 9 in Weight 188 lb BMI 27.8 Intake Visit Reasons: L TKA Revision Discussion Intake Note: Juan is a 63 year old left hand dominant male who presents today to discuss Left Knee Revision Arthroplasty. He is currently booked for surgery 07/14/24. Hx of Left TKA with Dr. Donovan at [facility]. Allergies No Known Allergies Allergy (Verified 05/18/24 14:01) HPI HPI L TKA Revision Discussion: Details: Juan is a 63 year old left hand dominant male who presents today to discuss Left Knee Revision Arthroplasty. He is currently booked for surgery 07/14/24. Hx of Left TKA with Dr. Donovan at [facility]. He has noticed instability for years in the sense that there is an excessive amount of motion of the left knee joint which she finds painful and difficult to control and it gives way multiple occasions and when he walks for extended periods he has difficulty. He states his very uncomfortable and can not function. He has been booked for surgery in approximately 2 months [facility] Medical History (Updated 05/18/24 @ 15:31 by Ruben Goldsmith MD) History of smoking at least 1 pack per day for at least 30 years Failed back syndrome HLD (hyperlipidemia) COPD (chronic obstructive pulmonary disease) Sleep apnea Personal history of nicotine dependence BPH (benign prostatic hyperplasia) Depression Arthritis Lumbar spondylosis Surgical History History of total right hip arthroplasty History of total right knee replacement History of total left knee replacement Hx of left inguinal hernia repair History of shoulder surgery History of esophagogastroduodenoscopy (EGD) History of colonoscopy History of bursectomy Family History Father Brain cancer Mother CVD (cardiovascular disease) Diabetes H/O heart artery stent Brother Breast cancer Lung cancer Social History Household Members: None Housing: House Are you a primary healthcare consultant to a significant other at home: No Do you presently have visiting nurse or other home services: No Alcohol intake: former Patient Tobacco Use Status: Former Tobacco user Tobacco use type: Cigarette Cigarettes Per Day: 0 Years Smoked: 40 e-Cigarette/Vaping Use: Never Used Second Hand Smoke Exposure: No Substance Use Type: Marijuana service: No Current occupational status: unemployed Cognitive needs: No Hearing needs: No Vision needs: No Physical Exam Vital Signs: BMI result Body Mass Index 27.8 Extrem Other: Further is marked laxity on exam. He has a long well-healed incision with a diminutive distal quad. He can fully extend and has 135 degrees of motion flexion. I can translate him anteriorly in flexion as abnormally large amount. In 15 degrees of extension he has varus and valgus instability. In terminal flexion he is grossly stable. Results Reviewed Results Reviewed: I personally reviewed relevant radiographs. Radiographs show a well healed prosthesis with no evidence of loosening. There is 1 small area around the anterolateral tibia with some mild possible osteolysis but otherwise prosthesis appears in expected position. Assessment & Plan Assessment & Plan (1) Recurrent instability of left knee prosthesis: Code(s): T84.023A - Instability of internal left knee prosthesis, initial encounter Category: Medical Plan: This 64-year-old gentleman who had a left total knee 16 years ago at [facility]. It is unstable with hyperlaxity in flexion and nearing terminal extension. He has difficulty engaging in daily activities. I would like to see the op report from his surgery and we could consider a liner exchange if possible given that I think the prosthesis is well fixed. If that is not an option we will have to do a full revision as this is not a condition that he can tolerate indefinitely. I discussed this with him. It is in his I get the op note we will see him back in make a final decision. Coding Level of Care Code Est Pt Level 3 (97260) Diagnoses Recurrent instability of left knee prosthesis T84.023A
== END 2024-05-18 14:18 | disposition home or self-care (01) ==
PROVIDERS: PCP Physician Assistant; Visit Provider Orthopaedic Surgery
DX: T84.023A Instability of internal left knee prosthesis, initial encounter (principal); Z96.652 Presence of left artificial knee joint
CPT/HCPCS: 99213

== ENCOUNTER → 2024-05-18 13:56 | Outpatient (BNVA) | payer OTHER, SELFPAY | PROVIDERS: PCP Physician Assistant; Visit Provider Orthopaedic Surgery | DX: T84.023A Instability of internal left knee prosthesis, initial encounter (principal) | CPT/HCPCS: 99212 ==

== ENCOUNTER 2024-06-15 13:57 | Outpatient (AMB) | payer OTHER, SELFPAY ==
[2024-06-15 14:02] VITALS: BP 110/54; PULSE 70; O2SAT 94; BMI 28.1
--- NOTE | 2024-06-15 14:02 | A.OFFVIS_ITS ---
Vital Signs 06/15/24 14:02 Height 5 ft 9 in Weight 190 lb BMI 28.1 BP 110/54 L Blood Pressure Location Lt brachial Position Sitting Pulse 70 Pulse Source Pulse Oximeter Pulse Oximetry (%) 94 Oxygen Delivery Method Room Air Intake Visit Reasons: pre-op ortho R knee Dr Goldsmith Intake Note: pt is here for pre-op clearance for total left knee on 07/14/24. He does have a cold right now, coughing with phlegm, All Source Collection Manager Required: No Allergies No Known Allergies Allergy (Verified 06/15/24 14:12) Medication List - Last Reconciled 06/15/24 by Jairon Cool MD acetaminophen ER (Pain Relief (acetaminophen)) 650 mg PO Q12H 90 days albuterol sulfate 90 mcg/actuation 1 inh inhalation QID PRN 30 days alfuzosin ER (Uroxatral) 10 mg PO DAILY 90 days aspirin 81 mg PO DAILY atorvastatin 20 mg PO DAILY 90 days buprenorphine HCl (Belbuca) 900 mcg buccal Q12H 30 days bupropion HCl XL 150 mg PO DAILY 90 days cyclobenzaprine 10 mg PO BID 30 days diclofenac sodium 50 mg PO BID 15 days finasteride 5 mg PO DAILY 90 days fluoxetine 40 mg PO DAILY gabapentin 300 mg PO BID 30 days [Hinge knee brace duration-lifetime] ibuprofen 600 mg PO Q8H PRN miscellaneous medical supply 1 ea miscellaneous DAILY 99 days naloxone 4 mg/actuation (Narcan) 4 mg intranasal Q2M PRN 1 day oxycodone 10 mg PO Q8H PRN 4 days quetiapine (Seroquel) 200 mg PO BEDTIME 90 days walker Folding Front wheeled walker duration 99 days Do you need a note to return to daycare/school/sports/work: No HPI HPI pre-op ortho R knee Dr Goldsmith: Details: This 64 years old gentleman does have past history of smoking but quit 3 years ago. He has had mild intermittent cough and sometimes with wheezing. He uses albuterol only once in a while, He does not need any maintenance regimen. He does get annual lung screening CT scan . Today he comes in for preop evaluation and tells me that he has had a mild cold during the past 1 week. No fever chills or chest pain. But he has mild intermittent cough. He has albuterol HFA inhaler on hand, but not using it regularly at present . 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 [facility] Medical History (Updated 06/15/24 @ 14:38 by Jairon Cool MD) COPD (chronic obstructive pulmonary disease) History of smoking at least 1 pack per day for at least 30 years Failed back syndrome HLD (hyperlipidemia) Sleep apnea Personal history of nicotine dependence BPH (benign prostatic hyperplasia) Depression Arthritis Lumbar spondylosis Surgical History History of total right hip arthroplasty History of total right knee replacement History of total left knee replacement Hx of left inguinal hernia repair History of shoulder surgery History of esophagogastroduodenoscopy (EGD) History of colonoscopy History of bursectomy Family History Father Brain cancer Mother CVD (cardiovascular disease) Diabetes H/O heart artery stent Brother Breast cancer Lung cancer Social History Household Members: None Housing: House Are you a primary manager home healthcare to a significant other at home: No Do you presently have visiting nurse or other home services: No Alcohol intake: former Patient Tobacco Use Status: Former Tobacco user Tobacco use type: Cigarette Cigarettes Per Day: 0 Years Smoked: 40 e-Cigarette/Vaping Use: Never Used Second Hand Smoke Exposure: No Substance Use Type: Marijuana service: No Current occupational status: unemployed Cognitive needs: No Hearing needs: No Vision needs: No Review of Systems Const All systems reviewed & are unremarkable except as noted in HPI and below Eyes Reports no additional complaints ENT Reports nasal congestion (Mild off and on) Card Denies chest pain at rest, Denies irregular heart rhythm and Denies leg edema Resp Reports as per HPI GI Reports no additional complaints Reports nocturia Musc Reports back pain Skin/Breast Reports system reviewed and no additional complaints, except as documented Neuro Reports no additional complaints Psych Reports anxiety and Reports mood swings Endo Reports no additional complaints Brenden/Lymph Reports no additional complaints Aller/Immun Reports no additional complaints Physical Exam Vital Signs: Last Vital Signs Pulse 70 06/15/24 14:02 BP 110/54 L 06/15/24 14:02 Pulse Ox 94 06/15/24 14:02 Oxygen Delivery Method Room Air 06/15/24 14:02 BMI result Body Mass Index 28.1 Const General: comfortable, no acute distress, alert and awake Orientation/consciousness: patient oriented x3 HEENT Head: Yes normal to inspection General nose exam: No nasal polyps present and No nasal discharge present Face and sinus: Yes sinuses nontender Mouth: oropharynx normal Throat: Yes posterior oropharynx normal Eyes General: appearance normal, both eyes and all related structures Neck Neck: Yes normal visual inspection, Yes no lymphadenopathy, Yes trachea midline and Yes no JVD Thyroid: Thyroid normal Chest Chest palpation & inspection: normal inspection of the chest, normal palpation of entire chest wall and no tenderness Resp Other: Percussion note is resonant, breath sounds are slightly distant . There are a few scattered inspiratory wheezes over the right chest. No crepitations. Cardio Palpation: normal PMI Rate: regular rate Rhythm: regular rhythm Heart sounds: no gallops and no murmurs Peripheral pulses: Peripheral pulses 2+ throughout GI Palpation (GI): Soft to palpation, nontender, No hepatosplenomegaly present, no masses and Other GI palpation findings present (Abdomen is slightly protuberant) Auscultation: normal bowel sounds Back/Spine/Pelvis Thoracic/Lumbar Spine: thoracic and lumbar spine normal to inspection and thoraco-lumbar ROM limited Skin General skin exam: no rashes or lesions noted Neuro General: patient oriented x3 and no focal motor deficits Cranial nerves: Yes CN's II-XII intact bilaterally Extrem General: Yes normal to inspection, Yes no clubbing, cyanosis or edema and Yes no calf tenderness Psych Appearance: grossly abnormal and poorly kempt Speech and movement: Normal speech and movement present Office Procedures Spirometry Testing Spirometry Comments: Spirometry done in the office, Dr. Cool has the results results scanned to his chart. [id number]- Spirometry Results Reviewed Results Reviewed: SPIROMETRY FVC=99 % FEV1=86 % FEV1/FVC= 67 FEF 25-75 = 64 % C/W VERY MILD OBSTRUCTIVE AIRWAY DISORDER, NOT ANY WORSE COMPARED TO HIS PREVIOUS PULMONARY FUNCTION TEST Assessment & Plan Assessment & Plan (1) Personal history of nicotine dependence: Comment: (former smoker - onset 15yo, 1ppd x 45yrs, 40pyh, quit in 2020) Code(s): Z87.891 - Personal history of nicotine dependence Category: Medical Plan: COMMENDED FOR NOT GOING BACK TO SMOKING. HE IS ADVISED TO CONTINUE GETTING ANNUAL LUNG CT SCAN. (2) COPD (chronic obstructive pulmonary disease): Comment: THIS GENTLEMAN HAS PAST HISTORY OF SMOKING. PER PULMONARY FUNCTION TEST HE HAS MILD DEGREE OF OBSTRUCTIVE AIRWAY DISORDER, WITHOUT ANY POSITIVE RESPONSE TOBDs. SPIROMETRY TODAY IN THE OFFICE AGAIN SHOWS A VERY MILD OBSTRUCTIVE DISORDER BUT NOT ANY WORSE THAN BEFORE. HE DOES HAVE SYMPTOMS OF MILD ACUTE BRONCHITIS PROBABLY VIRAL, IN THE LAST 1 WEEK. Code(s): J44.9 - Chronic obstructive pulmonary disease, unspecified Category: Medical Qualifiers: COPD type: chronic bronchitis Chronic bronchitis type: simple Qualified Code(s): J41.0 - Simple chronic bronchitis Plan: ADVISED TO USE ALBUTEROL HFA 1 OR 2 PUFFS Q 6 HOURS P.R.N.. BECAUSE HE IS GOING TO UNDERGO SURGERY, TO BE ON THE SAFE SIDE I WOULD TREAT HIM WITH A SHORT COURSE OF Z-ADITHYA. Plan * FAR PREOP CLEARANCE IS CONCERNED, FROM PULMONARY POINT OF VIEW HE HAS NO CONTRAINDICATION AND IS CLEARED FOR SURGERY. Orders: Orders AMB Spirometry Testing Today J44.9 - Chronic obstructive pulmonary disease, unspecified Medications: New azithromycin For 250 mg dose pack: take 500 mg today (day 1), then 250 mg for 4 days (days 2-5) PO 6 tabs 0RF Coding Level of Care Code Est Pt Level 3 (77634) Diagnoses Personal history of nicotine dependence Z87.891 Simple chronic bronchitis J41.0 COPD type: chronic bronchitis Chronic bronchitis type: simple CPT Codes Spirometry - CPT: 01725- Spirometry ([id number])
--- OUTSIDE RECORDS SUMMARY | 2024-06-15 16:33 | XMS_ITS ---
Author Organization [facility] Address [address] [place] [address] Care Team Providers Care Matchbook Assembler Name Role Phone Nathaniel Bruce Primary Care Provider Unavailab Wyatt Gonzalez Unavailable [phone] REASON FOR VISIT screening PROBLEMS Problem Type ICD Code Onset Dates Problem Status W/U Status Risk SNOMED Code Notes Problem Diverticulosis of large intestine without perforation or abscess without bleeding (K57.30) Active confirmed Diverticul ar disease of colon (038643263) Encounters Encounter Location Date Provider Diagnosis [facility] Outpatient [address], [place] [phone] 12/28/2022 Wyatt Asif Encounter for scre ening [...]
--- OUTSIDE RECORDS SUMMARY | 2024-06-15 16:33 | XMS_ITS | Patient Health Record ---
Author Organization [facility] Address [address] [place] [address] Care Team Providers Care Asset Protection Representative Name Role Phone Nathaniel Bruce Primary Care Provider Unavailab Wyatt Gonzalez Unavailable [phone] ALLERGIES No Known Allergies REASON FOR REFERRAL [...] malignant neoplasm of colon (Z12.11) Active confirmed 217606308 Problem Diverticulosis of large intestine without perforation or abscess without bleeding (K57.30) Active confirmed Diverticul ar disease of colon (223208550) Problem Anemia, unspecified type (D64.9) Active confirmed 047005139 PLAN OF TREATMENT Pending Test Test Name Order Date IRON + IBC (FE) 03/04/2012 FERRITIN 03/04/2012 VITAMIN B12 AND FOLATE 03/04/2012 CBC w DIFF 03/04/2012 CBC w DIFF 10/12/2022 NUC HIDA SCAN 03/04/2012 IRON PROFILE 10/12/2022 Ferritin 10/12/2022 Vitamin B12 and Folate 10/12/2022 Future Test Test Name Order Date COLONOSCOPY 03/04/2012 COLONOSCOPY 10/12/2022 Insurance Providers Payer Name Payer Address Payer Phone Subscriber Number Group Number Insured Name Patient Relationship to Insured Coverage Start Date Coverage End Date [facility] [address] Attn Claims FLAQUITA Tena [id number] HEMALATHA ARORA Self - patient is the insured MEDICARE OF [place] [address] [place] [address] [id number] HEMALATHA ARORA Self - patient is the insured MEDICAL (GENERAL) HISTORY Medical History History ICD Code Denies [place],DM,CVA,Lung disease,renal dise ase Depression-lifelong Chronic back and [...]
== END 2024-06-15 14:32 | disposition home or self-care (01) ==
PROVIDERS: PCP Physician Assistant; Visit Provider Internal Medicine
DX: Z87.891 Personal history of nicotine dependence (principal); J41.0 Simple chronic bronchitis
CPT/HCPCS: 94010; 99213

== ENCOUNTER → 2024-06-15 13:57 | Outpatient (BNVA) | payer OTHER, SELFPAY | PROVIDERS: PCP Physician Assistant; Visit Provider Internal Medicine | DX: Z01.811 Encounter for preprocedural respiratory examination (principal); J41.0 Simple chronic bronchitis; Z87.891 Personal history of nicotine dependence | CPT/HCPCS: 94010; 99212 ==

== ENCOUNTER 2024-06-17 10:08 | Outpatient (AMB) | payer OTHER, SELFPAY ==
--- NOTE | 2024-06-17 10:09 | MHC.PC.OV ---
Vital Signs 06/17/24 10:16 Height 5 ft 9 in Weight 191 lb BMI 28.2 BP 122/70 Blood Pressure Location Lt brachial Position Sitting Pulse 78 Pulse Source Pulse Oximeter Temp 97.3 F Temp Source Temporal Artery Scan Pulse Oximetry (%) 96 Oxygen Delivery Method Room Air Intake Visit Reasons: Ortho 07/14 LT Knee replacement Transportation Modeler Required: No Accompanied by: Self / Same As Patient Allergies No Known Allergies Allergy (Verified 06/17/24 10:32) Medication List - Last Reconciled 06/17/24 by Nathaniel Bruce PA-C acetaminophen ER (Pain Relief (acetaminophen)) 650 mg PO Q12H PRN albuterol sulfate 90 mcg/actuation 1 inh inhalation QID PRN 30 days alfuzosin ER (Uroxatral) 10 mg PO QAM aspirin 81 mg PO QAM atorvastatin 20 mg PO QAM azithromycin For 250 mg dose pack: take 500 mg today (day 1), then 250 mg for 4 days (days 2-5) PO buprenorphine HCl (Belbuca) 900 mcg buccal Q12H 30 days bupropion HCl XL 150 mg PO QAM cyclobenzaprine 10 mg PO BID PRN diclofenac sodium 50 mg PO BID PRN finasteride 5 mg PO QAM fluoxetine 40 mg PO QAM gabapentin 300 mg PO BID [Hinge knee brace duration-lifetime] ibuprofen 600 mg PO Q8H PRN miscellaneous medical supply 1 ea miscellaneous DAILY 99 days naloxone 4 mg/actuation (Narcan) 4 mg intranasal Q2M PRN 1 day oxycodone 10 mg PO Q8H PRN 4 days quetiapine (Seroquel) 200 mg PO BEDTIME 90 days walker Folding Front wheeled walker duration 99 days Tobacco use date assessed: 06/17/24 Dental Screening Dental Screen Date: 04/20/24 HPI Ortho 07/14 LT Knee replacement HPI Details Patient is a 64-year-old male here today for for preop visit, patient is due for left knee total arthroplasty in July of 2024. Has been found to left knee continued pain swelling and instability. Orthopedics recommend revision.. ? Patient has a past medical history significant for tobacco dependency, failed back syndrome, COPD, hyperlipidemia, BPH, opiate dependency, history of alcohol dependency(in remission). Patient is not on any anticoagulation or antiplatelet therapy. He does not have a past history of CVA, IN or Congestive heart failure. Patient's most recent labs and EKG stable. Again patient is not opiate naive. Continues on highest dose of Belbuca 900 mcg b.i.d.. Today asks for another breakthrough script of oxycodone 10 mg p.r.n. for pain scales of 9-10. Belbuca can be held during the perioperative. [facility] Medical History Back pain Arthritis Sleep apnea Lumbar spondylosis Depression Personal history of nicotine dependence COPD (chronic obstructive pulmonary disease) HLD (hyperlipidemia) BPH (benign prostatic hyperplasia) Surgical History History of shoulder surgery History of total right hip arthroplasty Hx of left inguinal hernia repair History of total right knee replacement History of total left knee replacement History of esophagogastroduodenoscopy (EGD) History of colonoscopy History of bursectomy Family History Father Brain cancer Mother CVD (cardiovascular disease) Diabetes H/O heart artery stent Brother Breast cancer Lung cancer Social History Household Members: None Housing: House Are you a primary primary care nurse practitioner to a significant other at home: No Do you presently have visiting nurse or other home services: No Alcohol intake: former Patient Tobacco Use Status: Former Tobacco user Tobacco use type: Cigarette Cigarettes Per Day: 0 Years Smoked: 45 Packs per year/per ci.00 e-Cigarette/Vaping Use: Never Used Second Hand Smoke Exposure: No Substance Use Type: Marijuana service: No Current occupational status: unemployed Cognitive needs: No Hearing needs: No Vision needs: No Questionnaire PHQ-9 Over the last 2 weeks, how often have you been bothered by any of the following problems? 1. Little interest or pleasure in doing things: not at all 2. Feeling down, depressed, or hopeless: not at all 3. Trouble falling or staying asleep, or sleeping too much: not at all 4. Feeling tired or having little energy: not at all 5. Poor appetite or overeating: not at all 6. Feeling bad about yourself - or that you are a failure or have let yourself or your family down: not at all 7. Trouble concentrating on things, such as reading the newspaper or watching television: not at all 8. Moving or speaking so slowly that other people could have noticed. Or the opposite - being so fidgety or restless that you have been moving around a lot more than usual: not at all 9. Thoughts that you would be better off or of hurting yourself in some way: not at all Total score: 0 Depression Screening Interpretation: Negative Depression Screening Done: Yes 75036 - PHQ-9 Billing: Yes Source: Developed by Drs. Wyatt Varela, Lise Gordillo, Gaetano Feldman and colleagues, with an educational bettina from [employer]. Thrive Questionnaire Date Thrive assessed: 06/17/24 I am a: Patient What is your living situation today?: I have a steady place to live Within the past 12 months, did the food you bought not last and you didn't have the money to get more?: Never true Within the past 12 months, did you worry whether your food would run out before you got money to buy more?: Never true Do you have trouble paying for medicines?: No Do you have trouble getting transportation to medical appointments?: No Do you have trouble paying your heating and electricity bill?: No Do you have trouble taking care of your child, family member or friend?: No Do you have trouble with day-to-day activities such as bathing, preparing meals, shopping, managing finances, etc.?: No Are you currently unemployed and looking for a job?: No Are you interested in more education?: No Please select the resources that you would like help with: None Currently or been in a relationship where the following occur: No concerns reported THRIVE Score: 0 AUDIT C Alcohol Use Questionnaire (AUDIT-C) 1. How often do you have a drink containing alcohol?: Never 3. How often do you have six or more drinks on one occasion?: Never Total Score: 0 Score Reviewed/Action Taken: No BIJU-7 AMB Questionnaire BIJU-7 Date BIJU - 7 assessed: 06/17/24 Feeling nervous, anxious, or on edge: 0 = Not at all Not being able to stop or control worryin = Not at all Worrying too much about different things: 0 = Not at all Trouble relaxin = Not at all Being so restless that it is hard to sit still: 0 = Not at all Becoming easily annoyed or irritable: 0 = Not at all Feeling afraid as if something awful might happen: 0 = Not at all Total BIJU-7 score (0-4 normal; 5-9 mild; 10-14 moderate; 15-21 severe): 0 Source: Developed by Drs. Wyatt Varela, Lise Gordillo, Gaetano Feldman and colleagues, with an educational bettina from [employer]. BIJU-7 Assessment Billing BIJU-7 Assessment Tool: BIJU-7 Assessment 74413 Review of Systems Const Denies headache(s) Eyes Denies loss of vision ENT Denies vertigo, Denies dizziness, Denies headache(s) and Denies sore throat Card Denies chest pain, Denies leg edema and Denies lightheadedness Resp Denies cough, Denies hemoptysis and Denies wheezing GI Denies abdominal pain, Denies melena, Denies constipation, Denies diarrhea and Denies vomiting Denies dysuria, Denies urinary frequency and Denies urinary urgency Musc Denies arthralgias, Denies joint swelling, Denies numbness and Denies tingling Neuro Denies Abnormal speech present, Denies behavioral changes, Denies vertigo, Denies dizziness, Denies headache(s), Denies loss of vision, Denies memory loss, Denies numbness and Denies tingling Psych Denies anxiety, Denies behavioral changes, Denies depression, Denies memory loss and Denies panic attacks Brenden/Lymph Denies easy bleeding and Denies easy bruising Aller/Immun Denies wheezing Physical exam (Primary Care) Vital Signs: Last Vital Signs Temp 97.3 F 06/17/24 10:16 Pulse 78 06/17/24 10:16 BP 122/70 06/17/24 10:16 Pulse Ox 96 06/17/24 10:16 Oxygen Delivery Method Room Air 06/17/24 10:16 BMI result Body Mass Index 28.2 Tobacco/Smoking Status: Tobacco use Status Tobacco use date assessed 06/17/24 06/17/24 10:17 Patient Tobacco Use Status Former Tobacco user 06/17/24 10:10 Tobacco use type Cigarette 06/17/24 10:10 e-Cigarette/Vaping Use Never Used 06/17/24 10:10 PHQ-9: PHQ-9 Score PHQ-9: Total score 0 06/17/24 10:35 Depression Screening Interpretation: Negative Thrive Assessment: Date of Thrive Assessment Date Thrive assessed 06/17/24 06/17/24 10:17 Currently or been in a relationship where the following occur: No concerns reported Const General: healthy appearing, no acute distress, alert and awake Nutritional Appearance: well nourished Orientation/consciousness: oriented to person, oriented to place and oriented to time HENMT Ears: TM's normal bilaterally General nose exam: Normal nasal mucous membranes and turbinates present Eyes Conjunctivae: conjunctivae normal Sclerae: sclerae normal Pupils: Equal, round and reactive pupils present Neck Neck: Yes no lymphadenopathy and Yes no JVD Thyroid: Thyroid normal Carotids: no bruits Resp Effort & Inspection: normal respiratory effort and not tachypneic Auscultation: no crackles, no rales, no rhonchi and no wheezes Cardio Rate: regular rate Rhythm: regular rhythm Heart sounds: no murmurs and normal S1 and S2 GI Palpation (GI): Soft to palpation, nontender, no hepatomegaly and no splenomegaly Auscultation: normal bowel sounds Skin General skin exam: no rashes or lesions noted and dry skin Neuro General: oriented to person, oriented to place and oriented to time Cranial nerves: Yes Equal, round and reactive pupils present Speech: No Abnormal speech present Gait exam (Neuro): Normal gait present Motor exam (neuro): no tremor noted Extrem Right upper extremity: full ROM Left upper extremity: full ROM Right lower extremity: full ROM; no edema Left lower extremity: full ROM; no edema Psych Mental Status: mental status grossly normal Speech and movement: Normal speech and movement present Affect: normal affect Attitude: cooperative Thought process: Normal thought process present Coding Level of Care Code Est Pt Level 4 (80505) Diagnoses Pre-op evaluation Z01.818 Failed total left knee replacement, subsequent encounter T84.093D Encounter type: subsequent encounter Simple chronic bronchitis J41.0 COPD type: chronic bronchitis Chronic bronchitis type: simple Additional Codes BIJU-7 Assessment Billing - BIJU-7 Assessment Tool: BIJU-7 Assessment 38509 ([id number]) PHQ-9 - 66390 - PHQ-9 Billing: Yes ([id number]) Assessment & Plan Assessment & Plan (1) Pre-op evaluation: Code(s): Z01.818 - Encounter for other preprocedural examination Category: Medical Plan: Patient's vitals and most recent labs stable. Most recent EKGs showing normal sinus rhythm. Patient is medically clear for needed left knee revision surgery. * Again patient is not opiate naive. Continues on highest dose of Belbuca 900 mcg b.i.d.. Today asks for another breakthrough script of oxycodone 10 mg p.r.n. for pain scales of 9-10. Belbuca can be held during the perioperative. (2) Failed total left knee replacement: Code(s): T84.093A - Other mechanical complication of internal left knee prosthesis, initial encounter Category: Medical Qualifiers: Encounter type: subsequent encounter Qualified Code(s): T84.093D - Other mechanical complication of internal left knee prosthesis, subsequent encounter Plan: As per HPI patient is in need of a left knee revision. Has had laxity in more pain and swelling in his left knee quite some time now. (3) COPD (chronic obstructive pulmonary disease): Comment: THIS GENTLEMAN HAS PAST HISTORY OF SMOKING. PER PULMONARY FUNCTION TEST HE HAS MILD DEGREE OF OBSTRUCTIVE AIRWAY DISORDER, WITHOUT ANY POSITIVE RESPONSE TOBDs. SPIROMETRY TODAY IN THE OFFICE AGAIN SHOWS A VERY MILD OBSTRUCTIVE DISORDER BUT NOT ANY WORSE THAN BEFORE. HE DOES HAVE SYMPTOMS OF MILD ACUTE BRONCHITIS PROBABLY VIRAL, IN THE LAST 1 WEEK. Code(s): J44.9 - Chronic obstructive pulmonary disease, unspecified Category: Medical Qualifiers: COPD type: chronic bronchitis Chronic bronchitis type: simple Qualified Code(s): J41.0 - Simple chronic bronchitis Plan: Patient reports his breathing has been stable. Does have access to an albuterol inhaler for rescue. 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 Medications: Refilled oxycodone Partial Fill upon patient request. 10 mg PO Q8H PRN 12 tabs 0RF pain 4 days M96.1 - Postlaminectomy syndrome, not elsewhere classified
[2024-06-17 10:16] VITALS: BP 122/70; PULSE 78; TEMP 36.3; O2SAT 96; BMI 28.2
--- OUTSIDE RECORDS SUMMARY | 2024-06-17 11:53 | XMS_ITS | Patient Health Record ---
Author Organization [facility] Address [address] [place] [id number] Care Team Providers Care Mailroom Clerk Name Role Phone Nathaniel Bruce Primary Care Provider Unavailab Wyatt Gonzalez Unavailable [phone] Allergies No Known Allergies Reason For Referral No Information Medications Medication SIG (Take, Route, Frequency, Duration) Notes [...] Base) MCG/ACT Inhalation for 50 Activ e Social History Tobacco Use: Social History Observation Description Date Details (start date - stop date) Former Smoker NA - NA Tobacco Use/Smoking Question Answer Notes Patient is a former smoker How long has it been since you last smoked? 1-5 years Alcohol Screen Question Answer Notes Did you have a drink containing alcohol in the p ast year? No Points 0 Interpretation Negative Section Notes: Smoker; only occasional alco hol now--heavier up until a decade ago Former smoker but still with a very occasional cigarette; no alcohol since 2018, although heavier in the past Problems Problem Type SNOMED Code ICD Code Onset Dates Problem Status W/U Status Risk Notes Problem [id number] Encounter for screening for malignant neoplasm of colon (Z12.11) Active confirmed Problem Diverticular disease of colon (368342770) Diverticulosis of large intestine without perforation or abscess without bleeding (K57.30) Active confirmed Problem [id number] Anemia, unspecified type (D64.9) Active confirmed Plan Of Treatment Pending Test Test Name Order Date IRON [...] Insured Coverage Start Date Coverage End Date [facility] [address] [place] [address] [id number] HEMALATHA ARORA Self - patient is the insured MEDICARE OF [place] [address] [place] [address] [id number] HEMALATHA ARORA Self - patient is the insured Medical (General) History Medical History History ICD Code Denies AR,DM,CVA,Lung disease,renal dise ase Depression-lifelong Chronic back and knee pain COPD- mild Screening colonoscopy in 04/2012 was nega tive EGD 04/2012--neg. except for some minimal changes of reflux and a small hiatal hernia Negative abdominal ultrasound and CT sca n in July of 2022. Surgical History Surgery Date(Month/Year) Hernia surgery 1970 right elbow surgery 1987 left total knee replacement 2009 Right knee 2016 Right Shoulder Future surgery Jan 15, 2023 right hip
--- OUTSIDE RECORDS SUMMARY | 2024-06-17 11:53 | XMS_ITS ---
Author Organization [facility] Address [address] [place] [id number] Care Team Providers Care Ux Engineer Name Role Phone Nathaniel Bruce Primary Care Provider Unavailab Wyatt Gonzalez Unavailable [phone] REASON FOR VISIT screening Problems Problem Type SNOMED Code ICD Code Onset Dates Problem Status W/U Status Risk Notes Problem Diverticular disease of colon (556250240) Diverticulosis of large intestine without perforation or abscess without bleeding (K57.30) Active confirmed Encounters Encounter Location Date Provider Diagnosis [facility] Outpatient [address] [place] [phone] 12/28/2022 Wyatt Asif Encounter for scre ening colonoscopy Z12.11 ; Colon polyps K63.5 ; Rectal polyp K62.1 ; Diverticulosis of large intestine without perforation or abscess without bleeding K57.30 and Other hemorrhoids K64.8 Assessments Encounter Date Diagnosis (ICD Code) Assessment Notes Treatment Notes Treatment Clinical Notes Section Notes 12/28/2022 Encounter for screening colonoscopy (ICD-10 - Z12.11) 12/28/2022 Colon polyps (ICD-10 - K63.5) 12/28/2022 Rectal polyp (ICD-10 - K62.1) 12/28/2022 Diverticulosis of large intestine without perforation or abscess without bleeding (ICD-10 - K57.30) 12/28/2022 Other hemorrhoids (ICD-10 - K64.8) Plan Of Treatment No Information Progress Notes * HEMALATHA ARORADOB:[birth year] (64 yo M)Acc No.[id number]:12/28/2022 COLON WITH MAC Patient:?HEMALATHA ARORA Provider:?Wyatt Asif MD :[id number]???Age:62 Y???Sex:Male Kyle e:12/28/2022 Address:[address] [place], [place] [id number] Pcp:Nathaniel Bruce Subjective: * Chief Complaints: * ???1. Screening. * Medical History:? Objective: * Vitals:? Assessment: * Assessment: 1.?Encounter for screening c olonoscopy - Z12.11 (Primary)???2.?Colon polyps - K63.5???3.?Rectal polyp - K62.1???4.?Diverticulosis of large intestine without perforation or abscess without bleeding - K57.30???5.?Other hemorrhoids - K64.8??? Plan: * Treatment: * Procedure Codes:?29606 LESIO N REMOVAL COLONOSCOPY, Modifiers: 33 * * The named appointment provid er may or may not be the originator of this progress note, and it is not deemed complete until electronically signed by the appointment provider. Sign off status: Pending * Provider:?Wyatt Asif MD Date:? 023 Generated for Corinne morris/Marta/eTransmitting on:?06/17/2024 11:53 AM EST
== END 2024-06-17 10:47 | disposition home or self-care (01) ==
PROVIDERS: PCP Physician Assistant; Visit Provider Physician Assistant
DX: Z01.818 Encounter for other preprocedural examination (principal); T84.093D Other mechanical complication of internal left knee prosthesis, subsequent encounter; J41.0 Simple chronic bronchitis

== ENCOUNTER → 2024-06-17 10:08 | Outpatient (BNVA) | payer OTHER, SELFPAY | PROVIDERS: PCP Physician Assistant; Visit Provider Physician Assistant | DX: Z01.818 Encounter for other preprocedural examination (principal); T84.093D Other mechanical complication of internal left knee prosthesis, subsequent encounter; J41.0 Simple chronic bronchitis | CPT/HCPCS: 96127; 99212 ==

== ENCOUNTER → 2024-06-26 11:03 | Outpatient (BNVA) | payer OTHER, SELFPAY | PROVIDERS: PCP Physician Assistant | DX: Z01.818 Encounter for other preprocedural examination (principal) ==

== ENCOUNTER 2024-07-09 09:01 | Outpatient (AMB) | payer OTHER, SELFPAY ==
--- NOTE | 2024-07-09 09:04 | A.OFFVIS_ITS ---
Vital Signs 07/09/24 09:06 Height 5 ft 9 in Weight 191 lb BMI 28.2 Intake Visit Reasons: Pre-Op: L TKA Revision w/NE 07/14/24 Intake Note: Juan is a 64 year old male who presents today for a preoperative left TKA revision, DOS 07/14/24 NE. Pain management agreement reviewed and signed. Allergies No Known Allergies Allergy (Verified 07/09/24 09:05) Medication List - Last Reconciled 07/09/24 by Tanner Watts PA-C acetaminophen ER (Pain Relief (acetaminophen)) 650 mg PO Q12H PRN albuterol sulfate 90 mcg/actuation 1 inh inhalation QID PRN 30 days alfuzosin ER (Uroxatral) 10 mg PO QAM aspirin 81 mg PO QAM atorvastatin 20 mg PO QAM buprenorphine HCl (Belbuca) 900 mcg buccal Q12H 30 days bupropion HCl XL 150 mg PO QAM cyclobenzaprine 10 mg PO BID PRN diclofenac sodium 50 mg PO BID PRN finasteride 5 mg PO QAM fluoxetine 40 mg PO QAM gabapentin 300 mg PO BID [Hinge knee brace duration-lifetime] ibuprofen 600 mg PO Q8H PRN miscellaneous medical supply 1 ea miscellaneous DAILY 99 days naloxone 4 mg/actuation (Narcan) 4 mg intranasal Q2M PRN 1 day quetiapine (Seroquel) 200 mg PO BEDTIME 90 days walker Folding Front wheeled walker duration 99 days HPI Comments Details: Mr Schneider presents to the office today for preop visit. He is scheduled for revision left total knee arthroplasty with Dr. Goldsmith. He continues to have ongoing pain and difficulty with ambulation and instability in the left knee, which is affecting his quality of life; therefore, he has elected to move forward with surgery. [facility] Medical History Back pain Arthritis Sleep apnea Lumbar spondylosis Depression Personal history of nicotine dependence COPD (chronic obstructive pulmonary disease) HLD (hyperlipidemia) BPH (benign prostatic hyperplasia) Surgical History History of shoulder surgery History of total right hip arthroplasty Hx of left inguinal hernia repair History of total right knee replacement History of total left knee replacement History of esophagogastroduodenoscopy (EGD) History of colonoscopy History of bursectomy Family History Father Brain cancer Mother CVD (cardiovascular disease) Diabetes H/O heart artery stent Brother Breast cancer Lung cancer Social History Household Members: None Housing: House Are you a primary child care provider to a significant other at home: No Do you presently have visiting nurse or other home services: No Alcohol intake: former Patient Tobacco Use Status: Former Tobacco user Tobacco use type: Cigarette Cigarettes Per Day: 0 Years Smoked: 45 e-Cigarette/Vaping Use: Never Used Second Hand Smoke Exposure: No Substance Use Type: Marijuana service: No Current occupational status: unemployed Cognitive needs: No Hearing needs: No Vision needs: No Review of Systems Const All systems reviewed & are unremarkable except as noted in HPI and below Physical Exam Vital Signs: BMI result Body Mass Index 28.2 Const General: cooperative, healthy appearing, comfortable, no acute distress, well developed and alert Orientation/consciousness: patient oriented x3 HEENT Head: Yes normal to inspection, Yes normocephalic and Yes atraumatic Eyes General: appearance normal, both eyes and all related structures Neck Neck: Yes normal visual inspection and Yes no lymphadenopathy Resp Effort & Inspection: normal respiratory effort and able to speak in complete sentences Cardio Rate: regular rate Peripheral pulses: Peripheral pulses 2+ throughout GI Inspection: Yes normal to inspection Palpation (GI): Soft to palpation Skin General skin exam: no rashes or lesions noted Neuro General: patient oriented x3 Extrem Other: Left knee well-healed incision with a diminutive distal quad. He does have an abraison over the distal tibia-no erythema or drainage. He can fully extend and has 135 degrees of motion flexion. I can translate him anteriorly in flexion as abnormally large amount. In 15 degrees of extension he has varus and valgus instability. In terminal flexion he is grossly stable. Psych Appearance: grossly normal Mental Status: mental status grossly normal Results Reviewed Results Reviewed: Xrays were obtained in the office today and personally reviewed by me of the left knee for surgical planning Assessment & Plan Assessment & Plan (1) Recurrent instability of left knee prosthesis: Code(s): T84.023A - Instability of internal left knee prosthesis, initial encounter Category: Medical Plan: I discussed in detail the procedure and what to expect pre and post operatively. We discussed the risks, benefits and alternatives to the surgery as well as the rehabilitation course. The risks; which include, but are not limited to infec tion, bleeding, nerve injury, ongoing pain, swelling, and stiffness, perioperative risk of injury to bones and soft tissues, and blood clots. I?ve answered all questions and with their understanding they have consented to move forward with revision Left total knee arthroplasty with Dr. Goldsmith Previous joint relacement surgery D/C meds: Hold belbuca 4-6 weeks post op-then pcp will resume and take over care for pain aspirin 325 mg Tablet 325 mg PO BID 42 Days Qty: 84 0RF celecoxib 200 mg Capsule 200 mg PO BID 30 Days Qty: 60 0RF oxycodone 10 mg tablet 10 mg PO Q4H PRN (Reason: Pain, Moderate(Pain Scale 4-6)) 7 Days Qty: 42 0RF Rx Instructions: Partial Fill upon patient request. docusate sodium 100 mg Capsule 100 mg PO BID 30 Days Qty: 60 0RF Orders: Orders XR knee RT 1V Today M25.561 - Pain in right knee Complete Blood Count Auto Diff Today Z01.818 - Encounter for other preprocedural examination XR knee LT 3V Today M25.562 - Pain in left knee Type and Screen 25 Days Z01.818 - Encounter for other preprocedural examination Basic Metabolic Panel Today Z01.818 - Encounter for other preprocedural examination Medications: Refilled walker Folding Front wheeled walker duration 99 days 1 ea 0RF T84.023A - Instability of internal left knee prosthesis, initial encounter Coding Level of Care Code Est Pt Level 3 (17334) Complex EM visit Add On G2211 Diagnoses Recurrent instability of left knee prosthesis T84.023A
[2024-07-09 09:06] VITALS: BMI 28.2
== END 2024-07-09 09:36 | disposition home or self-care (01) ==
LOC: HO.HOS 09:01
PROVIDERS: PCP Physician Assistant; Visit Provider Physician Assistant
DX: T84.023A Instability of internal left knee prosthesis, initial encounter (principal)
CPT/HCPCS: 99024

== ENCOUNTER → 2024-07-09 09:04 | Outpatient (BNV) | payer OTHER, SELFPAY | PROVIDERS: PCP Physician Assistant; Visit Provider Radiology Diagnostic Radiology | DX: M71.22 Synovial cyst of popliteal space [Baker], left knee (principal); M24.08 Loose body, other site; Z96.653 Presence of artificial knee joint, bilateral | CPT/HCPCS: 73562 ==

== ENCOUNTER 2024-07-09 09:39 | Outpatient (REF) | payer OTHER, SELFPAY ==
--- NOTE | ~2024-07-09 | XR_ITS ---
EXAMINATION: XR KNEE 3 VIEWS LEFT HISTORY: M25.562 - Pain in left knee COMPARISON: Comparison is made with the prior examination dated 03/02/2024. FINDINGS: Standing AP views of both knees and additional lateral and sunrise patellar views of the left knee are submitted. The patient is again noted to be status post left total knee arthroplasty. The orthopedic elements are in anatomic alignment. There is no radiographic evidence of loosening. There is no fracture or dislocation. Again seen are calcified loose bodies in the popliteal fossa, likely within a Mcnulty's cyst. There is no joint effusion. The patient is also status post right total knee arthroplasty. XR/XR knee LT 3V IMPRESSION: There is post left total knee arthroplasty. Probable loose bodies within a Mcnulty's cyst without change. Electronically signed by: Wyatt Guidry MD 07/09/2024 09:18 AM EDT
[2024-07-09 10:15] LABS: MANUAL DIFF FLAG NO
[2024-07-09 10:52] LABS: Basophils Absolute Auto 0.1 X10*3/uL (0.0-0.2); Eosinophils Absolute Auto 0.3 X10*3/uL (0.0-0.4); Eosinophils Percent Auto 5.2 % (0-4); Hematocrit 36.2 % (42.0-52.0); Hemoglobin 11.8 g/dl (14.0-18.0); Imm Gran Abs Auto 0.03 X10*3/uL (0.00-0.03); Imm Gran Pct Auto 0.5 % (0.0-0.4); Lymphocytes Absolute Auto 1.5 X10*3/uL (1.2-4.9); Lymphocytes Percent Auto 24.5 % (20-40); Mean Corpuscular HGB Conc 32.6 g/dl (31.0-36.0); Mean Corpuscular Hemoglobin 31.5 pg (27.0-33.0); Mean Corpuscular Volume 96.5 fL (80.0-98.0); Mean Platelet Volume 9.2 fL (9.4-12.4); Monocytes Absolute Auto 0.5 X10*3/uL (0.1-1.2); Monocytes Percent Auto 8.4 % (2-11); Neutrophils Absolute Auto 3.6 x10*3/uL (2.0-8.3); Neutrophils Percent Auto 60.4 % (45-73); Platelet Count 317 X10*3/uL (160-400); Red Blood Count 3.75 X10*6/uL (4.60-5.80); Red Cell Distribution Width 13.1 % (11.0-16.0); White Blood Count 5.9 X10*3/uL (4.8-10.8)
[2024-07-09 11:29] LABS: Anion Gap 8 (12-20); Blood Urea Nitrogen 26 mg/dL (9-16); Calcium 8.7 mg/dL (8.4-10.2); Carbon Dioxide 26 mmol/L (22-29); Chloride 111 mmol/L (96-108); Estimated Glomerular Filt Rate > 60; Glucose Random 104 mg/dL (60-115); Potassium 4.9 mmol/L (3.3-5.1); Sodium 140 mmol/L (135-145)
== END 2024-07-09 09:40 | disposition home or self-care (01) ==
LOC: HO.LAB 09:39
PROVIDERS: PCP Physician Assistant; Visit Provider Physician Assistant
DX: Z01.818 Encounter for other preprocedural examination (principal); M25.562 Pain in left knee
CPT/HCPCS: 36415; 73562; 80048; 85025; 99212

== ENCOUNTER 2024-07-23 13:50 | Outpatient (REF) | payer OTHER, SELFPAY | END 2024-07-23 13:51 | disposition home or self-care (01) | LOC: HO.HOSX 13:50 | PROVIDERS: Visit Provider Physician Assistant | DX: Z13.89 Encounter for screening for other disorder (principal) ==

== ENCOUNTER 2024-07-24 16:11 | Outpatient (REF) | payer OTHER, SELFPAY ==
[2024-07-24 17:04] LABS: Erythrocyte Sedimentation Rate 22 MM/HR (0-15)
[2024-07-24 17:24] LABS: C Reactive Protein 1.11 mg/dL (< or = 0.50)
== END 2024-07-24 16:12 | disposition home or self-care (01) ==
LOC: HO.LAB 16:11
PROVIDERS: PCP Physician Assistant; Visit Provider Orthopaedic Surgery
DX: T84.023A Instability of internal left knee prosthesis, initial encounter (principal)
CPT/HCPCS: 36415; 85652; 86140

== ENCOUNTER 2024-07-27 11:45 | Outpatient (REF) | payer OTHER, SELFPAY ==
[2024-07-27 12:28] LABS: MN% 69.7 %; PMN% 30.3 %; RBC Synovial Fluid 0.002 X10*6/uL; WBC Synovial Fluid 1.287 X10*3/uL
[2024-07-27 14:40] LABS: Lymphocytes Synovial Fluid 23 %; Monocytes Synovial Fluid 4 %; Neutrophils Synovial Fluid 5 %; Other Cells Synovial Fluid 68; Source Synovial Fluid LEFT KNEE
[2024-07-27 14:41] LABS: BF Shift QC OK YES; Man Diluent Bkgrd OK YES
== END 2024-07-27 11:46 | disposition home or self-care (01) ==
LOC: HO.LAB 11:45
PROVIDERS: PCP Physician Assistant; Visit Provider Orthopaedic Surgery
DX: Z13.89 Encounter for screening for other disorder (principal)
CPT/HCPCS: 87070; 87073; 87205; 89051

== ENCOUNTER 2024-07-27 11:45 | Outpatient (AMB) | payer OTHER, SELFPAY ==
--- NOTE | 2024-07-27 11:46 | MHC.OFFVIS ---
Vital Signs 07/27/24 11:47 Height 5 ft 9 in Weight 191 lb BMI 28.2 Intake Visit Reasons: L Knee Aspir; L TKA Rev w/NE 07/28/24:INCR ESR&CRP Intake Note: Juan is a 64 year old male who presents today for a left knee aspiration, he is booked for upcoming Left TKA revision 07/28/24. Allergies No Known Allergies Allergy (Verified 07/09/24 09:05) HPI HPI L Knee Aspir; L TKA Rev w/NE 07/28/24:INCR ESR&CRP: Details: Labs from Saturday showed a elevated ESR and CRP. Here today for left knee aspiration. Denies fevers and chills. PFSH Medical History Back pain Arthritis Sleep apnea Lumbar spondylosis Depression Personal history of nicotine dependence COPD (chronic obstructive pulmonary disease) HLD (hyperlipidemia) BPH (benign prostatic hyperplasia) Surgical History History of shoulder surgery History of total right hip arthroplasty Hx of left inguinal hernia repair History of total right knee replacement History of total left knee replacement History of esophagogastroduodenoscopy (EGD) History of colonoscopy History of bursectomy Family History Father Brain cancer Mother CVD (cardiovascular disease) Diabetes H/O heart artery stent Brother Breast cancer Lung cancer Social History Household Members: None Housing: House Are you a primary child care team lead to a significant other at home: No Do you presently have visiting nurse or other home services: No Alcohol intake: former Patient Tobacco Use Status: Former Tobacco user Tobacco use type: Cigarette Cigarettes Per Day: 0 Years Smoked: 45 e-Cigarette/Vaping Use: Never Used Second Hand Smoke Exposure: No Substance Use Type: Marijuana service: No Current occupational status: unemployed Cognitive needs: No Hearing needs: No Vision needs: No Physical Exam Vital Signs: BMI result Body Mass Index 28.2 Office Procedures Joint Inj/Aspir; Non-Pain Clin Joint Injection/Drain Details: Aspirated 10 cc of normal-appearing joint fluid Prep: site was prepped using aseptic technique Approach Used: lateral parapatellar Shoulders, Hips, Knees, Knee Large Joint Injection 63617: Left Knee Coding Procedure code (CPT) selection complete Assessment & Plan Assessment & Plan (1) Recurrent instability of left knee prosthesis: Code(s): T84.023A - Instability of internal left knee prosthesis, initial encounter Category: Medical Plan: Aspirated joint fluid. Sent for culture and cell count. Orders: Orders Synovial Fld Cult + Gram stain Today T84.023A - Instability of internal left knee prosthesis, initial encounter Cell Ct wDiff Synovial Fl Today T84.023A - Instability of internal left knee prosthesis, initial encounter Coding Level of Care Code Est Pt Level 3 (37057) Diagnoses Recurrent instability of left knee prosthesis T84.023A CPT Codes Shoulders, Hips, Knees, - Knee Large Joint Injection : Left Knee ([id number])
[2024-07-27 11:47] VITALS: BMI 28.2
== END 2024-07-27 12:03 | disposition home or self-care (01) ==
LOC: HO.HOS 11:45
PROVIDERS: PCP Physician Assistant; Visit Provider Orthopaedic Surgery
DX: T84.023A Instability of internal left knee prosthesis, initial encounter (principal)
CPT/HCPCS: 20610; 99213

== ENCOUNTER 2024-07-28 07:03 | Outpatient (BNV) | payer OTHER, SELFPAY | END 2024-07-28 11:07 | PROVIDERS: Admitting Provider Orthopaedic Surgery; PCP Physician Assistant; Visit Provider Radiology Diagnostic Radiology | DX: Z96.652 Presence of left artificial knee joint (principal) | CPT/HCPCS: 73560 ==

== ENCOUNTER 2024-07-28 07:03 | Inpatient (IN) | payer OTHER, SELFPAY ==
[2024-06-16 10:25] VITALS: BP 114/57; PULSE 70; RESP 18; O2SAT 97; BMI 29.2
--- NOTE | 2024-06-16 10:44 | HO.ANESPROP2 ---
Documented by User: Charo Cramer NP 07/13/24 12:55 HPI - Anesthesia Eval Consult details Narrative: 64yo M for Left Knee Total Revision, 07/28/24 Pulmo optimized. Follows [facility] for mild COPD by spirometry and PFT. Former smoker. Rare albuterol use Pending medical clear Recent URI - started Zpak 06/16/23 with improvement No CP/SOB Buprenorphine 900mcg buccal BID for back pain, no surgical repair PMFSH Active Problems Active Problems: All Active Problems Recurrent instability of left knee prosthesis (Acute) Arthritis of left shoulder (Acute) Failed total left knee replacement (Acute) Pre-op evaluation (Acute) Knee pain, left (Acute) Ganglion cyst of dorsum of right wrist (Acute) Memory impairment (Acute) Ganglion cyst (Acute) Urinary frequency (Acute) Incomplete emptying of bladder due to benign prostatic hyperplasia (Acute) Anemia (Acute) Opioid contract exists (Acute) Insomnia (Acute) Opiate dependence (Acute) Obese (Acute) Failed back syndrome (Acute) COPD (chronic obstructive pulmonary disease) (Acute) History of total right hip arthroplasty (Acute) HLD (hyperlipidemia) (Acute) Personal history of nicotine dependence (Acute) BPH (benign prostatic hyperplasia) (Acute) Depression (Acute) Past Medical History Medical History Back pain Arthritis Sleep apnea Lumbar spondylosis Depression Personal history of nicotine dependence COPD (chronic obstructive pulmonary disease) HLD (hyperlipidemia) BPH (benign prostatic hyperplasia) Family History Family History Father Brain cancer Mother CVD (cardiovascular disease) Diabetes H/O heart artery stent Brother Breast cancer Lung cancer Family history of problems with anesthesia: No Surgical History Surgical History History of shoulder surgery History of total right hip arthroplasty Hx of left inguinal hernia repair History of total right knee replacement History of total left knee replacement History of esophagogastroduodenoscopy (EGD) History of colonoscopy History of bursectomy History of Problems with Anesthesia: No Social History Social History Household Members: None Housing: House Are you a primary inpatient care manager rn to a significant other at home: No Do you presently have visiting nurse or other home services: No Alcohol intake: former Patient Tobacco Use Status: Former Tobacco user Tobacco use type: Cigarette Cigarettes Per Day: 0 Years Smoked: 45 e-Cigarette/Vaping Use: Never Used Second Hand Smoke Exposure: No Use of substances other than those prescribed or required for medical reasons: Yes Substance Use Type: Marijuana Substance Use Type Other:: smokes occasionally Substance Use Frequency: Occasionally Have you been hit, kicked, punched, or otherwise hurt by someone within the past year? If so, by whom?: No Spiritual Healthcare Practices: none Scientologist Healthcare Practices: Congregation Cultural Healthcare Practices: none Are you DNR?: No Advance Directives: No Advance Directives Information Provided: Yes Advance Directives on File: No Recently lost weight without trying: No Eating poorly because of decreased appetite: No Nutrition Risks: No Nutritional Risk Poor oral hygiene: No (upper full & lower partial denture) service: No Current occupational status: unemployed Cognitive needs: No Hearing needs: No Vision needs: No Meds Allergies Allergy/AdvReac Type Severity Reaction Status Date / Time No Known Allergies Allergy Verified 07/09/24 09:05 Home Medications ?Medication ?Instructions ?Recorded ?Confirmed ?Last Taken ?Type acetaminophen 650 mg 650 mg PO Q12H PRN Pain 06/16/24 07/09/24 07/21/24 History tablet,extended release (Pain Relief (acetaminophen)) cyclobenzaprine 10 mg tablet 10 mg PO BID PRN muscle spasm 06/16/24 07/09/24 Unknown History diclofenac sodium 50 mg 50 mg PO BID PRN pain 06/16/24 07/09/24 Unknown History tablet,delayed release finasteride 5 mg tablet 5 mg PO QAM 06/16/24 07/09/24 Unknown History fluoxetine 40 mg capsule 40 mg PO QAM 06/16/24 07/09/24 Unknown History gabapentin 300 mg capsule 300 mg PO BID 06/16/24 07/09/24 Unknown History Exam Height,Weight and Vital Signs: Height 5 ft 9 in Weight 89.811 kg Last Vital Signs Pulse 70 06/16/24 10:25 Resp 18 06/16/24 10:25 BP 114/57 L 06/16/24 10:25 Pulse Ox 97 06/16/24 10:25 O2 Del Method Room Air 06/16/24 10:25 Pertinent Lab Results Pertinent Lab Results: Lab Results 06/16/24 07/09/24 Range/Units 10:40 10:10 Nasal Screen MRSA (PCR) NEGATIVE (Negative) Nasal S. aureus Screen NEGATIVE (Negative) Nasal MRSA/S.aureus Interp SEE NOTE Blood Type A Positive Antibody Screen NEGATIVE Laboratory Tests 07/09/24 10:12 WBC 5.9 Hgb 11.8 L Hct 36.2 L Plt Count 317 Sodium 140 Potassium 4.9 Chloride 111 H Carbon Dioxide 26 BUN 26 H Creatinine 0.86 Narrative Narrative: EKG 04/2024 Vent. Rate : 71 BPM Atrial Rate : 71 BPM P-R Int : 142 ms QRS Dur : 90 ms QT Int : 388 ms P-R-T Axes : -7 32 34 degrees QTcB Int : 421 ms Normal sinus rhythm Normal ECG When compared with ECG of 04-Jan-2023 14:57, No significant change was found In office SPIROMETRY 05/2024 FVC=99 % FEV1=86 % FEV1/FVC= 67 FEF 25-75 = 64 % C/W VERY MILD OBSTRUCTIVE AIRWAY DISORDER, NOT ANY WORSE COMPARED TO HIS PREVIOUS PULMONARY FUNCTION TEST Airway Mallampati Class: III TM Dist: >3cm Neck ROM: Full Denture: Upper Partial: Lower Loose/Missing/Broken Teeth: Yes (4 bottom teeth, none loose/broken) Heart: RRR Lungs: CTAB after deep cough Assessment and Plan Assessment Anesthesia Assessment: Anesthesia Plan Discussed and PAT Visit Final Anesthetic Review Family History of Problems with Anesthesia: No History of Problems with Anesthesia: No Documented by User: Risa Johnson MD 07/28/24 08:26 [facility] Past Medical History Medical History Back pain Arthritis Sleep apnea Lumbar spondylosis Depression Personal history of nicotine dependence COPD (chronic obstructive pulmonary disease) HLD (hyperlipidemia) BPH (benign prostatic hyperplasia) Family History Family History Father Brain cancer Mother CVD (cardiovascular disease) Diabetes H/O heart artery stent Brother Breast cancer Lung cancer Surgical History Surgical History History of shoulder surgery History of total right hip arthroplasty Hx of left inguinal hernia repair History of total right knee replacement History of total left knee replacement History of esophagogastroduodenoscopy (EGD) History of colonoscopy History of bursectomy Social History Social History Household Members: None Housing: House Are you a primary inpatient care manager rn to a significant other at home: No Do you presently have visiting nurse or other home services: No Alcohol intake: former Patient Tobacco Use Status: Former Tobacco user Tobacco use type: Cigarette Cigarettes Per Day: 0 Years Smoked: 45 e-Cigarette/Vaping Use: Never Used Second Hand Smoke Exposure: No Use of substances other than those prescribed or required for medical reasons: Yes Substance Use Type: Marijuana Substance Use Type Other:: smokes occasionally Substance Use Frequency: Occasionally Have you been hit, kicked, punched, or otherwise hurt by someone within the past year? If so, by whom?: No Spiritual Healthcare Practices: none Scientologist Healthcare Practices: Congregation Cultural Healthcare Practices: none Are you DNR?: No Advance Directives: No Advance Directives Information Provided: Yes Advance Directives on File: No Recently lost weight without trying: No Eating poorly because of decreased appetite: No Nutrition Risks: No Nutritional Risk Poor oral hygiene: No (upper full & lower partial denture) service: No Current occupational status: unemployed Cognitive needs: No Hearing needs: No Vision needs: No Meds Allergies Allergy/AdvReac Type Severity Reaction Status Date / Time No Known Allergies Allergy Verified 07/09/24 09:05 Home Medications ?Medication ?Instructions ?Recorded ?Confirmed ?Last Taken ?Type acetaminophen 650 mg 650 mg PO Q12H PRN Pain 06/16/24 07/09/24 07/21/24 History tablet,extended release (Pain Relief (acetaminophen)) cyclobenzaprine 10 mg tablet 10 mg PO BID PRN muscle spasm 06/16/24 07/09/24 Unknown History diclofenac sodium 50 mg 50 mg PO BID PRN pain 06/16/24 07/09/24 Unknown History tablet,delayed release finasteride 5 mg tablet 5 mg PO QAM 06/16/24 07/09/24 Unknown History fluoxetine 40 mg capsule 40 mg PO QAM 06/16/24 07/09/24 Unknown History gabapentin 300 mg capsule 300 mg PO BID 06/16/24 07/09/24 Unknown History Assessment and Plan Assessment Anesthesia Assessment: Chart Reviewed Final Anesthetic Review NPO: Yes ASA Class: III Final Preanesthetic Review: No Changes in Pt Med Stat, Meds/Allgs Chart Reviewed, Consent Obtained/Reviewed and Anes Risks/Benef Reviewed Patient Risk: Intermediate Procedure Risk: Intermediate Anesthetic Plan Anesthetic Plan: GA, Spinal and Regional Block Disposition: Standard PACU
[2024-06-16 13:00] LABS: MRSA Nasal PCR NEGATIVE (Negative); SA Nasal PCR NEGATIVE (Negative)
[2024-07-28] VITALS (16 sets, daily range): BP systolic 97–143; BP diastolic 50–87; PULSE 60–78; RESP 12–20; TEMP 36.1–36.9; O2SAT 6–97; BMI 29.5; BMI 28.2
--- NOTE | ~2024-07-28 | XR_ITS ---
EXAMINATION: XR KNEE 1-2 VIEWS LEFT HISTORY: lt TKA COMPARISON: Comparison is made with the prior examination dated 07/09/2024. FINDINGS: AP and lateral views of the left knee are submitted. The patient is status post total knee arthroplasty. The orthopedic elements are in anatomic alignment. There is no fracture or dislocation. Postoperative changes in the soft tissues. XR/XR knee LT 2V IMPRESSION: Status post left total knee arthroplasty. Electronically signed by: Wyatt Guidry MD 07/28/2024 12:14 PM EDT
--- NOTE | 2024-07-28 07:33 | MHC.SHP ---
Pre-Procedural Eval Section A - 24 Hr Update-Section A only Date of Service: 07/28/24 The patient is an INPATIENT: No Changes since office visit: No Cold of Flu in the past 2 weeks, No New Medical Problems, No Changes in Medication and No Patient answered all questions The patient has been examined within 24 hours of the surgical procedure. The History & Physical has been completed within 30 days and I have reviewed it.: Yes Section B - Complete if H&P > 30 days Chief Complaint: revision lt TKA Allergies: Allergies Allergy/AdvReac Type Severity Reaction Status Date / Time No Known Allergies Allergy Verified 07/09/24 09:05 Plan I have reviewed the history and physical and performed a pertinent physical examination on my patient. No changes have occurred unless specified. Time Spent With Patient Time: Total time managing care of this patient today ____ minutes.
[2024-07-28] MEDS: Lactated Ringers 1,000 ML 100 ML IVCONT ×2 (07:46→14:19)
[2024-07-28 08:28] LABS: Hematocrit 32.8 % (42.0-52.0); Hemoglobin 11.8 g/dl (14.0-18.0)
[2024-07-28] MEDS: ceFAZolin Sodium/Dextrose,Iso 2 GM/50 ML PIGGYBACK IV ×2 (09:35→17:43)
[2024-07-28] MEDS: Acetaminophen 1,000 MG/100 ML PIGGYBACK 400 MG IV (10:30)
--- NOTE | 2024-07-28 10:56 | PM.OP ---
Brief Operative Note Date of Service: 07/28/24 Pre-op diagnosis: Unstable left TKA Post-op diagnosis: other (Broken tibial post, left knee) Procedure: Liner exchange, left TKA Implants: Biomet Vangaurd PS+ 79/83x 20 Surgeon: Ruben Goldsmith MD Anesthesia: GETA and regional Was an Motor Bike Mechanic used for this Procedure?: Yes Motor Bike Mechanic: Tanner Watts Estimated blood loss (mL): 50 Tourniquet time (min): 45 IV fluids (mL): 1,000 Pathology: none sent Condition: stable Disposition: PACU
--- NOTE | 2024-07-28 10:58 | P.DS_ITS ---
DS: Providers Provider Date of Service: 07/29/24 Date of admission: 07/28/24 07:03 Date of discharge: 07/29/24 Primary care physician: Nathaniel Bruce PA-C DS: Summary Hospital Course Hospital Course: The patient underwent a successful left total knee line exchange, they were transferred to PACU and then to the floor to recover. During their stay, their vitals were stable, afebrile at 97.0. Labs were unremarkable, H/H 11.9/34.8. POD 1 they were started on Aspirin 325mg po bid for DVT ppx, they also received Physical Therapy services twice a day. Prior to discharge, their dressing was clean dry and intact, and the plan was to be discharged home with VNA services. Time Attestation Discharge Coordination Time (in mins): 30 Quality: Safe Use of Opioids Does Pt have an Active Cancer Diagnosis on the Problem List?: No Quality: Stroke Does the patient have a stroke diagnosis?: No Physical Exam Vital Signs: Vital Signs: Last Vital Signs Temp 98.4 F 07/28/24 07:10 Pulse 60 07/28/24 07:10 Resp 18 07/28/24 07:10 BP 143/87 H 07/28/24 07:10 Pulse Ox 94 07/28/24 07:10 O2 Del Method Room Air 07/28/24 07:10 BMI result Body Mass Index 29.5 Const: General: cooperative, healthy appearing and no acute distress Resp: Effort & Inspection: normal respiratory effort and able to speak in complete sentences Cardio: Rate: regular rate Peripheral pulses: Peripheral pulses 2+ throughout Skin: Lesions: no lesions Rashes: no rashes Extrem: Other: lt knee dressing is c/d/i. Able to dorsi/plantar flex. Calf is supple and nontender. Sensation intact. Pedal pulse intact. DS: Data Data Completed and Pending Completed studies during hospitalization [Text1]: Procedures Replacement of Right Hip Joint with Synthetic Substitute, Uncemented, Open Approach (01/15/23) Labs on day of discharge: Laboratory Results - last 24 hr 07/28/24 07/28/24 07:46 07:59 Hgb 11.8 L Hct 32.8 L Blood Type A Positive Antibody Screen NEGATIVE Discharge Plan Discharge Anticipated Discharge Date/Time: 07/29/24 08:16 Patient Disposition: Home Health Service Discharge Diagnosis: s/p revision LTKA Referrals: Tanner Watts PA-C [Physician An/Sqq 89(V)15 Sonar System Journeyman] - 08/13/24 2:00 pm Discharge Medications: New celecoxib 200 mg Capsule 200 mg PO BID 30 Days Qty: 60 0RF acetaminophen 325 mg Tablet 650 mg PO Q6H PRN (Reason: Pain, Mild 1-3,Fever,Headache) 30 Days Qty: 240 0RF aspirin 325 mg Tablet 325 mg PO BID 42 Days Qty: 84 0RF oxycodone 10 mg tablet 10 mg PO Q4H PRN (Reason: Pain, Moderate(Pain Scale 4-6)) 7 Days Qty: 42 0RF Rx Instructions: Partial Fill upon patient request. docusate sodium 100 mg Capsule 100 mg PO BID 30 Days Qty: 60 0RF Continued quetiapine [Seroquel] 200 mg tablet 200 mg PO BEDTIME 90 Days Qty: 90 2RF (DME) Hinge knee brace See Rx Instructions .ROUTE .MEDSUPPLY Qty: 1 0RF Rx Instructions: duration-lifetime ibuprofen 600 mg tablet 600 mg PO Q8H PRN (Reason: pain) Qty: 20 0RF atorvastatin 20 mg tablet 20 mg PO DAILY Qty: 90 3RF bupropion HCl 150 mg tablet extended release 24 hr 150 mg PO QAM 90 Days Qty: 90 3RF buprenorphine HCl [Belbuca] 900 mcg film 900 mcg buccal Q12H 30 Days Qty: 60 3RF fluoxetine 40 mg capsule 40 mg PO DAILY gabapentin 300 mg capsule 300 mg PO BID diclofenac sodium 50 mg tablet,delayed release (DR/EC) 50 mg PO BID PRN (Reason: pain) finasteride 5 mg tablet 5 mg PO DAILY alfuzosin [Uroxatral] 10 mg tablet extended release 24 hr 10 mg PO DAILY Rx Instructions: Advised to hold doxazosin albuterol sulfate 90 mcg/actuation HFA aerosol inhaler 1 inh inhalation QID PRN (Reason: shortness of breath or wheezing) 30 Days Qty: 8.5 1RF (DME) walker Misc See Rx Instructions .MEDSUPPLY Qty: 1 0RF Rx Instructions: Folding Front wheeled walker duration 99 days Discontinued acetaminophen [Pain Relief (acetaminophen)] 650 mg tablet extended release 650 mg PO Q12H PRN (Reason: Pain) aspirin 81 mg tablet,delayed release (DR/EC) 81 mg PO DAILY Discharge Orders: Discharge Order (Routine); Ordered 07/29/24 Ordered By: Margie Kyle Diet: Advance to usual diet Activity on Discharge: Use cane or walker Stand Alone Forms: Patient Portal Discharge page Print Language: Bolivian Care Plan Goals: restore fxn to left knee Health Concerns: none Plan of Treatment: Physical Therapy for ROM 0-120, quad strength, gait training. Use walker for ambulation Limit stair climbing, No shower, No tub bath, No driving Continue anticoagulant x 6 weeks Keep Aquacel dressing clean, dry and intact. Follow up with orthopedics in 2 weeks Assessment: stable for d/c
--- NOTE | 2024-07-28 11:00 | W.MHC.F2F ---
Service Date Service Date: 07/28/24 Encounter Date of encounter: 07/29/24 Reasons for Services Signs and symptoms assessed: s/p left total knee liner exchange Pt. is considered homebound due to recent surgery. Unable to drive, poor balance, poor gait mechanics. Reason for physical therapy: home safety and mobility, therapeutic exercises, restore joint function, gait/transfer training and ADL training Homebound: Leaving the home is medically contraindicated at this time without the asist of a device and/or another person due th the listed conditions above and below. Reason homebound: unsteady gait / fall risk, leg weakness, pain with ambulation, poor balance / fall risk and unable to drive Certification: Based on the above findings, I certify that this patient is confined to the home and needs intermittent residential care, physical therapy and/or speech therapy, or continues to need occupational therapy. The patient is under my care, and I have initiated the establishment of the plan of care. The patient will be followed by a physician who will periodically review the plan of care. Time Spent With Patient Time: Total time managing care of this patient today ____ minutes.
--- NOTE | 2024-07-28 11:13 | PHA.MEDREC ---
Pharmacy Consult ? Medication Reconciliation Pharmacy has completed the medication reconciliation. Reviewed med rec done by nursing and also spoke to patient to confirm med list.
[2024-07-28] MEDS: fentaNYL citrate/PF 100 MCG/2 ML VIAL 25 MCG IVPUSH ×4 (11:30→11:50)
[2024-07-28] MEDS: HYDROmorphone HCl 0.5 MG/0.5 ML SYRINGE 0.25 MG IVPUSH ×2 (14:42→20:54)
--- NOTE | 2024-07-28 16:12 | P.CONHOSP_ITS ---
History of Present Illness Data of Consult Service Date: 08/20/24 Primary Care Provider: Nathaniel Bruce PA-C HPI 64-year-old man admitted by Orthopedic surgery and is status post left total knee arthroplasty. Surgery was unremarkable. He has been able to drink without any nausea or vomiting. His vital signs are stable. He was no acute medical complaints. Review of Systems 2 Review of Systems: Denies any recent fever chills or decrease in appetite respiratory denies any shortness of breath or cough cardiovascular denies chest pain gastrointestinal denies any dysphagia abdominal pain nausea vomiting or diarrhea genitourinary denies any dysuria frequency or hematuria musculoskeletal left knee pain neuropsych denies any weakness or seizures all other systems reviewed are negative PMFSH Medical History Back pain Arthritis Sleep apnea Lumbar spondylosis Depression Personal history of nicotine dependence COPD (chronic obstructive pulmonary disease) HLD (hyperlipidemia) BPH (benign prostatic hyperplasia) Family History Father Brain cancer Mother CVD (cardiovascular disease) Diabetes H/O heart artery stent Brother Breast cancer Lung cancer Surgical History History of shoulder surgery History of total right hip arthroplasty Hx of left inguinal hernia repair History of total right knee replacement History of total left knee replacement History of esophagogastroduodenoscopy (EGD) History of colonoscopy History of bursectomy Social History Household Members: Other Household Members Other:: self Housing: House Are you a primary senior care assistant to a significant other at home: No Do you presently have visiting nurse or other home services: No Alcohol intake: former Patient Tobacco Use Status: Former Tobacco user Tobacco use type: Cigarette Cigarettes Per Day: 0 Years Smoked: 45 e-Cigarette/Vaping Use: Never Used Second Hand Smoke Exposure: No Substance Use Type: Marijuana service: No Current occupational status: unemployed Cognitive needs: No Hearing needs: No Vision needs: No Meds Allergies Allergy/AdvReac Type Severity Reaction Status Date / Time No Known Allergies Allergy Verified 07/09/24 09:05 Active Medications: Current Medications Acetaminophen (Acetaminophen 325 Mg Tablet) 650 mg PO Q6H PRN PRN Reason: Pain, Mild 1-3,fever,headache Albuterol Sulfate (Albuterol Sulfate 90 Mcg 8 Gm Inhaler) 1 puff INHALE QID PRN PRN Reason: shortness of breath or wheezin Aspirin (Aspirin 325 Mg Tablet) 325 mg PO BID [facility] Celecoxib (Celecoxib 200 Mg Capsule) 200 mg PO BID [facility] Cyclobenzaprine HCl (Cyclobenzaprine Hcl 10 Mg Tablet) 10 mg PO BID PRN PRN Reason: muscle spasm Docusate Sodium (Docusate Sodium 100 Mg Capsule) 100 mg PO BID [facility] Finasteride (Finasteride 5 Mg Tablet) 5 mg PO DAILY [facility] Fluoxetine HCl (Fluoxetine Hcl 20 Mg Capsule) 40 mg PO DAILY [facility] Gabapentin (Gabapentin 300 Mg Capsule) 300 mg PO BID [facility] Hydromorphone HCl (Hydromorphone Hcl 0.5 Mg/0.5 Ml Syringe) 0.25 mg IVPUSH Q4H PRN; Protocol PRN Reason: Pain, Severe (Pain Scale 7-10) Last Admin: 07/28/24 14:42 Dose: 0.25 mg Lactated Ringer's (Lr) 1,000 mls @ 100 mls/hr IVCONT .Q10H RAINER Stop: 07/29/24 08:00 Last Admin: 07/28/24 14:19 Dose: 100 mls/hr Cefazolin Sodium/Dextrose (Ancef) 2 gm in 50 mls @ 100 mls/hr IV POSTOP ONE Stop: 07/28/24 16:29 Naloxone HCl (Naloxone Hcl Nasal 4 Mg Excello) 4 mg NOSTRILALT Q2M PRN PRN Reason: opioid overdose Ondansetron HCl (Ondansetron Hcl 4 Mg/2 Ml Vial) 4 mg IVPUSH Q8H PRN PRN Reason: Nausea and Vomiting Oxycodone HCl (Oxycodone Hcl Immed Release 5 Mg Tablet) 10 mg PO Q4H PRN PRN Reason: Pain, Moderate(Pain Scale 4-6) Oxycodone HCl (Oxycodone Hcl Er 10 Mg Tab.Er.12h) 10 mg PO BID [facility] Quetiapine Fumarate (Quetiapine Fumarate 200 Mg Tablet) 200 mg PO BEDTIME [facility] Sodium Chloride (0.9 % Sodium Chloride Flush 3 Ml Syringe) 3 ml IVFLUSH QSHIFT RAINER Home Medications ?Medication ?Instructions ?Recorded ?Confirmed ?Last Taken ?Type diclofenac sodium 50 mg 50 mg PO BID PRN pain 06/16/24 07/09/24 Unknown History tablet,delayed release finasteride 5 mg tablet 5 mg PO DAILY 06/16/24 07/28/24 07/27/24 History fluoxetine 40 mg capsule 40 mg PO DAILY 06/16/24 07/28/24 07/27/24 History gabapentin 300 mg capsule 300 mg PO BID 06/16/24 07/09/24 07/27/24 History alfuzosin 10 mg tablet,extended 10 mg PO DAILY 07/28/24 07/28/24 07/27/24 History release 24 hr (Uroxatral) Physical Exam 2 Vital Signs and Narrative: Vital Signs: Last Vital Signs Temp 97.9 F 07/28/24 15:13 Pulse 63 07/28/24 15:13 Resp 18 07/28/24 15:13 BP 138/71 07/28/24 15:13 Pulse Ox 97 07/28/24 15:13 O2 Del Method Nasal Cannula 07/28/24 15:13 O2 Flow Rate 2 07/28/24 15:13 BMI result Body Mass Index 28.2 Appearing in no acute distress head is normocephalic atraumatic eyes pupils are PERRLA sclera is anicteric mouth throat mucous membranes are intact and moist neck is supple no lymphadenopathy, no JVD noted lung sounds are clear to auscultation heart regular rate rhythm, clear S1, S2 positive bowel sounds, abdomen is soft, nontender neuro patient is alert x3, no focal deficits Musculoskeletal left knee dressing intact, surgical wound not visualized Results Labs 07/29/24 06:48 07/29/24 06:48 Labs: Laboratory Results - last 24 hr 07/28/24 07:59 Blood Type A Positive Antibody Screen NEGATIVE Imaging Radiologist's Impressions: Impressions Knee X-Ray 07/28/24 11:50 IMPRESSION: Status post left total knee arthroplasty. Electronically signed by: Wyatt Guidry MD 07/28/2024 12:14 PM EDT RP Assessment and Plan (1) Depression: Status: Inactive Plan 64-year-old man admitted by Orthopedic surgery and is status post left total knee arthroplasty Left total knee arthroplasty Management after surgical team Pain management Asthma Continue albuterol inhalers as needed Mental health Continue home medications BPH Continue finasteride DVT prophylaxis with full-dose aspirin Full code Medical consultation complete. Will sign off
[2024-07-28] MEDS: oxyCODONE HCl Immed Release 5 MG TABLET 10 MG PO (17:37)
[2024-07-28] MEDS: Aspirin 325 MG TABLET PO (20:57)
[2024-07-28] MEDS: oxyCODONE HCl ER 10 MG TAB.ER.12H PO (20:58)
[2024-07-28] MEDS: Celecoxib 200 MG CAPSULE PO (20:58)
[2024-07-28] MEDS: Gabapentin 300 MG CAPSULE PO (20:58)
[2024-07-28] MEDS: Docusate Sodium 100 MG CAPSULE PO (20:58)
[2024-07-28] MEDS: QUEtiapine Fumarate 200 MG TABLET PO (21:00)
[2024-07-29] MEDS: Lactated Ringers 1,000 ML 100 ML IVCONT (02:39)
[2024-07-29 03:27] VITALS: BP 149/77; PULSE 56; RESP 16; TEMP 36.1; O2SAT 95
[2024-07-29] MEDS: HYDROmorphone HCl 0.5 MG/0.5 ML SYRINGE 0.25 MG IVPUSH (05:33)
[2024-07-29] MEDS: Finasteride 5 MG TABLET PO (06:48)
[2024-07-29] MEDS: Aspirin 325 MG TABLET PO (06:48)
[2024-07-29] MEDS: oxyCODONE HCl ER 10 MG TAB.ER.12H PO (06:48)
[2024-07-29] MEDS: Docusate Sodium 100 MG CAPSULE PO (06:48)
[2024-07-29] MEDS: oxyCODONE HCl Immed Release 5 MG TABLET 10 MG PO ×2 (06:49→10:52)
[2024-07-29] MEDS: FLUoxetine HCl 20 MG CAPSULE 40 MG PO (06:49)
[2024-07-29] MEDS: Celecoxib 200 MG CAPSULE PO (06:49)
[2024-07-29] MEDS: Gabapentin 300 MG CAPSULE PO (06:51)
[2024-07-29 06:58] LABS: MANUAL DIFF FLAG NO
[2024-07-29 07:06] LABS: Basophils Percent Auto 0.2 % (0-2); Eosinophils Percent Auto 0.3 % (0-4); Hematocrit 34.8 % (42.0-52.0); Hemoglobin 11.9 g/dl (14.0-18.0); Imm Gran Abs Auto 0.07 X10*3/uL (0.00-0.03); Imm Gran Pct Auto 0.6 % (0.0-0.4); Lymphocytes Absolute Auto 1.7 X10*3/uL (1.2-4.9); Lymphocytes Percent Auto 13.2 % (20-40); Mean Corpuscular HGB Conc 34.2 g/dl (31.0-36.0); Mean Corpuscular Hemoglobin 32.8 pg (27.0-33.0); Mean Corpuscular Volume 95.9 fL (80.0-98.0); Mean Platelet Volume 8.8 fL (9.4-12.4); Monocytes Absolute Auto 1.1 X10*3/uL (0.1-1.2); Monocytes Percent Auto 8.4 % (2-11); Neutrophils Absolute Auto 9.7 x10*3/uL (2.0-8.3); Neutrophils Percent Auto 77.3 % (45-73); Platelet Count 295 X10*3/uL (160-400); Red Blood Count 3.63 X10*6/uL (4.60-5.80); White Blood Count 12.6 X10*3/uL (4.8-10.8)
[2024-07-29 07:19] LABS: Anion Gap 9 (12-20); Blood Urea Nitrogen 17 mg/dL (9-16); Calcium 8.6 mg/dL (8.4-10.2); Carbon Dioxide 22 mmol/L (22-29); Chloride 112 mmol/L (96-108); Creatinine Clr Calc Pharmacy 111.3; Estimated Glomerular Filt Rate > 60; Glucose Fasting 104 mg/dL (60-99); Potassium 3.9 mmol/L (3.3-5.1); Sodium 139 mmol/L (135-145)
[2024-07-29 07:46] VITALS: BP 142/79; PULSE 60; RESP 18; TEMP 36.3; O2SAT 93
--- NOTE | 2024-07-29 08:50 | MHC.CM.PN ---
IMM DELIVERED PT LIVES ALONE, USES CANE PRN. +DRIVES. NO SERVICES. +HCP ON FILE AND VERIFIED PCP BRICE SAMS DP: PT HAS BEEN MEDICALLY CLEARED FOR DC HOME WITH NEW [facility] FOR P.T. (FIRST CHOICE) [facility] NOTIFIED OF DC. PT HAS OWN RIDE HOME.
[2024-07-29 09:19] VITALS: O2SAT 93
--- NOTE | 2024-07-29 10:09 | HO.POSTANES ---
Post Anesthesia Evaluation Post Anesthesia Evaluation Date of Service: 07/29/24 Vital Signs: Vital Signs Temp Pulse Resp BP Pulse Ox O2 Del Method O2 Flow Rate 07/29/24 09:19 93 Room Air 07/29/24 07:46 97.4 F 60 18 142/79 H 93 Nasal Cannula 1 07/29/24 03:27 97.0 F 56 16 149/77 H 95 Nasal Cannula 1 Anesthesia: Spinal Mental Status: Awake Pain Control: Satisfactory Nausea/Vomiting: None Hydration: Adequate Anesthesia-Related Issues: No Anes. Related Issues
[2024-07-29] MEDS: Acetaminophen 325 MG TABLET 650 MG PO (10:52)
--- NOTE | 2024-07-30 16:57 | W.PM.OPN ---
Operative Note Operative Note Date of Service: 07/28/24 Narrative: Date of Service: 07/28/24 Pre-op diagnosis: Unstable left TKA Post-op diagnosis: other (Broken tibial post, left knee) Procedure: Liner exchange, left TKA Implants: Biomet Vangaurd PS+ 79/83x 20 Surgeon: Ruben Goldsmith MD Anesthesia: GETA and regional Was an Marketing Project Manager used for this Procedure?: Yes Marketing Project Manager: Tanner Watts Estimated blood loss (mL): 50 Tourniquet time (min): 45 IV fluids (mL): 1,000 Pathology: none sent Condition: stable Disposition: PACU Procedure in detail: The patient was brought to the operating room and prepped and draped in standard sterile fashion. A time-out was called to identify proper site proper procedure proper surgeon and IV antibiotics were administered. I began by making an incision through the prior incision. Dissection was taken down to the retinaculum and a medial parapatellar arthrotomy was performed. The Fluid was normal in appearance. There was mild metallosis in the superior pouch and in the gutters. I performed a medial peel and slowly removed the fibrous tissue from the undersurface of the patella and laterally until I was able to get to sharp Homans on either side of the insert. The post was broken and free floating in the notch. I removed the locking device medially and placed a osteotome under the polyethylene insert and this was removed without incident. I irrigated copiously and removed any metallosis or prominent fibrous tissue while protecting the posterior soft tissues in the patellar tendon. There was no evidence of loosening. I irrigated copiously and then trialed a 20 PS plus. This allowed me to get the knee out to full extension and he was stable to varus and valgus stress. I then irrigated again and placed my final 20 insert and inserted the locking this mechanism from medial to lateral. I then examined the suprapatellar pouch and removed any excess metallosis and irrigated copiously. The knee was then closed with absorbable suture and raysa. Sterile dressings were applied. Patient was awakened from anesthesia and brought to recovery room in stable condition. There were no known complications.
== END 2024-07-29 11:15 | disposition home health service (06) | DRG 489 ==
LOC: HO.SSSA 08:17 → HO.S3 11:58
PROVIDERS: Physician Assistant; Admitting Provider Orthopaedic Surgery; PCP Physician Assistant; Visit Provider Orthopaedic Surgery
PROC: 0SPD09Z Removal of Liner from Left Knee Joint, Open Approach (ICD-10-PCS; CPT 27487; principal; 2024-07-28 09:30)
DX: T84.093A Other mechanical complication of internal left knee prosthesis, initial encounter (principal); J45.909 Unspecified asthma, uncomplicated; N40.0 Benign prostatic hyperplasia without lower urinary tract symptoms; Z87.891 Personal history of nicotine dependence; Z79.899 Other long term (current) drug therapy
CPT/HCPCS: 20610; 36415; 73560; 80048; 85014; 85018; 85025; 86850; 86900; 86901; 87070; 87073; 87205; 87640; 87641; 89051; 97161; 99212; C1776; J0131; J0665; J0690; J1100; J1171; J1885; J2250; J2405; J2704; J3010; J7120

== ENCOUNTER → 2024-07-28 07:03 | Outpatient (BNV) | payer OTHER, SELFPAY | PROVIDERS: Admitting Provider Orthopaedic Surgery; PCP Physician Assistant; Visit Provider Orthopaedic Surgery | DX: Z47.1 Aftercare following joint replacement surgery (principal); Z96.652 Presence of left artificial knee joint | CPT/HCPCS: 27486; 99024; G0180 ==

== ENCOUNTER → 2024-07-28 07:03 | Outpatient (BNV) | payer OTHER, SELFPAY | PROVIDERS: Admitting Provider Orthopaedic Surgery; PCP Physician Assistant; Visit Provider Nurse Practitioner Acute Care | DX: F32.A Depression, unspecified (principal) | CPT/HCPCS: 99222 ==

== ENCOUNTER 2024-08-13 13:52 | Outpatient (AMB) | payer OTHER, SELFPAY ==
--- NOTE | 2024-08-13 13:57 | A.OFFVIS_ITS ---
Intake Visit Reasons: 2WKPO: L TKA Rev. w/NE 07/28/24 Intake Note: Juan is a 64 year old male who presents today for a post operative LT TKA Revision, DOS 07/28/24 with NE. Patient reports that he is dong well, he has some continued swelling of his ankle. Allergies No Known Allergies Allergy (Verified 07/09/24 09:05) HPI HPI 2WKPO: L TKA Rev. w/NE 07/28/24: Details: Juan is a 64 year old male who presents today for a post operative LT TKA Revision, DOS 07/28/24 with NE. Patient reports that he is dong well, he has some continued swelling og his ankle. [facility]LY [facility] Medical History Back pain Arthritis Sleep apnea Lumbar spondylosis Depression Personal history of nicotine dependence COPD (chronic obstructive pulmonary disease) HLD (hyperlipidemia) BPH (benign prostatic hyperplasia) Surgical History History of shoulder surgery History of total right hip arthroplasty Hx of left inguinal hernia repair History of total right knee replacement History of total left knee replacement History of esophagogastroduodenoscopy (EGD) History of colonoscopy History of bursectomy Family History Father Brain cancer Mother CVD (cardiovascular disease) Diabetes H/O heart artery stent Brother Breast cancer Lung cancer Social History Household Members: Other Household Members Other:: self Housing: House Are you a primary resident care associate to a significant other at home: No Do you presently have visiting nurse or other home services: No Alcohol intake: former Patient Tobacco Use Status: Former Tobacco user Tobacco use type: Cigarette Cigarettes Per Day: 0 Years Smoked: 45 e-Cigarette/Vaping Use: Never Used Second Hand Smoke Exposure: No Substance Use Type: Marijuana service: No Current occupational status: unemployed Cognitive needs: No Hearing needs: No Vision needs: No Physical Exam Extrem Other: in c/d/i 0-125 stable to v/v stress Assessment & Plan Assessment & Plan (1) Recurrent instability of left knee prosthesis: Code(s): T84.023A - Instability of internal left knee prosthesis, initial encounter Category: Medical Plan: Status post liner exchange left knee. Intraoperatively he had a broken post. I replaced the liner and increase the size by 30 mm. He feels well. His incision is clean and dry. Continue aspirin follow up 4 weeks. Prescription for a front wheel walker was ordered. Coding Level of Care Code Global (01613) Diagnoses Recurrent instability of left knee prosthesis T84.023A
== END 2024-08-13 14:42 | disposition home or self-care (01) ==
LOC: HO.HOS 13:53
PROVIDERS: PCP Physician Assistant; Visit Provider Orthopaedic Surgery
DX: T84.023A Instability of internal left knee prosthesis, initial encounter (principal)
CPT/HCPCS: 99024

== ENCOUNTER → 2024-08-13 13:52 | Outpatient (BNVA) | payer OTHER, SELFPAY | PROVIDERS: PCP Physician Assistant; Visit Provider Orthopaedic Surgery | DX: Z47.89 Encounter for other orthopedic aftercare (principal); T84.023D Instability of internal left knee prosthesis, subsequent encounter | CPT/HCPCS: 99212 ==

== ENCOUNTER 2024-09-03 08:21 | Outpatient (REF) | payer OTHER, SELFPAY ==
--- NOTE | ~2024-09-03 | XR_ITS ---
EXAMINATION: XR KNEE 3 VIEWS LEFT HISTORY: M25.562 - Pain in left knee COMPARISON: There are no prior studies for comparison. FINDINGS: Standing AP views of both knees, and additional lateral and sunrise patellar views of the left knee are submitted. The patient is again noted to be status post left total knee arthroplasty. The orthopedic elements are in anatomic alignment. There is no radiographic evidence of loosening. There is no fracture or dislocation. There is no joint effusion. The soft tissues are unremarkable. XR/XR knee LT 3V IMPRESSION: Status post left total knee arthroplasty. Electronically signed by: Wyatt Guidry MD 09/03/2024 02:08 PM EDT
== END 2024-09-03 08:22 | disposition home or self-care (01) ==
LOC: HO.HOSX 08:21
PROVIDERS: Visit Provider Orthopaedic Surgery
DX: M25.562 Pain in left knee (principal); Z96.652 Presence of left artificial knee joint
CPT/HCPCS: 73562; 99212

== ENCOUNTER 2024-09-03 13:32 | Outpatient (AMB) | payer OTHER, SELFPAY ==
--- NOTE | 2024-09-03 13:41 | A.OFFVIS_ITS ---
Intake Visit Reasons: 6WKPO: L TKA Rev. w/NE 07/28/24 Intake Note: Juan is a 64 year old male who presents today for a post operative appointment about 6 weeks s/p LT TKA Revision, DOS 07/28/24 with NE. Patient is doing well, no concerns. Ambuating well Allergies No Known Allergies Allergy (Verified 07/09/24 09:05) HPI HPI 6WKPO: L TKA Rev. w/NE 07/28/24: Details: Juan is a 64 year old male who presents today for a post operative appointment about 6 weeks s/p LT TKA Revision, DOS 07/28/24 with NE. Patient is doing well, no concerns. Ambuating well PFSH Medical History Back pain Arthritis Sleep apnea Lumbar spondylosis Depression Personal history of nicotine dependence COPD (chronic obstructive pulmonary disease) HLD (hyperlipidemia) BPH (benign prostatic hyperplasia) Surgical History History of shoulder surgery History of total right hip arthroplasty Hx of left inguinal hernia repair History of total right knee replacement History of total left knee replacement History of esophagogastroduodenoscopy (EGD) History of colonoscopy History of bursectomy Family History Father Brain cancer Mother CVD (cardiovascular disease) Diabetes H/O heart artery stent Brother Breast cancer Lung cancer Social History Household Members: Other Household Members Other:: self Housing: House Are you a primary attending ambulatory care to a significant other at home: No Do you presently have visiting nurse or other home services: No Alcohol intake: former Patient Tobacco Use Status: Former Tobacco user Tobacco use type: Cigarette Cigarettes Per Day: 0 Years Smoked: 45 e-Cigarette/Vaping Use: Never Used Second Hand Smoke Exposure: No Substance Use Type: Marijuana service: No Current occupational status: unemployed Cognitive needs: No Hearing needs: No Vision needs: No Physical Exam Extrem Other: inc c/d/i 0-130 stable arc Results Reviewed Results Reviewed: I personally reviewed relevant radiographs. Left TKA is position unchanged from prior Assessment & Plan Assessment & Plan (1) S/P revision of total knee: Code(s): Z96.659 - Presence of unspecified artificial knee joint Category: Surgical Plan: Liner exchange withb intra op findings of broken post. Doing well. f/u 12 mo or as needed if issues arise. Orders: Orders XR knee LT 3V 09/03/24 M25.562 - Pain in left knee Coding Level of Care Code Global (08723) Diagnoses S/P revision of total knee Z96.659
== END 2024-09-03 14:17 | disposition home or self-care (01) ==
LOC: HO.HOS 13:33
PROVIDERS: PCP Physician Assistant; Visit Provider Orthopaedic Surgery
DX: Z96.659 Presence of unspecified artificial knee joint (principal)
CPT/HCPCS: 99024

== ENCOUNTER → 2024-09-03 13:34 | Outpatient (BNV) | payer OTHER, SELFPAY | PROVIDERS: Visit Provider Radiology Diagnostic Radiology | DX: M25.562 Pain in left knee (principal); Z96.652 Presence of left artificial knee joint | CPT/HCPCS: 73562 ==

== ENCOUNTER 2024-09-10 15:51 | Outpatient (AMB) | payer OTHER, SELFPAY ==
--- NOTE | 2024-09-10 16:00 | A.OFFPC_ITS ---
Vital Signs 09/10/24 16:07 Height 5 ft 9 in Weight 190 lb BMI 28.1 BP 110/76 Blood Pressure Location Lt brachial Position Sitting Pulse 82 Pulse Source Pulse Oximeter Pulse Oximetry (%) 92 Oxygen Delivery Method Room Air Intake Visit Reasons: follow up Respiratory Care Specialist Required: No Accompanied by: Self / Same As Patient Allergies No Known Allergies Allergy (Verified 09/10/24 16:24) Medication List - Last Reconciled 09/10/24 by Nathaniel Bruce PA-C acetaminophen 650 mg (2 x 325 mg) PO Q6H PRN 30 days albuterol sulfate 90 mcg/actuation 1 inh inhalation QID PRN 30 days alfuzosin ER (Uroxatral) 10 mg PO DAILY aspirin 325 mg PO BID 42 days atorvastatin 20 mg PO DAILY buprenorphine HCl (Belbuca) 900 mcg buccal Q12H 30 days bupropion HCl XL 150 mg PO QAM 90 days celecoxib 200 mg PO BID 30 days diclofenac sodium 50 mg PO BID PRN docusate sodium 100 mg PO BID 30 days finasteride 5 mg PO DAILY fluoxetine 40 mg PO DAILY gabapentin 300 mg PO BID 30 days [Hinge knee brace duration-lifetime] ibuprofen 600 mg PO Q8H PRN quetiapine (Seroquel) 200 mg PO BEDTIME 90 days walker Folding Front wheeled walker duration 99 days Tobacco use date assessed: 09/10/24 Dental Screening Dental Screen Date: 04/20/24 HPI follow up HPI Details Patient is a 64-year-old male here today for follow-up visit. ? Patient has a past medical history significant for tobacco dependency, failed back syndrome, COPD, hyperlipidemia, BPH, opiate dependency, history of alcohol dependency(in remission). Concerns--> patient is status post revision of his left knee replacement. He has been doing well in now back to doing all of his activities of daily living. He is doing physical therapy at home. .. Left knee instability/ chronic pain: He is currently using Belbuca and taking gabapentin 900 mg twice daily for pain control. He reports increased back pain and requests additional medication. .. Failed back syndrome:? Was followed by pain management here in [place] though has lost follow-up due to apparent incorrect pill count. He continues on Belbuca at highest dose which has been somewhat effective for him. Does also use Tylenol and cyclobenzaprine for pain as well. COPD:? Now followed by pulmonology, has gotten pulmonary function test that was consistent with the COPD.? Has albuterol inhaler and Flovent available to him to which he uses on a p.r.n. basis. Unfortunately continues to smoke though has cut down considerably. .. BPH:? Since starting alfuzosin which initially helped his nocturia though reports nocturia has come back. Urinary stream is not noted to be weak..? He reports having to urinate every 2 hours and nocturia has become a hindrance. He denies having urinary urgency. He does not feel the sensation of residual urine in his bladder. Reviewed medications for possible urinary frequency side effects .. Hyperlipidemia:? Continues on a statin therapy without any side effect, will continue to follow lipid panel [facility] Medical History Back pain Arthritis Sleep apnea Lumbar spondylosis Depression Personal history of nicotine dependence COPD (chronic obstructive pulmonary disease) HLD (hyperlipidemia) BPH (benign prostatic hyperplasia) Surgical History History of shoulder surgery History of total right hip arthroplasty Hx of left inguinal hernia repair History of total right knee replacement History of total left knee replacement History of esophagogastroduodenoscopy (EGD) History of colonoscopy History of bursectomy Family History Father Brain cancer Mother CVD (cardiovascular disease) Diabetes H/O heart artery stent Brother Breast cancer Lung cancer Social History Household Members: Other Household Members Other:: self Housing: House Are you a primary critical care transport nurse to a significant other at home: No Do you presently have visiting nurse or other home services: No Alcohol intake: former Patient Tobacco Use Status: Former Tobacco user Tobacco use type: Cigarette Cigarettes Per Day: 0 Years Smoked: 45 e-Cigarette/Vaping Use: Never Used Second Hand Smoke Exposure: No Substance Use Type: Marijuana service: No Current occupational status: unemployed Cognitive needs: No Hearing needs: No Vision needs: No Questionnaire PHQ-9 Over the last 2 weeks, how often have you been bothered by any of the following problems? 1. Little interest or pleasure in doing things: several days 2. Feeling down, depressed, or hopeless: not at all 3. Trouble falling or staying asleep, or sleeping too much: not at all 4. Feeling tired or having little energy: not at all 5. Poor appetite or overeating: not at all 6. Feeling bad about yourself - or that you are a failure or have let yourself or your family down: not at all 7. Trouble concentrating on things, such as reading the newspaper or watching television: not at all 8. Moving or speaking so slowly that other people could have noticed. Or the opposite - being so fidgety or restless that you have been moving around a lot more than usual: not at all 9. Thoughts that you would be better off or of hurting yourself in some way: not at all Total score: 1 Depression Screening Interpretation: Negative Depression Screening Done: Yes 70287 - PHQ-9 Billing: Yes Source: Developed by Drs. Wyatt Varela, Lise Gordillo, Gaetano Feldman and colleagues, with an educational bettina from [employer]. Thrive Questionnaire Date Thrive assessed: 09/10/24 I am a: Patient What is your living situation today?: I have a steady place to live Within the past 12 months, did the food you bought not last and you didn't have the money to get more?: I choose not to answer this question Within the past 12 months, did you worry whether your food would run out before you got money to buy more?: I choose not to answer this question Do you have trouble paying for medicines?: I choose not to answer this question Do you have trouble getting transportation to medical appointments?: I choose not to answer this question Do you have trouble paying your heating and electricity bill?: I choose not to answer this question Do you have trouble taking care of your child, family member or friend?: I choose not to answer this question Do you have trouble with day-to-day activities such as bathing, preparing meals, shopping, managing finances, etc.?: I choose not to answer this question Are you currently unemployed and looking for a job?: I choose not to answer this question Are you interested in more education?: I choose not to answer this question THRIVE Score: 0 AUDIT C Alcohol Use Questionnaire (AUDIT-C) 1. How often do you have a drink containing alcohol?: Never 3. How often do you have six or more drinks on one occasion?: Never Total Score: 0 Score Reviewed/Action Taken: No BIJU-7 AMB Questionnaire BIJU-7 Date BIJU - 7 assessed: 06/17/24 Source: Developed by Drs. Wyatt Varela, Lise Gordillo, Gaetano Feldman and colleagues, with an educational bettina from [employer]. Review of Systems Const Denies headache(s) Eyes Denies loss of vision ENT Denies vertigo, Denies dizziness, Denies headache(s) and Denies sore throat Card Denies chest pain, Denies leg edema and Denies lightheadedness Resp Denies cough, Denies hemoptysis and Denies wheezing GI Denies abdominal pain, Denies melena, Denies constipation, Denies diarrhea and Denies vomiting Denies dysuria, Denies urinary frequency and Denies urinary urgency Musc Denies arthralgias, Denies joint swelling, Denies numbness and Denies tingling Neuro Denies Abnormal speech present, Denies behavioral changes, Denies vertigo, Denies dizziness, Denies headache(s), Denies loss of vision, Denies memory loss, Denies numbness and Denies tingling Psych Denies anxiety, Denies behavioral changes, Denies depression, Denies memory loss and Denies panic attacks Brenden/Lymph Denies easy bleeding and Denies easy bruising Aller/Immun Denies wheezing Physical exam (Primary Care) Vital Signs: Last Vital Signs Pulse 82 09/10/24 16:07 BP 110/76 09/10/24 16:07 Pulse Ox 92 09/10/24 16:07 Oxygen Delivery Method Room Air 09/10/24 16:07 BMI result Body Mass Index 28.1 Tobacco/Smoking Status: Tobacco use Status Tobacco use date assessed 09/10/24 09/10/24 16:09 Patient Tobacco Use Status Former Tobacco user 09/10/24 16:00 Tobacco use type Cigarette 09/10/24 16:00 e-Cigarette/Vaping Use Never Used 09/10/24 16:00 PHQ-9: PHQ-9 Score PHQ-9: Total score 1 09/10/24 16:27 Depression Screening Interpretation: Negative Thrive Assessment: Date of Thrive Assessment Date Thrive assessed 09/10/24 09/10/24 16:00 Const General: healthy appearing, no acute distress, alert and awake Nutritional Appearance: well nourished Orientation/consciousness: oriented to person, oriented to place and oriented to time HENMT Ears: TM's normal bilaterally General nose exam: Normal nasal mucous membranes and turbinates present Eyes Conjunctivae: conjunctivae normal Sclerae: sclerae normal Pupils: Equal, round and reactive pupils present Neck Neck: Yes no lymphadenopathy and Yes no JVD Thyroid: Thyroid normal Carotids: no bruits Resp Effort & Inspection: normal respiratory effort and not tachypneic Auscultation: no crackles, no rales, no rhonchi and no wheezes Cardio Rate: regular rate Rhythm: regular rhythm Heart sounds: no murmurs and normal S1 and S2 GI Palpation (GI): Soft to palpation, nontender, no hepatomegaly and no splenomegaly Auscultation: normal bowel sounds Skin General skin exam: no rashes or lesions noted and dry skin Neuro General: oriented to person, oriented to place and oriented to time Cranial nerves: Yes Equal, round and reactive pupils present Speech: No Abnormal speech present Gait exam (Neuro): Normal gait present Motor exam (neuro): no tremor noted Extrem Right upper extremity: full ROM Left upper extremity: full ROM Right lower extremity: full ROM; no edema Left lower extremity: full ROM; no edema Psych Mental Status: mental status grossly normal Speech and movement: Normal speech and movement present Affect: normal affect Attitude: cooperative Thought process: Normal thought process present Coding Level of Care Code Est Pt Level 4 (11172) Diagnoses Failed total left knee replacement, subsequent encounter T84.093D Encounter type: subsequent encounter Simple chronic bronchitis J41.0 COPD type: chronic bronchitis Chronic bronchitis type: simple 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 He reports his pain is fairly controlled in his range of motion and stability of left knee has improved.. (2) COPD (chronic obstructive pulmonary disease): Comment: THIS GENTLEMAN HAS PAST HISTORY OF SMOKING. PER PULMONARY FUNCTION TEST HE HAS MILD DEGREE OF OBSTRUCTIVE AIRWAY DISORDER, WITHOUT ANY POSITIVE RESPONSE TOBDs. SPIROMETRY TODAY IN THE OFFICE AGAIN SHOWS A VERY MILD OBSTRUCTIVE DISORDER BUT NOT ANY WORSE THAN BEFORE. HE DOES HAVE SYMPTOMS OF MILD ACUTE BRONCHITIS PROBABLY VIRAL, IN THE LAST 1 WEEK. Code(s): J44.9 - Chronic obstructive pulmonary disease, unspecified Category: Medical Qualifiers: COPD type: chronic bronchitis Chronic bronchitis type: simple Qualified Code(s): J41.0 - Simple chronic bronchitis Plan: Patient reports his breathing has been stable. Does have access to an albuterol inhaler for rescue. 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 (3) HLD (hyperlipidemia): Code(s): E78.5 - Hyperlipidemia, unspecified Category: Medical Qualifiers: Hyperlipidemia type: pure hypertriglyceridemia Qualified Code(s): E78.1 - Pure hyperglyceridemia Plan: Patient's most recent lipid panel showing excellent control of his total cholesterol and LDL. He continues on atorvastatin 20 mg with good effect. Goal LDL is to remain below 130 Orders: Orders Lipid Panel 09/10/24 E78.1 - Pure hyperglyceridemia Complete Blood Count no Diff 09/10/24 E78.1 - Pure hyperglyceridemia Comprehensive [place]. Panel Fast 09/10/24 E78.1 - Pure hyperglyceridemia Medications: Discontinued aspirin Discontinued Reason: Doctor's Order 325 mg PO BID 42 days 84 tabs 0RF celecoxib Discontinued Reason: Doctor's Order 200 mg PO BID 30 days 60 caps 0RF
[2024-09-10 16:07] VITALS: BP 110/76; PULSE 82; O2SAT 92; BMI 28.1
== END 2024-09-10 16:41 | disposition home or self-care (01) ==
LOC: HO.HMCH 15:52
PROVIDERS: PCP Physician Assistant; Visit Provider Physician Assistant
DX: J41.0 Simple chronic bronchitis (principal); T84.093D Other mechanical complication of internal left knee prosthesis, subsequent encounter; E78.1 Pure hyperglyceridemia

== ENCOUNTER → 2024-09-10 15:51 | Outpatient (BNVA) | payer OTHER, SELFPAY | PROVIDERS: PCP Physician Assistant; Visit Provider Physician Assistant | DX: J41.0 Simple chronic bronchitis (principal); T84.093D Other mechanical complication of internal left knee prosthesis, subsequent encounter; E78.1 Pure hyperglyceridemia; Z79.899 Other long term (current) drug therapy | CPT/HCPCS: 96127; 99212 ==

== ENCOUNTER 2024-09-11 09:54 | Outpatient (RCR) | payer OTHER, SELFPAY ==
--- NOTE | 2024-09-22 09:18 | MHC.PT.DC ---
[facility] [place] Office [place] Office [place] Office [address] [place] [address] [phone] F: [phone] F: [phone] F: [phone] F: [phone] Physical Therapy Discharge Report Diagnosis: TKA REVISION (KP) Date of Surgery: 07/28/24 Date of Evaluation: 08/28/24 Date of Discharge: 09/18/24 Treatments to Date: 2 Cancellations to Date: 0 No Shows to Date: 3 Discharge Status: Patient Elected to Stop Discharge Summary: Pt phoned and self D/Jose Electronically signed by: Chen Arriaga PT DPT Please sign and return to therapist. Thank you for your referral.
== END 2024-09-22 09:18 | disposition home or self-care (01) ==
LOC: HO.PT 09:54
PROVIDERS: PCP Physician Assistant; Visit Provider Orthopaedic Surgery
DX: Z47.89 Encounter for other orthopedic aftercare (principal); Z96.659 Presence of unspecified artificial knee joint
CPT/HCPCS: 97110; 97140; 97161

== ENCOUNTER 2024-10-13 17:31 | Emergency (ER) | payer OTHER, SELFPAY ==
[2024-10-13 18:02] VITALS: BP 95/61; PULSE 64; RESP 20; TEMP 36.6; O2SAT 94; BMI 28.1
--- NOTE | 2024-10-13 18:43 | ED.EYEPROB ---
HPI - Eye Problem General Chief complaint: Eye Problems Stated complaint: something in the left eye Time Seen by Provider: 10/13/24 18:51 Source: patient Mode of arrival: ambulatory Limitations: no limitations History of Present Illness ED Provider: samantha gregory np HPI Narrative: patient is a 64-year-old male who presents emergency department for evaluation. At approximately 09:00 this morning he got saw dust into the left eye. Now reports redness, blurred vision, pain, foreign body sensation. Attempted to flush his eye out at home and was unsuccessful. denies headache, posterior eye pain or pressure, no overt penetrating injury, No bloody to the eye. Related Data Home Medications ?Medication ?Instructions ?Recorded ?Confirmed diclofenac sodium 50 mg 50 mg PO BID PRN pain 06/16/24 09/10/24 tablet,delayed release fluoxetine 40 mg capsule 40 mg PO DAILY 06/16/24 09/10/24 alfuzosin 10 mg tablet,extended 10 mg PO DAILY 07/28/24 09/10/24 release 24 hr (Uroxatral) Previous Rx's ?Medication ?Instructions ?Recorded albuterol sulfate 90 mcg/actuation 1 inh inhalation QID PRN shortness 08/21/22 aerosol inhaler of breath or wheezing 30 days #8.5 grams Hinge knee brace #1 ea 03/18/24 ibuprofen 600 mg tablet 600 mg PO Q8H PRN pain #20 tabs 06/10/24 walker #1 ea 07/09/24 atorvastatin 20 mg tablet 20 mg PO DAILY #90 tabs 07/10/24 bupropion HCl 150 mg 24 hr tablet, 150 mg PO QAM 90 days #90 tabs 07/13/24 extended release buprenorphine HCl 900 mcg buccal 900 mcg buccal Q12H pain 30 days 07/23/24 film (Belbuca) #60 ea acetaminophen 325 mg tablet 650 mg (2 x 325 mg) PO Q6H PRN 07/29/24 Pain, Mild 1-3,Fever,Headache 30 days #240 tabs docusate sodium 100 mg capsule 100 mg PO BID 30 days #60 caps 07/29/24 gabapentin 300 mg capsule 300 mg PO BID 30 days #60 caps 08/31/24 quetiapine 200 mg tablet (Seroquel) 200 mg PO BEDTIME 90 days #90 tabs 09/08/24 finasteride 5 mg tablet 5 mg PO DAILY #90 tabs 10/02/24 tobramycin 0.3 % eye drops 2 drp ophthalmic (eye) Q4H #5 mL 10/13/24 Allergies Allergy/AdvReac Type Severity Reaction Status Date / Time No Known Allergies Allergy Verified 10/13/24 18:04 Review of Systems Review of Systems: Yes all other systems are reviewed and are negative [facility] Past Medical History Attestation statement: The following information was validated with the patient. Source: old records reviewed Medical History Back pain Arthritis Sleep apnea Lumbar spondylosis Depression Personal history of nicotine dependence COPD (chronic obstructive pulmonary disease) HLD (hyperlipidemia) BPH (benign prostatic hyperplasia) Surgical History History of shoulder surgery History of total right hip arthroplasty Hx of left inguinal hernia repair History of total right knee replacement History of total left knee replacement History of esophagogastroduodenoscopy (EGD) History of colonoscopy History of bursectomy Family History Family History Father Brain cancer Mother CVD (cardiovascular disease) Diabetes H/O heart artery stent Brother Breast cancer Lung cancer Social History Social History Household Members: Other Household Members Other:: self Housing: House Are you a primary personal caregiver to a significant other at home: No Do you presently have visiting nurse or other home services: No Unable to assess alcohol history related to: Unknown Alcohol intake: former Patient Tobacco Use Status: Former Tobacco user Tobacco use type: Cigarette Cigarettes Per Day: 0 Years Smoked: 45 Smoked in Last 30 Days: No e-Cigarette/Vaping Use: Never Used Second Hand Smoke Exposure: No Use of substances other than those prescribed or required for medical reasons: Unknown Substance Use Type: Marijuana Advance Directives: No Advance Directives Information Provided: No Do you have a plan to hurt others: No Plan service: No Current occupational status: unemployed Cognitive needs: No Hearing needs: No Vision needs: No Physical Exam Vital Signs: Vital Signs: Last Vital Signs Temp 98.4 F 10/13/24 19:43 Pulse 67 10/13/24 19:43 Resp 18 10/13/24 19:43 BP 128/62 10/13/24 19:43 Pulse Ox 93 10/13/24 19:43 O2 Del Method Room Air 10/13/24 19:43 BMI result Body Mass Index 28.1 Appearance: Alert.?Oriented to person, place and time. No acute distress.?Normal affect. Eyes: Pupils equal, round and reactive to light.? EOMI. No nystagmus. Conjunctival normal. Sclera normal. Visual acuity: Left - 20/40, Right - 20/30. Both 20/30. Fluorescein staining with positive uptake at 02:00 on the left. No chemosis. No hyphema. ENT: Pharynx normal.?? Neck: Normal inspection.? Neck supple.?? CVS: Heart sounds normal. Normal heart rate and rhythm.? Pulses normal.?? Respiratory: No respiratory distress.? Lung sounds clear to auscultation bilaterally?? Skin: Skin warm and dry.? Normal skin color.? Extremities: No lower extremity edema.? Neuro: Moves all extremities spontaneously. Sensation intact bilaterally. CN II-XII intact. No focal neuro deficits. Ambulates with normal steady gait. Medications Administered Discontinued Medications Generic Name Dose Route Start Last Admin Trade Name Freq PRN Reason Stop Dose Admin Fluorescein Sodium 1 strip 10/13/24 18:54 10/13/24 19:27 Fluorescein Sodium Strip EYE-LEFT 10/13/24 18:55 1 strip ONCE ONE Administration Tetracaine HCl 1 drop 10/13/24 18:54 10/13/24 19:27 Tetracaine Hcl/Pf 0.5% Oph Ksenia 4 Ml Drops EYE-LEFT 10/13/24 18:55 1 drop ONCE ONE Administration Tobramycin Sulfate 2 drop 10/13/24 19:26 10/13/24 19:41 Tobramycin Sulfate 0.3% Ksenia Op 5 Ml Btl EYE-LEFT 10/13/24 19:27 2 drop ONCE ONE Administration Medical Decision Making Medical Decision Making MDM Narrative: patient is a 64-year-old male with past medical history of osteoarthritis, TERRA, depression, COPD, hyperlipidemia, BPH, failed back syndrome who presents emergency department for evaluation of a painful left eye after getting saw dust into it earlier this morning. on examination there is no foreign body to the eye, lid eversion is negative. Fluorescein uptake consistent with corneal abrasion at approximately 02:00 over the iris. Sclera is injected. Conjunctiva is normal. No hordeolum or chalazion. No subconjunctival hemorrhage. No hyphema, no ecchymosis. No evidence of periorbital cellulitis. EOMI, do not suspect orbital cellulitis. An initial dose of antibiotic drops in the emergency department, sent remainder to pharmacy, outpatient follow-up with Ophthalmology and strict return precautions discussed Differential Diagnosis Differential Diagnoses: The differential diagnosis associated with the presentation includes (See narrative above) Discharge Plan Discharge Clinical Impression: Corneal abrasion Patient Disposition: Home, Self-Care Instructions: Corneal Abrasion (ED) Additional Instructions: you were found to have a corneal abrasion to your left today. you were given 1st dose of antibiotic eyedrops in the emergency department. Prescription Has been sent to your pharmacy for the remaining doses. Please try not to rub the eye as this may worsen your symptoms. You will need to follow-up outpatient with Ophthalmology; the preventive medicine specialist for re-evaluation. Please contact their office tomorrow to arrange for a follow-up visit. Return to emergency department any new or worsening symptoms or concerns. Prescriptions: New tobramycin 0.3 % drops 2 drp ophthalmic (eye) Q4H Qty: 5 0RF No Action (DME) Hinge knee brace See Rx Instructions .ROUTE .MEDSUPPLY Qty: 1 0RF Rx Instructions: duration-lifetime ibuprofen 600 mg tablet 600 mg PO Q8H PRN (Reason: pain) Qty: 20 0RF atorvastatin 20 mg tablet 20 mg PO DAILY Qty: 90 3RF bupropion HCl 150 mg tablet extended release 24 hr 150 mg PO QAM 90 Days Qty: 90 3RF buprenorphine HCl [Belbuca] 900 mcg film 900 mcg buccal Q12H 30 Days Qty: 60 3RF gabapentin 300 mg capsule 300 mg PO BID 30 Days Qty: 60 3RF quetiapine [Seroquel] 200 mg tablet 200 mg PO BEDTIME 90 Days Qty: 90 2RF finasteride 5 mg tablet 5 mg PO DAILY Qty: 90 0RF fluoxetine 40 mg capsule 40 mg PO DAILY diclofenac sodium 50 mg tablet,delayed release (DR/EC) 50 mg PO BID PRN (Reason: pain) alfuzosin [Uroxatral] 10 mg tablet extended release 24 hr 10 mg PO DAILY Rx Instructions: Advised to hold doxazosin acetaminophen 325 mg Tablet 650 mg PO Q6H PRN (Reason: Pain, Mild 1-3,Fever,Headache) 30 Days Qty: 240 0RF docusate sodium 100 mg Capsule 100 mg PO BID 30 Days Qty: 60 0RF albuterol sulfate 90 mcg/actuation HFA aerosol inhaler 1 inh inhalation QID PRN (Reason: shortness of breath or wheezing) 30 Days Qty: 8.5 1RF (DME) walker Misc See Rx Instructions .MEDSUPPLY Qty: 1 0RF Rx Instructions: Folding Front wheeled walker duration 99 days Referrals: Nathaniel Bruce PA-C [Primary Care Provider, Internal Medicine] Jose Beavers [Physician, Ophthalmology] Interventions: ED Discharge Assessment Last Done: 10/13/24 19:43 Discharge Date/Time: 10/13/24 19:43 Print Language: Romansh
[2024-10-13 19:14] VITALS: BP 128/62; PULSE 67; RESP 18; TEMP 36.9; O2SAT 93
[2024-10-13] MEDS: Tetracaine HCl/PF 0.5% Oph Sol 4 ML DROPS 1 DROP EYE-LEFT (19:27)
[2024-10-13] MEDS: Fluorescein Sodium STRIP 1 STRIP EYE-LEFT (19:27)
[2024-10-13] MEDS: Tobramycin Sulfate 0.3% Sol Op 5 ML BTL 2 DROP EYE-LEFT (19:41)
[2024-10-13 19:43] VITALS: BP 128/62; PULSE 67; RESP 18; TEMP 36.9; O2SAT 93
== END 2024-10-13 19:43 | disposition home or self-care (01) ==
PROVIDERS: Emergency Provider Emergency Medicine; PCP Physician Assistant
DX: S05.02XA Injury of conjunctiva and corneal abrasion without foreign body, left eye, initial encounter (principal); X58.XXXA Exposure to other specified factors, initial encounter; Y93.9 Activity, unspecified; Y92.9 Unspecified place or not applicable; Y99.8 Other external cause status
CPT/HCPCS: 99283; 99284

== ENCOUNTER 2025-01-22 14:30 | Outpatient (AMB) | payer OTHER, SELFPAY ==
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
[2025-01-22 14:45] VITALS: BP 100/62; PULSE 73; TEMP 36.3; O2SAT 98; BMI 28.1
== END 2025-01-22 15:09 | disposition home or self-care (01) ==
LOC: HO.HMCH 14:31
PROVIDERS: PCP Physician Assistant; Visit Provider Internal Medicine
DX: R20.2 Paresthesia of skin (principal); M54.9 Dorsalgia, unspecified

== ENCOUNTER → 2025-01-22 14:30 | Outpatient (BNVA) | payer OTHER, SELFPAY | PROVIDERS: PCP Physician Assistant; Visit Provider Internal Medicine | DX: R20.2 Paresthesia of skin (principal); M54.9 Dorsalgia, unspecified; G89.29 Other chronic pain | CPT/HCPCS: 99212 ==

== ENCOUNTER 2025-01-26 14:29 | Outpatient (AMB) | payer OTHER, SELFPAY ==
--- NOTE | 2025-01-26 14:35 | A.OFFPC_ITS ---
Vital Signs 01/26/25 14:37 Height 5 ft 9 in Weight 182 lb BMI 26.9 BP 120/62 Blood Pressure Location Lt brachial Position Sitting Pulse 84 Pulse Source Pulse Oximeter Temp 97.1 F Temp Source Temporal Artery Scan Pulse Oximetry (%) 95 Oxygen Delivery Method Room Air Intake Visit Reasons: 4 month f/u Intake Note: Patient is here to follow up on COPD, Failed back syndrome, HLD, BPH. Data Warehousing Architect Required: No Transportation Planner: Not Required per policy Accompanied by: Self / Same As Patient Allergies No Known Allergies Allergy (Verified 01/26/25 14:45) Medication List - Last Reconciled 01/26/25 by Nathaniel Bruce PA-C acetaminophen 650 mg (2 x 325 mg) PO Q6H PRN 30 days albuterol sulfate 90 mcg/actuation 1 inh inhalation QID PRN 30 days alfuzosin ER (Uroxatral) 10 mg PO DAILY atorvastatin 20 mg PO DAILY buprenorphine HCl (Belbuca) 900 mcg buccal Q12H 30 days bupropion HCl XL 150 mg PO QAM 90 days diclofenac sodium 50 mg PO BID PRN docusate sodium 100 mg PO BID 30 days finasteride 5 mg PO DAILY fluoxetine 40 mg PO DAILY gabapentin 300 mg PO BID 30 days [Hinge knee brace duration-lifetime] ibuprofen 600 mg PO Q8H PRN quetiapine (Seroquel) 200 mg PO BEDTIME 90 days tobramycin 0.3% 2 drps ophthalmic (eye) Q4H walker Folding Front wheeled walker duration 99 days Tobacco use date assessed: 01/26/25 Dental Screening Dental Screen Date: 04/20/24 HPI 4 month f/u HPI Details Patient is a 64-year-old male here today for follow-up visit. ? Patient has a past medical history significant for tobacco dependency, failed back syndrome, COPD, hyperlipidemia, BPH, opiate dependency, history of alcohol dependency(in remission). Concerns--> patient is interested in seeing an eye doctor as he has been having difficulty with his vision when reading up close .. Failed back syndrome:? Was followed by pain management here in [place] though has lost follow-up due to apparent incorrect pill count. He continues on Belbuca at highest dose which has been somewhat effective for him. The patient reports chronic back pain that is persistent and varies in severity, impacting his quality of life significantly. He describes the pain as constant, located in the same area, and exacerbated by physical activity, with some days being more severe than others. The patient has not undergone back surgery but is considering consulting a specialist for further evaluation. COPD:? Now followed by pulmonology, has gotten pulmonary function test that was consistent with the COPD.? Has albuterol inhaler and Flovent available to him to which he uses on a p.r.n. basis. He does report still smoking a few cigarettes per week. .. BPH:? He experiences urinary frequency, needing to urinate every hour and a half to two hours, which disrupts his sleep. The patient is interested in trying medication to manage this condition and has previously seen a urologist PLAN: Will supply patient with oxybutynin to help with urinary frequency as he may be experiencing a spastic bladder. .. Hyperlipidemia:? Continues on a statin therapy without any side effect, will continue to follow lipid panel [facility] Medical History (Updated 01/26/25 @ 15:07 by Nathaniel Bruce PA-C) Back pain Arthritis Sleep apnea Lumbar spondylosis Depression Personal history of nicotine dependence COPD (chronic obstructive pulmonary disease) HLD (hyperlipidemia) BPH (benign prostatic hyperplasia) Surgical History History of shoulder surgery History of total right hip arthroplasty Hx of left inguinal hernia repair History of total right knee replacement History of total left knee replacement History of esophagogastroduodenoscopy (EGD) History of colonoscopy History of bursectomy Family History Father Brain cancer Mother CVD (cardiovascular disease) Diabetes H/O heart artery stent Brother Breast cancer Lung cancer Social History Household Members: Other Household Members Other:: self Housing: House Are you a primary infant caregiver to a significant other at home: No Do you presently have visiting nurse or other home services: No Alcohol intake: former Patient Tobacco Use Status: Former Tobacco user Tobacco use type: Cigarette Cigarettes Per Day: 0 Years Smoked: 45 e-Cigarette/Vaping Use: Never Used Second Hand Smoke Exposure: Yes Substance Use Type: Marijuana service: No Current occupational status: unemployed Cognitive needs: No Hearing needs: No Vision needs: Yes (Reading glasses) Questionnaire Thrive Questionnaire Date Thrive assessed: 09/10/24 I am a: Patient What is your living situation today?: I have a steady place to live Within the past 12 months, did the food you bought not last and you didn't have the money to get more?: I choose not to answer this question Within the past 12 months, did you worry whether your food would run out before you got money to buy more?: I choose not to answer this question Do you have trouble paying for medicines?: I choose not to answer this question Do you have trouble getting transportation to medical appointments?: I choose not to answer this question Do you have trouble paying your heating and electricity bill?: I choose not to answer this question Do you have trouble taking care of your child, family member or friend?: I choose not to answer this question Do you have trouble with day-to-day activities such as bathing, preparing meals, shopping, managing finances, etc.?: I choose not to answer this question Are you currently unemployed and looking for a job?: I choose not to answer this question Are you interested in more education?: I choose not to answer this question THRIVE Score: 0 BIJU-7 AMB Questionnaire BIJU-7 Date BIJU - 7 assessed: 06/17/24 Source: Developed by Drs. Wyatt Varela, Lise Gordillo, Gaetano Feldman and colleagues, with an educational bettina from [employer]. Review of Systems Const Denies headache(s) Eyes Denies loss of vision ENT Denies vertigo, Denies dizziness, Denies headache(s) and Denies sore throat Card Denies chest pain, Denies leg edema and Denies lightheadedness Resp Denies cough, Denies hemoptysis and Denies wheezing GI Denies abdominal pain, Denies melena, Denies constipation, Denies diarrhea and Denies vomiting Denies dysuria, Denies urinary frequency and Denies urinary urgency Musc Denies arthralgias, Denies joint swelling, Denies numbness and Denies tingling Neuro Denies Abnormal speech present, Denies behavioral changes, Denies vertigo, Denies dizziness, Denies headache(s), Denies loss of vision, Denies memory loss, Denies numbness and Denies tingling Psych Denies anxiety, Denies behavioral changes, Denies depression, Denies memory loss and Denies panic attacks Brenden/Lymph Denies easy bleeding and Denies easy bruising Aller/Immun Denies wheezing Physical exam (Primary Care) Vital Signs: Last Vital Signs Temp 97.1 F 01/26/25 14:37 Pulse 84 01/26/25 14:37 BP 120/62 01/26/25 14:37 Pulse Ox 95 01/26/25 14:37 Oxygen Delivery Method Room Air 01/26/25 14:37 BMI result Body Mass Index 26.9 Tobacco/Smoking Status: Tobacco use Status Tobacco use date assessed 01/26/25 01/26/25 14:40 Patient Tobacco Use Status Former Tobacco user 01/26/25 14:40 Tobacco use type Cigarette 01/26/25 14:40 e-Cigarette/Vaping Use Never Used 01/26/25 14:40 Thrive Assessment: Date of Thrive Assessment Date Thrive assessed 09/10/24 01/26/25 14:40 Const General: healthy appearing, no acute distress, alert and awake Nutritional Appearance: well nourished Orientation/consciousness: oriented to person, oriented to place and oriented to time HENMT Ears: TM's normal bilaterally General nose exam: Normal nasal mucous membranes and turbinates present Eyes Conjunctivae: conjunctivae normal Sclerae: sclerae normal Pupils: Equal, round and reactive pupils present Neck Neck: Yes no lymphadenopathy and Yes no JVD Thyroid: Thyroid normal Carotids: no bruits Resp Effort & Inspection: normal respiratory effort and not tachypneic Auscultation: no crackles, no rales, no rhonchi and no wheezes Cardio Rate: regular rate Rhythm: regular rhythm Heart sounds: no murmurs and normal S1 and S2 GI Palpation (GI): Soft to palpation, nontender, no hepatomegaly and no splenomegaly Auscultation: normal bowel sounds Skin General skin exam: no rashes or lesions noted and dry skin Neuro General: oriented to person, oriented to place and oriented to time Cranial nerves: Yes Equal, round and reactive pupils present Speech: No Abnormal speech present Gait exam (Neuro): Normal gait present Motor exam (neuro): no tremor noted Extrem Right upper extremity: full ROM Left upper extremity: full ROM Right lower extremity: full ROM; no edema Left lower extremity: full ROM; no edema Psych Mental Status: mental status grossly normal Speech and movement: Normal speech and movement present Affect: normal affect Attitude: cooperative Thought process: Normal thought process present Coding Level of Care Code Est Pt Level 4 (20770) Diagnoses Degeneration of intervertebral disc of lumbar region with discogenic back pain and lower extremity pain M51.362 Disc-related pain type: discogenic back pain and lower extremity pain Presbyopia of both eyes H52.4 Simple chronic bronchitis J41.0 COPD type: chronic bronchitis Chronic bronchitis type: simple 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 Fortunately does not have any radiculopathy down lower extremities though continues to have pain located over the left side of his paraspinous musculature. Did have an MRI in 2023 which did show-->There is multilevel degenerative spondylosis of the lumbar spine with slight grade 1 retrolisthesis of L1 on L2, L2 on L3, and L3 on L4. Slight grade 1 anterolisthesis of L5 on S1. Mild canal stenosis at L1-L2 and L2-L3. Patient interested in further evaluation due to his chronicity of his low back pain. Will try for a lumbar spine x-ray and an MRI to evaluate for any worsening lumbar spine disc etiology. He does understand he may need to do physical therapy We did discuss his pain management thus he is still continuing with Belbuca at highest dose. Will supply patient with low-dose oxycodone to use for breakthrough pain on a as needed basis. He does understand that this oxycodone script is not a regular occurrence in his only for emergency use only. (2) Presbyopia of both eyes: Code(s): H52.4 - Presbyopia Category: Medical Plan: Will refer to ophthalmology for evaluation of his eyes. (3) COPD (chronic obstructive pulmonary disease): Comment: THIS GENTLEMAN HAS PAST HISTORY OF SMOKING. PER PULMONARY FUNCTION TEST HE HAS MILD DEGREE OF OBSTRUCTIVE AIRWAY DISORDER, WITHOUT ANY POSITIVE RESPONSE TOBDs. SPIROMETRY TODAY IN THE OFFICE AGAIN SHOWS A VERY MILD OBSTRUCTIVE DISORDER BUT NOT ANY WORSE THAN BEFORE. HE DOES HAVE SYMPTOMS OF MILD ACUTE BRONCHITIS PROBABLY VIRAL, IN THE LAST 1 WEEK. Code(s): J44.9 - Chronic obstructive pulmonary disease, unspecified Category: Medical Qualifiers: COPD type: chronic bronchitis Chronic bronchitis type: simple Qualified Code(s): J41.0 - Simple chronic bronchitis Plan: Patient reports his breathing has been stable. Does have access to an albuterol inhaler for rescue. Patient has gotten clearance from his clinical rehab specialist for surgery. (4) HLD (hyperlipidemia): Code(s): E78.5 - Hyperlipidemia, unspecified Category: Medical Qualifiers: Hyperlipidemia type: pure hypertriglyceridemia Qualified Code(s): E78.1 - Pure hyperglyceridemia Plan: Patient's most recent lipid panel showing excellent control of his total cholesterol and LDL. He continues on atorvastatin 20 mg with good effect. Goal LDL is to remain below 130 (5) Urinary frequency: Code(s): R35.0 - Frequency of micturition Category: Medical Plan: The patient will be prescribed oxybutynin to manage urinary frequency, with a follow-up to assess its effectiveness. Orders: Orders XR lumbar spine 4V min 01/26/25 M96.1 - Postlaminectomy syndrome, not elsewhere classified MR lumbar spine wo con 01/26/25 M51.362 - Other intervertebral disc degeneration, lumbar region with discogenic back pain and lower extremity pain Referrals Ophthalmology Referral H52.4 - Presbyopia Medications: New oxybutynin chloride ER 10 mg PO DAILY 90 tabs 1RF 90 days R35.0 - Frequency of micturition oxycodone To use for breakthrough pain 5 mg PO BID PRN 12 tabs 0RF pain 6 days M96.1 - Postlaminectomy syndrome, not elsewhere classified
[2025-01-26 14:37] VITALS: BP 120/62; PULSE 84; TEMP 36.2; O2SAT 95; BMI 26.9
--- OUTSIDE RECORDS SUMMARY | 2025-01-26 17:22 | XMS_ITS | Clinical Summary ---
Author Organization [facility] Address [address] [phone] Phone Care Team Providers Care Director Of Collections And Archives Name Role Phone Chevy Dowling MD Primary Care Provider [phone] Medications FLUoxetine (PROZAC) 20 MG capsule 1 capsule in the morning Orally Once a day Active cephalexin (KEFLEX) 500 MG capsule 4 capsules Orally 1 hour prior to dental appt 07/18/2015 Active OMEPRAZOLE ORAL Acti ve morphine (MS CONTIN) 15 MG 12 hr tablet 1-2 tablet Orally every 4 hrs Active Social History Tobacco Use Types Packs/Day Years Used Date Smoking Tobacco: Never Assessed Education Answer Date Recorded Are you interested in more education? Not on daniella e 08/10/2022 Are you concerned about learning? Not on file 08/10/2022 No 08/10/2022 No 08/10/2022 Digital Access Answer Date Recorded No 09/08/2022 No 09/08/2022 Reliable internet access at home? Not on file 09/08/2022 Device with a working camera? Not on file Sex and Gender Information Value Date Recorded Sex Assigned at Not on file Legal Sex Male 9:46 PM EDT Gender Identity Not on file Sexual Orientation Not on file Last Filed Vital Signs Vital Sign Reading Time Taken Comments Blood Pressure 116/60 06/09/2015 9:06 AM EST Pulse 75 06/09/2015 9:06 AM EST Temperature - - Respiratory Rate - - Oxygen Saturation - - Inhaled Oxygen Concentration - - Weight 86.2 kg (190 lb) 06/09/2015 9:06 AM EST Height 175.3 cm (5' 9 ) 06/09/2015 9:06 AM EST Body Mass Index 28.06 06/09/2015 9:06 AM EST Plan of Treatment Health Maintenance Due Date Last Done Comments LIPID PANEL 1961 DEPRESSION SCREENING 1973 SMOKING Hx and SMOKELESS TOBACCO SCREENING 1974 HEPATITIS C SCREENING 1979 HIV ONE-TIME SCREENING (18-65 YEARS) 1979 COLOGUARD 2006 COLONOSCOPY 2006 COLORECTAL CANCER SCREENING 2006 FIT TEST 2006 FOBT 2006 SIGMOIDOSCOPY 2006 VIRTUAL COLONOSCOPY 2006 ZOSTER VACCINES (1 of 2) 2011 PNEUMOCOCCAL VACCINES (50+ years) (2 of 2 - PCV) 01/10/2021 01/11/2020 INFLUENZA VACCINE (#1) 2024 , 01/12/2019, 02/07/2018, Additional history exists COVID-19 VACCINE (3 - season) 2024 08/22/2020, 08/01/2020 Adult Td,Tdap Booster 08/30/2030 08/30/2020 , 08/27/2018, 10/19/2015, Additional history exists RSV VACCINE (1 - 1-dose 75+ series) 2036 HEPATITIS A VACCINES Aged Out No long er eligible based on patient's age to complete this topic HIB VACCINES Aged Out No longer eligi ble based on patient's age to complete this topic MENINGOCOCCAL VACCINES (ACWY) Aged Out No longer eligible based on patient's age to complete this topic MENINGOCOCCAL VACCINES (B) Aged Out N o longer eligible based on patient's age to complete this topic Medical Devices Not on file Care Teams Director Of Collections And Archives Relationship Specialty Start Date End Date Chevy Dowling MD PCP - General 01/29/17 Additional Source Comments The information contained in this document represents components of the legal health record. It is not the complete legal health record.[facility]
== END 2025-01-26 15:17 | disposition home or self-care (01) ==
LOC: HO.HMCH 14:29
PROVIDERS: PCP Physician Assistant; Visit Provider Physician Assistant
DX: M51.362 Other intervertebral disc degeneration, lumbar region with discogenic back pain and lower extremity pain (principal); H52.4 Presbyopia; J41.0 Simple chronic bronchitis; E78.1 Pure hyperglyceridemia; R35.0 Frequency of micturition

== ENCOUNTER → 2025-01-26 14:29 | Outpatient (BNVA) | payer OTHER, SELFPAY | PROVIDERS: PCP Physician Assistant; Visit Provider Physician Assistant | DX: J41.0 Simple chronic bronchitis (principal); N40.0 Benign prostatic hyperplasia without lower urinary tract symptoms; J44.9 Chronic obstructive pulmonary disease, unspecified; E78.5 Hyperlipidemia, unspecified; M51.362 Other intervertebral disc degeneration, lumbar region with discogenic back pain and lower extremity pain; H52.4 Presbyopia; E78.1 Pure hyperglyceridemia; R35.0 Frequency of micturition; M96.1 Postlaminectomy syndrome, not elsewhere classified | CPT/HCPCS: 99212 ==

== ENCOUNTER → 2025-03-04 16:35 | Outpatient (BNV) | payer OTHER, SELFPAY | PROVIDERS: PCP Physician Assistant; Visit Provider Radiology Diagnostic Radiology | DX: M51.362 Other intervertebral disc degeneration, lumbar region with discogenic back pain and lower extremity pain (principal); M48.061 Spinal stenosis, lumbar region without neurogenic claudication | CPT/HCPCS: 72148 ==

== ENCOUNTER 2025-03-04 16:36 | Outpatient (REF) | payer OTHER, SELFPAY ==
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
--- OUTSIDE RECORDS SUMMARY | 2025-03-04 20:59 | XMS_ITS | Clinical Summary ---
Author Organization [facility] Address [address] [phone] Phone Care Team Providers Care It Application Support Analyst Name Role Phone Chevy Dowling MD Primary Care Provider [phone] Medications FLUoxetine (PROZAC) 20 MG capsule 1 [...] Medical Devices Not on file Care Teams It Application Support Analyst Relationship Specialty Start Date End Date Chevy Dowling MD PCP - General 01/29/17 Additional Source Comments The information contained in this document represents components of the legal health record. It is not the complete legal health record.[facility]
== END 2025-03-04 16:37 | disposition home or self-care (01) ==
LOC: HO.MRI 16:36
PROVIDERS: PCP Physician Assistant; Visit Provider Physician Assistant
DX: M51.362 Other intervertebral disc degeneration, lumbar region with discogenic back pain and lower extremity pain (principal)
CPT/HCPCS: 72148